=== PATIENT | female | born 1945 | race Caucasian/White ===

== ENCOUNTER 2023-04-06 12:28 | Observation (INO) | payer OTHER ==
--- OUTSIDE RECORDS SUMMARY | 2023-04-06 12:49 | XMS REPORT | Continuity of Care Document ---
:1945 Author Organization [facility] t Address [address] [facility] [facility]. [address] [place] [address] Care Team Providers Name Role Phone Latasha Calixto Primary Care Physician Juan M Clark Attending Clinician Unavailable LATASHA MCDERMOTT Attending Clinician Unavailable Latasha Calixto Attending Clinician Kyle Hughes Attending Clinician [phone] KYLE OLIVARES Attending Clinician Unavailable YOLI PELAYO Attending Clinician Unavailable Yoli Pelayo MD Attending Clinician King ALEX MD, James C Attending Clinician Unknown, Attending Attending Clinician Unavailable FARHDA CARTER III Attending Clinician Unavailable Kathya Shankar MD Attending Clinician KATHYA SHANKAR Attending Clinician Unavailable MARGARITA PRATT Attending Clinician Unavailable Margarita Harp Attending Clinician Doctor Unassigned, [place] Attending Clinician Unavailable YUAN BIRD Attending Clinician Unavailable YUAN BIRD Attending Clinician Unavailable Yuan Bird MD Attending Clinician Lab, Ang - Db Attending Clinician Unavailable Leatha Patton Attending Clinician Juan M Clark Admitting Clinician Unavailable MARGARITA PRATT Admitting Clinician Unavailable YUAN BIRD Admitting Clinician Unavailable Leatha Patton Admitting Clinician Payers Payer Name Policy Type Policy Number Effective Date Expiration Date Jamia gaviria [facility] [id number] 2021 [facility] 00:00:00 PPO Problems Condition Condition Condition Status Onset Resolution Last Treating Co mments Source Name Details Category Date Date Treatment Clinician Date Breast Breast Disease Active Univers mass, mass, 9-15 ity of right right 00:00: [place] [address] Medical Branch History of History of Disease Active U nivers right right 9-15 ity of breast breast 00:00: [place] cancer cancer Medical Branch Hyperchole Hyperchole Disease Active U stefano sterolemia sterolemia 8 it y of 00:00: [place] [facility] Memory Memory Disease Active Univers changes changes 7 ity of 00:00: [place] [address] Medical Branch Chronic Chronic Disease Active Univers fatigue fatigue 05-18 ity of 00:00: [place] [address] Medical Branch Essential Essential Disease Active Uni vers hypertensi hypertensi 05-16 it y of on on 00:00: [place] [address] Medical Branch UNRESTRAIN UNRESTRAI Diagnosis Active 2016-07-06 Memoria ED NURSE WOUND CARE JUANA NURSE WOUND CARE 07-06 17:11:00 l IN VAN IN VAN 00:00: Abdi [facility] 00 Active 07/06/2016 [facility] HYPOKALEMI HYPOKALEM Diagnosis Active 2016-07-17 Memoria A,HYPOMAGN IA,HYPOMAG 07-06 22:02:00 l ESIA NESIA 00:00: Abdi Active 00 07/06/2016 [facility] Hyperlipid Hyperlipi Problem Active 2016-07-15 Memoria emia demia 01:12:46 l (disorder) (disorder) He rmann Active Problem 07/15/2016 [facility] HYPOKALEMI HYPOKALEM Diagnosis Active 2016-07-17 Memoria A IA Active 22:02:00 l [facility] UTI Problem St. (urinary [facility] tract [facility] l [facility] COVID-[address] virus [facility] Weakness Problem Active [facility] Sepsis Problem [facility] Hypertensi Problem Active [facility] on [facility] Hypokalemi Problem Active [facility] a [facility] History of Past Illness Condition Condition Condition Status Onset Resolution Last Treating Co mments Source Name Details Category Date Date Treatment Clinician Date Discharge Problem 2016-07-15 2016-07-15 Memoria Diagnosis: Discharge 07-06 01:12:46 01:12:46 l Closed Diagnosis: 05:00: [place] n anterior Closed 00 displaced anterior type II displaced dens type II fracture dens of second fracture cervical of second vertebra cervical vertebra 07/06/2016 6 [facility] Allergies, Adverse Reactions, Alerts Allergy Allergy Status Severity Reaction(s) Onset Inactive Treating Comm ents Source Name Type Date Date Clinician Penicill Allergy Active [facility] ins to 6-15 [facility] Penicill [facility] Penicill Allergy Active [facility]. ins to 6-14 [facility] 21:20: [facility] Penicill DA [facility] naproxen naproxen Active John Patton NO KNOWN Drug Active Univers ALLERGIE Class ity of S [facility] Social History Social Habit Start Date Stop Date Quantity Comments Source Exposure to 2022 2022-12-06 Not sure [facility] SARS-CoV-2 00:00:00 10:34:00 [facility] (event) Branch Alcohol intake 2022-12-06 2022-12-06 Ex-drinker [facility] 00:00:00 00:00:00 (finding) [facility] Tobacco use and 2022-05-16 2022-05-16 Smokeless tobacco Un iversity of exposure 00:00:00 00:00:00 non-user [facility] Sex [birth year] Universit y of 00:00:00 00:00:00 [place] [facility] Smoking Status Start Date Stop Date Source Unknown if ever smoked [facility] Social [facility] Medications Ordered Filled Start Stop Current Ordering Indication Dosage Frequency Signature Comments Components Source Medication Medication Date Date Medication? Clinician (SIG) Name Name famotidine Yes 20mg Take 20 mg U nivers 20 mg 1-27 by mouth ity of tablet 15:19: in the [place] [address] morning Medical and 20 mg Branch in the evening. omeprazole 0 Yes 20mg Take 20 mg U nivers 20 mg 1-27 by mouth ity of capsule 15:19: in the [place] [address] morning. Medical Branch Melatonin 5 Yes Take by Uni vers mg tablet 1-27 mouth ity of 15:19: every [place] [address] evening. Medical Branch famotidine Yes 20mg Take 20 mg U nivers 20 mg 1-27 by mouth ity of tablet 15:19: in the [place] [address] morning Medical and 20 mg Branch in the evening. omeprazole Yes 20mg Take 20 mg U nivers 20 mg 1-27 by mouth ity of capsule 15:19: in the [place] [address] morning. Medical Branch Melatonin 5 0 Yes Take by Uni vers mg tablet 1-27 mouth ity of 15:19: every [place] [address] evening. Medical Branch atorvastati Yes [id number] 10mg Take 1 Univers n 10 mg 1-27 tablet by ity of tablet 00:00: mouth at [place] [address] bedtime. Medical Branch lisinopriL 2022-0 Yes [id number] 10mg Take 1 U nivers 10 mg 1-27 tablet by ity of tablet 00:00: mouth in [place] 00 the Medical morning. Branch atorvastati 2022-0 Yes [id number] 10mg Take 1 Univers n 10 mg 1-27 tablet by ity of tablet 00:00: mouth at [place] [address] bedtime. Medical Branch lisinopriL 2022-0 Yes [id number] 10mg Take 1 U nivers 10 mg 1-27 tablet by ity of tablet 00:00: mouth in [place] 00 the Medical morning. Branch ATORVASTATI 2022-0 Yes [id number] 10mg TAKE 1 Univers N 10 mg 1-19 TABLET BY ity of tablet 00:00: MOUTH AT [place] 00 BEDTIME Medical Branch LISINOPRIL 2022-0 Yes [id number] Take 1 U nivers 10 mg 1-19 tablet by ity of tablet 00:00: mouth once [place] 00 daily Medical Branch atorvastati 2022-0 Yes [id number] 10mg Take 1 Univers n 10 mg 1-19 tablet by ity of tablet 00:00: mouth at [place] 00 bedtime. Medical Branch lisinopriL 2022-0 Yes [id number] 10mg Take 1 U nivers 10 mg 1-19 tablet by ity of tablet 00:00: mouth in [place] 00 the Medical morning. Branch atorvastati 2022- Yes [id number] 10mg Take 1 Univers n 10 mg 1-19 tablet by ity of tablet 00:00: mouth at [place] 00 bedtime. Medical Branch lisinopriL 2022- Yes [id number] 10mg Take 1 U nivers 10 mg 1-19 tablet by ity of tablet 00:00: mouth in [place] 00 the Medical morning. Branch atorvastati 2022-2022- No [id number] 10mg Take 1 Univers n 10 mg -12-06 tablet by ity of tablet 00:00: 00:00 mouth at [place] 00 :00 bedtime. Medical Branch lisinopriL 2022-2022- No [id number] 10mg Take 1 Univers 10 mg -12-06 tablet by ity of tablet 00:00: 00:00 mouth in [place] 00 :00 the Medical morning. Branch atorvastati 2022-2022- No [id number] 10mg Take 1 Univers n 10 mg -12-06 tablet by ity of tablet 00:00: 00:00 mouth at [place] 00 :00 bedtime. Medical Branch lisinopriL 2022-0 2022- No [id number] 10mg Take 1 Univers 10 mg -12-06 tablet by ity of tablet 00:00: 00:00 mouth in [place] 00 :00 the Medical morning. Branch ATORVASTATI 2022-0 2022- No [id number] 10mg TAKE 1 Univers N 10 mg -11-28 TABLET BY ity of tablet 00:00: 00:00 MOUTH AT [place] 00 :00 BEDTIME Medical Branch LISINOPRIL 2022-0 2022- No [id number] Take 1 Univers 10 mg 1-19 - tablet by ity of tablet 00:00: 00:[place] :[place] daily [place] NaCl 0.9% 2021-11- No 1000mL at 999 Uni vers (NS) IV 12-31 mL/hr, ity of infusion 17:45: 19:26 [place]ven[place] 1,000 mL 00 :00 s, ONCE, 1 Medic al dose, On Branch 11/09/22 at 1145, REBEKA famotidine 2021-11 Yes 20mg Take 20 mg U nivers 20 mg 1-04 by mouth ity of tablet 09:52: in the [place] [address] morning Medical and 20 mg Branch in the evening. famotidine 2021-11 Yes 20mg Take 20 mg U nivers 20 mg 1-04 by mouth ity of tablet 09:52: in the [place] [address] morning Medical and 20 mg Branch in the evening. famotidine 2021-11 Yes 20mg Take 20 mg U nivers 20 mg 1-04 by mouth ity of tablet 09:52: in the [place] [address] morning Medical and 20 mg Branch in the evening. famotidine 2021-11 Yes 20mg Take 20 mg U nivers 20 mg 1-04 by mouth ity of tablet 09:52: in the [place] [address] morning Medical and 20 mg Branch in the evening. famotidine 2021-11 Yes 20mg Take 20 mg U nivers 20 mg 1-04 by mouth ity of tablet 09:52: in the [place] [address] morning Medical and 20 mg Branch in the evening. famotidine 2021-11 Yes 20mg Take 20 mg U nivers 20 mg 1-04 by mouth ity of tablet 09:52: in the [place] [address] morning Medical and 20 mg Branch in the evening. famotidine 2021-11 Yes 20mg Take 20 mg U nivers 20 mg 1-04 by mouth ity of tablet 09:52: in the [place] [address] morning Medical and 20 mg Branch in the evening. famotidine 2021-11 Yes 20mg Take 20 mg U nivers 20 mg 1-04 by mouth ity of tablet 09:52: in the [place] [address] morning Medical and 20 mg Branch in the evening. maalox:diph 2021-11- No 15mL 15 mL, Uni vers enhydrAMINE 11-11 Oral, ity of :lidocaine 06:00: 05:53 ONCE, 1 [place] as 2 % viscous 00 :00 dose, On Medi tasha 1:1:1 Wed Branch ([facility] 09/11/22 at [facility]) 0100, oral Routine suspension 15 mL iopamidol 2021-11- No [id number] 65mL 65 mL, U nivers (ISOVUE 11-11 Intravenou ity o f 370-500 mL) 04:45: 04:45 s, ONCE, 1 [place] injection 00 :00 dose, On Medica l 65 mL Tue Branch 09/10/22 at 2345, Routine ondansetron 2021-11- No 4mg 4 mg, Slow Univers (ZOFRAN 11-11 IV Push, ity of (PF)) 03:30: 03:25 ONCE, 1 [place] injection 4 00 :00 dose, On Medi tasha mg Tue Branch 09/10/22 at 2230, REBEKA morpHINE (4 2021-11 No 4mg 4 mg, Slow Univers mg/mL) 11-11 IV Push, ity of injection 4 03:30: 03:25 ONCE, 1 [place] mg 00 :00 dose, On Medical Tue Branch 09/10/22 at 2230, STAT ondansetron 2021-11 Yes [id number] 4mg Take 1 Univers 4 mg 1-02 tablet by ity of disintegrat 00:00: mouth [place] ing tablet 00 every 8 Medica l (eight) Branch hours as needed for Nausea and Vomiting (N/V). cephALEXin 2021-11 Yes [id number] 500mg Take 1 Univers 500 mg 1-02 tablet by ity of tablet 00:00: mouth in [place] [address] the Medical morning Branch and 1 tablet in the evening. ondansetron 2021-11 Yes [id number] 4mg Take 1 Univers 4 mg 1-02 tablet by ity of disintegrat 00:00: mouth [place] ing tablet 00 every 8 Medica l (eight) Branch hours as needed for Nausea and Vomiting (N/V). cephALEXin 2021-11 Yes [id number] 500mg Take 1 Univers 500 mg 1-02 tablet by ity of tablet 00:00: mouth in [place] [address] the Medical morning Branch and 1 tablet in the evening. ondansetron 2021-11 Yes [id number] 4mg Take 1 Univers 4 mg 1-02 tablet by ity of disintegrat 00:00: mouth [place] ing tablet 00 every 8 Medica l (eight) Branch hours as needed for Nausea and Vomiting (N/V). cephALEXin 2021-11 Yes [id number] 500mg Take 1 Univers 500 mg 1-02 tablet by ity of tablet 00:00: mouth in [place] 00 the Medical morning Branch and 1 tablet in the evening. ondansetron 2021-11 Yes [id number] 4mg Take 1 Univers 4 mg 1-02 tablet by ity of disintegrat 00:00: mouth [place] ing tablet 00 every 8 Medica l (eight) Branch hours as needed for Nausea and Vomiting (N/V). cephALEXin 2021-11 Yes [id number] 500mg Take 1 Univers 500 mg 1-02 tablet by ity of tablet 00:00: mouth in [place] 00 the Medical morning Branch and 1 tablet in the evening. ondansetron 2021-11 Yes [id number] 4mg Take 1 Univers 4 mg 1-02 tablet by ity of disintegrat 00:00: mouth [place] ing tablet 00 every 8 Medica l (eight) Branch hours as needed for Nausea and Vomiting (N/V). cephALEXin 2021-11 Yes [id number] 500mg Take 1 Univers 500 mg 1-02 tablet by ity of tablet 00:00: mouth in [place] 00 the Medical morning Branch and 1 tablet in the evening. ondansetron 2021-11 Yes [id number] 4mg Take 1 Univers 4 mg 1-02 tablet by ity of disintegrat 00:00: mouth [place] ing tablet 00 every 8 Medica l (eight) Branch hours as needed for Nausea and Vomiting (N/V). cephALEXin 2021-11 Yes [id number] 500mg Take 1 Univers 500 mg 1-02 tablet by ity of tablet 00:00: mouth in [place] 00 the Medical morning Branch and 1 tablet in the evening. ondansetron 2021-11 Yes [id number] 4mg Take 1 Univers 4 mg 1-02 tablet by ity of disintegrat 00:00: mouth [place] ing tablet 00 every 8 Medica l (eight) Branch hours as needed for Nausea and Vomiting (N/V). cephALEXin 2021- Yes [id number] 500mg Take 1 Univers 500 mg 1-02 tablet by ity of tablet 00:00: mouth in [place] 00 the Medical morning Branch and 1 tablet in the evening. ondansetron 2021-11 Yes [id number] 4mg Take 1 Univers 4 mg 1-02 tablet by ity of disintegrat 00:00: mouth [place] ing tablet 00 every 8 Medica l (eight) Branch hours as needed for Nausea and Vomiting (N/V). cephALEXin 2021-11 Yes [id number] 500mg Take 1 Univers 500 mg 1-02 tablet by ity of tablet 00:00: mouth in [place] 00 the Medical morning Branch and 1 tablet in the evening. ondansetron 2021-11 Yes [id number] 4mg Take 1 Univers 4 mg 1-02 tablet by ity of disintegrat 00:00: mouth [place] ing tablet 00 every 8 Medica l (eight) Branch hours as needed for Nausea and Vomiting (N/V). cephALEXin 2021-11 Yes [id number] 500mg Take 1 Univers 500 mg 1-02 tablet by ity of tablet 00:00: mouth in [place] 00 the Medical morning Branch and 1 tablet in the evening. ondansetron 2021-11 Yes [id number] 4mg Take 1 Univers 4 mg 1-02 tablet by ity of disintegrat 00:00: mouth [place] ing tablet 00 every 8 Medica l (eight) Branch hours as needed for Nausea and Vomiting (N/V). ondansetron 2021-11 Yes [id number] 4mg Take 1 Univers 4 mg 1-02 tablet by ity of disintegrat 00:00: mouth [place] ing tablet 00 every 8 Medica l (eight) Branch hours as needed for Nausea and Vomiting (N/V). cephALEXin 2021-11- No [id number] 500mg Take 1 Univers 500 mg 1-02 -27 tablet by ity of tablet 00:00: 00:00 mouth in [place] 00 :00 the Medical morning Branch and 1 tablet in the evening. cephALEXin 2021-11- No [id number] 500mg Take 1 Univers 500 mg 1-02 -27 tablet by ity of tablet 00:00: 00:00 mouth in [place] 00 :00 the Medical morning Branch and 1 tablet in the evening. atorvastati 0 Yes [id number] 10mg Take 1 Univers n 10 mg 8-05 tablet by ity of tablet 00:00: mouth at [place] bedtime. Medical Branch atorvastati Yes [id number] 10mg Take 1 Univers n 10 mg 8-05 tablet by ity of tablet 00:00: mouth at [place] bedtime. Medical Branch atorvastati Yes [id number] 10mg Take 1 Univers n 10 mg 8-05 tablet by ity of tablet 00:00: mouth at [place] bedtime. Medical Branch atorvastati Yes [id number] 10mg Take 1 Univers n 10 mg 8-05 tablet by ity of tablet 00:00: mouth at [place] bedtime. Medical Branch atorvasta Yes [id number] 10mg Take 1 Univers n 10 mg 8-05 tablet by ity of tablet 00:00: mouth at [place] bedtime. Medical Branch atorvasta Yes [id number] 10mg Take 1 Univers n 10 mg 8-05 tablet by ity of tablet 00:00: mouth at [place] bedtime. Medical Branch atorvasta Yes [id number] 10mg Take 1 Univers n 10 mg 8-05 tablet by ity of tablet 00:00: mouth at [place] bedtime. Medical Branch atorvasta Yes [id number] 10mg Take 1 Univers n 10 mg 8-05 tablet by ity of tablet 00:00: mouth at [place] bedtime. Medical Branch atorvasta Yes [id number] 10mg Take 1 Univers n 10 mg 8-05 tablet by ity of tablet 00:00: mouth at [place] [address] bedtime. Medical Branch atorvastati Yes [id number] 10mg Take 1 Univers n 10 mg 8-05 tablet by ity of tablet 00:00: mouth at [place] [address] bedtime. Medical Branch atorvastati Yes [id number] 10mg Take 1 Univers n 10 mg 8-05 tablet by ity of tablet 00:00: mouth at [place] [address] bedtime. Medical Branch atorvastati Yes [id number] 10mg Take 1 Univers n 10 mg 8-05 tablet by ity of tablet 00:00: mouth at [place] [address] bedtime. Medical Branch atorvastati Yes [id number] 10mg Take 1 Univers n 10 mg 8-05 tablet by ity of tablet 00:00: mouth at [place] 00 bedtime. Medical Branch atorvastati 2022-0 Yes [id number] 10mg Take 1 Univers n 10 mg 8-05 tablet by ity of tablet 00:00: mouth at [place] 00 bedtime. Medical Branch atorvastati 2022-0 Yes [id number] 10mg Take 1 Univers n 10 mg 8-05 tablet by ity of tablet 00:00: mouth at [place] 00 bedtime. Medical Branch atorvastati 2022-0 2023- No [id number] 10mg Take 1 Univers n 10 mg 8-05 -19 tablet by ity of tablet 00:00: 00:00 mouth at [place] 00 :00 bedtime. Medical Branch HYDROcodone 2021-0 Yes TAKE 1 Univ ers -acetaminop 7-28 TABLET BY ity of hen 5-325 00:00: MOUTH [place] mg tablet 00 EVERY 4 TO Medi tasha 6 HOURS Branch NEEDED FOR PAIN HYDROcodone 2021-0 Yes TAKE 1 Univ ers -acetaminop 7-28 TABLET BY ity of hen 5-325 00:00: MOUTH [place] mg tablet 00 EVERY 4 TO Medi tasha 6 HOURS Branch NEEDED FOR PAIN HYDROcodone 2-0 Yes TAKE 1 Univ ers -acetaminop 7-28 TABLET BY ity of hen 5-325 00:00: MOUTH [place] mg tablet 00 EVERY 4 TO Medi tasha 6 HOURS Branch NEEDED FOR PAIN HYDROcodone 2-0 Yes TAKE 1 Univ ers -acetaminop 7-28 TABLET BY ity of hen 5-325 00:00: MOUTH [place] mg tablet 00 EVERY 4 TO Medi tasha 6 HOURS Branch NEEDED FOR PAIN HYDROcodone 2-0 Yes TAKE 1 Univ ers -acetaminop 7-28 TABLET BY ity of hen 5-325 00:00: MOUTH [place] mg tablet 00 EVERY 4 TO Medi tasha 6 HOURS Branch NEEDED FOR PAIN HYDROcodone 2-0 Yes TAKE 1 Univ ers -acetaminop 7-28 TABLET BY ity of hen 5-325 00:00: MOUTH [place] mg tablet 00 EVERY 4 TO Medi tasha 6 HOURS Branch NEEDED FOR PAIN HYDROcodone 2-0 Yes TAKE 1 Univ ers -acetaminop 7-28 TABLET BY ity of hen 5-325 00:00: MOUTH [place] mg tablet 00 EVERY 4 TO Medi tasha 6 HOURS Branch NEEDED FOR PAIN HYDROcodone 2022-0 Yes TAKE 1 Univ ers -acetaminop 7-28 TABLET BY ity of hen 5-325 00:00: MOUTH [place] mg tablet 00 EVERY 4 TO Medi tasha 6 HOURS Branch NEEDED FOR PAIN HYDROcodone Yes TAKE 1 Univ ers -acetaminop 7-28 TABLET BY ity of hen 5-325 00:00: MOUTH [place] mg tablet 00 EVERY 4 TO Medi tasha 6 HOURS Branch NEEDED FOR PAIN HYDROcodone Yes TAKE 1 Univ ers -acetaminop 7-28 TABLET BY ity of hen 5-325 00:00: MOUTH [place] mg tablet 00 EVERY 4 TO Medi tasha 6 HOURS Branch NEEDED FOR PAIN HYDROcodone 2021- No TAKE 1 Uni vers -acetaminop 7-28 11-04 TABLET BY it y of hen 5-325 00:00: 00:00 MOUTH [place] mg tablet 00 :00 EVERY 4 TO Medi tasha 6 HOURS Branch NEEDED FOR PAIN HYDROcodone 2021- No TAKE 1 Uni vers -acetaminop 7-28 11-04 TABLET BY it y of hen 5-325 00:00: 00:00 MOUTH [place] mg tablet 00 :00 EVERY 4 TO Medi tasha 6 HOURS Branch NEEDED FOR PAIN cetirizine Yes 10mg Take 10 mg U nivers 10 mg 7-07 by mouth ity of chewable 10:22: daily. [place] tablet 35 Medical Branch albuterol Yes 2{puff} Inhale 2 U nivers (VENTOLIN 7-07 Puffs ity of HFA) 90 10:22: every 6 [place] mcg/actuati 35 (six) Medical on inhaler hours as Branc h needed for Wheezing or Shortness of Breath. cetirizine Yes 10mg Take 10 mg U nivers 10 mg 7-07 by mouth ity of chewable 10:22: daily. [place] tablet 35 Medical Branch albuterol Yes 2{puff} Inhale 2 U nivers (VENTOLIN 7-07 Puffs ity of HFA) 90 10:22: every 6 [place] mcg/actuati 35 (six) Medical on inhaler hours as Branc h needed for Wheezing or Shortness of Breath. cetirizine Yes 10mg Take 10 mg U nivers 10 mg 7-07 by mouth ity of chewable 10:22: daily. [place] tablet 35 Medical Branch albuterol 2021-0 Yes 2{puff} Inhale 2 U nivers (VENTOLIN 7-07 Puffs ity of HFA) 90 10:22: every 6 [place] mcg/actuati 35 (six) Medical on inhaler hours as Branc h needed for Wheezing or Shortness of Breath. cetirizine 2021-0 Yes 10mg Take 10 mg U nivers 10 mg 7-07 by mouth ity of chewable 10:22: daily. [place] tablet 35 Medical Branch albuterol 2021-0 Yes 2{puff} Inhale 2 U nivers (VENTOLIN 7-07 Puffs ity of HFA) 90 10:22: every 6 [place] mcg/actuati 35 (six) Medical on inhaler hours as Branc h needed for Wheezing or Shortness of Breath. cetirizine 2021-0 Yes 10mg Take 10 mg U nivers 10 mg 7-07 by mouth ity of chewable 10:22: daily. [place] tablet 35 Medical [place] albuterol 2021-0 Yes 2{puff} Inhale 2 U nivers (VENTOLIN 7-07 Puffs ity of HFA) 90 10:22: every 6 [place] mcg/actuati 35 (six) Medical on inhaler hours as Branc h needed for Wheezing or Shortness of Breath. cetirizine 2021-0 Yes 10mg Take 10 mg U nivers 10 mg 7-07 by mouth ity of chewable 10:22: daily. [place] tablet 35 Medical [place] albuterol 2021-0 Yes 2{puff} Inhale 2 U nivers (VENTOLIN 7-07 Puffs ity of HFA) 90 10:22: every 6 [place] mcg/actuati 35 (six) Medical on inhaler hours as Branc h needed for Wheezing or Shortness of Breath. cetirizine 2021-0 Yes 10mg Take 10 mg U nivers 10 mg 7-07 by mouth ity of chewable 10:22: daily. [place] tablet 35 Medical Branch albuterol 2021-0 Yes 2{puff} Inhale 2 U nivers (VENTOLIN 7-07 Puffs ity of HFA) 90 10:22: every 6 [place] mcg/actuati 35 (six) Medical on inhaler hours as Branc h needed for Wheezing or Shortness of Breath. cetirizine 2021-0 Yes 10mg Take 10 mg U nivers 10 mg 7-07 by mouth ity of chewable 10:22: daily. [place] tablet 35 Medical Branch albuterol 2021-0 Yes 2{puff} Inhale 2 U nivers (VENTOLIN 7-07 Puffs ity of HFA) 90 10:22: every 6 [place] mcg/actuati 35 (six) Medical on inhaler hours as Branc h needed for Wheezing or Shortness of Breath. cetirizine 2021-0 Yes 10mg Take 10 mg U nivers 10 mg 7-07 by mouth ity of chewable 10:22: daily. [place] tablet 35 Medical Branch albuterol 2021-0 Yes 2{puff} Inhale 2 U nivers (VENTOLIN 7-07 Puffs ity of HFA) 90 10:22: every 6 [place] mcg/actuati 35 (six) Medical on inhaler hours as Branc h needed for Wheezing or Shortness of Breath. cetirizine 2021-0 Yes 10mg Take 10 mg U nivers 10 mg 7-07 by mouth ity of chewable 10:22: daily. [place] tablet 35 Medical [place] albuterol 2021-0 Yes 2{puff} Inhale 2 U nivers (VENTOLIN 7-07 Puffs ity of HFA) 90 10:22: every 6 [place] mcg/actuati 35 (six) Medical on inhaler hours as Branc h needed for Wheezing or Shortness of Breath. cetirizine 2021-0 Yes 10mg Take 10 mg U nivers 10 mg 7-07 by mouth ity of chewable 10:22: daily. [place] tablet 35 Medical Branch albuterol 2021-0 Yes 2{puff} Inhale 2 U nivers (VENTOLIN 7-07 Puffs ity of HFA) 90 10:22: every 6 [place] mcg/actuati 35 (six) Medical on inhaler hours as Branc h needed for Wheezing or Shortness of Breath. cetirizine 2021-0 Yes 10mg Take 10 mg U nivers 10 mg 7-07 by mouth ity of chewable 10:22: daily. [place] tablet 35 Medical Branch albuterol 2021-0 Yes 2{puff} Inhale 2 U nivers (VENTOLIN 7-07 Puffs ity of HFA) 90 10:22: every 6 [place] mcg/actuati 35 (six) Medical on inhaler hours as Branc h needed for Wheezing or Shortness of Breath. cetirizine 2021-0 Yes 10mg Take 10 mg U nivers 10 mg 7-07 by mouth ity of chewable 10:22: daily. [place] tablet 35 Medical Branch albuterol 2021-0 Yes 2{puff} Inhale 2 U nivers (VENTOLIN 7-07 Puffs ity of HFA) 90 10:22: every 6 [place] mcg/actuati 35 (six) Medical on inhaler hours as Branc h needed for Wheezing or Shortness of Breath. cetirizine 2021-0 Yes 10mg Take 10 mg U nivers 10 mg 7-07 by mouth ity of chewable 10:22: daily. [place] tablet 35 [facility] albuterol 2021-0 Yes 2{puff} Inhale 2 U nivers (VENTOLIN 7-07 Puffs ity of HFA) 90 10:22: every 6 [place] mcg/actuati 35 (six) Medical on inhaler hours as Branc h needed for Wheezing or Shortness of Breath. cetirizine 2021-0 Yes 10mg Take 10 mg U nivers 10 mg 7-07 by mouth ity of chewable 10:22: daily. [place] tablet 35 Medical Branch albuterol 2021-0 Yes 2{puff} Inhale 2 U nivers (VENTOLIN 7-07 Puffs ity of HFA) 90 10:22: every 6 [place] mcg/actuati 35 (six) Medical on inhaler hours as Branc h needed for Wheezing or Shortness of Breath. cetirizine 2021-0 Yes 10mg Take 10 mg U nivers 10 mg 7-07 by mouth ity of chewable 10:22: daily. [place] tablet 35 [facility] albuterol 2021-0 Yes 2{puff} Inhale 2 U nivers (VENTOLIN 7-07 Puffs ity of HFA) 90 10:22: every 6 [place] mcg/actuati 35 (six) Medical on inhaler hours as Branc h needed for Wheezing or Shortness of Breath. cetirizine 2021-0 Yes 10mg Take 10 mg U nivers 10 mg 7-07 by mouth ity of chewable 10:22: daily. [place] tablet 35 [facility] albuterol 2021-0 Yes 2{puff} Inhale 2 U nivers (VENTOLIN 7-07 Puffs ity of HFA) 90 10:22: every 6 [place] mcg/actuati 35 (six) Medical on inhaler hours as Branc h needed for Wheezing or Shortness of Breath. cetirizine 2021-0 Yes 10mg Take 10 mg U nivers 10 mg 7-07 by mouth ity of chewable 10:22: daily. [place] tablet 35 [facility] albuterol 2021-0 Yes 2{puff} Inhale 2 U nivers (VENTOLIN 7-07 Puffs ity of HFA) 90 10:22: every 6 [place] mcg/actuati 35 (six) Medical on inhaler hours as Branc h needed for Wheezing or Shortness of Breath. cetirizine 2021-0 Yes 10mg Take 10 mg U nivers 10 mg 7-07 by mouth ity of chewable 10:22: daily. [place] tablet 35 [facility] albuterol 2021-0 Yes 2{puff} Inhale 2 U nivers (VENTOLIN 7-07 Puffs ity of HFA) 90 10:22: every 6 [place] mcg/actuati 35 (six) Medical on inhaler hours as Branc h needed for Wheezing or Shortness of Breath. cetirizine 2021-0 Yes 10mg Take 10 mg U nivers 10 mg 7-07 by mouth ity of chewable 10:22: daily. [place] tablet 35 [facility] albuterol 2021-0 Yes 2{puff} Inhale 2 U nivers (VENTOLIN 7-07 Puffs ity of HFA) 90 10:22: every 6 [place] mcg/actuati 35 (six) Medical on inhaler hours as Branc h needed for Wheezing or Shortness of Breath. benzonatate 2021-0 Yes [id number] 100mg Take 1 [facility] (TESSALON 7-07 [id number] capsule by i ty of SHARLA) 100 00:00: mouth [place] mg capsule 00 every 8 Medica l (eight) Branch hours as needed for Cough. lisinopriL 2021-0 Yes [id number] 10mg Take 1 U nivers 10 mg 7-07 tablet by ity of tablet 00:00: mouth [place] 00 daily. Medical Branch benzonatate 2-0 Yes [id number] 100mg Take 1 [facility] (TESSALON 7-07 [id number] capsule by i ty of PERLES) 100 00:00: mouth [place] mg capsule 00 every 8 Medica l (eight) Branch hours as needed for Cough. lisinopriL 2021-0 Yes [id number] 10mg Take 1 U nivers 10 mg 7-07 tablet by ity of tablet 00:00: mouth [place] 00 daily. Medical Branch benzonatate 2021-0 Yes [id number] 100mg Take 1 [facility] (TESSALON 7-07 [id number] capsule by i ty of PERLES) 100 00:00: mouth [place] mg capsule 00 every 8 Medica l (eight) Branch hours as needed for Cough. lisinopriL 2021-0 Yes [id number] 10mg Take 1 U nivers 10 mg 7-07 tablet by ity of tablet 00:00: mouth [place] 00 daily. Medical Branch benzonatate 2021-0 Yes [id number] 100mg Take 1 [facility] (TESSALON 7-07 [id number] capsule by i ty of PERLES) 100 00:00: mouth [place] mg capsule 00 every 8 Medica l (eight) Branch hours as needed for Cough. lisinopriL 2021-0 Yes [id number] 10mg Take 1 U nivers 10 mg 7-07 tablet by ity of tablet 00:00: mouth [place] 00 daily. Medical Branch benzonatate 2021-0 Yes [id number] 100mg Take 1 [facility] (TESSALON 7-07 [id number] capsule by i ty of PERLES) 100 00:00: mouth [place] mg capsule 00 every 8 Medica l (eight) Branch hours as needed for Cough. lisinopriL 2021-0 Yes [id number] 10mg Take 1 U nivers 10 mg 7-07 tablet by ity of tablet 00:00: mouth [place] 00 daily. Medical Branch benzonatate 2021-0 Yes [id number] 100mg Take 1 [facility] (TESSALON 7-07 [id number] capsule by i ty of PERLES) 100 00:00: mouth [place] mg capsule 00 every 8 Medica l (eight) Branch hours as needed for Cough. lisinopriL 2-0 Yes [id number] 10mg Take 1 U nivers 10 mg 7-07 tablet by ity of tablet 00:00: mouth [place] 00 daily. Medical Branch benzonatate 2-0 Yes [id number] 100mg Take 1 [facility] (TESSALON 7-07 [id number] capsule by i ty of PERLES) 100 00:00: mouth [place] mg capsule 00 every 8 Medica l (eight) Branch hours as needed for Cough. lisinopriL 2-0 Yes [id number] 10mg Take 1 U nivers 10 mg 7-07 tablet by ity of tablet 00:00: mouth [place] 00 daily. Medical Branch benzonatate 2021-0 Yes [id number] 100mg Take 1 [facility] (TESSALON 7-07 [id number] capsule by i ty of PERLES) 100 00:00: mouth [place] mg capsule 00 every 8 Medica l (eight) Branch hours as needed for Cough. lisinopriL 2021-0 Yes [id number] 10mg Take 1 U nivers 10 mg 7-07 tablet by ity of tablet 00:00: mouth [place] 00 daily. Medical Branch benzonatate 2021-0 Yes [id number] 100mg Take 1 [facility] (TESSALON 7-07 [id number] capsule by i ty of PERLES) 100 00:00: mouth [place] mg capsule 00 every 8 Medica l (eight) Branch hours as needed for Cough. lisinopriL 2021-0 Yes [id number] 10mg Take 1 U nivers 10 mg 7-07 tablet by ity of tablet 00:00: mouth [place] 00 daily. Medical Branch benzonatate 2021-0 Yes [id number] 100mg Take 1 [facility] (TESSALON 7-07 [id number] capsule by i ty of PERLES) 100 00:00: mouth [place] mg capsule 00 every 8 Medica l (eight) Branch hours as needed for Cough. lisinopriL 2-0 Yes [id number] 10mg Take 1 U nivers 10 mg 7-07 tablet by ity of tablet 00:00: mouth [place] 00 daily. Medical Branch benzonatate 2-0 Yes [id number] 100mg Take 1 [facility] (TESSALON 7-07 [id number] capsule by i ty of PERLES) 100 00:00: mouth [place] mg capsule 00 every 8 Medica l (eight) Branch hours as needed for Cough. lisinopriL 2022-0 Yes [id number] 10mg Take 1 U nivers 10 mg 7-07 tablet by ity of tablet 00:00: mouth [place] 00 daily. Medical Branch benzonatate 2022-0 Yes [id number] 100mg Take 1 [facility] (TESSALON 7-07 [id number] capsule by i ty of PERLES) 100 00:00: mouth [place] mg capsule 00 every 8 Medica l (eight) Branch hours as needed for Cough. lisinopriL 2022-0 Yes [id number] 10mg Take 1 U nivers 10 mg 7-07 tablet by ity of tablet 00:00: mouth [place] 00 daily. Medical Branch benzonatate 2021-0 Yes [id number] 100mg Take 1 [facility] (TESS[place] 7-07 [id number] capsule by i ty of PERLES) 100 00:00: mouth [place] mg capsule 00 every 8 Medica l (eight) Branch hours as needed for Cough. lisinopriL 2021-0 Yes [id number] 10mg Take 1 U nivers 10 mg 7-07 tablet by ity of tablet 00:00: mouth [place] 00 daily. Medical Branch benzonatate 2021-0 Yes [id number] 100mg Take 1 [facility] (TESS[place]ON 7-07 [id number] capsule by i ty of PERLES) 100 00:00: mouth [place] mg capsule 00 every 8 Medica l (eight) Branch hours as needed for Cough. lisinopriL 2-0 Yes [id number] 10mg Take 1 U nivers 10 mg 7-07 tablet by ity of tablet 00:00: mouth [place] 00 daily. Medical Branch benzonatate 2-0 Yes [id number] 100mg Take 1 [facility] (TESSALON 7-07 [id number] capsule by i ty of PERLES) 100 00:00: mouth [place] mg capsule 00 every 8 Medica l (eight) Branch hours as needed for Cough. lisinopriL 2022-0 Yes [id number] 10mg Take 1 U nivers 10 mg 7-07 tablet by ity of tablet 00:00: mouth [place] 00 daily. Medical Branch benzonatate 2022-0 Yes [id number] 100mg Take 1 [facility] (TESS[place]ON 7-07 [id number] capsule by i ty of PERLES) 100 00:00: mouth [place] mg capsule 00 every 8 Medica l (eight) Branch hours as needed for Cough. benzonatate 2022-0 Yes [id number] 100mg Take 1 [facility] (TESSALON 7-07 [id number] capsule by i ty of JEANIE) 100 00:00: mouth [place] mg capsule 00 every 8 Medica l (eight) Branch hours as needed for Cough. benzonatate Yes [id number] 100mg Take 1 [facility] (TESS[place] 05-16 [id number] capsule by i ty of JEANIE) 100 00:00: mouth [place] mg capsule 00 every 8 Medica l (eight) Branch hours as needed for Cough. benzonatate 2022- No [id number] 100mg Take 1 [facility] (TESS[place] 05-16 [id number] capsule by ity of JEANIE) 100 00:00: 00:00 mouth [place] mg capsule 00 :00 every 8 Medica l (eight) Branch hours as needed for Cough. benzonatate 2022- No [id number] 100mg Take 1 [facility] (TESSALON 05-16 [id number] capsule by ity of JEANIE) 100 00:00: 00:00 mouth [place] mg capsule 00 :00 every 8 Medica l (eight) Branch hours as needed for Cough. lisinopriL 2022- No [id number] 10mg Take 1 [facility] 10 mg 05-16 tablet by ity of tablet 00:00: 00:00 mouth [place] 00 :00 daily. Medical Branch Acetaminoph No 2TAB Q6H [facility]/Diphenhy 14 [place] dramine 22:39: [facility] (Tylenol Pm 31 l [facility] 500-25mg Cplt) 1 EACH Tablet magnesium Yes 168 mg = 2 Me moria lactate 84 9-02 tab, PO, l mg oral 16:40: TID, # 180 [facility] cindy tablet, 00 tab, 0 extended Refill(s) release Potassium Yes 40 mEq = 2 Me moria Chloride 20 9-02 tab, PO, l MEQ 16:40: BID, # 240 [place] Extended 00 tab, 0 Release Refill(s) Tablet spironolact Yes 25 mg = 1 M emoria one 25 mg -02 tab, PO, l oral tablet 16:40: BID, # 60 H ermann 00 tab, 0 Refill(s) levothyroxi 2016-0 Yes 50 Memori a ne 50 mcg 9-02 microgram l (0.05 mg) 16:40: = 1 tab, [facility] cindy oral tablet 00 PO, Q630AM, 0 Refill(s) magnesium 2016-0 Yes 168 mg = 2 Me moria lactate 84 9-02 tab, PO, l mg oral 16:40: TID, # 180 [facility] c[facility] tablet, 00 tab, 0 extended Refill(s) release Potassium 2016-0 Yes 40 mEq = 2 Me moria Chloride 20 9-02 tab, PO, l MEQ 16:40: BID, # 240 [place] Extended 00 tab, 0 Release Refill(s) Tablet spironolact 2016-0 Yes 25 mg = 1 M emoria one 25 mg 9-02 tab, PO, l oral tablet 16:40: BID, # 60 H ermann 00 tab, 0 Refill(s) levothyroxi 2015-0 Yes 50 Memori a ne 50 mcg 9-02 microgram l (0.05 mg) 16:40: = 1 tab, [facility] c[facility] oral tablet 00 PO, Q630AM, 0 Refill(s) magnesium 2016-0 Yes 168 mg = 2 Me moria lactate 84 9-02 tab, PO, l mg oral 16:40: TID, # 180 [facility] cindy tablet, 00 tab, 0 extended Refill(s) release Potassium 2016-0 Yes 40 mEq = 2 Me moria Chloride 20 9-02 tab, PO, l MEQ 16:40: BID, # 240 [place] Extended 00 tab, 0 Release Refill(s) Tablet spironolact 2016-0 Yes 25 mg = 1 M emoria one 25 mg 9-02 tab, PO, l oral tablet 16:40: BID, # 60 H [place] 00 tab, 0 Refill(s) levothyroxi 2016-0 Yes 50 Memori a ne 50 mcg 9-02 microgram l (0.05 mg) 16:40: = 1 tab, [facility] c[facility] oral tablet 00 PO, Q630AM, 0 Refill(s) magnesium 2016-0 Yes 168 mg = 2 Me moria lactate 84 9-02 tab, PO, l mg oral 16:40: TID, # 180 [facility] c[facility] tablet, 00 tab, 0 extended Refill(s) release Potassium 2016-0 Yes 40 mEq = 2 Me moria Chloride 20 9-02 tab, PO, l MEQ 16:40: BID, # 240 [place] Extended 00 tab, 0 Release Refill(s) Tablet spironolact 2016-0 Yes 25 mg = 1 M emoria one 25 mg 9-02 tab, PO, l oral tablet 16:40: BID, # 60 H [place] 00 tab, 0 Refill(s) levothyroxi 2015-0 Yes 50 Memori a ne 50 mcg 9-02 microgram l (0.05 mg) 16:40: = 1 tab, [facility] oral tablet 00 PO, Q630AM, 0 Refill(s) magnesium 2016-0 Yes 168 mg = 2 Me moria lactate 84 9-02 tab, PO, l mg oral 16:40: TID, # 180 [facility] c[facility] tablet, 00 tab, 0 extended Refill(s) release Potassium 2016-0 Yes 40 mEq = 2 Me moria Chloride 20 9-02 tab, PO, l MEQ 16:40: BID, # 240 [place] Extended 00 tab, 0 Release Refill(s) Tablet spironolact 2015-0 Yes 25 mg = 1 M emoria one 25 mg 9-02 tab, PO, l oral tablet 16:40: BID, # 60 H [place] 00 tab, 0 Refill(s) levothyroxi 2015-0 Yes 50 Memori a ne 50 mcg 9-02 microgram l (0.05 mg) 16:40: = 1 tab, [facility] oral tablet 00 PO, Q630AM, 0 Refill(s) magnesium 2016-0 Yes 168 mg = 2 Me moria lactate 84 9-02 tab, PO, l mg oral 16:40: TID, # 180 [facility] c[facility] tablet, 00 tab, 0 extended Refill(s) release Potassium 2016-0 Yes 40 mEq = 2 Me moria Chloride 20 9-02 tab, PO, l MEQ 16:40: BID, # 240 [place] Extended 00 tab, 0 Release Refill(s) Tablet spironolact 2016-0 Yes 25 mg = 1 M emoria one 25 mg 9-02 tab, PO, l oral tablet 16:40: BID, # 60 H [place] 00 tab, 0 Refill(s) levothyroxi 2015-0 Yes 50 Memori a ne 50 mcg 9-02 microgram l (0.05 mg) 16:40: = 1 tab, [facility] c[facility] oral tablet 00 PO, Q630AM, 0 Refill(s) magnesium 2016-0 Yes 168 mg = 2 Me moria lactate 84 9-02 tab, PO, l mg oral 16:40: TID, # 180 [facility] c[facility] tablet, 00 tab, 0 extended Refill(s) release Potassium 2016-0 Yes 40 mEq = 2 Me moria Chloride 20 9-02 tab, PO, l MEQ 16:40: BID, # 240 [place] Extended 00 tab, 0 Release Refill(s) Tablet spironolact 2016-0 Yes 25 mg = 1 M emoria one 25 mg 9-02 tab, PO, l oral tablet 16:40: BID, # 60 H [place] 00 tab, 0 Refill(s) levothyroxi 2015- Yes 50 Memori a ne 50 mcg 9-02 microgram l (0.05 mg) 16:40: = 1 tab, [facility] c[facility] oral tablet 00 PO, Q630AM, 0 Refill(s) magnesium 2015-0 Yes 168 mg = 2 Me moria lactate 84 9-02 tab, PO, l mg oral 16:40: TID, # 180 [facility] tablet, 00 tab, 0 extended Refill(s) release Potassium 0 Yes 40 mEq = 2 Me moria Chloride 20 9-02 tab, PO, l MEQ 16:40: BID, # 240 [place] Extended 00 tab, 0 Release Refill(s) Tablet spironolact 0 Yes 25 mg = 1 M emoria one 25 mg 9-02 tab, PO, l oral tablet 16:40: BID, # 60 H [place] 00 tab, 0 Refill(s) levothyroxi 0 Yes 50 Memori a ne 50 mcg 9-02 microgram l (0.05 mg) 16:40: = 1 tab, [facility] c[facility] oral tablet 00 PO, Q630AM, 0 Refill(s) magnesium 2016-0 Yes 168 mg = 2 Me moria lactate 84 9-02 tab, PO, l mg oral 16:40: TID, # 180 [facility] tablet, 00 tab, 0 extended Refill(s) release Potassium 2016-0 Yes 40 mEq = 2 Me moria Chloride 20 9-02 tab, PO, l MEQ 16:40: BID, # 240 [place] Extended 00 tab, 0 Release Refill(s) Tablet spironolact 2016-0 Yes 25 mg = 1 M emoria one 25 mg 9-02 tab, PO, l oral tablet 16:40: BID, # 60 [facility] [place] 00 tab, 0 Refill(s) levothyroxi Yes 50 Memori a ne 50 mcg 9-02 microgram l (0.05 mg) 16:40: = 1 tab, [facility] oral tablet 00 PO, Q630AM, 0 Refill(s) magnesium Yes 168 mg = 2 Me moria lactate 84 9-02 tab, PO, l mg oral 16:40: TID, # 180 [facility] tablet, 00 tab, 0 extended Refill(s) release Potassium Yes 40 mEq = 2 Me moria Chloride 20 9-02 tab, PO, l MEQ 16:40: BID, # 240 [place] Extended 00 tab, 0 Release Refill(s) Tablet spironolact Yes 25 mg = 1 M emoria one 25 mg 9-02 tab, PO, l oral tablet 16:40: BID, # 60 [facility] 00 tab, 0 Refill(s) levothyroxi Yes 50 Memori a ne 50 mcg 9-02 microgram l (0.05 mg) 16:40: = 1 tab, [facility] c[facility] oral tablet 00 PO, Q630AM, 0 Refill(s) Neutra-Phos No Notes: Arthur gabriela 07-11 (Same as: l 14:00: Neutra-Tashia [place] 00 s) Each 1.25 gm pkt has 250mg phosphorou s. Mix w/2.5oz water and stir. Aldactone No Notes: Memori a 07-11 (Same As: l 14:00: Aldactone) [place] 00 potassium No Notes: Memori a chloride 07-11 (Same as: l 14:00: K-Dur 20) [place] 00 "Do Not Crush" With food and full glass of water Neutra-Phos No Notes: Arthur gabriela 07-11 (Same as: l 14:00: Neutra-Tashia [place] 00 s) Each 1.25 gm pkt has 250mg phosphorou s. Mix w/2.5oz water and stir. Aldactone No Notes: Memori a 07-11 (Same As: l 14:00: Aldactone) [place] 00 potassium No Notes: Memori a chloride 9- (Same as: l 14:00: K-Dur 20) Abdi 00 "Do Not Crush" With food and full glass of water Neutra-Phos No Notes: Arthur gabriela 9- (Same as: l 14:00: Neutra-Tashia Abdi 00 s) Each 1.25 gm pkt has 250mg phosphorou s. Mix w/2.5oz water and stir. Aldactone No Notes: Memori a 9-01 (Same As: l 14:00: Aldactone) Abdi potassium No Notes: Memori a chloride 9- (Same as: l 14:00: K-Dur 20) Abdi "Do Not Crush" With food and full glass of water Neutra-Phos No Notes: Arthur garbiela 9- (Same as: l 14:00: Neutra-Tashia [place]di 00 s) Each 1.25 gm pkt has 250mg phosphorou s. Mix w/2.5oz water and stir. Aldactone No Notes: Memori a 9-01 (Same As: l 14:00: Aldactone) [place] 00 potassium No Notes: Memori a chloride 9- (Same as: l 14:00: K-Dur 20) [place] "Do Not Crush" With food and full glass of water Neutra-Phos No Notes: Arthur gabriela 9- (Same as: l 14:00: Neutra-Tashia Abdi 00 s) Each 1.25 gm pkt has 250mg phosphorou s. Mix w/2.5oz water and stir. Aldactone No Notes: Memori a 9-01 (Same As: l 14:00: Aldactone) [place] 00 potassium No Notes: Memori a chloride 9-01 (Same as: l 14:00: K-Dur 20) [place] 00 "Do Not Crush" With food and full glass of water Neutra-Phos No Notes: Arthur gabriela 9-01 (Same as: l 14:00: Neutra-Tashia [place] 00 s) Each 1.25 gm pkt has 250mg phosphorou s. Mix w/2.5oz water and stir. Aldactone No Notes: Memori a 9- (Same As: l 14:00: Aldactone) [place] potassium No Notes: Memori a chloride 9- (Same as: l 14:00: K-Dur 20) Abdi 00 "Do Not Crush" With food and full glass of water Neutra-Phos No Notes: Arthur gabriela 9- (Same as: l 14:00: Neutra-Tashia [place] 00 s) Each 1.25 gm pkt has 250mg phosphorou s. Mix w/2.5oz water and stir. Aldactone No Notes: Memori a 9- (Same As: l 14:00: Aldactone) Abdi potassium No Notes: Memori a chloride - (Same as: l 14:00: K-Dur 20) Abdi "Do Not Crush" With food and full glass of water Neutra-Phos No Notes: Arthur gabriela 9- (Same as: l 14:00: Neutra-Tashia Abdi 00 s) Each 1.25 gm pkt has 250mg phosphorou s. Mix w/2.5oz water and stir. Aldactone No Notes: Memori a 9- (Same As: l 14:00: Aldactone) Abdi potassium No Notes: Memori a chloride 9- (Same as: l 14:00: K-Dur 20) [place] "Do Not Crush" With food and full glass of water Neutra-Phos No Notes: Arthur gabriela 9- (Same as: l 14:00: Neutra-Tashia Abdi 00 s) Each 1.25 gm pkt has 250mg phosphorou s. Mix w/2.5oz water and stir. Aldactone No Notes: Memori a 9- (Same As: l 14:00: Aldactone) [place] potassium No Notes: Memori a chloride 9- (Same as: l 14:00: K-Dur 20) [place] "Do Not Crush" With food and full glass of water Neutra-Phos No Notes: Arthur gabriela 9- (Same as: l 14:00: Neutra-Tashia Abdi 00 s) Each 1.25 gm pkt has 250mg phosphorou s. Mix w/2.5oz water and stir. Aldactone No Notes: Memori a 07-11 (Same As: l 14:00: Aldactone) potassium No Notes: Memori a chloride 07-11 (Same as: l 14:00: K-Dur 20) "Do Not Crush" With food and full glass of water Magnesium 2015-0 No 84 mg, Memori a lactate 07-10 Route: PO, l 22:00: Drug form: ERTAB, TID, Dosing Weight 53.636, kg, Start date: 07/10/16 17:00:00 CDT, Duration: 30 day, Stop date: 08/09/16 13:00:00 CDT Magnesium 2015-0 No 84 mg, Memori a lactate 8 Route: PO, l 22:00: Drug form: ERTAB, TID, Dosing Weight 53.636, kg, Start date: 07/10/16 17:00:00 CDT, Duration: 30 day, Stop date: 08/09/16 13:00:00 CDT Magnesium 2015-0 No 84 mg, Memori a lactate 8 Route: PO, l 22:00: Drug form: ERTAB, TID, Dosing Weight 53.636, kg, Start date: 07/10/16 17:00:00 CDT, Duration: 30 day, Stop date: 08/09/16 13:00:00 CDT Magnesium 2015-0 No 84 mg, Memori a lactate 8-31 Route: PO, l 22:00: Drug form: [place] 00 ERTAB, TID, Dosing Weight 53.636, kg, Start date: 07/10/16 17:00:00 CDT, Duration: 30 day, Stop date: 08/09/16 13:00:00 CDT Magnesium 2016-0 No 84 mg, Memori a lactate 8-31 Route: PO, l 22:00: Drug form: Abdi 00 ERTAB, TID, Dosing Weight 53.636, kg, Start date: 07/10/16 17:00:00 CDT, Duration: 30 day, Stop date: 08/09/16 13:00:00 CDT Magnesium 2016-0 No 84 mg, Memori a lactate 8-31 Route: PO, l 22:00: Drug form: [place] 00 ERTAB, TID, Dosing Weight 53.636, kg, Start date: 07/10/16 17:00:00 CDT, Duration: 30 day, Stop date: 08/09/16 13:00:00 CDT Magnesium 2016-0 No 84 mg, Memori a lactate 8-31 Route: PO, l 22:00: Drug form: [place] 00 ERTAB, TID, Dosing Weight 53.636, kg, Start date: 07/10/16 17:00:00 CDT, Duration: 30 day, Stop date: 08/09/16 13:00:00 CDT Magnesium 2016-0 No 84 mg, Memori a lactate 8-31 Route: PO, l 22:00: Drug form: [place] 00 ERTAB, TID, Dosing Weight 53.636, kg, Start date: 07/10/16 17:00:00 CDT, Duration: 30 day, Stop date: 08/09/16 13:00:00 CDT Magnesium 2016-0 No 84 mg, Memori a lactate 8-31 Route: PO, l 22:00: Drug form: Abdi 00 ERTAB, TID, Dosing Weight 53.636, kg, Start date: 07/10/16 17:00:00 CDT, Duration: 30 day, Stop date: 08/09/16 13:00:00 CDT Magnesium 2016-0 No 84 mg, Memori a lactate 8-31 Route: PO, l 22:00: Drug form: [place] 00 ERTAB, TID, Dosing Weight 53.636, kg, Start date: 07/10/16 17:00:00 CDT, Duration: 30 day, Stop date: 08/09/16 13:00:00 CDT Magnesium 2016-0 No 168 mg, Memor ia lactate 8-31 Route: PO, l 21:00: Drug form: Abdi 00 ERTAB, Q8H, Dosing Weight 53.636, kg, Start date: 07/10/16 16:00:00 CDT, Duration: 30 day, Stop date: 08/09/16 8:00:00 CDT Magnesium 2016-0 No 168 mg, Memor ia lactate 8-31 Route: PO, l 21:00: Drug form: Abdi 00 ERTAB, Q8H, Dosing Weight 53.636, kg, Start date: 07/10/16 16:00:00 CDT, Duration: 30 day, Stop date: 08/09/16 8:00:00 CDT Magnesium 2016-0 No 168 mg, Memor ia lactate 8-31 Route: PO, l 21:00: Drug form: [place] 00 ERTAB, Q8H, Dosing Weight 53.636, kg, Start date: 07/10/16 16:00:00 CDT, Duration: 30 day, Stop date: 08/09/16 8:00:00 CDT Magnesium 2016-0 No 168 mg, Memor ia lactate 8-31 Route: PO, l 21:00: Drug form: [place] 00 ERTAB, Q8H, Dosing Weight 53.636, kg, Start date: 07/10/16 16:00:00 CDT, Duration: 30 day, Stop date: 08/09/16 8:00:00 CDT Magnesium 2016-0 No 168 mg, Memor ia lactate 8-31 Route: PO, l 21:00: Drug form: [place] 00 ERTAB, Q8H, Dosing Weight 53.636, kg, Start date: 07/10/16 16:00:00 CDT, Duration: 30 day, Stop date: 08/09/16 8:00:00 CDT Magnesium 2016-0 No 168 mg, Memor ia lactate 8-31 Route: PO, l 21:00: Drug form: [place] 00 ERTAB, Q8H, Dosing Weight 53.636, kg, Start date: 07/10/16 16:00:00 CDT, Duration: 30 day, Stop date: 08/09/16 8:00:00 CDT Magnesium 2016-0 No 168 mg, Memor ia lactate 8-31 Route: PO, l 21:00: Drug form: [place] 00 ERTAB, Q8H, Dosing Weight 53.636, kg, Start date: 07/10/16 16:00:00 CDT, Duration: 30 day, Stop date: 08/09/16 8:00:00 CDT Magnesium 2016-0 No 168 mg, Memor ia lactate 8-31 Route: PO, l 21:00: Drug form: [place] 00 ERTAB, Q8H, Dosing Weight 53.636, kg, Start date: 07/10/16 16:00:00 CDT, Duration: 30 day, Stop date: 08/09/16 8:00:00 CDT Magnesium 2016-0 No 168 mg, Memor ia lactate 8-31 Route: PO, l 21:00: Drug form: [place] 00 ERTAB, Q8H, Dosing Weight 53.636, kg, Start date: 07/10/16 16:00:00 CDT, Duration: 30 day, Stop date: 08/09/16 8:00:00 CDT Magnesium 2016-0 No 168 mg, Memor ia lactate 8-31 Route: PO, l 21:00: Drug form: Abdi 00 ERTAB, Q8H, Dosing Weight 53.636, kg, Start date: 07/10/16 16:00:00 CDT, Duration: 30 day, Stop date: 08/09/16 8:00:00 CDT magnesium 2016-0 No Notes: Memori a sulfate 8-31 WASTE: F/P l 13:00: - Sink; E - [facility] magnesium 0 No Notes: Memori a sulfate 8-31 WASTE: F/P l 13:00: - Sink; E - [facility] magnesium No Notes: Memori a sulfate 8-31 WASTE: F/P l 13:00: - Sink; E - [facility] magnesium 0 No Notes: Memori a sulfate 8-31 WASTE: F/P l 13:00: - Sink; E - [facility] magnesium 0 No Notes: Memori a sulfate 8-31 WASTE: F/P l 13:00: - Sink; E Abdi 00 - [facility] Tr[facility] magnesium 0 No Notes: Memori a sulfate 8-31 WASTE: F/P l 13:00: - Sink; E - [facility] magnesium No Notes: Memori a sulfate 8-31 WASTE: F/P l 13:00: - Sink; E [place] 00 - [facility] Tr[facility] magnesium No Notes: Memori a sulfate 07-10 WASTE: F/P l 13:00: - Sink; E Abdi - [facility] magnesium No Notes: Memori a sulfate 8 WASTE: F/P l 13:00: - Sink; E [place] - [facility] magnesium No Notes: Memori a sulfate 8 WASTE: F/P l 13:00: - Sink; E [place] - [facility] Magnesium 2015-0 No 4 gm, Memoria Sulfate 8 Route: l 12:35: IVPB, Drug [place] 00 form: INJ, ONCE, Dosing Weight 53.636, kg, Start date: 07/10/16 7:35:00 CDT, Stop date: 07/10/16 7:35:00 CDT Magnesium 2015-0 No 4 gm, Memoria Sulfate 8 Route: l 12:35: IVPB, Drug Abdi 00 form: INJ, ONCE, Dosing Weight 53.636, kg, Start date: 07/10/16 7:35:00 CDT, Stop date: 07/10/16 7:35:00 CDT Magnesium 2015-0 No 4 gm, Memoria Sulfate 8 Route: l 12:35: IVPB, Drug [place] 00 form: INJ, ONCE, Dosing Weight 53.636, kg, Start date: 07/10/16 7:35:00 CDT, Stop date: 07/10/16 7:35:00 CDT Magnesium 2015-0 No 4 gm, Memoria Sulfate 8 Route: l 12:35: IVPB, Drug [place] 00 form: INJ, ONCE, Dosing Weight 53.636, kg, Start date: 07/10/16 7:35:00 CDT, Stop date: 07/10/16 7:35:00 CDT Magnesium 2015-0 No 4 gm, Memoria Sulfate 8 Route: l 12:35: IVPB, Drug [place] 00 form: INJ, ONCE, Dosing Weight 53.636, kg, Start date: 07/10/16 7:35:00 CDT, Stop date: 07/10/16 7:35:00 CDT Magnesium 2015-0 No 4 gm, Memoria Sulfate 8 Route: l 12:35: IVPB, Drug Abdi 00 form: INJ, ONCE, Dosing Weight 53.636, kg, Start date: 07/10/16 7:35:00 CDT, Stop date: 07/10/16 7:35:00 CDT Magnesium 2016-0 No 4 gm, Memoria Sulfate 8 Route: l 12:35: IVPB, Drug Abdi 00 form: INJ, ONCE, Dosing Weight 53.636, kg, Start date: 07/10/16 7:35:00 CDT, Stop date: 07/10/16 7:35:00 CDT Magnesium 2016-0 No 4 gm, Memoria Sulfate 8- Route: l 12:35: IVPB, Drug [place] 00 form: INJ, ONCE, Dosing Weight 53.636, kg, Start date: 07/10/16 7:35:00 CDT, Stop date: 07/10/16 7:35:00 CDT Magnesium 2016-0 No 4 gm, Memoria Sulfate 8- Route: l 12:35: IVPB, Drug [place] 00 form: INJ, ONCE, Dosing Weight 53.636, kg, Start date: 07/10/16 7:35:00 CDT, Stop date: 07/10/16 7:35:00 CDT Magnesium 2016-0 No 4 gm, Memoria Sulfate 8- Route: l 12:35: IVPB, Drug [place] 00 form: INJ, ONCE, Dosing Weight 53.636, kg, Start date: 07/10/16 7:35:00 CDT, Stop date: 07/10/16 7:35:00 CDT Synthroid 2016-0 No Notes: Memori a 8-31 Take 1 l 12:34: hour [place] 00 before or 2 hours after meal; Enteral feeds may interefere with the absorption of this medication .(Same as:Levothr oid, Synthroid) Synthroid 2016-0 No Notes: Memori a 8-31 Take 1 l 12:34: hour [place] 00 before or 2 hours after meal; Enteral feeds may interefere with the absorption of this medication .(Same as:Levothr oid, Synthroid) Synthroid 2016-0 No Notes: Memori a 8-31 Take 1 l 12:34: hour [place]di 00 before or 2 hours after meal; Enteral feeds may interefere with the absorption of this medication .(Same as:Levothr oid, Synthroid) Synthroid No Notes: Memori a 8-31 Take 1 l 12:34: hour [place] 00 before or 2 hours after meal; Enteral feeds may interefere with the absorption of this medication .(Same as:Levothr oid, Synthroid) Synthroid No Notes: Memori a 8-31 Take 1 l 12:34: hour Abdi 00 before or 2 hours after meal; Enteral feeds may interefere with the absorption of this medication .(Same as:Levothr oid, Synthroid) Synthroid No Notes: Memori a 8-31 Take 1 l 12:34: hour Abdi 00 before or 2 hours after meal; Enteral feeds may interefere with the absorption of this medication .(Same as:Levothr oid, Synthroid) Synthroid No Notes: Memori a 8-31 Take 1 l 12:34: hour [place]di 00 before or 2 hours after meal; Enteral feeds may interefere with the absorption of this medication .(Same as:Levothr oid, Synthroid) Synthroid No Notes: Memori a 8-31 Take 1 l 12:34: hour [place] 00 before or 2 hours after meal; Enteral feeds may interefere with the absorption of this medication .(Same as:Levothr oid, Synthroid) Synthroid No Notes: Memori a 8-31 Take 1 l 12:34: hour [place] 00 before or 2 hours after meal; Enteral feeds may interefere with the absorption of this medication .(Same as:Levothr oid, Synthroid) Synthroid No Notes: Memori a 8-31 Take 1 l 12:34: hour Abdi 00 before or 2 hours after meal; Enteral feeds may interefere with the absorption of this medication .(Same as:Levothr oid, Synthroid) Beneprotein 0 No Notes: Arthur gabriela 7 gm pkt 8-31 (Same as: l 12:30: Beneprotei Abdi 00 n) Beneprotein 2015-0 No Notes: Arthur gabriela 7 gm pkt 8-31 (Same as: l 12:30: Beneprotei [place] 00 n) Beneprotein 0 No Notes: Arthur gabriela 7 gm pkt 8-31 (Same as: l 12:30: Beneprotei [place] 00 n) Beneprotein No Notes: Arthur gabriela 7 gm pkt 8-31 (Same as: l 12:30: Beneprotei Abdi 00 n) Beneprotein No Notes: Arthur gabriela 7 gm pkt 8-31 (Same as: l 12:30: Beneprotei [place] 00 n) Beneprotein No Notes: Arthur gabriela 7 gm pkt 8-31 (Same as: l 12:30: Beneprotei Abdi 00 n) Beneprotein No Notes: Arthur gabriela 7 gm pkt 8-31 (Same as: l 12:30: Beneprotei Abdi 00 n) Beneprotein No Notes: Arthur gabriela 7 gm pkt 8-31 (Same as: l 12:30: Beneprotei Abdi 00 n) Beneprotein No Notes: Arthur gabriela 7 gm pkt 8-31 (Same as: l 12:30: Beneprotei Abdi 00 n) Beneprotein No Notes: Arthur gabriela 7 gm pkt 8-31 (Same as: l 12:30: Beneprotei [place] 00 n) Magnesium No Notes: Memori a Sulfate 8-31 WASTE: F/P l 11:53: - Sink; E [place] - [facility] Magnesium No Notes: Memori a Sulfate 8-31 WASTE: F/P l 11:53: - Sink; E [place] - [facility] Magnesium No Notes: Memori a Sulfate 8-31 WASTE: F/P l 11:53: - Sink; E [place] - [facility] Magnesium No Notes: Memori a Sulfate 8-31 WASTE: F/P l 11:53: - Sink; E [place] - [facility] Magnesium No Notes: Memori a Sulfate 8-31 WASTE: F/P l 11:53: - Sink; E [place] - [facility] Magnesium No Notes: Memori a Sulfate 8-31 WASTE: F/P l 11:53: - Sink; E [place] - [facility] Magnesium No Notes: Memori a Sulfate 8-31 WASTE: F/P l 11:53: - Sink; E [place] 00 - [facility] Magnesium No Notes: Memori a Sulfate 8-31 WASTE: F/P l 11:53: - Sink; E [place] 00 - [facility] Magnesium No Notes: Memori a Sulfate 8-31 WASTE: F/P l 11:53: - Sink; E [place] - [facility] Magnesium No Notes: Memori a Sulfate 8-31 WASTE: F/P l 11:53: - Sink; E [place] 00 - [facility] Tr[facility] calcium No Notes: Memoria gluconate + 8-30 WASTE: F/P l sodium 16:00: - Sink; E [place] chloride 00 - 0.9% INJ 80 [facility] Trash Bin calcium No Notes: [facility]oria gluconate + 8-30 WASTE: F/P l sodium 16:00: - Sink; E [place] chloride 00 - 0.9% INJ 80 [facility] Trash [facility] calcium No Notes: [facility]oria gluconate + 8-30 WASTE: F/P l sodium 16:00: - Sink; E [place] chloride 00 - 0.9% INJ 80 [facility] Trash [facility] calcium No Notes: [facility]oria gluconate + 8-30 WASTE: F/P l sodium 16:00: - Sink; E [place] chloride 00 - 0.9% INJ 80 [facility] Trash [facility] calcium No Notes: [facility]oria gluconate + 8-30 WASTE: F/P l sodium 16:00: - Sink; E [place] chloride 00 - 0.9% INJ 80 [facility] Trash Bin calcium No Notes: [facility]oria gluconate + 8-30 WASTE: F/P l sodium 16:00: - Sink; E [place] chloride 00 - 0.9% INJ 80 [facility] Trash [facility] calcium No Notes: [facility]oria gluconate + 8-30 WASTE: F/P l sodium 16:00: - Sink; E [place] chloride 00 - 0.9% INJ 80 [facility] Trash [facility] calcium No Notes: [facility]oria gluconate + 8-30 WASTE: F/P l sodium 16:00: - Sink; E [place] chloride 00 - 0.9% INJ 80 [facility] Trash Bin calcium No Notes: [facility]oria gluconate + 8-30 WASTE: F/P l sodium 16:00: - Sink; E [place] chloride 00 - 0.9% INJ 80 [facility] Trash Bin calcium No Notes: Memoria gluconate + 8-30 WASTE: F/P l sodium 16:00: - Sink; E [place] chloride 00 - 0.9% INJ 80 [facility] mL Trash Bin Acetazolami No Notes: Arthur gabriela de 8-30 (Same as: l 15:07: Diamox) [place] Acetazolami No Notes: Arthur gabriela de 8-30 (Same as: l 15:07: Diamox) [place] 00 Acetazolami No Notes: Arthur gabriela de 8-30 (Same as: l 15:07: Diamox) Acetazolami No Notes: Arthur gabriela de 8-30 (Same as: l 15:07: Diamox) Acetazolami No Notes: Arthur gabriela de 8-30 (Same as: l 15:07: Diamox) Abdi Acetazolami No Notes: Arthur gabriela de 8-30 (Same as: l 15:07: Diamox) Abdi Acetazolami No Notes: Arthur gabriela de 8-30 (Same as: l 15:07: Diamox) Abdi Acetazolami No Notes: Arthur gabriela de 8-30 (Same as: l 15:07: Diamox) [place] Acetazolami No Notes: Arthur gabriela de 8-30 (Same as: l 15:07: Diamox) Abdi Acetazolami No Notes: Arthur gabriela de 8-30 (Same as: l 15:07: Diamox) Abdi potassium No Notes: Memori a chloride 8-30 (Same as: l 14:00: K-Dur 20) "Do Not Crush" With food and full glass of water potassium No Notes: Memori a chloride 8-30 (Same as: l 14:00: K-Dur 20) "Do Not Crush" With food and full glass of water potassium 2016-0 No Notes: Memori a chloride 8-30 (Same as: l 14:00: K-Dur 20) [place] "Do Not Crush" With food and full glass of water potassium 2016-0 No Notes: Memori a chloride 8-30 (Same as: l 14:00: K-Dur 20) Abid "Do Not Crush" With food and full glass of water potassium 2016-0 No Notes: Memori a chloride 8-30 (Same as: l 14:00: K-Dur 20) [place] "Do Not Crush" With food and full glass of water potassium 2016-0 No Notes: Memori a chloride 8-30 (Same as: l 14:00: K-Dur 20) [place] "Do Not Crush" With food and full glass of water potassium 2016-0 No Notes: Memori a chloride 8-30 (Same as: l 14:00: K-Dur 20) [place] "Do Not Crush" With food and full glass of water potassium 2016-0 No Notes: Memori a chloride 8-30 (Same as: l 14:00: K-Dur 20) Abdi "Do Not Crush" With food and full glass of water potassium 2016-0 No Notes: Memori a chloride 8-30 (Same as: l 14:00: K-Dur 20) [place] "Do Not Crush" With food and full glass of water potassium 2016-0 No Notes: Memori a chloride 8-30 (Same as: l 14:00: K-Dur 20) [place] "Do Not Crush" With food and full glass of water potassium 2016-0 No 10 mEq, Memor ia chloride 8-30 Route: l 13:00: IVPB, Q1H, Dosing Weight 53.636, kg, Total Dose = 40 meq, Start date: 07/09/16 8:00:00 CDT, Duration: 4 doses or times, Stop date: 07/09/16 11:00:00 CDT, [place] potassium 2016-0 No 10 mEq, Memor ia chloride 8-30 Route: l 13:00: IVPB, Q1H, Abdi 00 Dosing Weight 53.636, kg, Total Dose = 40 meq, Start date: 07/09/16 8:00:00 CDT, Duration: 4 doses or times, Stop date: 07/09/16 11:00:00 CDT, [place] potassium 2016-0 No 10 mEq, Memor ia chloride 8-30 Route: l 13:00: IVPB, Q1H, Abdi Dosing Weight 53.636, kg, Total Dose = 40 meq, Start date: 07/09/16 8:00:00 CDT, Duration: 4 doses or times, Stop date: 07/09/16 11:00:00 CDT, [place]ip[place] potassium 2016-0 No 10 mEq, Memor ia chloride 8-30 Route: l 13:00: IVPB, Q1H, Abdi Dosing Weight 53.636, kg, Total Dose = 40 meq, Start date: 07/09/16 8:00:00 CDT, Duration: 4 doses or times, Stop date: 07/09/16 11:00:00 CDT, [place] potassium 2016-0 No 10 mEq, Memor ia chloride 8-30 Route: l 13:00: IVPB, Q1H, Abdi Dosing Weight 53.636, kg, Total Dose = 40 meq, Start date: 07/09/16 8:00:00 CDT, Duration: 4 doses or times, Stop date: 07/09/16 11:00:00 CDT, [place] potassium 2016-0 No 10 mEq, Memor ia chloride 8-30 Route: l 13:00: IVPB, Q1H, Abdi Dosing Weight 53.636, kg, Total Dose = 40 meq, Start date: 07/09/16 8:00:00 CDT, Duration: 4 doses or times, Stop date: 07/09/16 11:00:00 CDT, [place] potassium 2016-0 No 10 mEq, Memor ia chloride 8-30 Route: l 13:00: IVPB, Q1H, [place] Dosing Weight 53.636, kg, Total Dose = 40 meq, Start date: 07/09/16 8:00:00 CDT, Duration: 4 doses or times, Stop date: 07/09/16 11:00:00 CDT, [place] potassium No 10 mEq, Memor ia chloride 8-30 Route: l 13:00: IVPB, Q1H, Abdi 00 Dosing Weight 53.636, kg, Total Dose = 40 meq, Start date: 07/09/16 8:00:00 CDT, Duration: 4 doses or times, Stop date: 07/09/16 11:00:00 CDT, [place] potassium No 10 mEq, Memor ia chloride 8-30 Route: l 13:00: IVPB, Q1H, [place] 00 Dosing Weight 53.636, kg, Total Dose = 40 meq, Start date: 07/09/16 8:00:00 CDT, Duration: 4 doses or times, Stop date: 07/09/16 11:00:00 CDT, [place] potassium No 10 mEq, Memor ia chloride 8-30 Route: l 13:00: IVPB, Q1H, Abdi Dosing Weight 53.636, kg, Total Dose = 40 meq, Start date: 07/09/16 8:00:00 CDT, Duration: 4 doses or times, Stop date: 07/09/16 11:00:00 CDT, [place]ip[place] potassium No Notes: Memori a phosphate + 8-30 (Same as: l sodium 12:45: K [place] chloride 00 Phosphate. 0.9% INJ ) 1 mMol 250 mL phoshate has 1.47 mEq potassium Infuse over 4 hours potassium No Notes: Memori a phosphate + 8-30 (Same as: l sodium 12:45: K Abdi chloride 00 Phosphate. 0.9% INJ ) 1 mMol 250 mL phoshate has 1.47 mEq potassium Infuse over 4 hours potassium No Notes: Memori a phosphate + 8-30 (Same as: l sodium 12:45: K [place]di chloride 00 Phosphate. 0.9% INJ ) 1 mMol 250 mL phoshate has 1.47 mEq potassium Infuse over 4 hours potassium No Notes: Memori a phosphate + 8-30 (Same as: l sodium 12:45: K [place] chloride 00 Phosphate. 0.9% INJ ) 1 mMol 250 mL phoshate has 1.47 mEq potassium Infuse over 4 hours potassium No Notes: Memori a phosphate + 8-30 (Same as: l sodium 12:45: K [place] chloride 00 Phosphate. 0.9% INJ ) 1 mMol 250 mL phoshate has 1.47 mEq potassium Infuse over 4 hours potassium No Notes: Memori a phosphate + 8-30 (Same as: l sodium 12:45: K [place] chloride 00 Phosphate. 0.9% INJ ) 1 mMol 250 mL phoshate has 1.47 mEq potassium Infuse over 4 hours potassium No Notes: Memori a phosphate + 8-30 (Same as: l sodium 12:45: K [place] chloride 00 Phosphate. 0.9% INJ ) 1 mMol 250 mL phoshate has 1.47 mEq potassium Infuse over 4 hours potassium No Notes: Memori a phosphate + 8-30 (Same as: l sodium 12:45: K [place] chloride 00 Phosphate. 0.9% INJ ) 1 mMol 250 mL phoshate has 1.47 mEq potassium Infuse over 4 hours potassium No Notes: Memori a phosphate + 8-30 (Same as: l sodium 12:45: K [place] chloride 00 Phosphate. 0.9% INJ ) 1 mMol 250 mL phoshate has 1.47 mEq potassium Infuse over 4 hours potassium No Notes: Memori a phosphate + 8-30 (Same as: l sodium 12:45: K [place] chloride 00 Phosphate. 0.9% INJ ) 1 mMol 250 mL phoshate has 1.47 mEq potassium Infuse over 4 hours Calcium No Notes: [facility] Gluconate 8-30 WASTE: F/P l 12:22: - Sink; E [place] 00 - [facility] Calcium No Notes: [facility] Gluconate 8-30 WASTE: F/P l 12:22: - Sink; E [place] 00 - [facility] Tr[facility] Calcium No Notes: [facility] Gluconate 8-30 WASTE: F/P l 12:22: - Sink; E [place] 00 - [facility] Tr[facility] Calcium No Notes: [facility] Gluconate 8-30 WASTE: F/P l 12:22: - Sink; E [place] 00 - [facility] Tr[facility] Calcium No Notes: [facility] Gluconate 8-30 WASTE: F/P l 12:22: - Sink; E [place] - [facility] Calcium No Notes: [facility] Gluconate 8-30 WASTE: F/P l 12:22: - Sink; E [place] 00 - [facility] Tr[facility] Calcium No Notes: [facility] Gluconate 8-30 WASTE: F/P l 12:22: - Sink; E [place] 00 - [facility] Tr[facility] Calcium No Notes: [facility] Gluconate 8-30 WASTE: F/P l 12:22: - Sink; E [place] 00 - [facility] Calcium No Notes: [facility] Gluconate 8-30 WASTE: F/P l 12:22: - Sink; E [place] - [facility] Calcium No Notes: [facility] Gluconate 8-30 WASTE: F/P l 12:22: - Sink; E [place] 00 - [facility] Trash [facility] magnesium No 4 gm, Memoria sulfate 4 8-30 Route: l gm / 100 mL 12:19: IVPB, Seda nn solution 00 ONCE, Dosing Weight 53.636, kg, Start date: 07/09/16 7:19:00 CDT, Stop date: 07/09/16 7:19:00 CDT magnesium 2016-0 No 4 gm, Memoria sulfate 4 8-30 Route: l gm / 100 mL 12:19: IVPB, Seda nn solution 00 ONCE, Dosing Weight 53.636, kg, Start date: 07/09/16 7:19:00 CDT, Stop date: 07/09/16 7:19:00 CDT magnesium 2016-0 No 4 gm, Memoria sulfate 4 8-30 Route: l gm / 100 mL 12:19: IVPB, Seda nn solution 00 ONCE, Dosing Weight 53.636, kg, Start date: 07/09/16 7:19:00 CDT, Stop date: 07/09/16 7:19:00 CDT magnesium 2016-0 No 4 gm, Memoria sulfate 4 8-30 Route: l gm / 100 mL 12:19: IVPB, Seda nn solution 00 ONCE, Dosing Weight 53.636, kg, Start date: 07/09/16 7:19:00 CDT, Stop date: 07/09/16 7:19:00 CDT magnesium 2016-0 No 4 gm, Memoria sulfate 4 8-30 Route: l gm / 100 mL 12:19: IVPB, Seda nn solution 00 ONCE, Dosing Weight 53.636, kg, Start date: 07/09/16 7:19:00 CDT, Stop date: 07/09/16 7:19:00 CDT magnesium 2016-0 No 4 gm, Memoria sulfate 4 8-30 Route: l gm / 100 mL 12:19: IVPB, Seda nn solution 00 ONCE, Dosing Weight 53.636, kg, Start date: 07/09/16 7:19:00 CDT, Stop date: 07/09/16 7:19:00 CDT magnesium 2016-0 No 4 gm, Memoria sulfate 4 8-30 Route: l gm / 100 mL 12:19: IVPB, Seda nn solution 00 ONCE, Dosing Weight 53.636, kg, Start date: 07/09/16 7:19:00 CDT, Stop date: 07/09/16 7:19:00 CDT magnesium 2016-0 No 4 gm, Memoria sulfate 4 8-30 Route: l gm / 100 mL 12:19: IVPB, Seda nn solution 00 ONCE, Dosing Weight 53.636, kg, Start date: 07/09/16 7:19:00 CDT, Stop date: 07/09/16 7:19:00 CDT magnesium 2016-0 No 4 gm, Memoria sulfate 4 8-30 Route: l gm / 100 mL 12:19: IVPB, Seda nn solution 00 ONCE, Dosing Weight 53.636, kg, Start date: 07/09/16 7:19:00 CDT, Stop date: 07/09/16 7:19:00 CDT magnesium 2016-0 No 4 gm, Memoria sulfate 4 8-30 Route: l gm / 100 mL 12:19: IVPB, Seda nn solution 00 ONCE, Dosing Weight 53.636, kg, Start date: 07/09/16 7:19:00 CDT, Stop date: 07/09/16 7:19:00 CDT potassium 2016-0 No Notes: Memori a phosphate + 8-29 (Same as: l sodium 20:00: K [place] chloride 00 Phosphate. 0.9% INJ ) 1 mMol 250 mL phoshate has 1.47 mEq potassium Infuse over 4 hours potassium No Notes: Memori a phosphate + 8-29 (Same as: l sodium 20:00: K [place] chloride 00 Phosphate. 0.9% INJ ) 1 mMol 250 mL phoshate has 1.47 mEq potassium Infuse over 4 hours potassium No Notes: Memori a phosphate + 8-29 (Same as: l sodium 20:00: K [place] chloride 00 Phosphate. 0.9% INJ ) 1 mMol 250 mL phoshate has 1.47 mEq potassium Infuse over 4 hours potassium No Notes: Memori a phosphate + 8-29 (Same as: l sodium 20:00: K [place] chloride 00 Phosphate. 0.9% INJ ) 1 mMol 250 mL phoshate has 1.47 mEq potassium Infuse over 4 hours potassium No Notes: Memori a phosphate + 8-29 (Same as: l sodium 20:00: K [place] chloride 00 Phosphate. 0.9% INJ ) 1 mMol 250 mL phoshate has 1.47 mEq potassium Infuse over 4 hours potassium No Notes: Memori a phosphate + 8-29 (Same as: l sodium 20:00: K [place] chloride 00 Phosphate. 0.9% INJ ) 1 mMol 250 mL phoshate has 1.47 mEq potassium Infuse over 4 hours potassium No Notes: Memori a phosphate + 8-29 (Same as: l sodium 20:00: K [place] chloride 00 Phosphate. 0.9% INJ ) 1 mMol 250 mL phoshate has 1.47 mEq potassium Infuse over 4 hours potassium No Notes: Memori a phosphate + 8-29 (Same as: l sodium 20:00: K [place] chloride 00 Phosphate. 0.9% INJ ) 1 mMol 250 mL phoshate has 1.47 mEq potassium Infuse over 4 hours potassium No Notes: Memori a phosphate + 8-29 (Same as: l sodium 20:00: K [place] chloride 00 Phosphate. 0.9% INJ ) 1 mMol 250 mL phoshate has 1.47 mEq potassium Infuse over 4 hours potassium No Notes: Memori a phosphate + 8-29 (Same as: l sodium 20:00: K [place] chloride 00 Phosphate. 0.9% INJ ) 1 mMol 250 mL phoshate has 1.47 mEq potassium Infuse over 4 hours Magnesium No Notes: Memori a Sulfate 8-29 WASTE: F/P l 19:00: - Sink; E [place] - [facility] Tr[facility] Magnesium No Notes: Memori a Sulfate 8-29 WASTE: F/P l 19:00: - Sink; E [place] - [facility] Trash [facility] Magnesium No Notes: Memori a Sulfate 8-29 WASTE: F/P l 19:00: - Sink; E [place] - [facility] Magnesium No Notes: Memori a Sulfate 8-29 WASTE: F/P l 19:00: - Sink; E [place] - [facility] Magnesium No Notes: Memori a Sulfate 8-29 WASTE: F/P l 19:00: - Sink; E [place] - [facility] Magnesium No Notes: Memori a Sulfate 8-29 WASTE: F/P l 19:00: - Sink; E [place] - [facility] Magnesium No Notes: Memori a Sulfate 8-29 WASTE: F/P l 19:00: - Sink; E [place] - [facility] Magnesium No Notes: Memori a Sulfate 8-29 WASTE: F/P l 19:00: - Sink; E [place] - [facility] Magnesium No Notes: Memori a Sulfate 8-29 WASTE: F/P l 19:00: - Sink; E [place] - [facility] Magnesium No Notes: Memori a Sulfate 8-29 WASTE: F/P l 19:00: - Sink; E [place] - [facility] Tr[facility] sodium No 30 mmol, Memoria phosphate 8-29 Route: l 18:54: IVPB, [place] 00 ONCE, Dosing Weight 53.636, kg, Start date: 07/08/16 13:54:00 CDT, Stop date: 07/08/16 13:54:00 CDT sodium No 30 mmol, Memoria phosphate 8-29 Route: l 18:54: IVPB, Abdi 00 ONCE, Dosing Weight 53.636, kg, Start date: 07/08/16 13:54:00 CDT, Stop date: 07/08/16 13:54:00 CDT sodium 2016-0 No 30 mmol, Memoria phosphate 8-29 Route: l 18:54: IVPB, Abdi 00 ONCE, Dosing Weight 53.636, kg, Start date: 07/08/16 13:54:00 CDT, Stop date: 07/08/16 13:54:00 CDT sodium 2016-0 No 30 mmol, Memoria phosphate 8-29 Route: l 18:54: IVPB, Abdi 00 ONCE, Dosing Weight 53.636, kg, Start date: 07/08/16 13:54:00 CDT, Stop date: 07/08/16 13:54:00 CDT sodium 2016-0 No 30 mmol, Memoria phosphate 8-29 Route: l 18:54: IVPB, Abdi 00 ONCE, Dosing Weight 53.636, kg, Start date: 07/08/16 13:54:00 CDT, Stop date: 07/08/16 13:54:00 CDT sodium 2016-0 No 30 mmol, Memoria phosphate 8-29 Route: l 18:54: IVPB, Abdi 00 ONCE, Dosing Weight 53.636, kg, Start date: 07/08/16 13:54:00 CDT, Stop date: 07/08/16 13:54:00 CDT sodium 2016-0 No 30 mmol, Memoria phosphate 8-29 Route: l 18:54: IVPB, [place] 00 ONCE, Dosing Weight 53.636, kg, Start date: 07/08/16 13:54:00 CDT, Stop date: 07/08/16 13:54:00 CDT sodium 2016-0 No 30 mmol, Memoria phosphate 8-29 Route: l 18:54: IVPB, [place] 00 ONCE, Dosing Weight 53.636, kg, Start date: 07/08/16 13:54:00 CDT, Stop date: 07/08/16 13:54:00 CDT sodium 2016-0 No 30 mmol, Memoria phosphate 8-29 Route: l 18:54: IVPB, [place] 00 ONCE, Dosing Weight 53.636, kg, Start date: 08/29/16 13:54:00 CDT, Stop date: 07/08/16 13:54:00 CDT sodium 2016-0 No 30 mmol, Memoria phosphate 8-29 Route: l 18:54: IVPB, Abdi 00 ONCE, Dosing Weight 53.636, kg, Start date: 07/08/16 13:54:00 CDT, Stop date: 07/08/16 13:54:00 CDT potassium 2016-0 No Notes: Memori a chloride 8-29 (Same as: l 14:00: K-Dur 20) Abdi "Do Not Crush" With food and full glass of water potassium 2016-0 No Notes: Memori a chloride 8-29 (Same as: l 14:00: K-Dur 20) [place] "Do Not Crush" With food and full glass of water potassium 2016-0 No Notes: Memori a chloride 8-29 (Same as: l 14:00: K-Dur 20) [place] "Do Not Crush" With food and full glass of water potassium 2016-0 No Notes: Memori a chloride 8-29 (Same as: l 14:00: K-Dur 20) Abdi "Do Not Crush" With food and full glass of water potassium 2016-0 No Notes: Memori a chloride 8-29 (Same as: l 14:00: K-Dur 20) [place] "Do Not Crush" With food and full glass of water potassium 2016-0 No Notes: Memori a chloride 8-29 (Same as: l 14:00: K-Dur 20) [place] "Do Not Crush" With food and full glass of water potassium 2016-0 No Notes: Memori a chloride 8-29 (Same as: l 14:00: K-Dur 20) Abdi "Do Not Crush" With food and full glass of water potassium 2016-0 No Notes: Memori a chloride 8-29 (Same as: l 14:00: K-Dur 20) Abdi 00 "Do Not Crush" With food and full glass of water potassium 2016-0 No Notes: Memori a chloride 8-29 (Same as: l 14:00: K-Dur 20) [place] "Do Not Crush" With food and full glass of water potassium 2016-0 No Notes: Memori a chloride 8-29 (Same as: l 14:00: K-Dur 20) [place] 00 "Do Not Crush" With food and full glass of water sodium 2016-0 No 1,000 mL, Memori a chloride 8-29 Rate: 100 l 0.9% 1000 02:26: ml/hr, Tevin n ml INJ 00 Infuse 1,000 mL + over: 10.2 potassium hr, Route: chloride 40 IV, Dosing mEq Weight 53.636 kg, Total Volume: 1,020, Start date: 07/07/16 21:26:00 CDT, Duration: 30 day, Stop date: 08/06/16 21:25:00 CDT sodium 2016-0 No 1,000 mL, Memori a chloride 8-29 Rate: 100 l 0.9% 1000 02:26: ml/hr, Tevin n ml INJ 00 Infuse 1,000 mL + over: 10.2 potassium hr, Route: chloride 40 IV, Dosing mEq Weight 53.636 kg, Total Volume: 1,020, Start date: 07/07/16 21:26:00 CDT, Duration: 30 day, Stop date: 08/06/16 21:25:00 CDT sodium 2016-0 No 1,000 mL, Memori a chloride 8-29 Rate: 100 l 0.9% 1000 02:26: ml/hr, Tevin n ml INJ 00 Infuse 1,000 mL + over: 10.2 potassium hr, Route: chloride 40 IV, Dosing mEq Weight 53.636 kg, Total Volume: 1,020, Start date: 07/07/16 21:26:00 CDT, Duration: 30 day, Stop date: 08/06/16 21:25:00 CDT sodium 2016-0 No 1,000 mL, Memori a chloride 8-29 Rate: 100 l 0.9% 1000 02:26: ml/hr, Tevin n ml INJ 00 Infuse 1,000 mL + over: 10.2 potassium hr, Route: chloride 40 IV, Dosing mEq Weight 53.636 kg, Total Volume: 1,020, Start date: 07/07/16 21:26:00 CDT, Duration: 30 day, Stop date: 08/06/16 21:25:00 CDT sodium 2016-0 No 1,000 mL, Memori a chloride 8-29 Rate: 100 l 0.9% 1000 02:26: ml/hr, Tevin n ml INJ 00 Infuse 1,000 mL + over: 10.2 potassium hr, Route: chloride 40 IV, Dosing mEq Weight 53.636 kg, Total Volume: 1,020, Start date: 07/07/16 21:26:00 CDT, Duration: 30 day, Stop date: 08/06/16 21:25:00 CDT sodium 2016-0 No 1,000 mL, Memori a chloride 8-29 Rate: 100 l 0.9% 1000 02:26: ml/hr, Tevin n ml INJ 00 Infuse 1,000 mL + over: 10.2 potassium hr, Route: chloride 40 IV, Dosing mEq Weight 53.636 kg, Total Volume: 1,020, Start date: 07/07/16 21:26:00 CDT, Duration: 30 day, Stop date: 08/06/16 21:25:00 CDT sodium 2016-0 No 1,000 mL, Memori a chloride 8-29 Rate: 100 l 0.9% 1000 02:26: ml/hr, Tevin n ml INJ 00 Infuse 1,000 mL + over: 10.2 potassium hr, Route: chloride 40 IV, Dosing mEq Weight 53.636 kg, Total Volume: 1,020, Start date: 07/07/16 21:26:00 CDT, Duration: 30 day, Stop date: 08/06/16 21:25:00 CDT sodium 2016-0 No 1,000 mL, Memori a chloride 8-29 Rate: 100 l 0.9% 1000 02:26: ml/hr, Tevin n ml INJ 00 Infuse 1,000 mL + over: 10.2 potassium hr, Route: chloride 40 IV, Dosing mEq Weight 53.636 kg, Total Volume: 1,020, Start date: 07/07/16 21:26:00 CDT, Duration: 30 day, Stop date: 08/06/16 21:25:00 CDT sodium 2016-0 No 1,000 mL, Memori a chloride 8-29 Rate: 100 l 0.9% 1000 02:26: ml/hr, Tevin n ml INJ 00 Infuse 1,000 mL + over: 10.2 potassium hr, Route: chloride 40 IV, Dosing mEq Weight 53.636 kg, Total Volume: 1,020, Start date: 07/07/16 21:26:00 CDT, Duration: 30 day, Stop date: 08/06/16 21:25:00 CDT sodium 2016-0 No 1,000 mL, Memori a chloride 8-29 Rate: 100 l 0.9% 1000 02:26: ml/hr, Tevin n ml INJ 00 Infuse 1,000 mL + over: 10.2 potassium hr, Route: chloride 40 IV, Dosing mEq Weight 53.636 kg, Total Volume: 1,020, Start date: 07/07/16 21:26:00 CDT, Duration: 30 day, Stop date: 08/06/16 21:25:00 CDT potassium 2015- No Notes: Memori a chloride 8-28 (Same as: l 21:57: KCL) Abdi Infuse no faster than 10 mEq/hr if given peripheral ly. potassium No Notes: Memori a chloride 8-28 (Same as: l 21:57: KCL) Abdi Infuse no faster than 10 mEq/hr if given peripheral ly. potassium No Notes: Mem[facility] a chloride 8-28 (Same as: l 21:57: KCL) Abdi Infuse no faster than 10 mEq/hr if given peripheral ly. potassium No Notes: Mem[facility] a chloride 8-28 (Same as: l 21:57: KCL) Abdi Infuse no faster than 10 mEq/hr if given peripheral ly. potassium No Notes: Memori a chloride 8-28 (Same as: l 21:57: KCL) [place] 00 Infuse no faster than 10 mEq/hr if given peripheral ly. potassium No Notes: Memori a chloride 8-28 (Same as: l 21:57: KCL) Abdi 00 Infuse no faster than 10 mEq/hr if given peripheral ly. potassium No Notes: Memori a chloride 8-28 (Same as: l 21:57: KCL) [place] 00 Infuse no faster than 10 mEq/hr if given peripheral ly. potassium No Notes: Memori a chloride 8-28 (Same as: l 21:57: KCL) Abdi 00 Infuse no faster than 10 mEq/hr if given peripheral ly. potassium No Notes: Memori a chloride 8-28 (Same as: l 21:57: KCL) [place] 00 Infuse no faster than 10 mEq/hr if given peripheral ly. potassium No Notes: Mem[facility] a chloride 8-28 (Same as: l 21:57: KCL) Abdi 00 Infuse no faster than 10 mEq/hr if given peripheral ly. NS + KCL No Notes: [facility] 40mEq/L 8-28 PREMIX IV l 1000ml 21:53: - Do Not Abdi (Premix) 00 Alter 1,000 mL WASTE: F/P - Sink; E - [facility] NS + KCL No Notes: [facility] 40mEq/L 8-28 PREMIX IV l 1000ml 21:53: - Do Not Abdi (Premix) 00 Alter 1,000 mL WASTE: F/P - Sink; E - [facility] NS + KCL No Notes: [facility] 40mEq/L 8-28 PREMIX IV l 1000ml 21:53: - Do Not Abdi (Premix) 00 Alter 1,000 mL WASTE: F/P - Sink; E - [facility] NS + KCL No Notes: [facility] 40mEq/L 8-28 PREMIX IV l 1000ml 21:53: - Do Not Abdi (Premix) 00 Alter 1,000 mL WASTE: F/P - Sink; E - [facility] NS + KCL No Notes: [facility] 40mEq/L 8-28 PREMIX IV l 1000ml 21:53: - Do Not Abdi (Premix) 00 Alter 1,000 mL WASTE: F/P - Sink; E - [facility] NS + KCL No Notes: [facility] 40mEq/L 8-28 PREMIX IV l 1000ml 21:53: - Do Not [place] (Premix) 00 Alter 1,000 mL WASTE: F/P - Sink; E - [facility] NS + KCL No Notes: [facility] 40mEq/L 8-28 PREMIX IV l 1000ml 21:53: - Do Not Abdi (Premix) 00 Alter 1,000 mL WASTE: F/P - Sink; E - [facility] NS + KCL No Notes: [facility] 40mEq/L 8-28 PREMIX IV l 1000ml 21:53: - Do Not Abdi (Premix) 00 Alter 1,000 mL WASTE: F/P - Sink; E - [facility] NS + KCL No Notes: [facility] 40mEq/L 8-28 PREMIX IV l 1000ml 21:53: - Do Not [place] (Premix) 00 Alter 1,000 mL WASTE: F/P - Sink; E - [facility] NS + KCL No Notes: [facility] 40mEq/L 8-28 PREMIX IV l 1000ml 21:53: - Do Not Abdi (Premix) 00 Alter 1,000 mL WASTE: F/P - Sink; E - [facility] heparin No Notes: [facility] 8-28 porcine l 21:00: heparin [place]di 00 heparin No Notes: [facility] 8-28 porcine l 21:00: heparin [place] 00 heparin No Notes: [facility] 8-28 porcine l 21:00: heparin [place] 00 heparin No Notes: [facility] 8-28 porcine l 21:00: heparin [place] 00 heparin No Notes: [facility] 8-28 porcine l 21:00: heparin [place] 00 heparin No Notes: [facility] 8-28 porcine l 21:00: heparin [place] 00 heparin No Notes: [facility] 8-28 porcine l 21:00: heparin [place] 00 heparin No Notes: [facility] 8-28 porcine l 21:00: heparin [place] 00 heparin No Notes: [facility] 8-28 porcine l 21:00: heparin [place] 00 heparin No Notes: [facility] 8-28 porcine l 21:00: heparin [place] 00 Tylenol No Notes: Do [facility] 07-07 not exceed l 20:45: 4 gm/day. [place] 00 (Same as: Tylenol) Tylenol No Notes: Do [facility] 828 not exceed l 20:45: 4 gm/day. Abdi 00 (Same as: Tylenol) Tylenol No Notes: Do [facility] 828 not exceed l 20:45: 4 gm/day. [place] 00 (Same as: Tylenol) Tylenol No Notes: Do [facility] 8-28 not exceed l 20:45: 4 gm/day. (Same as: Tylenol) Tylenol No Notes: Do [facility] 8- not exceed l 20:45: 4 gm/day. (Same as: Tylenol) Tylenol No Notes: Do [facility] 8- not exceed l 20:45: 4 gm/day. (Same as: Tylenol) Tylenol No Notes: Do [facility] 8- not exceed l 20:45: 4 gm/day. (Same as: Tylenol) Tylenol No Notes: Do [facility] 8- not exceed l 20:45: 4 gm/day. (Same as: Tylenol) Tylenol No Notes: Do [facility] 8- not exceed l 20:45: 4 gm/day. (Same as: Tylenol) Tylenol No Notes: Do [facility] 8- not exceed l 20:45: 4 gm/day. (Same as: Tylenol) Ceftazidime 0 No Notes: Arthur gabriela 8 (Same as: l 16:00: Fortaz) Abdi 00 MEDICATION WASTE Product Size: 1000 mg Product Wasted: ___ mg Ceftazidime 2015-0 No Notes: Arthur gabriela 8 (Same as: l 16:00: Fortaz) [place] 00 MEDICATION WASTE Product Size: 1000 mg Product Wasted: ___ mg Ceftazidime 2015-0 No Notes: Arthur gabriela 8 (Same as: l 16:00: Fortaz) [place] 00 MEDICATION WASTE Product Size: 1000 mg Product Wasted: ___ mg Ceftazidime 2015-0 No Notes: Arthur gabriela 8- (Same as: l 16:00: Fortaz) [place]di 00 MEDICATION WASTE Product Size: 1000 mg Product Wasted: ___ mg Ceftazidime 2015-0 No Notes: Arthur gabriela 828 (Same as: l 16:00: Fortaz) [place]di 00 MEDICATION WASTE Product Size: 1000 mg Product Wasted: ___ mg Ceftazidime 2016-0 No Notes: Arthur gabriela 828 (Same as: l 16:00: Fortaz) [place] 00 MEDICATION WASTE Product Size: 1000 mg Product Wasted: ___ mg Ceftazidime 2016-0 No Notes: Arthur gabriela 8 (Same as: l 16:00: Fortaz) [place] 00 MEDICATION WASTE Product Size: 1000 mg Product Wasted: ___ mg Ceftazidime 2016-0 No Notes: Arthur gabriela 8 (Same as: l 16:00: Fortaz) [place] 00 MEDICATION WASTE Product Size: 1000 mg Product Wasted: ___ mg Ceftazidime 2016-0 No Notes: Arthur gabriela 8 (Same as: l 16:00: Fortaz) [place] 00 MEDICATION WASTE Product Size: 1000 mg Product Wasted: ___ mg Ceftazidime 2016-0 No Notes: Arthur gabriela 8 (Same as: l 16:00: Fortaz) [place] 00 MEDICATION WASTE Product Size: 1000 mg Product Wasted: ___ mg Streptococc No 0.5 mL, Mem [facility] us 07-07 Route: IM, l pneumoniae 14:00: Drug Form: H ermann serotype 1 00 INJ, capsular Daily, antigen Start diphtheria date: [id number] 07/07/16 protein 9:00:00 conjugate CDT, vaccine / Duration: Streptococc 1 doses or us times, pneumoniae Stop date: serotype 14 07/07/16 capsular 9:00:00 antigen CDT diphtheria [id number] protein conjugate vaccine / Streptococc us pneumoniae serotype 18C capsular antigen d Streptococc No 0.5 mL, Mem oria us 07-07 Route: IM, l pneumoniae 14:00: Drug Form: H ermann serotype 1 00 INJ, capsular Daily, antigen Start diphtheria date: [id number] 07/07/16 protein 9:00:00 conjugate CDT, vaccine / Duration: Streptococc 1 doses or us times, pneumoniae Stop date: serotype 14 07/07/16 capsular 9:00:00 antigen CDT diphtheria [id number] protein conjugate vaccine / Streptococc us pneumoniae serotype 18C capsular antigen d Streptococc 2016-0 No 0.5 mL, Mem oria 07-07 Route: IM, l pneumoniae 14:00: Drug Form: H ermann serotype 1 00 INJ, capsular Daily, antigen Start diphtheria date: [id number] 07/07/16 protein 9:00:00 conjugate CDT, vaccine / Duration: Streptococc 1 doses or us times, pneumoniae Stop date: serotype 14 07/07/16 capsular 9:00:00 antigen CDT diphtheria [id number] protein conjugate vaccine / Streptococc us pneumoniae serotype 18C capsular antigen d Streptococc 2015-0 No 0.5 mL, Mem oria 07-07 Route: IM, l pneumoniae 14:00: Drug Form: H ermann serotype 1 00 INJ, capsular Daily, antigen Start diphtheria date: [id number] 07/07/16 protein 9:00:00 conjugate CDT, vaccine / Duration: Streptococc 1 doses or us times, pneumoniae Stop date: serotype 14 07/07/16 capsular 9:00:00 antigen CDT diphtheria [id number] protein conjugate vaccine / Streptococc us pneumoniae serotype 18C capsular antigen d Streptococc 2015-0 No 0.5 mL, Mem oria 07-07 Route: IM, l pneumoniae 14:00: Drug Form: H ermann serotype 1 00 INJ, capsular Daily, antigen Start diphtheria date: [id number] 07/07/16 protein 9:00:00 conjugate CDT, vaccine / Duration: Streptococc 1 doses or us times, pneumoniae Stop date: serotype 14 07/07/16 capsular 9:00:00 antigen CDT diphtheria [id number] protein conjugate vaccine / Streptococc us pneumoniae serotype 18C capsular antigen d Streptococc 2015-0 No 0.5 mL, Mem oria 07-07 Route: IM, l pneumoniae 14:00: Drug Form: H ermann serotype 1 00 INJ, capsular Daily, antigen Start diphtheria date: [id number] 07/07/16 protein 9:00:00 conjugate CDT, vaccine / Duration: Streptococc 1 doses or us times, pneumoniae Stop date: serotype 14 07/07/16 capsular 9:00:00 antigen CDT diphtheria [id number] protein conjugate vaccine / Streptococc us pneumoniae serotype 18C capsular antigen d Streptococc 2015-0 No 0.5 mL, Mem oria 07-07 Route: IM, l pneumoniae 14:00: Drug Form: H ermann serotype 1 00 INJ, capsular Daily, antigen Start diphtheria date: [id number] 07/07/16 protein 9:00:00 conjugate CDT, vaccine / Duration: Streptococc 1 doses or us times, pneumoniae Stop date: serotype 14 07/07/16 capsular 9:00:00 antigen CDT diphtheria [id number] protein conjugate vaccine / Streptococc us pneumoniae serotype 18C capsular antigen d Streptococc No 0.5 mL, Mem oria us 07-07 Route: IM, l pneumoniae 14:00: Drug Form: H ermann serotype 1 00 INJ, capsular Daily, antigen Start diphtheria date: [id number] 07/07/16 protein 9:00:00 conjugate CDT, vaccine / Duration: Streptococc 1 doses or us times, pneumoniae Stop date: serotype 14 07/07/16 capsular 9:00:00 antigen CDT diphtheria [id number] protein conjugate vaccine / Streptococc us pneumoniae serotype 18C capsular antigen d Streptococc No 0.5 mL, Mem oria us 07-07 Route: IM, l pneumoniae 14:00: Drug Form: H ermann serotype 1 00 INJ, capsular Daily, antigen Start diphtheria date: [id number] 07/07/16 protein 9:00:00 conjugate CDT, vaccine / Duration: Streptococc 1 doses or us times, pneumoniae Stop date: serotype 14 07/07/16 capsular 9:00:00 antigen CDT diphtheria [id number] protein conjugate vaccine / Streptococc us pneumoniae serotype 18C capsular antigen d Streptococc No 0.5 mL, Mem oria us 07-07 Route: IM, l pneumoniae 14:00: Drug Form: H ermann serotype 1 00 INJ, capsular Daily, antigen Start diphtheria date: [id number] 07/07/16 protein 9:00:00 conjugate CDT, vaccine / Duration: Streptococc 1 doses or us times, pneumoniae Stop date: serotype 14 07/07/16 capsular 9:00:00 antigen CDT diphtheria [id number] protein conjugate vaccine / Streptococc us pneumoniae serotype 18C capsular antigen d potassium No Notes: Mem[facility] a chloride 07-07 (Same as: l 13:00: KCL) Abdi Infuse no faster than 10 mEq/hr if given peripheral ly. potassium No Notes: Mem[facility] a chloride 8 (Same as: l 13:00: KCL) Abdi Infuse no faster than 10 mEq/hr if given peripheral ly. potassium 2016-0 No Notes: Mem[facility] a chloride 8-28 (Same as: l 13:00: KCL) [place] 00 Infuse no faster than 10 mEq/hr if given peripheral ly. potassium 2016-0 No Notes: Memori a chloride 8-28 (Same as: l 13:00: KCL) [place] 00 Infuse no faster than 10 mEq/hr if given peripheral ly. potassium 2016-0 No Notes: Memori a chloride 8-28 (Same as: l 13:00: KCL) [place]di 00 Infuse no faster than 10 mEq/hr if given peripheral ly. potassium 2016-0 No Notes: Mem[facility] a chloride 8-28 (Same as: l 13:00: KCL) [place] 00 Infuse no faster than 10 mEq/hr if given peripheral ly. potassium 2015-0 No Notes: Mem[facility] a chloride 8-28 (Same as: l 13:00: KCL) Infuse no faster than 10 mEq/hr if given peripheral ly. potassium 2015-0 No Notes: Mem[facility] a chloride 8-28 (Same as: l 13:00: KCL) [place] 00 Infuse no faster than 10 mEq/hr if given peripheral ly. potassium 2015-0 No Notes: [facility] a chloride 8-28 (Same as: l 13:00: KCL) [place] 00 Infuse no faster than 10 mEq/hr if given peripheral ly. potassium 2015-0 No Notes: [facility] a chloride 8-28 (Same as: l 13:00: KCL) Infuse no faster than 10 mEq/hr if given peripheral ly. potassium 2015-0 No 40 mEq, [facility] chloride 8-28 Route: IV, l 11:25: ONCE, Dosing Weight 53.636, kg, Start date: 07/07/16 6:25:00 CDT, Stop date: 07/07/16 6:25:00 CDT potassium 2015-0 No 40 mEq, [facility] chloride 8-28 Route: IV, l 11:25: ONCE, Dosing Weight 53.636, kg, Start date: 07/07/16 6:25:00 CDT, Stop date: 07/07/16 6:25:00 CDT potassium 2015-0 No 40 mEq, [facility] chloride 8-28 Route: IV, l 11:25: ONCE, Dosing Weight 53.636, kg, Start date: 07/07/16 6:25:00 CDT, Stop date: 07/07/16 6:25:00 CDT potassium 2016-0 No 40 mEq, [facility] chloride 8 Route: IV, l 11:25: ONCE, Dosing Weight 53.636, kg, Start date: 07/07/16 6:25:00 CDT, Stop date: 07/07/16 6:25:00 CDT potassium 2016-0 No 40 mEq, [facility] chloride 8 Route: IV, l 11:25: ONCE, Dosing Weight 53.636, kg, Start date: 07/07/16 6:25:00 CDT, Stop date: 07/07/16 6:25:00 CDT potassium 2016-0 No 40 mEq, [facility] chloride 8 Route: IV, l 11:25: ONCE, Dosing Weight 53.636, kg, Start date: 07/07/16 6:25:00 CDT, Stop date: 07/07/16 6:25:00 CDT potassium 2016-0 No 40 mEq, [facility] chloride 8 Route: IV, l 11:25: ONCE, Dosing Weight 53.636, kg, Start date: 07/07/16 6:25:00 CDT, Stop date: 07/07/16 6:25:00 CDT potassium 2016-0 No 40 mEq, [facility] chloride 8 Route: IV, l 11:25: ONCE, Dosing Weight 53.636, kg, Start date: 07/07/16 6:25:00 CDT, Stop date: 07/07/16 6:25:00 CDT potassium 2016-0 No 40 mEq, [facility] chloride 8 Route: IV, l 11:25: ONCE, Dosing Weight 53.636, kg, Start date: 07/07/16 6:25:00 CDT, Stop date: 07/07/16 6:25:00 CDT potassium 2016-0 No 40 mEq, [facility] chloride 8- Route: IV, l 11:25: ONCE, Dosing Weight 53.636, kg, Start date: 07/07/16 6:25:00 CDT, Stop date: 07/07/16 6:25:00 CDT Ceftazidime 2016-0 No Notes: Arthur gabriela 07-07 (Same as: l 11:00: Fortaz) Abdi 00 MEDICATION WASTE Product Size: 1000 mg Product Wasted: ___ mg Ceftazidime 2016-0 No Notes: Arthur gabriela 07-07 (Same as: l 11:00: az) Abdi 00 MEDICATION WASTE Product Size: 1000 mg Product Wasted: ___ mg Ceftazidime 2016-0 No Notes: Arthur gabriela 07-07 (Same as: l 11:00: az) Abdi 00 MEDICATION WASTE Product Size: 1000 mg Product Wasted: ___ mg Ceftazidime 2016-0 No Notes: Arthur gabriela 07-07 (Same as: l 11:00: ) Abdi 00 MEDICATION WASTE Product Size: 1000 mg Product Wasted: ___ mg Ceftazidime 2016-0 No Notes: Arthur gabriela 07-07 (Same as: l 11:00: az) Abdi 00 MEDICATION WASTE Product Size: 1000 mg Product Wasted: ___ mg Ceftazidime 2016-0 No Notes: Arthur gabriela 07-07 (Same as: l 11:00: ) Abdi 00 MEDICATION WASTE Product Size: 1000 mg Product Wasted: ___ mg Ceftazidime 2016-0 No Notes: Arthur gabriela 07-07 (Same as: l 11:00: Fortaz) Abdi 00 MEDICATION WASTE Product Size: 1000 mg Product Wasted: ___ mg Ceftazidime 2016-0 No Notes: Arthur gabriela 8 (Same as: l 11:00: Fortaz) [facility]di 00 MEDICATION WASTE Product Size: 1000 mg Product Wasted: ___ mg Ceftazidime 2016-0 No Notes: Arthur gabriela 8 (Same as: l 11:00: Fortaz) Abdi 00 MEDICATION WASTE Product Size: 1000 mg Product Wasted: ___ mg Ceftazidime 2016-0 No Notes: Arthur gabriela 8-28 (Same as: l 11:00: Fortaz) Abdi 00 MEDICATION WASTE Product Size: 1000 mg Product Wasted: ___ mg calamine No 1 appl, Memori a topical 8-28 Route: l lotion 08:51: TOP, QID, Tevin n 00 Drug form: LOT, PRN Itching, Start date: 07/07/16 3:51:00 CDT, Duration: 30 day, Stop date: 08/06/16 3:50:00 CDT calamine No 1 appl, Mem[facility] a topical 8-28 Route: l lotion 08:51: TOP, QID, Tevin n 00 Drug form: LOT, PRN Itching, Start date: 07/07/16 3:51:00 CDT, Duration: 30 day, Stop date: 08/06/16 3:50:00 CDT calamine No 1 appl, Mem[facility] a topical 8-28 Route: l lotion 08:51: TOP, QID, Tevin n 00 Drug form: LOT, PRN Itching, Start date: 07/07/16 3:51:00 CDT, Duration: 30 day, Stop date: 08/06/16 3:50:00 CDT calamine No 1 appl, Mem[facility] a topical 8-28 Route: l lotion 08:51: TOP, QID, Tevin n 00 Drug form: LOT, PRN Itching, Start date: 07/07/16 3:51:00 CDT, Duration: 30 day, Stop date: 08/06/16 3:50:00 CDT calamine 0 No 1 appl, Mem[facility] a topical 8-28 Route: l lotion 08:51: TOP, QID, Tevin n 00 Drug form: LOT, PRN Itching, Start date: 07/07/16 3:51:00 CDT, Duration: 30 day, Stop date: 08/06/16 3:50:00 CDT calamine 0 No 1 appl, Mem[facility] a topical 8-28 Route: l lotion 08:51: TOP, QID, Tevin n 00 Drug form: LOT, PRN Itching, Start date: 07/07/16 3:51:00 CDT, Duration: 30 day, Stop date: 08/06/16 3:50:00 CDT calamine 2016-0 No 1 appl, Mem[facility] a topical 8-28 Route: l lotion 08:51: TOP, QID, Tevin n 00 Drug form: LOT, PRN Itching, Start date: 07/07/16 3:51:00 CDT, Duration: 30 day, Stop date: 08/06/16 3:50:00 CDT calamine 2016-0 No 1 appl, Mem[facility] a topical 8-28 Route: l lotion 08:51: TOP, QID, Tevin n 00 Drug form: LOT, PRN Itching, Start date: 07/07/16 3:51:00 CDT, Duration: 30 day, Stop date: 08/06/16 3:50:00 CDT calamine 2016-0 No 1 appl, Mem[facility] a topical 8-28 Route: l lotion 08:51: TOP, QID, Tevin n 00 Drug form: LOT, PRN Itching, Start date: 07/07/16 3:51:00 CDT, Duration: 30 day, Stop date: 08/06/16 3:50:00 CDT calamine 2015-0 No 1 appl, Mem[facility] a topical 8-28 Route: l lotion 08:51: TOP, QID, Tevni n 00 Drug form: LOT, PRN Itching, Start date: 07/07/16 3:51:00 CDT, Duration: 30 day, Stop date: 08/06/16 3:50:00 CDT Magnesium 2016-0 No 2 gm, [facility] Sulfate 07-07 Route: l 01:00: IVPB, Drug [place] 00 form: INJ, Q2H, Dosing Weight 53.636, kg, Total dose = 4 gm, Start date: 07/06/16 20:00:00 CDT, Duration: 2 doses or times, Stop date: 07/06/16 22:00:00 CDT Magnesium 2016-0 No 2 gm, [facility] Sulfate 07-07 Route: l 01:00: IVPB, Drug [place] 00 form: INJ, Q2H, Dosing Weight 53.636, kg, Total dose = 4 gm, Start date: 07/06/16 20:00:00 CDT, Duration: 2 doses or times, Stop date: 07/06/16 22:00:00 CDT Magnesium 2016-0 No 2 gm, [facility] Sulfate 8- Route: l 01:00: IVPB, Drug [place] 00 form: INJ, Q2H, Dosing Weight 53.636, kg, Total dose = 4 gm, Start date: 07/06/16 20:00:00 CDT, Duration: 2 doses or times, Stop date: 07/06/16 22:00:00 CDT Magnesium 2016-0 No 2 gm, [facility] Sulfate 8 Route: l 01:00: IVPB, Drug Abdi 00 form: INJ, Q2H, Dosing Weight 53.636, kg, Total dose = 4 gm, Start date: 07/06/16 20:00:00 CDT, Duration: 2 doses or times, Stop date: 07/06/16 22:00:00 CDT Magnesium 2016-0 No 2 gm, [facility] Sulfate 8 Route: l 01:00: IVPB, Drug [place] 00 form: INJ, Q2H, Dosing Weight 53.636, kg, Total dose = 4 gm, Start date: 07/06/16 20:00:00 CDT, Duration: 2 doses or times, Stop date: 07/06/16 22:00:00 CDT Magnesium 2016-0 No 2 gm, [facility] Sulfate 07-07 Route: l 01:00: IVPB, Drug [place] 00 form: INJ, Q2H, Dosing Weight 53.636, kg, Total dose = 4 gm, Start date: 07/06/16 20:00:00 CDT, Duration: 2 doses or times, Stop date: 07/06/16 22:00:00 CDT Magnesium 2016-0 No 2 gm, [facility] Sulfate 8 Route: l 01:00: IVPB, Drug [place] 00 form: INJ, Q2H, Dosing Weight 53.636, kg, Total dose = 4 gm, Start date: 07/06/16 20:00:00 CDT, Duration: 2 doses or times, Stop date: 07/06/16 22:00:00 CDT Magnesium 2016-0 No 2 gm, [facility] Sulfate 8 Route: l 01:00: IVPB, Drug [place] 00 form: INJ, Q2H, Dosing Weight 53.636, kg, Total dose = 4 gm, Start date: 07/06/16 20:00:00 CDT, Duration: 2 doses or times, Stop date: 07/06/16 22:00:00 CDT Magnesium 2016-0 No 2 gm, [facility] Sulfate 07-07 Route: l 01:00: IVPB, Drug [place] 00 form: INJ, Q2H, Dosing Weight 53.636, kg, Total dose = 4 gm, Start date: 07/06/16 20:00:00 CDT, Duration: 2 doses or times, Stop date: 07/06/16 22:00:00 CDT Magnesium 2016-0 No 2 gm, [facility] Sulfate 07-07 Route: l 01:00: IVPB, Drug [place] 00 form: INJ, Q2H, Dosing Weight 53.636, kg, Total dose = 4 gm, Start date: 07/06/16 20:00:00 CDT, Duration: 2 doses or times, Stop date: 07/06/16 22:00:00 CDT potassium No Notes: Memori a phosphate + 8-28 (Same as: l sodium 00:23: K [place] chloride 00 Phosphate. 0.9% INJ ) 1 mMol 250 mL phoshate has 1.47 mEq potassium Infuse over 4 hours potassium No Notes: Mem[facility] a phosphate + 8-28 (Same as: l sodium 00:23: K [place] chloride 00 Phosphate. 0.9% INJ ) 1 mMol 250 mL phoshate has 1.47 mEq potassium Infuse over 4 hours potassium No Notes: Mem[facility] a phosphate + 8-28 (Same as: l sodium 00:23: K [place] chloride 00 Phosphate. 0.9% INJ ) 1 mMol 250 mL phoshate has 1.47 mEq potassium Infuse over 4 hours potassium No Notes: Memori a phosphate + 8-28 (Same as: l sodium 00:23: K [place] chloride 00 Phosphate. 0.9% INJ ) 1 mMol 250 mL phoshate has 1.47 mEq potassium Infuse over 4 hours potassium No Notes: [facility] a phosphate + 8-28 (Same as: l sodium 00:23: K [place] chloride 00 Phosphate. 0.9% INJ ) 1 mMol 250 mL phoshate has 1.47 mEq potassium Infuse over 4 hours potassium No Notes: Mem[facility] a phosphate + 8-28 (Same as: l sodium 00:23: K [place] chloride 00 Phosphate. 0.9% INJ ) 1 mMol 250 mL phoshate has 1.47 mEq potassium Infuse over 4 hours potassium No Notes: Memori a phosphate + 8-28 (Same as: l sodium 00:23: K [place] chloride 00 Phosphate. 0.9% INJ ) 1 mMol 250 mL phoshate has 1.47 mEq potassium Infuse over 4 hours potassium No Notes: Mem[facility] a phosphate + 8-28 (Same as: l sodium 00:23: K [place] chloride 00 Phosphate. 0.9% INJ ) 1 mMol 250 mL phoshate has 1.47 mEq potassium Infuse over 4 hours potassium No Notes: Memori a phosphate + 8-28 (Same as: l sodium 00:23: K [place] chloride 00 Phosphate. 0.9% INJ ) 1 mMol 250 mL phoshate has 1.47 mEq potassium Infuse over 4 hours potassium No Notes: Memori a phosphate + 8-28 (Same as: l sodium 00:23: K [place] chloride 00 Phosphate. 0.9% INJ ) 1 mMol 250 mL phoshate has 1.47 mEq potassium Infuse over 4 hours potassium No Notes: Memori a chloride 8-27 (Same as: l 23:00: KCL) Abdi 00 Infuse no faster than 10 mEq/hr if given peripheral ly. potassium No Notes: [facility] a chloride 8-27 (Same as: l 23:00: KCL) [place] 00 Infuse no faster than 10 mEq/hr if given peripheral ly. potassium No Notes: Memori a chloride 8-27 (Same as: l 23:00: KCL) [place] 00 Infuse no faster than 10 mEq/hr if given peripheral ly. potassium No Notes: Memori a chloride 8-27 (Same as: l 23:00: KCL) [place] 00 Infuse no faster than 10 mEq/hr if given peripheral ly. potassium No Notes: Memori a chloride 8-27 (Same as: l 23:00: KCL) [place] 00 Infuse no faster than 10 mEq/hr if given peripheral ly. potassium No Notes: Memori a chloride 8-27 (Same as: l 23:00: KCL) [place] 00 Infuse no faster than 10 mEq/hr if given peripheral ly. potassium No Notes: Memori a chloride 8-27 (Same as: l 23:00: KCL) [place] Infuse no faster than 10 mEq/hr if given peripheral ly. potassium No Notes: Memori a chloride 8-27 (Same as: l 23:00: KCL) [place] Infuse no faster than 10 mEq/hr if given peripheral ly. potassium No Notes: Memori a chloride 8-27 (Same as: l 23:00: KCL) Abdi Infuse no faster than 10 mEq/hr if given peripheral ly. potassium No Notes: [facility] a chloride 8-27 (Same as: l 23:00: KCL) Abdi Infuse no faster than 10 mEq/hr if given peripheral ly. Calcium No Notes: [facility] Gluconate 8-27 WASTE: F/P l 22:38: - Sink; E [place] - [facility] Calcium No Notes: [facility] Gluconate 8-27 WASTE: F/P l 22:38: - Sink; E [place] - [facility] Calcium No Notes: [facility] Gluconate 8-27 WASTE: F/P l 22:38: - Sink; E [place] - [facility] Calcium No Notes: [facility] Gluconate 8-27 WASTE: F/P l 22:38: - Sink; E [facility] - [facility] Calcium No Notes: [facility] Gluconate 8-27 WASTE: F/P l 22:38: - Sink; E [place] - [facility] Calcium No Notes: [facility] Gluconate 8-27 WASTE: F/P l 22:38: - Sink; E [place] - [facility] Calcium No Notes: [facility] Gluconate 8-27 WASTE: F/P l 22:38: - Sink; E [place] - [facility] Calcium No Notes: [facility] Gluconate 8-27 WASTE: F/P l 22:38: - Sink; E [place] - [facility] Calcium 2016-0 No Notes: [facility] Gluconate 8-27 WASTE: F/P l 22:38: - Sink; E [place] 00 - [facility] Calcium 2016-0 No Notes: [facility] Gluconate 8-27 WASTE: F/P l 22:38: - Sink; E [place] 00 - [facility] sodium 2016-0 No 1,000 mL, [facility] a chloride 8-27 Rate: 100 l 0.9% 1000 22:29: ml/hr, Tevin n ml INJ 00 Infuse 1,000 mL over: 10 hr, Route: IV, Dosing Weight 53.636 kg, Total Volume: 1,000, Start date: 07/06/16 17:29:00 CDT, Duration: 30 day, Stop date: 08/05/16 17:28:00 CDT sodium 2016-0 No 1,000 mL, Memori a chloride 8-27 Rate: 100 l 0.9% 1000 22:29: ml/hr, Tevin n ml INJ 00 Infuse 1,000 mL over: 10 hr, Route: IV, Dosing Weight 53.636 kg, Total Volume: 1,000, Start date: 07/06/16 17:29:00 CDT, Duration: 30 day, Stop date: 08/05/16 17:28:00 CDT sodium 2016-0 No 1,000 mL, Memori a chloride 8-27 Rate: 100 l 0.9% 1000 22:29: ml/hr, Tevin n ml INJ 00 Infuse 1,000 mL over: 10 hr, Route: IV, Dosing Weight 53.636 kg, Total Volume: 1,000, Start date: 07/06/16 17:29:00 CDT, Duration: 30 day, Stop date: 08/05/16 17:28:00 CDT sodium 2016-0 No 1,000 mL, Memori a chloride 8-27 Rate: 100 l 0.9% 1000 22:29: ml/hr, Tevin n ml INJ 00 Infuse 1,000 mL over: 10 hr, Route: IV, Dosing Weight 53.636 kg, Total Volume: 1,000, Start date: 07/06/16 17:29:00 CDT, Duration: 30 day, Stop date: 08/05/16 17:28:00 CDT sodium 2016-0 No 1,000 mL, Memori a chloride 8-27 Rate: 100 l 0.9% 1000 22:29: ml/hr, Tevin n ml INJ 00 Infuse 1,000 mL over: 10 hr, Route: IV, Dosing Weight 53.636 kg, Total Volume: 1,000, Start date: 07/06/16 17:29:00 CDT, Duration: 30 day, Stop date: 08/05/16 17:28:00 CDT sodium 2016-0 No 1,000 mL, Memori a chloride 8-27 Rate: 100 l 0.9% 1000 22:29: ml/hr, Tevin n ml INJ 00 Infuse 1,000 mL over: 10 hr, Route: IV, Dosing Weight 53.636 kg, Total Volume: 1,000, Start date: 07/06/16 17:29:00 CDT, Duration: 30 day, Stop date: 08/05/16 17:28:00 CDT sodium 2016-0 No 1,000 mL, Memori a chloride 8-27 Rate: 100 l 0.9% 1000 22:29: ml/hr, Tevin n ml INJ 00 Infuse 1,000 mL over: 10 hr, Route: IV, Dosing Weight 53.636 kg, Total Volume: 1,000, Start date: 07/06/16 17:29:00 CDT, Duration: 30 day, Stop date: 08/05/16 17:28:00 CDT sodium 2016-0 No 1,000 mL, Memori a chloride 8-27 Rate: 100 l 0.9% 1000 22:29: ml/hr, Tevin n ml INJ 00 Infuse 1,000 mL over: 10 hr, Route: IV, Dosing Weight 53.636 kg, Total Volume: 1,000, Start date: 07/06/16 17:29:00 CDT, Duration: 30 day, Stop date: 08/05/16 17:28:00 CDT sodium 2016-0 No 1,000 mL, Memori a chloride 8-27 Rate: 100 l 0.9% 1000 22:29: ml/hr, Tevin n ml INJ 00 Infuse 1,000 mL over: 10 hr, Route: IV, Dosing Weight 53.636 kg, Total Volume: 1,000, Start date: 07/06/16 17:29:00 CDT, Duration: 30 day, Stop date: 08/05/16 17:28:00 CDT sodium 2016-0 No 1,000 mL, Memori a chloride 07-06 Rate: 100 l 0.9% 1000 22:29: ml/hr, Tevin n ml INJ 00 Infuse 1,000 mL over: 10 hr, Route: IV, Dosing Weight 53.636 kg, Total Volume: 1,000, Start date: 07/06/16 17:29:00 CDT, Duration: 30 day, Stop date: 08/05/16 17:28:00 CDT Ondansetron 2016-0 No Notes: Arthur gabriela - (Same as: l 22:20: Zofran) Abdi 00 MEDICATION WASTE Product Size: 4 mg Product Wasted: ___ mg Ondansetron 2016-0 No Notes: Arthur gabriela - (Same as: l 22:20: Zofran) Abdi 00 MEDICATION WASTE Product Size: 4 mg Product Wasted: ___ mg Ondansetron 2016-0 No Notes: Arthur gabriela - (Same as: l 22:20: Zofran) Abdi 00 MEDICATION WASTE Product Size: 4 mg Product Wasted: ___ mg Ondansetron 2016-0 No Notes: Arthur gabriela 8-27 (Same as: l 22:20: Zofran) Abdi 00 MEDICATION WASTE Product Size: 4 mg Product Wasted: ___ mg Ondansetron 2016-0 No Notes: Arthur gabriela 8- (Same as: l 22:20: Zofran) Abdi 00 MEDICATION WASTE Product Size: 4 mg Product Wasted: ___ mg Ondansetron 2016-0 No Notes: Arthur gabriela 8-27 (Same as: l 22:20: Zofran) Abdi 00 MEDICATION WASTE Product Size: 4 mg Product Wasted: ___ mg Ondansetron 2016-0 No Notes: Arthur gabriela 8-27 (Same as: l 22:20: Zofran) Abdi 00 MEDICATION WASTE Product Size: 4 mg Product Wasted: ___ mg Ondansetron 2016-0 No Notes: Arthur gabriela 8-27 (Same as: l 22:20: Zofran) Abdi 00 MEDICATION WASTE Product Size: 4 mg Product Wasted: ___ mg Ondansetron 2016-0 No Notes: Arthur gabriela 8-27 (Same as: l 22:20: Zofran) Abdi 00 MEDICATION WASTE Product Size: 4 mg Product Wasted: ___ mg Ondansetron 2016-0 No Notes: Arthur gabriela 8-27 (Same as: l 22:20: Zofran) Abdi 00 MEDICATION WASTE Product Size: 4 mg Product Wasted: ___ mg potassium 2016-0 No 40 mEq, [facility] chloride 07-06 Route: l 21:18: IVPB, Abdi 00 ONCE, Dosing Weight 53.636, kg, Start date: 07/06/16 16:18:00 CDT, Stop date: 07/06/16 16:18:00 CDT potassium 2016-0 No 40 mEq, [facility] chloride 07-06 Route: l 21:18: IVPB, Abdi 00 ONCE, Dosing Weight 53.636, kg, Start date: 07/06/16 16:18:00 CDT, Stop date: 07/06/16 16:18:00 CDT potassium 2016-0 No 40 mEq, [facility] chloride 07-06 Route: l 21:18: IVPB, [place] 00 ONCE, Dosing Weight 53.636, kg, Start date: 07/06/16 16:18:00 CDT, Stop date: 07/06/16 16:18:00 CDT potassium 2016-0 No 40 mEq, [facility] chloride - Route: l 21:18: IVPB, [place] 00 ONCE, Dosing Weight 53.636, kg, Start date: 07/06/16 16:18:00 CDT, Stop date: 07/06/16 16:18:00 CDT potassium 2016-0 No 40 mEq, [facility] chloride 07-06 Route: l 21:18: IVPB, [place] 00 ONCE, Dosing Weight 53.636, kg, Start date: 07/06/16 16:18:00 CDT, Stop date: 07/06/16 16:18:00 CDT potassium 2016-0 No 40 mEq, [facility] chloride 8-27 Route: l 21:18: IVPB, Abdi 00 ONCE, Dosing Weight 53.636, kg, Start date: 07/06/16 16:18:00 CDT, Stop date: 07/06/16 16:18:00 CDT potassium 2016-0 No 40 mEq, [facility] chloride 8-27 Route: l 21:18: IVPB, Abdi 00 ONCE, Dosing Weight 53.636, kg, Start date: 07/06/16 16:18:00 CDT, Stop date: 07/06/16 16:18:00 CDT potassium 2016-0 No 40 mEq, [facility] chloride 8-27 Route: l 21:18: IVPB, Abdi 00 ONCE, Dosing Weight 53.636, kg, Start date: 07/06/16 16:18:00 CDT, Stop date: 07/06/16 16:18:00 CDT potassium 2016-0 No 40 mEq, [facility] chloride 8-27 Route: l 21:18: IVPB, [place] 00 ONCE, Dosing Weight 53.636, kg, Start date: 07/06/16 16:18:00 CDT, Stop date: 07/06/16 16:18:00 CDT potassium 2016-0 No 40 mEq, [facility] chloride 8-27 Route: l 21:18: IVPB, [place] 00 ONCE, Dosing Weight 53.636, kg, Start date: 07/06/16 16:18:00 CDT, Stop date: 07/06/16 16:18:00 CDT potassium 2016-0 No Notes: Memori a chloride 8-27 (Same as: l 21:17: K-Dur 20) [place] "Do Not Crush" With food and full glass of water potassium 2016-0 No Notes: [facility] a chloride 8-27 (Same as: l 21:17: K-Dur 20) [place] "Do Not Crush" With food and full glass of water potassium 2016-0 No Notes: [facility] a chloride 8-27 (Same as: l 21:17: K-Dur 20) Abdi 00 "Do Not Crush" With food and full glass of water potassium 2016-0 No Notes: [facility] chloride 8-27 (Same as: l 21:17: K-Dur 20) [place] 00 "Do Not Crush" With food and full glass of water potassium 0 No Notes: [facility] chloride 8-27 (Same as: l 21:17: K-Dur 20) Abdi 00 "Do Not Crush" With food and full glass of water potassium 0 No Notes: [facility] chloride 8-27 (Same as: l 21:17: K-Dur 20) [place] 00 "Do Not Crush" With food and full glass of water potassium 0 No Notes: [facility] chloride 8-27 (Same as: l 21:17: K-Dur 20) [place] 00 "Do Not Crush" With food and full glass of water potassium 0 No Notes: [facility] chloride 8-27 (Same as: l 21:17: K-Dur 20) Abdi 00 "Do Not Crush" With food and full glass of water potassium 0 No Notes: [facility] a chloride 8-27 (Same as: l 21:17: K-Dur 20) [place] 00 "Do Not Crush" With food and full glass of water potassium 0 No Notes: [facility] chloride 8-27 (Same as: l 21:17: K-Dur 20) [place] 00 "Do Not Crush" With food and full glass of water Magnesium No Notes: [facility] Sulfate 8-27 WASTE: F/P l 21:00: - Sink; E Ab[place] - [facility] Magnesium No Notes: [facility] Sulfate 8-27 WASTE: F/P l 21:00: - Sink; E [place] - [facility] Magnesium No Notes: [facility] Sulfate 8-27 WASTE: F/P l 21:00: - Sink; E [place] - [facility] Magnesium No Notes: [facility] Sulfate 8-27 WASTE: F/P l 21:00: - Sink; E [place] - [facility] Magnesium No Notes: [facility] Sulfate 8-27 WASTE: F/P l 21:00: - Sink; E [place] - [facility] Magnesium No Notes: [facility] Sulfate 8-27 WASTE: F/P l 21:00: - Sink; E Abdi 00 - [facility] Magnesium 2016-0 No Notes: [facility] Sulfate 8-27 WASTE: F/P l 21:00: - Sink; E [place] - [facility] Magnesium 2016-0 No Notes: [facility] Sulfate 8-27 WASTE: F/P l 21:00: - Sink; E [place] - [facility] Magnesium 2016-0 No Notes: [facility] Sulfate 8-27 WASTE: F/P l 21:00: - Sink; E [place] 00 - [facility] Magnesium 2016-0 No Notes: [facility] Sulfate 8-27 WASTE: F/P l 21:00: - Sink; E Abdi 00 - [facility] Magnesium 2016-0 No 800 mg, [facility] Oxide 8- Route: PO, l 16:05: ONCE, [place] Dosing Weight 53.636, kg, Start date: 07/06/16 11:05:00 CDT, Stop date: 07/06/16 11:05:00 CDT Magnesium 2016-0 No 800 mg, [facility] Oxide 8 Route: PO, l 16:05: ONCE, Abdi 00 Dosing Weight 53.636, kg, Start date: 07/06/16 11:05:00 CDT, Stop date: 07/06/16 11:05:00 CDT Magnesium 2016-0 No 800 mg, [facility] Oxide 8 Route: PO, l 16:05: ONCE, Abdi 00 Dosing Weight 53.636, kg, Start date: 07/06/16 11:05:00 CDT, Stop date: 07/06/16 11:05:00 CDT Magnesium 2016-0 No 800 mg, [facility] Oxide 8 Route: PO, l 16:05: ONCE, Dosing Weight 53.636, kg, Start date: 07/06/16 11:05:00 CDT, Stop date: 07/06/16 11:05:00 CDT Magnesium 2016-0 No 800 mg, [facility] Oxide 827 Route: PO, l 16:05: ONCE, [place] 00 Dosing Weight 53.636, kg, Start date: 07/06/16 11:05:00 CDT, Stop date: 07/06/16 11:05:00 CDT Magnesium 2016-0 No 800 mg, [facility] Oxide 8- Route: PO, l 16:05: ONCE, Abdi 00 Dosing Weight 53.636, kg, Start date: 07/06/16 11:05:00 CDT, Stop date: 07/06/16 11:05:00 CDT Magnesium 2016-0 No 800 mg, [facility] Oxide 8- Route: PO, l 16:05: ONCE, Dosing Weight 53.636, kg, Start date: 07/06/16 11:05:00 CDT, Stop date: 07/06/16 11:05:00 CDT Magnesium 2016-0 No 800 mg, [facility] Oxide 8- Route: PO, l 16:05: ONCE, Dosing Weight 53.636, kg, Start date: 07/06/16 11:05:00 CDT, Stop date: 07/06/16 11:05:00 CDT Magnesium 2016-0 No 800 mg, [facility] Oxide 8- Route: PO, l 16:05: ONCE, Dosing Weight 53.636, kg, Start date: 07/06/16 11:05:00 CDT, Stop date: 07/06/16 11:05:00 CDT Magnesium 2016-0 No 800 mg, [facility] Oxide 8- Route: PO, l 16:05: ONCE, Dosing Weight 53.636, kg, Start date: 07/06/16 11:05:00 CDT, Stop date: 07/06/16 11:05:00 CDT Potassium 2016-0 No 60 mEq, [facility] Chloride 07-06 Route: PO, l 1.33 MEQ/ML 14:28: Drug form: [place] Oral 00 LIQ, ONCE, Solution Dosing Weight 53.636, kg, Priority: STAT, Start date: 07/06/16 9:28:00 CDT, Stop date: 07/06/16 9:28:00 CDT Potassium 2016-0 No 60 mEq, [facility] Chloride 07-06 Route: PO, l 1.33 MEQ/ML 14:28: Drug form: [place] Oral 00 LIQ, ONCE, Solution Dosing Weight 53.636, kg, Priority: STAT, Start date: 07/06/16 9:28:00 CDT, Stop date: 07/06/16 9:28:00 CDT Potassium 2016-0 No 60 mEq, [facility] Chloride 07-06 Route: PO, l 1.33 MEQ/ML 14:28: Drug form: [place] Oral 00 LIQ, ONCE, Solution Dosing Weight 53.636, kg, Priority: STAT, Start date: 07/06/16 9:28:00 CDT, Stop date: 07/06/16 9:28:00 CDT Potassium 2016-0 No 60 mEq, [facility] Chloride 07-06 Route: PO, l 1.33 MEQ/ML 14:28: Drug form: Abdi Oral 00 LIQ, ONCE, Solution Dosing Weight 53.636, kg, Priority: STAT, Start date: 07/06/16 9:28:00 CDT, Stop date: 07/06/16 9:28:00 CDT Potassium 2016-0 No 60 mEq, [facility] Chloride 07-06 Route: PO, l 1.33 MEQ/ML 14:28: Drug form: [place] Oral 00 LIQ, ONCE, Solution Dosing Weight 53.636, kg, Priority: STAT, Start date: 07/06/16 9:28:00 CDT, Stop date: 07/06/16 9:28:00 CDT Potassium 2016-0 No 60 mEq, [facility] Chloride 07-06 Route: PO, l 1.33 MEQ/ML 14:28: Drug form: [place] Oral 00 LIQ, ONCE, Solution Dosing Weight 53.636, kg, Priority: STAT, Start date: 07/06/16 9:28:00 CDT, Stop date: 07/06/16 9:28:00 CDT Potassium 2016-0 No 60 mEq, [facility] Chloride 07-06 Route: PO, l 1.33 MEQ/ML 14:28: Drug form: Abdi Oral 00 LIQ, ONCE, Solution Dosing Weight 53.636, kg, Priority: STAT, Start date: 07/06/16 9:28:00 CDT, Stop date: 07/06/16 9:28:00 CDT Potassium 2016-0 No 60 mEq, [facility] Chloride 07-06 Route: PO, l 1.33 MEQ/ML 14:28: Drug form: Abdi Oral 00 LIQ, ONCE, Solution Dosing Weight 53.636, kg, Priority: STAT, Start date: 07/06/16 9:28:00 CDT, Stop date: 07/06/16 9:28:00 CDT Potassium 2016-0 No 60 mEq, [facility] Chloride 07-06 Route: PO, l 1.33 MEQ/ML 14:28: Drug form: [place] Oral 00 LIQ, ONCE, Solution Dosing Weight 53.636, kg, Priority: STAT, Start date: 07/06/16 9:28:00 CDT, Stop date: 07/06/16 9:28:00 CDT Potassium 2016-0 No 60 mEq, [facility] Chloride 07-06 Route: PO, l 1.33 MEQ/ML 14:28: Drug form: Abdi Oral 00 LIQ, ONCE, Solution Dosing Weight 53.636, kg, Priority: STAT, Start date: 07/06/16 9:28:00 CDT, Stop date: 07/06/16 9:28:00 CDT Magnesium 2016-0 No 2 gm, [facility] Sulfate 07-06 Route: IV, l 14:24: ONCE, Dosing Weight 53.636, kg, Priority: STAT, Start date: 07/06/16 9:24:00 CDT, Stop date: 07/06/16 9:24:00 CDT Magnesium 2016-0 No 2 gm, [facility] Sulfate 07-06 Route: IV, l 14:24: ONCE, Dosing Weight 53.636, kg, Priority: STAT, Start date: 07/06/16 9:24:00 CDT, Stop date: 07/06/16 9:24:00 CDT Magnesium 2016-0 No 2 gm, [facility] Sulfate 07-06 Route: IV, l 14:24: ONCE, Dosing Weight 53.636, kg, Priority: STAT, Start date: 07/06/16 9:24:00 CDT, Stop date: 07/06/16 9:24:00 CDT Magnesium 2016-0 No 2 gm, [facility] Sulfate 07-06 Route: IV, l 14:24: ONCE, Dosing Weight 53.636, kg, Priority: STAT, Start date: 07/06/16 9:24:00 CDT, Stop date: 07/06/16 9:24:00 CDT Magnesium 2016-0 No 2 gm, [facility] Sulfate 8-27 Route: IV, l 14:24: ONCE, [place] 00 Dosing Weight 53.636, kg, Priority: STAT, Start date: 07/06/16 9:24:00 CDT, Stop date: 07/06/16 9:24:00 CDT Magnesium 2016-0 No 2 gm, [facility] Sulfate 8-27 Route: IV, l 14:24: ONCE, Abdi 00 Dosing Weight 53.636, kg, Priority: STAT, Start date: 07/06/16 9:24:00 CDT, Stop date: 07/06/16 9:24:00 CDT Magnesium 2016-0 No 2 gm, [facility] Sulfate 8- Route: IV, l 14:24: ONCE, Dosing Weight 53.636, kg, Priority: STAT, Start date: 07/06/16 9:24:00 CDT, Stop date: 07/06/16 9:24:00 CDT Magnesium 2016-0 No 2 gm, [facility] Sulfate 8- Route: IV, l 14:24: ONCE, Abdi 00 Dosing Weight 53.636, kg, Priority: STAT, Start date: 07/06/16 9:24:00 CDT, Stop date: 07/06/16 9:24:00 CDT Magnesium 2016-0 No 2 gm, [facility] Sulfate 8-27 Route: IV, l 14:24: ONCE, Dosing Weight 53.636, kg, Priority: STAT, Start date: 07/06/16 9:24:00 CDT, Stop date: 07/06/16 9:24:00 CDT Magnesium 2016-0 No 2 gm, [facility] Sulfate 8-27 Route: IV, l 14:24: ONCE, Dosing Weight 53.636, kg, Priority: STAT, Start date: 07/06/16 9:24:00 CDT, Stop date: 07/06/16 9:24:00 CDT potassium 2016-0 No Notes: Mem[facility] a chloride 8-27 (Same as: l 12:00: KCL) [place] 00 Infuse over 2 hours. potassium 2016-0 No Notes: [facility] a chloride 8-27 (Same as: l 12:00: KCL) Abdi 00 Infuse over 2 hours. potassium 2016-0 No Notes: [facility] a chloride 8-27 (Same as: l 12:00: KCL) Abdi 00 Infuse over 2 hours. potassium 2016-0 No Notes: [facility] a chloride 8-27 (Same as: l 12:00: KCL) [place] 00 Infuse over 2 hours. potassium 2016-0 No Notes: [facility] a chloride 8-27 (Same as: l 12:00: KCL) Abdi 00 Infuse over 2 hours. potassium 2016-0 No Notes: [facility] a chloride 8-27 (Same as: l 12:00: KCL) [place] 00 Infuse over 2 hours. potassium 2016-0 No Notes: [facility] a chloride 8-27 (Same as: l 12:00: KCL) [place] 00 Infuse over 2 hours. potassium 2016-0 No Notes: [facility] a chloride 8-27 (Same as: l 12:00: KCL) Abdi 00 Infuse over 2 hours. potassium 2016-0 No Notes: [facility] a chloride 8-27 (Same as: l 12:00: KCL) Abdi 00 Infuse over 2 hours. potassium 2016-0 No Notes: [facility] a chloride 8-27 (Same as: l 12:00: KCL) [place] 00 Infuse over 2 hours. Calcium 2016-0 No 1,000 mL, [facility] Chloride 8-27 Rate: l 0.0014 11:06: 2,000 [place] MEQ/ML / 00 ml/hr, Potassium Infuse Chloride over: 30 0.004 minutes, MEQ/ML / Route: IV, Sodium Dosing Chloride Weight 0.103 53.636 kg, MEQ/ML / Total Sodium Volume: Lactate 1,000, 0.028 Bolus MEQ/ML infusion, Injectable Priority: Solution STAT, Start date: 07/06/16 6:06:00 CDT, Duration: 1 doses or times, Stop date: 07/06/16 6:35:00 CDT Calcium 2016-0 No 1,000 mL, [facility] Chloride 8-27 Rate: l 0.0014 11:06: 2,000 Abdi MEQ/ML / 00 ml/hr, Potassium Infuse Chloride over: 30 0.004 minutes, MEQ/ML / Route: IV, Sodium Dosing Chloride Weight 0.103 53.636 kg, MEQ/ML / Total Sodium Volume: Lactate 1,000, 0.028 Bolus MEQ/ML infusion, Injectable Priority: Solution STAT, Start date: 07/06/16 6:06:00 CDT, Duration: 1 doses or times, Stop date: 07/06/16 6:35:00 CDT Calcium 2016-0 No 1,000 mL, [facility] Chloride 8-27 Rate: l 0.0014 11:06: 2,000 Abdi MEQ/ML / 00 ml/hr, Potassium Infuse Chloride over: 30 0.004 minutes, MEQ/ML / Route: IV, Sodium Dosing Chloride Weight 0.103 53.636 kg, MEQ/ML / Total Sodium Volume: Lactate 1,000, 0.028 Bolus MEQ/ML infusion, Injectable Priority: Solution STAT, Start date: 07/06/16 6:06:00 CDT, Duration: 1 doses or times, Stop date: 07/06/16 6:35:00 CDT Calcium 2016-0 No 1,000 mL, Mem[facility] Chloride 8-27 Rate: l 0.0014 11:06: 2,000 Abdi MEQ/ML / 00 ml/hr, Potassium Infuse Chloride over: 30 0.004 minutes, MEQ/ML / Route: IV, Sodium Dosing Chloride Weight 0.103 53.636 kg, MEQ/ML / Total Sodium Volume: Lactate 1,000, 0.028 Bolus MEQ/ML infusion, Injectable Priority: Solution STAT, Start date: 07/06/16 6:06:00 CDT, Duration: 1 doses or times, Stop date: 07/06/16 6:35:00 CDT Calcium 2016-0 No 1,000 mL, Mem[facility] Chloride 8-27 Rate: l 0.0014 11:06: 2,000 Abdi MEQ/ML / 00 ml/hr, Potassium Infuse Chloride over: 30 0.004 minutes, MEQ/ML / Route: IV, Sodium Dosing Chloride Weight 0.103 53.636 kg, MEQ/ML / Total Sodium Volume: Lactate 1,000, 0.028 Bolus MEQ/ML infusion, Injectable Priority: Solution STAT, Start date: 07/06/16 6:06:00 CDT, Duration: 1 doses or times, Stop date: 07/06/16 6:35:00 CDT Calcium 2016-0 No 1,000 mL, Mem[facility] Chloride 8-27 Rate: l 0.0014 11:06: 2,000 Abdi MEQ/ML / 00 ml/hr, Potassium Infuse Chloride over: 30 0.004 minutes, MEQ/ML / Route: IV, Sodium Dosing Chloride Weight 0.103 53.636 kg, MEQ/ML / Total Sodium Volume: Lactate 1,000, 0.028 Bolus MEQ/ML infusion, Injectable Priority: Solution STAT, Start date: 07/06/16 6:06:00 CDT, Duration: 1 doses or times, Stop date: 07/06/16 6:35:00 CDT Calcium 2016-0 No 1,000 mL, Mem[facility] Chloride 8-27 Rate: l 0.0014 11:06: 2,000 [place] MEQ/ML / 00 ml/hr, Potassium Infuse Chloride over: 30 0.004 minutes, MEQ/ML / Route: IV, Sodium Dosing Chloride Weight 0.103 53.636 kg, MEQ/ML / Total Sodium Volume: Lactate 1,000, 0.028 Bolus MEQ/ML infusion, Injectable Priority: Solution STAT, Start date: 07/06/16 6:06:00 CDT, Duration: 1 doses or times, Stop date: 07/06/16 6:35:00 CDT Calcium 2016-0 No 1,000 mL, Mem[facility] ia Chloride 8-27 Rate: l 0.0014 11:06: 2,000 Abdi MEQ/ML / 00 ml/hr, Potassium Infuse Chloride over: 30 0.004 minutes, MEQ/ML / Route: IV, Sodium Dosing Chloride Weight 0.103 53.636 kg, MEQ/ML / Total Sodium Volume: Lactate 1,000, 0.028 Bolus MEQ/ML infusion, Injectable Priority: Solution STAT, Start date: 07/06/16 6:06:00 CDT, Duration: 1 doses or times, Stop date: 07/06/16 6:35:00 CDT Calcium 2016-0 No 1,000 mL, Mem[facility] ia Chloride 8-27 Rate: l 0.0014 11:06: 2,000 Abdi MEQ/ML / 00 ml/hr, Potassium Infuse Chloride over: 30 0.004 minutes, MEQ/ML / Route: IV, Sodium Dosing Chloride Weight 0.103 53.636 kg, MEQ/ML / Total Sodium Volume: Lactate 1,000, 0.028 Bolus MEQ/ML infusion, Injectable Priority: Solution STAT, Start date: 07/06/16 6:06:00 CDT, Duration: 1 doses or times, Stop date: 07/06/16 6:35:00 CDT Calcium 2016-0 No 1,000 mL, Mem[facility] ia Chloride 8-27 Rate: l 0.0014 11:06: 2,000 Abdi MEQ/ML / 00 ml/hr, Potassium Infuse Chloride over: 30 0.004 minutes, MEQ/ML / Route: IV, Sodium Dosing Chloride Weight 0.103 53.636 kg, MEQ/ML / Total Sodium Volume: Lactate 1,000, 0.028 Bolus MEQ/ML infusion, Injectable Priority: Solution STAT, Start date: 07/06/16 6:06:00 CDT, Duration: 1 doses or times, Stop date: 07/06/16 6:35:00 CDT Immunizations Ordered Filled Immunization Date Status Comments [facility] e Immunization Name Name Influenza High Dose 2022-08-07 Completed [facility] of 00:00:00 [facility] Pneumococcal 2022-08-07 Completed [facility] f Unspecified 00:00:00 [facility] Influenza High Dose 2022-08-07 Completed [facility]ive rsity of 00:00:00 [facility] Pneumococcal 2022-08-07 Completed [facility] o f Unspecified 00:00:00 [facility] Influenza High Dose 2022-08-07 Completed [facility]ive rsity of 00:00:00 [facility] Pneumococcal 2022-08-07 Completed [facility] o f Unspecified 00:00:00 [facility] Influenza High Dose 2022-08-07 Completed [facility]ive rsity of 00:00:00 [facility] Pneumococcal 2022-08-07 Completed [facility] o f Unspecified 00:00:00 [facility] Influenza High Dose 2022-08-07 Completed [facility]ive rsity of 00:00:00 [facility] Pneumococcal 2022-08-07 Completed [facility] o f Unspecified 00:00:00 [facility] Influenza High Dose 2022-08-07 Completed [facility]ive rsity of 00:00:00 [facility] Pneumococcal 2022-08-07 Completed [facility] o f Unspecified 00:00:00 [facility] Influenza High Dose 2022-08-07 Completed [facility]ive rsity of 00:00:00 [facility] Pneumococcal 2022-08-07 Completed [facility] o f Unspecified 00:00:00 [facility] Influenza High Dose 2022-08-07 Completed [facility]ive rsity of 00:00:00 [facility] Pneumococcal 2022-08-07 Completed University o f Unspecified 00:00:00 [facility] Influenza High Dose 2022-08-07 Completed [facility]ive rsity of 00:00:00 [facility] Pneumococcal 2022-08-07 Completed [facility] o f Unspecified 00:00:00 [facility] Influenza High Dose 2022-08-07 Completed [facility]ive rsity of 00:00:00 [facility] Pneumococcal 2022-08-07 Completed [facility] o f Unspecified 00:00:00 [facility] Pneumococcal 2022-04-26 Completed [place] [facility] Sign[facility] Vital Name Observation Time Observation Value Comments Source WEIGHT 2022-04-23 22:54:00 56.552858 kg HEIGHT 2022-04-23 22:54:00 157.48 cm Systolic blood 2022-12-06 21:20:00 137 mm[Hg] Univer sity of pressure [facility] Diastolic blood 2022-12-06 21:20:00 85 mm[Hg] Unive rsity of pressure [facility] Heart rate 2022-12-06 21:17:00 86 /min [facility] Body temperature 2022-12-06 21:17:00 37.06 [facility] Respiratory rate 2022-12-06 21:17:00 16 /min [facility] Body weight 2022-12-06 21:17:00 54.233 kg [facility]i ty [facility] BMI 2022-12-06 21:17:00 21.18 kg/m2 [facility] Oxygen saturation in 2022-12-06 21:17:00 97 /min University Arterial blood by [facility] Pulse oximetry Branch Systolic blood 2022-11-09 19:00:00 151 mm[Hg] Univer sity of pressure [facility] Diastolic blood 2022-11-09 19:00:00 85 mm[Hg] Unive rsity of pressure [facility] Heart rate 2022-11-09 19:00:00 87 /min [facility]i ty of [facility] Respiratory rate 2022-11-09 19:00:00 12 /min [facility] Oxygen saturation in 2022-11-09 19:00:00 99 /min [facility] of Arterial blood by [facility] tasha Pulse oximetry Branch Body temperature 2022-11-09 16:18:00 36.61 Tonya [facility] Body weight 2022-11-09 16:18:00 56.246 kg [facility] BMI 2022-11-09 16:18:00 21.97 kg/m2 [facility] Systolic blood 2022-10-16 17:58:00 144 mm[Hg] [facility] Diastolic blood 2022-10-16 17:58:00 92 mm[Hg] Unive [facility]ity of [facility] Heart rate 2022-10-16 17:50:00 105 /min [facility] Body temperature 2022-10-16 17:50:00 36.56 Tonya [facility] Respiratory rate 2022-10-16 17:50:00 16 /min [facility] Body height 2022-10-16 17:50:00 160 cm [facility] Body weight 2022-10-16 17:50:00 57.153 kg [facility] BMI 2022-10-16 17:50:00 22.32 kg/m2 [facility] Oxygen saturation in 2022-10-16 17:50:00 96 /min [facility] of Arterial blood by [facility] Pulse oximetry Branch Heart rate 2022-09-13 15:05:00 90 /min [facility] Systolic blood 2022-09-13 14:30:00 105 mm[Hg] [facility] Diastolic blood 2022-09-13 14:30:00 69 mm[Hg] [facility] Body temperature 2022-09-13 14:30:00 36.72 [facility]a [facility] Body height 2022-09-13 14:30:00 160 cm [facility] Body weight 2022-09-13 14:30:00 58.968 kg [facility] BMI 2022-09-13 14:30:00 23.03 kg/m2 [facility] Oxygen saturation in 2022-09-13 14:30:00 97 /min [facility] Arterial blood by [facility] Pulse oximetry Branch Systolic blood 2022-09-11 05:00:00 108 mm[Hg] Univer [facility] Diastolic blood 2022-09-11 05:00:00 58 mm[Hg] Unive rsity of pressure [facility] Heart rate 2022-09-11 05:00:00 86 /min [facility] Respiratory rate 2022-09-11 05:00:00 16 /min Univ ers[facility] Oxygen saturation in 2022-09-11 05:00:00 97 /min University of Arterial blood by [place] [facility] t[facility] Pulse oximetry Branch Body temperature 2022-09-11 03:16:00 37 Tonya [facility] Body height 2022-09-11 03:16:00 157.5 cm [facility] Body weight 2022-09-11 03:16:00 58.968 kg [facility] BMI 2022-09-11 03:16:00 23.78 kg/m2 [facility] Systolic blood 2022-09-03 18:08:00 104 mm[Hg] Univer [facility]ity of [facility] Diastolic blood 2022-09-03 18:08:00 73 mm[Hg] Unive rsity of pressure [facility] Heart rate 2022-09-03 18:08:00 70 /min [facility] Body temperature 2022-09-03 18:08:00 36.17 Tonya [facility] Respiratory rate 2022-09-03 18:08:00 18 /min [facility] Body height 2022-09-03 18:08:00 154.9 cm [facility] Body weight 2022-09-03 18:08:00 58.968 kg [facility] BMI 2022-09-03 18:08:00 24.56 kg/m2 [facility] Oxygen saturation in 2022-09-03 18:08:00 99 /min University of Arterial blood by [place] [facility] t[facility] Pulse oximetry Branch Systolic blood 2022-07-25 18:41:00 136 mm[Hg] Univer sity of pressure [facility] Diastolic blood 2022-07-25 18:41:00 83 mm[Hg] Unive rsity of pressure [facility] Heart rate 2022-07-25 18:41:00 87 /min Universi [facility] Body temperature 2022-07-25 18:41:00 36.89 Tonya Univ ersity [facility] Body height 2022-07-25 18:41:00 157.5 cm Universi [facility] Body weight 2022-07-25 18:41:00 59.875 kg Universi [facility] BMI 2022-07-25 18:41:00 24.14 kg/m2 [facility] Oxygen saturation in 2022-07-25 18:41:00 98 /min [facility] Arterial blood by [facility] Pulse oximetry Branch WEIGHT 2022-04-23 22:54:00 56.067916 kg HEIGHT 2022-04-23 22:54:00 157.48 cm Body Temperature 2022-04-27 12:00:00 98.0 [degF] [facility] Heart Rate 2022-04-27 12:00:00 67 /min [facility] Respiratory rate 2022-04-27 12:00:00 18 /min [facility] Oxygen saturation by 2022-04-27 12:00:00 95 /min [place] Pulse oximetry [facility] BP Systolic 2022-04-27 12:00:00 117 mm[Hg] [facility] BP Diastolic 2022-04-27 12:00:00 70 mm[Hg] [facility] Height 2022-04-25 13:22:00 157.48 cm [facility] Weight 2022-04-25 13:22:00 56.35 kg [facility] BMI (Body Mass 2022-04-25 13:22:00 22.7 kg/m2 [place] seph Index) [facility] Heart Rate 2016-07-12 16:29:00 [facility] Temperature Oral (F) 2016-07-12 16:29:00 98.3 F [facility] Resp[facility] Rate 2016-07-12 16:29:00 Memori al [facility]di Systolic (mm Hg) 2016-07-12 16:29:00 Arthur rial [place] Diastolic (mm Hg) 2016-07-12 16:29:00 Mem orial [place] Systolic (mm Hg) 2016-07-12 12:29:00 Arthur rial [place] Diastolic (mm Hg) 2016-07-12 12:29:00 Mem orial [facility]di Respitory Rate 2016-07-12 12:29:00 Memori al [facility]di Heart Rate 2016-07-12 12:29:00 [facility] [place] Temperature Oral (F) 2016-07-12 12:29:00 98.4 F [facility] [place] Heart Rate 2016-07-12 10:27:00 [facility] Respitory Rate 2016-07-12 10:27:00 Memori al [place] Systolic (mm Hg) 2016-07-12 10:27:00 Arthur rial [facility]di Diastolic (mm Hg) 2016-07-12 10:27:00 Mem orial [place] Temperature Oral (F) 2016-07-12 10:27:00 98.6 F [facility] BMI Calculated 2016-07-06 08:07[facility] Height 2016-07-06 08:07:00 157.48 cm [facility] Weight 2016-07-06 08:07:00 [facility] [place] Procedures Procedure Date / Time Performing Clinician Source Performed URINALYSIS 2022-11-09 17:43:00 oYli Pelayo [facility] LIPASE 2022-11-09 16:42:00 Yoli Pelayo [facility] COMP. METABOLIC PANEL 2022-11-09 16:42:00 Yoli Pelayo [facility] ([id number]) [facility] CBC WITH DIFF 2022-11-09 16:42:00 Yoli Pelayo [facility] LACTIC ACID WHOLE BLOOD 2022-11-09 16:40:00 Yoli Pelayo [facility] NOTICE OF PRIVACY 2022-11-09 16:15:14 Doctor Unassigned, No Univ [facility] PRACTICES Name [facility] CONSENT/REFUSAL FOR 2022-11-09 16:10:29 Doctor Unassigned, No [facility] Name [facility] CT ABDOMEN PELVIS W 2022-09-11 04:32:39 Margarita Pratt [facility] CONTRAST [facility] TROPONIN I 2022-09-11 03:23:00 Margarita Pratt [place] [facility] COMP. METABOLIC PANEL 2022-09-11 03:23:00 Margarita Pratt [facility] ([id number]) Medical Branch CBC WITH DIFF 2022-09-11 03:23:00 Margarita Pratt [facility] URINALYSIS 2022-09-11 03:23:00 Margarita Pratt [facility] CONSENT/REFUSAL FOR 2022-09-11 03:04:16 Doctor Unassigned, No Un [facility] DIAGNOSIS AND TREATMENT Name Medical Branch DISCLOSURE AND CONSENT, 2022-09-03 05:01:00 Doctor Unassigned, N o [facility] MEDICAL AND SURGICAL Name Medical Bra [facility] PROCEDURES PATIENT QUESTIONNAIRE 2022-08-19 05:01:00 Doctor Unassigned, No [facility] BI ULTRASOUND BREAST 2022-08-08 16:23:27 Kathya Shankar [facility] COMPLETE RIGHT [facility] BI DIAGNOSTIC 2022-08-08 15:48:00 Kathya Shankar [facility] TOMOSYNTHESIS BILATERAL [facility] Blood Culture 2022-04-24 00:00:00 [facility] EKG 12 Lead in Emergency 2022-04-23 17:34:00 [facility] Urine Culture 2022-04-23 00:00:00 [facility] Encounters Start End Encounter Admission Attending Care Care Encounter Source Date/Time Date/Time Type Type Clinicians Facility Department ID 2022-04-25 Inpatient U ARAVIND ClarkJG [facility] [id number] [facility] 17:29:00 Juan M -[id number] [facility] [place] 2022-12-06 2022-12-06 Outpatient R DOMINGA [facility] [id number] Univers 15:30:00 15:54:05 LATASHA najera [facility] 2022-12-06 2022-12-06 Office Dominga [facility] 1.2.840.114 [id number] Univers 15:30:00 15:54:05 Visit Latasha A [facility] 350.1.13.10 i ty of [place] 4.2.7.2.686 Lemuel as PATSY?BLEA [id number] Id harrison FALCON [address] [place] [address] OFFICE [facility] 2022-12-04 2022-12-04 Telephone [facility] 1.2.840.114 [id number] Univers 00:00:00 00:00:00 ise, SPECIALTY 350.1.13.10 ity of [facility] 4.2.7.2.686 [facility] AT [phone] Id harrison CALVILLO [address] [place] [address] 2022-12-03 2022-12-03 Outpatient R [facility] [id number] Univers 08:45:00 08:45:00 ISE, ity of [facility] 2022-11-28 2022-11-28 [facility] 1.2.840.114 [id number] Univers 00:00:00 00:00:00 Latasha A HEALTH 350.1.13.10 i ty of [place] 4.2.7.2.686 Lemuel as PATSY?BLEA [id number] Id elise[address] OFFICE [facility] 2022-11-18 2022-11-18 [facility] 1.2.840.114 [id number] Univers 00:00:00 00:00:00 Latasha A HEALTH 350.1.13.10 i ty of [place] 4.2.7.2.686 Lemuel as PATSY?BLEA [id number] Id harrison SAV [address] [place] [address] OFFICE [facility] 2022-11-09 2022-11-09 Emergency X PIERCE, [facility] ERT [id number] Univers 10:21:00 13:33:00 YOLI ity of [facility] 2022-11-09 2022-11-09 Emergency Pierce, [facility] 1.2.989.743 [id number] Univers 10:21:00 13:33:00 Yoli TAMEZTON 350.1.13.10 ity of [place] 4.2.7.2.686 [facility] [id number] [address] 2022-10-16 2022-10-16 Urgent Farhad Carter [facility] 1.2.840.114 [id number] Univers 11:20:00 11:40:00 Care Unknown, Attending HEALTH 350.1.13.10 ity of [facility] 4.2.7.2.686 Lemuel as PATSY?BLEA [id number] Id harrison FALCON [address] [facility] OFFICE [facility] 2022-10-16 2022-10-16 Outpatient R KING ALEX [facility] [id number] Univers 11:20:00 11:20:00 FARHAD [facility] 2022-09-17 2022-09-17 Telemedici [facility] 1.2.840.114 [id number] Univers 16:45:00 17:00:00 ne Visit Kathya Blandon [place] 350.1.13.10 ity [facility] 4.2.7.2.686 [place] [facility] [id number] Id [facility] [address] [facility] 2022-09-17 2022-09-17 [facility] [id number] Univers 16:45:00 16:45:00 KATHYA [facility] 2022-09-13 2022-09-13 [facility] [id number] Univers 09:30:00 10:11:52 LATASHA [facility] 2022-09-13 2022-09-13 Office [facility] 1.2.840.114 [id number] Univers 09:30:00 10:11:52 Visit Latasha Ruano [facility] 350.1.13.10 i ty of [place] 4.2.7.2.686 Lemuel as PATSY?BLEA [id number] Id harrison FALCON [address] [facility] OFFICE [facility] 2022-09-10 2022-09-11 Emergency X [facility] ERT [id number] Univers 22:06:00 01:37:00 MARGARITA [facility] 2022-09-10 2022-09-11 Emergency [facility] [id number] [id number] Univers 22:06:00 01:37:00 Margarita TAMEZREBECCA 350.1.13.10 i ty [facility] 4.2.7.2.686 [facility] [id number] [facility] [address] Branch 2022-09-03 2022-09-03 Outpatient R [facility] [id number] Univers 13:00:00 15:10:27 KATHYA ity of [facility] 2022-09-03 2022-09-03 Office [facility] 1.2.546.042 [id number] Univers 13:00:00 15:10:27 Visit Kathya ROSS 350.1.13.10 i ty of [place] 4.2.7.2.686 [place] [id number] Id dical NAL [address] [facility] 2022-09-03 2022-09-03 Orders Doctor DILIP 1.2.840.114 [id number] Univers 00:00:00 00:00:00 Only Unassigned, CONCHA 350.1.13.10 ity of [facility] 4.2.7.2.686 Lemuel as [id number] [facility] [address] [place] 2022-08-19 2022-08-19 Orders Doctor DILIP 1.2.840.114 [id number] Univers 00:00:00 00:00:00 Only Unassigned, CONCHA 350.1.13.10 ity of [facility] 4.2.7.2.686 Lemuel as [id number] [facility] [address] [place] 2022-08-08 2022-08-08 [facility] 1.2.840.114 [id number] Univers 09:57:32 23:59:00 Encounter Kathya Blandon SPECIALTY 350.1.13.10 ity of [place]2.7.2.686 [place] AT [id number] Id dical [place] 800 [facility] 2022-08-08 2022-08-08 Outpatient R [facility] [id number] Univers 09:55:13 09:56:00 KATHYA ity of [facility] 2022-08-08 2022-08-08 [facility] 1.2.840.114 [id number] Univers 09:55:13 09:56:00 Encounter Kathya Blandon SPECIALTY 350.1.13.10 ity of [place] 4[place]2.7.2.686 [place] AT [id number] Id harrison CALVILLO [address] [facility] 2022-07-30 2022-07-30 Telephone Vonnie [facility] 1.2.840.114 [id number] Univers 00:00:00 00:00:00 Kathya S HEALTH 350.1.13.10 it y of [place]2.7.2.686 [place] - [id number] Med ical MDA [address] 2022-07-25 2022-07-25 Office Dominga [facility] 1.2.840.114 [id number] Univers 13:00:00 14:28:58 Visit Latasha Ruano HEALTH 350.1.13.10 i ty of [place] 4.2.7.2.686 Lemuel as PATSY?BLEA [id number] Id harrison FALCON [address] MEDICAL OFFICE BUILDING 2022-07-25 2022-07-25 Outpatient R DOMINGA [facility] [id number] Univers 13:00:00 14:28:58 LATASHA najera [facility] 2022-07-25 2022-07-25 Outpatient R DOMINGA [facility] [id number] Univers 13:00:00 13:00:00 LATASHA najera [facility] 2022-07-22 2022-07-22 Outpatient YUAN SHARP [facility] [id number] Univers 09:29:02 23:59:00 YUAN BIRD [facility] 2022-07-22 2022-07-22 Hospital Pelon [facility] 1..[id number] [id number] Univers 09:29:02 23:59:00 Encounter Yuan [facility] 350.1.13.10 ity of [place]2.7.2.686 [place] [id number] [facility] [address] ([facility]) 2022-07-22 2022-07-22 Outpatient YUAN SHARP [facility] [id number] Univers 09:29:02 23:59:00 YUAN BIRD [facility] 2022-06-18 2022-06-18 Telephone Pelon [facility] 1..840.114 [id number] Univers 00:00:00 00:00:00 [facility] 350.1.13.10 ity of [place] 4.2.7.2.686 Lemuel as PATSY?BLEA [id number] Id harrison FALCON [address] [facility] OFFICE [facility] 2022-06-14 2022-06-14 [facility] [id number] [id number] Univers 00:00:00 00:00:00 [facility] 350.1.13.10 i ty of [place] 4.2.7.2.686 Lemuel as PATSY?BLEA [id number] Id harrison FALCON [address] [facility] OFFICE [facility] 2022-06-13 2022-06-13 [facility] 1.2.840.114 [id number] Univers 00:00:00 00:00:00 [facility] 350.1.13.10 ity of [place] 4.2.7.2.686 Lemuel as PATSY?BLEA [id number] Id harrison FALCON [address] [facility] OFFICE [facility] 2022-06-13 2022-06-13 Telephone Pelon, [facility] 1.2.840.114 [id number] [facility] 00:00:00 00:00:00 [facility] 350.1.13.10 ity of [place] 4.2.7.2.686 Lemuel as PATSY?BLEA [id number] Id harrison FALCON 092 [facility] 2022-06-10 2022-06-10 [facility] Assistant [facility], Ang - Db [facility] 1.2.840.1 14 [id number] Univers 10:45:00 11:00:00 Visit Pelon Yuan [facility] 350.1.13. 10 ity of [facility] 4.2.7.2.686 Lemuel as PATSY?BLEA [id number] Id harrison FALCON [address] [facility] OFFICE [facility] 2022-06-10 2022-06-10 Outpatient R YUAN BIRD [facility] [id number] Univers 10:00:00 10:47:00 YUAN BIRD ity of [facility] 2022-06-10 2022-06-10 [facility] 1.2.840.114 [id number] Univers 10:00:00 10:47:00 Visit Yuan FAN 350.1.13.10 ity of [place] 4.2.7.2.686 Lemuel as PATSY?BLEA [id number] Id eliseolamide FALCON [address] [facility] OFFICE [facility] 2022-06-10 2022-06-10 Outpatient YUAN SHARP [facility] [id number] Univers 10:00:00 10:47:00 YUAN BIRD [facility] 2022-06-10 2022-06-10 Outpatient YUAN SHARP [facility] [id number] Univers 10:00:00 10:47:00 YUAN BIRD [facility] 2022-06-10 2022-06-10 Outpatient YUAN SHARP [facility] [id number] Univers 10:00:00 10:00:00 YUAN BIRD [facility] 2022-05-16 2022-05-16 [facility] Assistant [facility], Ang - [facility] 1.2.840.1 14 [id number] Univers 11:00:00 11:15:00 Visit Latasha Mcdermott [employer] 350.1.13.10 ity [facility] 4.2.7.2.686 Lemuel as PATSY?BLEA [id number] Id eliseolamide FALCON [address] [facility] OFFICE [facility] 2022-05-16 2022-05-16 Outpatient [facility] [id number] Univers 10:00:00 11:01:34 LATASHA [facility] 2022-05-16 2022-05-16 [facility] 1.2.840.114 [id number] Univers 10:00:00 11:01:34 Visit Latasha FAN 350.1.13.10 i ty of [place] 4.2.7.2.686 Lemuel as PATSY?BLEA [id number] Id harrison [facility] 0[address] [facility] OFFICE [facility] 2022-04-23 2022-04-27 Inpatient U ARAVIND ClarkJEAN MARIE MED [id number] 17:17:00 13:50:00 Juan M -[id number] Lumagno s [facility] [place] 2022-04-23 2022-04-23 Admitted [id number] [facility] 1ab3 1c31-1 St. 19:55:00 19:55:00 Inpatient [id number] [facility] [id number] [facility]ion [id number] [place], [place] [id number] Reg ximena [id number] Ctr-INPT [id number] [facility] ([facility]) [facility] 2016-07-06 2016-07-12 Inpatient [facility] [id number] Memoria 08:06:00 19:30:00 r [place] 40 [facility] 2016-07-06 2016-07-12 Inpatient [facility] [id number] Memoria 08:06:00 19:30:[address] 2016-07-06 2016-07-12 Outpatient Abdi [facility] [id number] 03:06:00 14:30:00 Leatha R 40 Results Test Description Test Time Test Comments Results Result Comments Source COMP. METABOLIC PANEL (00380) 2022-11-09 17:13:06 Test Item Value Reference Range Interpretation Comme nts NA (test code = 9525188729) 132 mmol/L 135-145 L K (test code = 9097355347) 3.8 mmol/L 3.5-5.0 CL (test code = 2325643904) 98 mmol/L 98-108 CO2 TOTAL (test code = 8069600417) 26 mmol/L 23-31 AGAP (test code = 6401075066) 2-16 BUN (test code = 3342110900) 17 mg/dL 7-23 GLUCOSE (test code = 1890354997) 125 mg/dL 70-110 H CREATININE (test code = 0.81 mg/dL 0.50-1.04 1387975669) TOTAL BILI (test code = 0.8 mg/dL 0.1-1.6 7018596206) CALCIUM (test code = 6888002132) 9.4 mg/dL 8.6-10.6 T PROTEIN (test code = 2759453744) 7.0 g/dL 6.3-8.2 ALBUMIN (test code = 8667253052) 4.5 g/dL 3.5-5.0 ALK PHOS (test code = 9005916964) 113 U/L 34-122 ALTv (test code = 1742-6) 27 U/L 5-35 AST(SGOT) (test code = 6370304578) 33 U/L 13-40 eGFR (test code = 4671698496) mL/min/1.73m2 ESAU (test code = ESAU) Association of Glomerular Filtration Rate (GFR) and Staging of Kidney Disease* + +-------- + ------+| GFR (mL/min/1.73 m2) ?| With Kidney Damage ?| ?Without Kidney Damage+ +-- + +| ?>90 ?| ?Stage one ?| ? Normal ?+ +------- + -------+| ?60-89 ?| ?Stage two ?| ? Decreased GFR ? + +-------- + ------+| ?30-59 ?| ?Stage three ?| ? Stage three ? + +-------- + ------+| ?15-29 ?| ?Stage four ? | ? Stage four ?+ +------- + -------+| ?<15 (or dialysis) ? ?| ?Stage five ? | ? Stage five ?+ +------- + -------+ *Each stage assumes the associated GFR level has been in effect for at least three months. ?Stages 1 to 5, with or without kidney disease, indicate chronic kidney disease. Notes: Determination of stages one and two (with eGFR >59mL/min/1.73 m2) requires estimation of kidney damage for at least three months as defined by structural or functional abnormalities of the kidney, manifested by either:Pathological abnormalities or Markers of kidney damage (including abnormalities in the composition of the blood or urine or abnormalities in imaging tests). Lab Interpretation (test code = Abnormal 58851-4) [facility] 17:12:30 Test Item Value Reference Range Interpretation Comments LIPASE (test code = 8493446999) 160 U/L 0-220 Lab Interpretation (test code = Normal 32815-4) [facility] WITH [id number] 16:55:31 Test Item Value Reference Range Interpretation Comments WBC (test code = See_Comment [Automated 5790-2) message] The sy stem which generated this result transmitted reference range : 4.30 - 11.10 10*3/?L. The reference range was not used to interpret this result as normal/abnormal . RBC (test code = See_Comment [Automated 789-8) message] The sy stem which generated this result transmitted reference range : 3.93 - 5.25 10*6/?L. The reference range was not used to interpret this result as normal/abnormal . HGB (test code = 14.1 g/dL 11.6-15.0 718-7) HCT (test code = 40.6 % 35.7-45.2 4544-3) MCV (test code = 89.6 fL 80.6-95.5 787-2) MCH (test code = 31.1 pg 25.9-32.8 785-6) MCHC (test code = 34.7 g/dL 31.6-35.1 786-4) RDW-SD (test code = 42.1 fL 39.0-49.9 27882-3) RDW-CV (test code = 12.7 % 12.0-15.5 788-0) PLT (test code = See_Comment [Automated 777-3) message] The sy stem which generated this result transmitted reference range : 166 - 358 10*3/ ?L. The reference r lamar was not used to interpret this result as normal/abnormal . MPV (test code = 9.4 fL 9.5-12.9 L 99059-8) NRBC/100 WBC (test See_Comment [Automat ed code = 3912507812) message] The system which generated this result transmitted reference range : 0.0 - 10.0 /100 WBCs. The refer ence range was not u sed to interpret th is result as normal/abnormal . NRBC x10^3 (test code See_Comment [Auto mated = 0123635835) message] The s ystem which generated this result transmitted reference range : 10*3/?L. The reference range was not used to interpret this result as normal/abnormal . GRAN MAT (NEUT) % 71.3 % (test code = 770-8) IMM GRAN % (test code 0.20 % = 7768462728) LYMPH % (test code = 20.0 % 736-9) MONO % (test code = 6.9 % 5905-5) EOS % (test code = 0.8 % 713-8) BASO % (test code = 0.8 % 706-2) GRAN MAT x10^3(ANC) 3.71 10*3/uL 1.88-7.09 (test code = 7818690233) IMM GRAN x10^3 (test 0.00-0.06 code = 9856290895) LYMPH x10^3 (test code 1.04 10*3/uL 1.32-3.29 L = 731-0) MONO x10^3 (test code 0.36 10*3/uL 0.33-0.92 = 742-7) EOS x10^3 (test code = 0.04 10*3/uL 0.03-0.39 711-2) BASO x10^3 (test code 0.04 10*3/uL 0.01-0.07 = 704-7) Lab Interpretation Abnormal (test code = 98282-1) [facility], [id number] 21:57:00 Test Item Value Reference Range Interpretation Comments Culture, Blood (test code = BC) NG5 Bedside Glucose [id number] 08:13:00 Test Item Value Reference Range Interpretation Comments Bedside Glucose Testing (test code = 97 mg/dL 70-100 N ACU) Culture, [id number] 08:38:00 Test Item Value Reference Range Interpretation Comments Culture, Blood POSITIVE for (test code = BC) coagulase-negative staphylococci (CoNS), other Culture, Blood by: Catrina Ramsay on (test code = BC1) 04/25/22 at 1530. Culture, Blood GSBC (test code = BC1) Culture, Blood GPC IN CL (test code = BC1) O:SHOM/MELL (test Staph. hominus subsp. code = SHOM/MELL) hominus Culture, Blood How many BC are positive? (test code = BC1.1) Culture, Blood One of two culture sets (test code = BC1.1) drawn is positive. [id number] 06:31:00 Test Item Value Reference Range Interpretation Comments Chemistry (test code 138 mmol/L 136-145 N = NA-T) Chemistry (test code 3.7 mmol/L 3.5-5.1 N = K-T) Chemistry (test code 101 mmol/L 98-107 N = CL) Chemistry (test code 24 mmol/L 23-31 N = CO2) Chemistry (test code 17 mmol/L 10-20 N = ANGP) Chemistry (test code 25 mg/dL 9.8-20.1 H = BUN) Chemistry (test code 1.26 mg/dL 0.6-1.1 H = CREATT) Chemistry (test code 41 Referen ce Range for = EGFRMDRD) Estimated GFR: Greater than 90 mL/min/ 1.73 m2NOTE:The MDRD equation has no t been validated for u se with theelderly (ove r 70 years of age), women, patients with serious comorbi d condition or pe rsons with extremes o fbody size, muscle ma ss, or nutritional sta tus. Chemistry (test code 79 mg/dL 83-110 L = GLU-T) Chemistry (test code 8.4 mg/dL 7.8-10.44 N = CA) [id number] 06:22:00 Test Item Value Reference Range Interpretation Comments Hematology (test code = WBCT) 3.3 thou/uL 4.8-10.8 L Hematology (test code = RBCT) 4.47 mill/uL 4.20-5.40 N Hematology (test code = HGBT) 13.6 g/dL 12.0-16.0 N Hematology (test code = HCTT) 42.5 % 36.0-47.0 N Hematology (test code = MCV) 95.0 fL 78.0-98.0 N Hematology (test code = MCH) 30.5 pg 27.0-31.0 N Hematology (test code = MCHC) 32.1 g/dL 32.0-36.0 N Hematology (test code = RDW) 12.6 % 11.5-14.5 N Hematology (test code = PLTT) 194 thou/uL 130-400 N Hematology (test code = MPV) 8.9 fL 7.4-10.4 N Hematology (test code = %NEUT) 51.8 % 42.0-75.0 N Hematology (test code = %LYMPH) 36.1 % 21.0-51.0 N Hematology (test code = %MONO) 10.2 % 0.0-10.0 H Hematology (test code = %EOS) 0.9 % 0.0-10.0 N Hematology (test code = %BASO) 1.0 % 0.0-1.0 N Hematology (test code = NEUT#) 1.7 thou/uL 1.40-6.50 N Hematology (test code = LYMPH#) 1.2 thou/uL 1.20-3.40 N Hematology (test code = MONO#) 0.3 thou/uL 0.11-0.59 N Hematology (test code = EOS#) 0.0 thou/uL 0.0-0.7 N Hematology (test code = BASO#) 0.0 thou/uL 0.0-0.2 N Serum or plasma carbon dioxide, total measurement (moles/volume)2022-04-27 05:30:00 Test Item Value Reference Range Interpretation Comments Carbon Dioxide Level (test code = 24 mmol/L 23-31 2028-07) [facility] or plasma anion [id number] 05:30:00 Test Item Value Reference Range Interpretation Comments Anion Gap (test code = 49829-2) 17 mmol/L 10-20 [facility] or plasma urea nitrogen measurement (mass/volume)2022-04-27 05:30:00 Test Item Value Reference Range Interpretation Comments Blood Urea Nitrogen (test code = 25 mg/dL 9.8-20.1 3094-0) [facility] or plasma creatinine measurement (mass/volume) 2022-04-27 05:30:00 Test Item Value Reference Range Interpretation Comments Creatinine (test code = 2160-0) 1.26 mg/dL 0.6-1.1 [facility] [Mass/volume] in Serum or [id number] 05:30:00 Test Item Value Reference Range Interpretation Comments Glucose Level (test code = 2345-7) 79 mg/dL 83-110 [facility] or plasma calcium measurement (mass/volume) 2022-04-27 05:30:00 Test Item Value Reference Range Interpretation Comments Calcium Level (test code = 84459-0) 8.4 mg/dL 7.8-10.44 [facility]Leukocytes [#/volume] in Blood by Automated count 2022-04-27 05:30:00 Test Item Value Reference Range Interpretation Comments White Blood Count (test code = 3.3 thou/uL 4.8-10.8 6690-2) [facility] erythrocytes automated count (number/volume) 2022-04-27 05:30:00 Test Item Value Reference Range Interpretation Comments Red Blood Count (test code = 4.47 mill/uL 4.20-5.40 789-8) [facility] ([facility]/volume)2022-04-27 05:30:00 Test Item Value Reference Range Interpretation Comments Hemoglobin (test code = 718-7) 13.6 g/dL 12.0-16.0 [facility]Automated erythrocyte mean corpuscular volume 2022-04-27 05:30:00 Test Item Value Reference Range Interpretation Comments Mean Corpuscular Volume (test code = 95.0 fL 78.0-98.0 787-2) [facility] mean corpuscular hemoglobin (mass per erythrocyte)2022-04-27 05:30:00 Test Item Value Reference Range Interpretation Comments Mean Corpuscular Hemoglobin (test 30.5 pg 27.0-31.0 code = 785-6) [facility] mean corpuscular hemoglobin concentration measurement (mass/[id number] 05:30:00 Test Item Value Reference Range Interpretation Comments Mean Corpuscular Hemoglobin Concent 32.1 g/dL 32.0-36.0 (test code = 786-4) [facility] distribution width ratio 2022-04-27 05:30:00 Test Item Value Reference Range Interpretation Comments Red Cell Distribution Width (test code 12.6 % 11.5-14.5 = 788-0) [facility] count (count/volume) 2022-04-27 05:30:00 Test Item Value Reference Range Interpretation Comments Platelet Count (test code = 194 thou/uL 130-400 777-3) [facility] platelet mean [id number] 05:30:00 Test Item Value Reference Range Interpretation Comments Mean Platelet Volume (test code = 8.9 fL 7.4-10.4 16237-8) [facility]Autom[facility] blood neutrophils/100 dbybbonboi1963-77-16 05:30:00 Test Item Value Reference Range Interpretation Comments Neutrophils % (test code = 770-8) 51.8 % 42.0-75.0 [facility] HospitalLymphocytes/100 leukocytes in Blood by Automated count 2022-04-27 05:30:00 Test Item Value Reference Range Interpretation Comments Lymphocytes % (test code = 736-9) 36.1 % 21.0-51.0 [facility] HospitalAutomated blood monocytes/100 duagtlkozp7736-54-72 05:30:00 Test Item Value Reference Range Interpretation Comments Monocytes % (test code = 5905-5) 10.2 % 0.0-10.0 [facility] eosinophils/100 ejoeyweppw8704-83-71 05:30:00 Test Item Value Reference Range Interpretation Comments Eosinophils % (test code = 713-8) 0.9 % 0.0-10.0 [facility] blood basophils/100 wptimspinf3686-85-99 05:30:00 Test Item Value Reference Range Interpretation Comments Basophils % (test code = 706-2) 1.0 % 0.0-1.0 [facility] neutrophils automated count (number/volume) 2022-04-27 05:30:00 Test Item Value Reference Range Interpretation Comments Neutrophils # (test code = 751-8) 1.7 thou/uL 1.40-6.50 [facility] HospitalLymphocytes [#/volume] in Blood by Automated count 2022-04-27 05:30:00 Test Item Value Reference Range Interpretation Comments Lymphocytes # (test code = 731-0) 1.2 thou/uL 1.20-3.40 [facility]Blood monocytes automated count (number/volume) 2022-04-27 05:30:00 Test Item Value Reference Range Interpretation Comments Monocytes # (test code = 742-7) 0.3 thou/uL 0.11-0.59 [facility] eosinophils automated count (count/volume) 2022-04-27 05:30:00 Test Item Value Reference Range Interpretation Comments Eosinophils # (test code = 711-2) 0.0 thou/uL 0.0-0.7 [facility] blood basophil count (count/volume) 2022-04-27 05:30:00 Test Item Value Reference Range Interpretation Comments Basophils # (test code = 704-7) 0.0 thou/uL 0.0-0.2 [facility] or plasma sodium measurement (moles/volume) 2022-04-27 05:30:00 Test Item Value Reference Range Interpretation Comments Sodium Level (test code = 2951-2) 138 mmol/L 136-145 [facility] or plasma potassium measurement (moles/volume) 2022-04-27 05:30:00 Test Item Value Reference Range Interpretation Comments Potassium Level (test code = 3.7 mmol/L 3.5-5.1 2823-3) [facility] or plasma chloride measurement (moles/volume) 2022-04-27 05:30:00 Test Item Value Reference Range Interpretation Comments Chloride Level (test code = 101 mmol/L 98-107 2075-0) [facility] Rptfh2823-73-05 14:49:00 Test Item Value Reference Range Interpretation Comments O:ESCOL (test code = ESCOL) Escherichia coli Amikacin (test code = AN) <=2 S Ampicillin (test code = AMV) >=32 R Ampicillin/Sulbactam (test >=32 R code = RC) Cefepime (test code = FEP) <=1 S Ceftazidime (test code = <=1 S CAZV) Ceftriaxone (test code = <=1 S CREAM RIPENER) Cefoxitin (test code = CFX) <=4 S Ciprofloxacin (test code = <=0.25 S CIP) Gentamicin (test code = GMV) <=1 S Levofloxacin (test code = <=0.12 S LEV) Meropenem (test code = MEM) <=0.25 S Nitrofurantoin (test code = <=16 S FT) Piperacillin/Tazobactam <=4 S (test code = TZP) Tobramycin (test code = TM) <=1 S Trimethoprim/Sulfamethoxazol <=20 S e (test code = SXTV) Culture, Urine (test code = QUANTITATION: URC) Culture, Urine (test code = >100,000 cfu/mL URC1.1) Comment SPECIMEN IN LAB FROM ER [id number] 07:07:00 Test Item Value Reference Range Interpretation Comments Hematology (test code = WBCT) 3.1 thou/uL 4.8-10.8 L Hematology (test code = RBCT) 4.12 mill/uL 4.20-5.40 L Hematology (test code = HGBT) 12.4 g/dL 12.0-16.0 N Hematology (test code = HCTT) 39.5 % 36.0-47.0 N Hematology (test code = MCV) 95.9 fL 78.0-98.0 N Hematology (test code = MCH) 30.1 pg 27.0-31.0 N Hematology (test code = MCHC) 31.4 g/dL 32.0-36.0 L Hematology (test code = RDW) 12.3 % 11.5-14.5 N Hematology (test code = PLTT) 188 thou/uL 130-400 N Hematology (test code = MPV) 8.5 fL 7.4-10.4 N Hematology (test code = %NEUT) 66.3 % 42.0-75.0 N Hematology (test code = %LYMPH) 22.5 % 21.0-51.0 N Hematology (test code = %MONO) 9.8 % 0.0-10.0 N Hematology (test code = %EOS) 6.1 % 0.0-10.0 N Hematology (test code = %BASO) 1.3 % 0.0-1.0 H Hematology (test code = NEUT#) 2.0 thou/uL 1.40-6.50 N Hematology (test code = LYMPH#) 0.7 thou/uL 1.20-3.40 L Hematology (test code = MONO#) 0.3 thou/uL 0.11-0.59 N Hematology (test code = EOS#) 0.0 thou/uL 0.0-0.7 N Hematology (test code = BASO#) 0.0 thou/uL 0.0-0.2 N [id number] 06:26:00 Test Item Value Reference Range Interpretation Comments Chemistry (test code 136 mmol/L 136-145 N = NA-T) Chemistry (test code 3.6 mmol/L 3.5-5.1 N = K-T) Chemistry (test code 105 mmol/L 98-107 N = CL) Chemistry (test code 18 mmol/L 23-31 L = CO2) Chemistry (test code 17 mmol/L 10-20 N = ANGP) Chemistry (test code 17 mg/dL 9.8-20.1 N = BUN) Chemistry (test code 0.93 mg/dL 0.6-1.1 N = CREATT) Chemistry (test code 59 Referen ce Range for = EGFRMDRD) Estimated GFR: Greater than 90 mL/min/ 1.73 m2NOTE:The MDRD equation has no t been validated for u se with theelderly (ove r 70 years of age), women, patients with serious comorbi d condition or pe rsons with extremes o fbody size, muscle ma ss, or nutritional sta tus. Chemistry (test code 81 mg/dL 83-110 L = GLU-T) Chemistry (test code 8.4 mg/dL 7.8-10.44 N = CA) [id number] 18:45:00 Test Item Value Reference Range Interpretation Comments Chemistry (test code = LDH) 249 U/L 125-220 H [id number] 09:48:00 Test Item Value Reference Range Interpretation Comments Coagulation (test 13.5 sec 12.0-14.7 N code = PT-T) Coagulation (test 1.0 ATTE NTION: READ code = INR) CAREFULLY-- The recommended the rapeutic ranges for oral anticoagulanttr eatments are: ------ Low Inte nsity: 1.5 - 2.0 Moderate In tensity: 2.0 - 3.0 High Intens ity (1): 2.5 - 3.5 High Inte nsity (2): 3.0 - 4.0 CRITICAL: > 4.0 Coagulation (test 33.5 sec 22.9-36.1 N code = PTT) Anticoagulant? NONEOther Comments: COVID+Serum or plasma lactate dehydrogenase measurement (enzymatic activity/volume) by [id number] 09:30:00 Test Item Value Reference Range Interpretation Comments Lactate Dehydrogenase (test code = 249 U/L 125-220 74943-9) [facility] HospitalProthrombin time (PT) in platelet poor plasma by coagulation [id number] 09:30:00 Test Item Value Reference Range Interpretation Comments Prothrombin Time (test code = 13.5 sec 12.0-14.7 5902-2) [facility] HospitalINR in Platelet poor plasma by Coagulation assay 2022-04-24 09:30:00 Test Item Value Reference Range Interpretation Comments INR International Normalized Ratio 1.0 (test code = 6301-6) [facility] HospitalActivated partial thromboplastin time (aPTT) in platelet poor plasma by coagulation [id number] 09:30:00 Test Item Value Reference Range Interpretation Comments Activated Partial Thromboplast Time 33.5 sec 22.9-36.1 (test code = 36857-3) [facility] HospitalChemistry2022-06-15 08:51:00 Test Item Value Reference Range Interpretation Comments Chemistry (test code = CK) 571 U/L 29-168 H What test does the doctor want? C-REACTIVE PROTEIN (CRP)[id number] 08:51:00 Test Item Value Reference Range Interpretation Comments Chemistry (test code 0.77 mg/dL See_Comment H [Autom ated message] = CRP) The system [employer] generated this result transmitted ref erence range: = or < 0 .5. The reference range was not used to int erpret this result as normal/abnormal . What test does the doctor want? C-REACTIVE PROTEIN (CRP)[id number] 06:52:00 Test Item Value Reference Range Interpretation Comments Hematology (test code = WBCT) 2.8 thou/uL 4.8-10.8 L Hematology (test code = RBCT) 4.00 mill/uL 4.20-5.40 L Hematology (test code = HGBT) 12.2 g/dL 12.0-16.0 N Hematology (test code = HCTT) 38.6 % 36.0-47.0 N Hematology (test code = MCV) 96.5 fL 78.0-98.0 N Hematology (test code = MCH) 30.4 pg 27.0-31.0 N Hematology (test code = MCHC) 31.5 g/dL 32.0-36.0 L Hematology (test code = RDW) 12.5 % 11.5-14.5 N Hematology (test code = PLTT) 204 thou/uL 130-400 N Hematology (test code = MPV) 8.3 fL 7.4-10.4 N Fstqksmxb6025-43-82 06:23:00 Test Item Value Reference Range Interpretation Comments Chemistry (test code 138 mmol/L 136-145 N = NA-T) Chemistry (test code 3.3 mmol/L 3.5-5.1 L = K-T) Chemistry (test code 108 mmol/L 98-107 H = CL) Chemistry (test code 19 mmol/L 23-31 L = CO2) Chemistry (test code 14 mmol/L 10-20 N = ANGP) Chemistry (test code 22 mg/dL 9.8-20.1 H = BUN) Chemistry (test code 0.84 mg/dL 0.6-1.1 N = CREATT) Chemistry (test code 66 Referen ce Range for = EGFRMDRD) Estimated GFR: Greater than 90 mL/min/ 1.73 m2NOTE:The MDRD equation has no t been validated for u se with theelderly (ove r 70 years of age), women, patients with serious comorbi d condition or pe rsons with extremes o fbody size, muscle ma ss, or nutritional sta tus. Chemistry (test code 97 mg/dL 83-110 N = GLU-T) Chemistry (test code 7.8 mg/dL 7.8-10.44 N = CA) Creatine kinase [Enzymatic activity/volume] in Serum or [id number] 05:55:00 Test Item Value Reference Range Interpretation Comments Creatine Kinase (test code = 2157-6) 571 U/L 29-168 [facility] or plasma C reactive protein measurement (mass/volume)2022-04-24 05:55:00 Test Item Value Reference Range Interpretation Comments C-Reactive Protein (test code = 0.77 mg/dL <0.5 1987-) [facility]Molecular Testing [id number] 21:27:00 Test Item Value Reference Range Interpretation Comments Molecular Testing MM DETECTED NotDetected AA Results called to: (test code = SHIMA.KMSResults called and [id number]) verbally verif ied through "read-back".by Glenys Arriaga on 04/23/22 at 2125.Performanc e of the Cepheid SARS-Co V-2 has only beenestabl ished in nasopharyngeal swab specimens. This testcannot rule out diseases caused by other bacterial or viralpathogens. Cepheid has been provid ed an FDA EUA that will b e effectiveuntil the declaration karson t circumstances e xist justifyingthe authorization o f the emergency use o f in vitrodiagnostic tests for detection and/o r diagnosis ofCOV ID-19 is terminated unde r Section 564(b)(2) of th e Act orthe EUA is re voked under Section 5 64(g) of the Act. Resident in Congregate Care Setting: NoEmployed in Healthcare: NoFirst Test: NoHospitalized: YesICU:No: NoReason for Testing: Admission ScreeningSource: Nasopharyngeal SwabSymptomatic as defined by CDC: [id number] 2022-04-23 20:40:00 Test Item Value Reference Range Interpretation Comments SARS-CoV-2 Rapid RNA (RT-PCR)(LAB) DETECTED NotDetected (test code = 35437-4) [id number] 20:40:00 Test Item Value Reference Range Interpretation Comments SARS-CoV-2 Rapid RNA (RT-PCR)(LAB) DETECTED NotDetected (test code = 07351-1) [facility] HospitalUrinalysis2022-06-14 19:22:00 Test Item Value Reference Range Interpretation Comments Urinalysis (test code = UACLR) Yellow Yellow Urinalysis (test code = UACLY) Clear Clear Urinalysis (test code = SPGR) 1.025 1.005-1.030 N Urinalysis (test code = GREGG) 5.5 5.0-9.0 N Urinalysis (test code = UALEU) Small Negative A Urinalysis (test code = UANIT) Positive Negative A Urinalysis (test code = Negative mg/dL Neg-Trace PROUADIP) Urinalysis (test code = GLUCU) Negative mg/dL Negative Urinalysis (test code = KETU) Negative mg/dL Negative Urinalysis (test code = 0.2 mg/dL Less than 2 UAUROB) Urinalysis (test code = UABIL) Negative Negative Urinalysis (test code = UABLD) Trace Negative A Urine Source: Urine [id number] 19:22:00 Test Item Value Reference Range Interpretation Comments Urinalysis (test code = UARBC) 0-3 HPF 0-3 Urinalysis (test code = UAWBC) 11-20 HPF 0-3 A Urinalysis (test code = UASQUAM) 0-3 HPF 0-3 Urinalysis (test code = UABAC) 3+ HPF None Seen A Urine Source: Urine VoidedUrine [id number] 19:16:00 Test Item Value Reference Range Interpretation Comments Urine Color (test code = 5778-6) Yellow Yellow [facility] [id number] 19:16:00 Test Item Value Reference Range Interpretation Comments Urine Clarity (test code = 24361-7) Clear Clear [facility] gravity of Urine by Test [id number] 19:16:00 Test Item Value Reference Range Interpretation Comments Urine Specific Wickes (test code = 1.025 1.005-1.030 5811-5) [facility] pH measurement by automated test [id number] 19:16:00 Test Item Value Reference Range Interpretation Comments Urine pH (test code = 36356-5) 5.5 5.0-9.0 [facility] leukocyte esterase detection by automated test [id number] 19:16:00 Test Item Value Reference Range Interpretation Comments Urine Leukocyte Esterase (test code = Small Negative 47224-6) [facility] in Urine by Test [id number] 19:16:00 Test Item Value Reference Range Interpretation Comments Urine Nitrite (test code = 5802-4) Positive Negative [facility] protein measurement by automated test strip (mass/volume)2022-04-23 19:16:00 Test Item Value Reference Range Interpretation Comments Urine Protein (test code = Negative mg/dL Neg-Trace 29324-5) [facility] glucose measurement by test strip (mass/volume) 2022-04-23 19:16:00 Test Item Value Reference Range Interpretation Comments Urine Glucose (UA) (test code Negative mg/dL Negative = 5792-7) [facility] ketones measurement by automated test strip (mass/volume)2022-04-23 19:16:00 Test Item Value Reference Range Interpretation Comments Urine Ketones (test code = Negative mg/dL Negative 13065-2) [facility] urobilinogen measurement (units/volume) by test [id number] 19:16:00 Test Item Value Reference Range Interpretation Comments Urine Urobilinogen (test code = 0.2 mg/dL Less than 2 57930-8) [facility] total bilirubin detection by automated test [id number] 19:16:00 Test Item Value Reference Range Interpretation Comments Urine Bilirubin (test code = Negative Negative 34023-8) [facility] hemoglobin detection by automated test strip 2022-04-23 19:16:00 Test Item Value Reference Range Interpretation Comments Urine Blood (test code = 21201-3) Trace Negative [facility] sediment erythrocyte count by microscopy (number/high power field)2022-04-23 19:16:00 Test Item Value Reference Range Interpretation Comments Urine RBC (test code = 33134-3) 0-3 HPF [facility] HospitalLeukocytes detection in urine sediment by light [id number] 19:16:00 Test Item Value Reference Range Interpretation Comments Urine WBC (test code = 96700-9) 11-20 HPF [facility] HospitalSquamous epithelial cells detection in urine sediment by light [id number] 19:16:00 Test Item Value Reference Range Interpretation Comments Urine Squamous Epithelial Cells (test 0-3 HPF code = 02602-0) [facility] HospitalBacteria detection in urine sediment by light [id number] 19:16:00 Test Item Value Reference Range Interpretation Comments Urine Bacteria (test code = 14594-9) 3+ HPF None Seen [facility] [id number] 19:16:00 Test Item Value Reference Range Interpretation Comments Urine Color (test code = 5778-6) Yellow Yellow [facility] [id number] 19:16:00 Test Item Value Reference Range Interpretation Comments Urine Clarity (test code = 88147-8) Clear Clear [facility] gravity of Urine by Test [id number] 19:16:00 Test Item Value Reference Range Interpretation Comments Urine Specific Wickes (test code = 1.025 1.005-1.030 5811-5) [facility] pH measurement by automated test [id number] 19:16:00 Test Item Value Reference Range Interpretation Comments Urine pH (test code = 16692-0) 5.5 5.0-9.0 [facility] leukocyte esterase detection by automated test [id number] 19:16:00 Test Item Value Reference Range Interpretation Comments Urine Leukocyte Esterase (test code = Small Negative 84954-5) [facility]Presence] in Urine by Test [id number] 19:16:00 Test Item Value Reference Range Interpretation Comments Urine Nitrite (test code = 5802-4) Positive Negative [facility] protein measurement by automated test strip (mass/volume)2022-04-23 19:16:00 Test Item Value Reference Range Interpretation Comments Urine Protein (test code = Negative mg/dL Neg-Trace 86343-1) [facility] glucose measurement by test strip (mass/volume) 2022-04-23 19:16:00 Test Item Value Reference Range Interpretation Comments Urine Glucose (UA) (test code Negative mg/dL Negative = 5792-7) [facility] ketones measurement by automated test strip (mass/volume)2022-04-23 19:16:00 Test Item Value Reference Range Interpretation Comments Urine Ketones (test code = Negative mg/dL Negative 81303-3) [facility] urobilinogen measurement (units/volume) by test [id number] 19:16:00 Test Item Value Reference Range Interpretation Comments Urine Urobilinogen (test code = 0.2 mg/dL Less than 2 22893-8) [facility] total bilirubin detection by automated test [id number] 19:16:00 Test Item Value Reference Range Interpretation Comments Urine Bilirubin (test code = Negative Negative 44960-1) [facility] hemoglobin detection by automated test strip 2022-04-23 19:16:00 Test Item Value Reference Range Interpretation Comments Urine Blood (test code = 83880-7) Trace Negative [facility] sediment erythrocyte count by microscopy (number/high power field)2022-04-23 19:16:00 Test Item Value Reference Range Interpretation Comments Urine RBC (test code = 20966-4) 0-3 HPF [facility] HospitalLeukocytes detection in urine sediment by light [id number] 19:16:00 Test Item Value Reference Range Interpretation Comments Urine WBC (test code = 56667-5) 11-20 HPF [facility] HospitalSquamous epithelial cells detection in urine sediment by light [id number] 19:16:00 Test Item Value Reference Range Interpretation Comments Urine Squamous Epithelial Cells (test 0-3 HPF code = 12735-9) [facility] HospitalBacteria detection in urine sediment by light fnbfwrnzpa5832-27-80 19:16:00 Test Item Value Reference Range Interpretation Comments Urine Bacteria (test code = 11261-0) 3+ HPF None [facility]en [facility], [id number] 19:00:00 Test Item Value Reference Range Interpretation Comments Urine Culture (test code = Escherichia coli Urine Culture) [facility]Chemistry2022-[facility]-14 18:41:00 Test Item Value Reference Range Interpretation Comments Chemistry (test 0.020 ng/mL < 0.028 code = TROPI-R) Reference Ra nge 0.00 - 0.028 ng /mL Negative 0.029 - 0.29 ng/mL Indetermi norma Greater or Equa l to 0.3 ng/mL Strongly suggests PR [id number] 18:35:00 Test Item Value Reference Range Interpretation Comments Chemistry (test code 137 mmol/L 136-145 N = NA-T) Chemistry (test code 3.3 mmol/L 3.5-5.1 L = K-T) Chemistry (test code 102 mmol/L 98-107 N = CL) Chemistry (test code 20 mmol/L 23-31 L = CO2) Chemistry (test code 18 mmol/L 10-20 N = ANGP) Chemistry (test code 31 mg/dL 9.8-20.1 H = BUN) Chemistry (test code 1.01 mg/dL 0.6-1.1 N = CREATT) Chemistry (test code 53 Referen ce Range for = EGFRMDRD) Estimated GFR: Greater than 90 mL/min/ 1.73 m2NOTE:The MDRD equation has no t been validated for u se with theelderly (ove r 70 years of age), women, patients with serious comorbi d condition or pe rsons with extremes o fbody size, muscle ma ss, or nutritional sta tus. Chemistry (test code 106 mg/dL 83-110 N = GLU-T) Chemistry (test code 8.6 mg/dL 7.8-10.44 N = CA) Chemistry (test code 0.5 mg/dL 0.2-1.2 N = TBILI-T) Chemistry (test code 6.5 g/dL 5.8-8.1 N = TP) Chemistry (test code 4.1 g/dL 3.4-4.8 N = ALB) Chemistry (test code 2.4 g/dL 2.4-3.5 N = GLOB) Chemistry (test code 1.7 g/dL 1.2-2.2 N = AG) Chemistry (test code 84 U/L 40-110 N = ALP) Chemistry (test code 44 U/L 5-34 H = AST) Chemistry (test code 26 U/L 8-55 N = ALT) [id number] 18:35:00 Test Item Value Reference Range Interpretation Comments Chemistry (test code = LIP) 17 U/L 8-78 N [id number] 18:35:00 Test Item Value Reference Range Interpretation Comments Chemistry (test code = MG-T) 1.6 mg/dL 1.6-2.6 N [id number] 18:17:00 Test Item Value Reference Range Interpretation Comments Hematology (test code = WBCT) 4.3 thou/uL 4.8-10.8 L Hematology (test code = RBCT) 4.46 mill/uL 4.20-5.40 N Hematology (test code = HGBT) 13.6 g/dL 12.0-16.0 N Hematology (test code = HCTT) 43.2 % 36.0-47.0 N Hematology (test code = MCV) 96.9 fL 78.0-98.0 N Hematology (test code = MCH) 30.6 pg 27.0-31.0 N Hematology (test code = MCHC) 31.6 g/dL 32.0-36.0 L Hematology (test code = RDW) 12.4 % 11.5-14.5 N Hematology (test code = PLTT) 243 thou/uL 130-400 N Hematology (test code = MPV) 8.3 fL 7.4-10.4 N Hematology (test code = %NEUT) 82.1 % 42.0-75.0 H Hematology (test code = %LYMPH) 5.2 % 21.0-51.0 L Hematology (test code = %MONO) 9.9 % 0.0-10.0 N Hematology (test code = %EOS) 0.7 % 0.0-10.0 N Hematology (test code = %BASO) 2.0 % 0.0-1.0 H Hematology (test code = NEUT#) 3.5 thou/uL 1.40-6.50 N Hematology (test code = LYMPH#) 0.2 thou/uL 1.20-3.40 L Hematology (test code = MONO#) 0.4 thou/uL 0.11-0.59 N Hematology (test code = EOS#) 0.0 thou/uL 0.0-0.7 N Hematology (test code = BASO#) 0.1 thou/uL 0.0-0.2 N Serum or plasma total bilirubin measurement (mass/volume)2022-04-23 18:14:00 Test Item Value Reference Range Interpretation Comments Total Bilirubin (test code = 0.5 mg/dL 0.2-1.2 1975-2) [facility] or plasma protein measurement (mass/volume) 2022-04-23 18:14:00 Test Item Value Reference Range Interpretation Comments Serum Total Protein (test code = 6.5 g/dL 5.8-8.1 2885-2) [facility] or plasma albumin measurement by bromocresol green (BCG) dye binding method ([id number] 18:14:00 Test Item Value Reference Range Interpretation Comments Albumin (test code = 75465-8) 4.1 g/dL 3.4-4.8 [facility] Serum by calculation 2022-04-23 18:14:00 Test Item Value Reference Range Interpretation Comments Globulin (test code = 99434-3) 2.4 g/dL 2.4-3.5 [facility] [Mass Ratio] in Serum or Plasma 2022-04-23 18:14:00 Test Item Value Reference Range Interpretation Comments Albumin/Globulin Ratio (test code = 1.7 g/dL 1.2-2.2 1759-0) [facility] [Enzymatic activity/volume] in Serum or [id number] 18:14:00 Test Item Value Reference Range Interpretation Comments Alkaline Phosphatase (test code = 84 U/L 40-110 6768-6) [facility] or plasma aspartate aminotransferase measurement (enzymatic activity/volume)2022-04-23 18:14:00 Test Item Value Reference Range Interpretation Comments Aspartate Amino Transf (AST/SGOT) 44 U/L 5-34 (test code = 1920-8) [facility] or plasma alanine aminotransferase measurement without P-5'-P (enzymatic [id number] 18:14:00 Test Item Value Reference Range Interpretation Comments Alanine Aminotransferase (ALT/SGPT) 26 U/L 8-55 (test code = 1744-2) [facility] or plasma lipase measurement (enzymatic activity/volume)2022-04-23 18:14:00 Test Item Value Reference Range Interpretation Comments Lipase (test code = 3040-3) 17 U/L 8-78 [facility] or plasma magnesium measurement (mass/volume) 2022-04-23 18:14:00 Test Item Value Reference Range Interpretation Comments Magnesium Level (test code = 1.6 mg/dL 1.6-2.6 46285-2) [facility] or plasma sodium measurement (moles/volume) 2022-04-23 18:14:00 Test Item Value Reference Range Interpretation Comments Sodium Level (test code = 2951-2) 137 mmol/L 136-145 [facility] or plasma potassium measurement (moles/volume) 2022-04-23 18:14:00 Test Item Value Reference Range Interpretation Comments Potassium Level (test code = 3.3 mmol/L 3.5-5.1 2823-3) [facility] or plasma chloride measurement (moles/volume) 2022-04-23 18:14:00 Test Item Value Reference Range Interpretation Comments Chloride Level (test code = 102 mmol/L 98-107 2075-0) [facility] or plasma carbon dioxide, total measurement (moles/volume)2022-04-23 18:14:00 Test Item Value Reference Range Interpretation Comments Carbon Dioxide Level (test code = 20 mmol/L 23-31 8-9) [facility] or plasma anion [id number] 18:14:00 Test Item Value Reference Range Interpretation Comments Anion Gap (test code = 20720-3) 18 mmol/L 10-20 [facility] or plasma urea nitrogen measurement (mass/volume)2022-04-23 18:14:00 Test Item Value Reference Range Interpretation Comments Blood Urea Nitrogen (test code = 31 mg/dL 9.8-20.1 3094-0) [facility] or plasma creatinine measurement (mass/volume) 2022-04-23 18:14:00 Test Item Value Reference Range Interpretation Comments Creatinine (test code = 2160-0) 1.01 mg/dL 0.6-1.1 [facility] [[facility]/volume] in Serum or [id number] 18:14:00 Test Item Value Reference Range Interpretation Comments Glucose Level (test code = 2345-7) 106 mg/dL 83-110 [facility] or plasma calcium measurement (mass/volume) 2022-04-23 18:14:00 Test Item Value Reference Range Interpretation Comments Calcium Level (test code = 79297-9) 8.6 mg/dL 7.8-10.44 [facility] or plasma total bilirubin measurement (mass/volume)2022-04-23 18:14:00 Test Item Value Reference Range Interpretation Comments Total Bilirubin (test code = 0.5 mg/dL 0.2-1.2 1975-2) [facility] or plasma protein measurement (mass/volume) 2022-04-23 18:14:00 Test Item Value Reference Range Interpretation Comments Serum Total Protein (test code = 6.5 g/dL 5.8-8.1 2885-2) [facility] or plasma albumin measurement by bromocresol green (BCG) dye binding method ([id number] 18:14:00 Test Item Value Reference Range Interpretation Comments Albumin (test code = 18344-7) 4.1 g/dL 3.4-4.8 [facility] [Mass/volume] in Serum by calculation 2022-04-23 18:14:00 Test Item Value Reference Range Interpretation Comments Globulin (test code = 29857-7) 2.4 g/dL 2.4-3.5 [facility] [Mass Ratio] in Serum or Plasma 2022-04-23 18:14:00 Test Item Value Reference Range Interpretation Comments Albumin/Globulin Ratio (test code = 1.7 g/dL 1.2-2.2 1759-0) [facility] [Enzymatic activity/volume] in Serum or [id number] 18:14:00 Test Item Value Reference Range Interpretation Comments Alkaline Phosphatase (test code = 84 U/L 40-110 6768-6) [facility] or plasma aspartate aminotransferase measurement (enzymatic activity/volume)2022-04-23 18:14:00 Test Item Value Reference Range Interpretation Comments Aspartate Amino Transf (AST/SGOT) 44 U/L 5-34 (test code = 1920-8) [facility] or plasma alanine aminotransferase measurement without P-5'-P (enzymatic [id number] 18:14:00 Test Item Value Reference Range Interpretation Comments Alanine Aminotransferase (ALT/SGPT) 26 U/L 8-55 (test code = 1744-2) [facility] or plasma lipase measurement (enzymatic activity/volume)2022-04-23 18:14:00 Test Item Value Reference Range Interpretation Comments Lipase (test code = 3040-3) 17 U/L 8-78 [facility] plasma magnesium measurement (mass/volume) 2022-04-23 18:14:00 Test Item Value Reference Range Interpretation Comments Magnesium Level (test code = 1.6 mg/dL 1.6-2.6 42337-8) [facility] [#/volume] in Blood by Automated count 2022-04-23 18:14:00 Test Item Value Reference Range Interpretation Comments White Blood Count (test code = 4.3 thou/uL 4.8-10.8 6690-2) [facility] automated count (number/volume) 2022-04-23 18:14:00 Test Item Value Reference Range Interpretation Comments Red Blood Count (test code = 4.46 mill/uL 4.20-5.40 789-8) [facility] ([facility]/volume[facility]2022-04-23 18:14:00 Test Item Value Reference Range Interpretation Comments Hemoglobin (test code = 718-7) 13.6 g/dL 12.0-16.0 [facility] mean corpuscular volume 2022-04-23 18:14:00 Test Item Value Reference Range Interpretation Comments Mean Corpuscular Volume (test code = 96.9 fL 78.0-98.0 787-2) [facility] mean corpuscular hemoglobin (mass per erythrocyte)2022-04-23 18:14:00 Test Item Value Reference Range Interpretation Comments Mean Corpuscular Hemoglobin (test 30.6 pg 27.0-31.0 code = 785-6) [facility] mean corpuscular hemoglobin concentration measurement (mass/[id number] 18:14:00 Test Item Value Reference Range Interpretation Comments Mean Corpuscular Hemoglobin Concent 31.6 g/dL 32.0-36.0 (test code = 786-4) [facility] distribution width ratio 2022-04-23 18:14:00 Test Item Value Reference Range Interpretation Comments Red Cell Distribution Width (test code 12.4 % 11.5-14.5 = 788-0) [facility] count (count/volume) 2022-04-23 18:14:00 Test Item Value Reference Range Interpretation Comments Platelet Count (test code = 243 thou/uL 130-400 777-3) [facility] blood platelet mean [id number] 18:14:00 Test Item Value Reference Range Interpretation Comments Mean Platelet Volume (test code = 8.3 fL 7.4-10.4 57527-3) [facility] neutrophils/100 eepjogqcqi1448-37-10 18:14:00 Test Item Value Reference Range Interpretation Comments Neutrophils % (test code = 770-8) 82.1 % 42.0-75.0 [facility]100 leukocytes in Blood by Automated count 2022-04-23 18:14:00 Test Item Value Reference Range Interpretation Comments Lymphocytes % (test code = 736-9) 5.2 % 21.0-51.0 [facility] blood monocytes/100 [id number] 18:14:00 Test Item Value Reference Range Interpretation Comments Monocytes % (test code = 5905-5) 9.9 % 0.0-10.0 [facility] eosinophils/100 [id number] 18:14:00 Test Item Value Reference Range Interpretation Comments Eosinophils % (test code = 713-8) 0.7 % 0.0-10.0 [facility] blood basophils/100 [id number] 18:14:00 Test Item Value Reference Range Interpretation Comments Basophils % (test code = 706-2) 2.0 % 0.0-1.0 [facility] neutrophils automated count (number/volume) 2022-04-23 18:14:00 Test Item Value Reference Range Interpretation Comments Neutrophils # (test code = 751-8) 3.5 thou/uL 1.40-6.50 [facility] [#/volume] in Blood by Automated count 2022-04-23 18:14:00 Test Item Value Reference Range Interpretation Comments Lymphocytes # (test code = 731-0) 0.2 thou/uL 1.20-3.40 [facility] (number/volume) 2022-04-23 18:14:00 Test Item Value Reference Range Interpretation Comments Monocytes # (test code = 742-7) 0.4 thou/uL 0.11-0.59 [facility] eosin[facility] automated count (count/volume) 2022-04-23 18:14:00 Test Item Value Reference Range Interpretation Comments Eosinophils # (test code = 711-2) 0.0 thou/uL 0.0-0.7 [facility] basophil count (count/volume) 2022-04-23 18:14:00 Test Item Value Reference Range Interpretation Comments Basophils # (test code = 704-7) 0.1 thou/uL 0.0-0.2 [facility]2016-09-02 08:15:00 Test Item Value Reference Range Interpretation Comments Creatinine Lvl (test code = Creatinine 0.71 0.50-1.40 Lvl) [facility]2016-09-02 08:15:00 Test Item Value Reference Range Interpretation Comments Glucose Lvl (test code = Glucose Lvl) 87 70-99 [facility]2016-09-02 08:15:00 Test Item Value Reference Range Interpretation Comments BUN (test code = BUN) 13 7-22 [facility]2016-09-02 08:15:00 Test Item Value Reference Range Interpretation Comments Chloride Lvl (test code = Chloride Lvl) 103 95-109 [facility]2016-09-02 08:15:00 Test Item Value Reference Range Interpretation Comments Potassium Lvl (test code = Potassium 4.3 3.5-5.1 Lvl) [facility]ITALLMQJD7713-03-18 08:15:00 Test Item Value Reference Range Interpretation Comments CO2 (test code = CO2) 23 24-32 [facility]2016-09-02 08:15:00 Test Item Value Reference Range Interpretation Comments Calcium Lvl (test code = Calcium Lvl) 8.6 8.5-10.5 [facility]2016-09-02 08:15:00 Test Item Value Reference Range Interpretation Comments Sodium Lvl (test code = Sodium Lvl) 134 135-145 [facility]2016-09-02 08:15:00 Test Item Value Reference Range Interpretation Comments eGFR (test code = eGFR) 87 [facility]2016-09-02 08:15:00 Test Item Value Reference Range Interpretation Comments AGAP (test code = AGAP) 12.3 10.0-20.0 [facility]2016-09-02 08:15:00 Test Item Value Reference Range Interpretation Comments Magnesium Lvl (test code = Magnesium 1.6 1.8-2.4 Lvl) [facility]2016-09-02 08:15:00 Test Item Value Reference Range Interpretation Comments Phosphorus (test code = Phosphorus) 1.8 2.5-4.5 [facility]2016-09-02 08:15:00 Test Item Value Reference Range Interpretation Comments Creatinine Lvl (test code = Creatinine 0.71 0.50-1.40 Lvl) [facility]2016-09-02 08:15:00 Test Item Value Reference Range Interpretation Comments Glucose Lvl (test code = Glucose Lvl) 87 - [facility]2016-09-02 08:15:00 Test Item Value Reference Range Interpretation Comments BUN (test code = BUN) 05-31 [facility]2016-09-02 08:15:00 Test Item Value Reference Range Interpretation Comments Chloride Lvl (test code = Chloride Lvl) 103 95-109 [facility]2016-09-02 08:15:00 Test Item Value Reference Range Interpretation Comments Potassium Lvl (test code = Potassium 4.3 3.5-5.1 Lvl) [facility]2016-09-02 08:15:00 Test Item Value Reference Range Interpretation Comments Creatinine Lvl (test code = Creatinine 0.71 0.50-1.40 Lvl) [facility]2016-09-02 08:15:00 Test Item Value Reference Range Interpretation Comments Glucose Lvl (test code = Glucose Lvl) 87 70- [facility]2016-09-02 08:15:00 Test Item Value Reference Range Interpretation Comments BUN (test code = BUN) 05-31 [facility]2016-09-02 08:15:00 Test Item Value Reference Range Interpretation Comments Chloride Lvl (test code = Chloride Lvl) 103 95-109 [facility]2016-09-02 08:15:00 Test Item Value Reference Range Interpretation Comments Potassium Lvl (test code = Potassium 4.3 3.5-5.1 Lvl) [facility]2016-09-02 08:15:00 Test Item Value Reference Range Interpretation Comments CO2 (test code = CO2) [facility]2016-09-02 08:15:00 Test Item Value Reference Range Interpretation Comments Calcium Lvl (test code = Calcium Lvl) 8.6 8.5-10.5 [facility]2016-09-02 08:15:00 Test Item Value Reference Range Interpretation Comments Sodium Lvl (test code = Sodium Lvl) 134 135-145 [facility]2016-09-02 08:15:00 Test Item Value Reference Range Interpretation Comments eGFR (test code = eGFR) [facility]2016-09-02 08:15:00 Test Item Value Reference Range Interpretation Comments AGAP (test code = AGAP) 12.3 10.0-20.0 [facility]2016-09-02 08:15:00 Test Item Value Reference Range Interpretation Comments Magnesium Lvl (test code = Magnesium 1.6 1.8-2.4 Lvl) [facility]2016-09-02 08:15:00 Test Item Value Reference Range Interpretation Comments Phosphorus (test code = Phosphorus) 1.8 2.5-4.5 [facility]2016-09-02 08:15:00 Test Item Value Reference Range Interpretation Comments CO2 (test code = CO2) [facility]2016-09-02 08:15:00 Test Item Value Reference Range Interpretation Comments Calcium Lvl (test code = Calcium Lvl) 8.6 8.5-10.5 [facility]2016-09-02 08:15:00 Test Item Value Reference Range Interpretation Comments Sodium Lvl (test code = Sodium Lvl) 134 135-145 [facility]2016-09-02 08:15:00 Test Item Value Reference Range Interpretation Comments eGFR (test code = eGFR) 87 [facility]2016-09-02 08:15:00 Test Item Value Reference Range Interpretation Comments AGAP (test code = AGAP) 12.3 10.0-20.0 [facility]2016-09-02 08:15:00 Test Item Value Reference Range Interpretation Comments Magnesium Lvl (test code = Magnesium 1.6 1.8-2.4 Lvl) [facility]2016-09-02 08:15:00 Test Item Value Reference Range Interpretation Comments Phosphorus (test code = Phosphorus) 1.8 2.5-4.5 [facility]2016-09-02 08:15:00 Test Item Value Reference Range Interpretation Comments Creatinine Lvl (test code = Creatinine 0.71 0.50-1.40 Lvl) [facility]2016-09-02 08:15:00 Test Item Value Reference Range Interpretation Comments Glucose Lvl (test code = Glucose Lvl) 87 70-99 [facility]2016-09-02 08:15:00 Test Item Value Reference Range Interpretation Comments BUN (test code = BUN) 13 7-22 [facility]2016-09-02 08:15:00 Test Item Value Reference Range Interpretation Comments Chloride Lvl (test code = Chloride Lvl) 103 95-109 [facility]2016-09-02 08:15:00 Test Item Value Reference Range Interpretation Comments Potassium Lvl (test code = Potassium 4.3 3.5-5.1 Lvl) [facility]2016-09-02 08:15:00 Test Item Value Reference Range Interpretation Comments CO2 (test code = CO2) 23 24-32 [facility]2016-09-02 08:15:00 Test Item Value Reference Range Interpretation Comments Calcium Lvl (test code = Calcium Lvl) 8.6 8.5-10.5 [facility]2016-09-02 08:15:00 Test Item Value Reference Range Interpretation Comments Sodium Lvl (test code = Sodium Lvl) 134 135-145 [facility]2016-09-02 08:15:00 Test Item Value Reference Range Interpretation Comments eGFR (test code = eGFR) 87 [facility]2016-09-02 08:15:00 Test Item Value Reference Range Interpretation Comments AGAP (test code = AGAP) 12.3 10.0-20.0 [facility]2016-09-02 08:15:00 Test Item Value Reference Range Interpretation Comments Magnesium Lvl (test code = Magnesium 1.6 1.8-2.4 Lvl) [facility]2016-09-02 08:15:00 Test Item Value Reference Range Interpretation Comments Phosphorus (test code = Phosphorus) 1.8 2.5-4.5 [facility]2016-09-02 08:15:00 Test Item Value Reference Range Interpretation Comments Creatinine Lvl (test code = Creatinine 0.71 0.50-1.40 Lvl) [facility]2016-09-02 08:15:00 Test Item Value Reference Range Interpretation Comments Glucose Lvl (test code = Glucose Lvl) 87 70-99 [facility]2016-09-02 08:15:00 Test Item Value Reference Range Interpretation Comments BUN (test code = BUN) 13 7-22 [facility]2016-09-02 08:15:00 Test Item Value Reference Range Interpretation Comments Chloride Lvl (test code = Chloride Lvl) 103 95-109 [facility]2016-09-02 08:15:00 Test Item Value Reference Range Interpretation Comments Potassium Lvl (test code = Potassium 4.3 3.5-5.1 Lvl) [facility]2016-09-02 08:15:00 Test Item Value Reference Range Interpretation Comments CO2 (test code = CO2) 23 24-32 [facility]2016-09-02 08:15:00 Test Item Value Reference Range Interpretation Comments Calcium Lvl (test code = Calcium Lvl) 8.6 8.5-10.5 [facility]2016-09-02 08:15:00 Test Item Value Reference Range Interpretation Comments Sodium Lvl (test code = Sodium Lvl) 134 135-145 [facility]2016-09-02 08:15:00 Test Item Value Reference Range Interpretation Comments eGFR (test code = eGFR) 87 [facility]2016-09-02 08:15:00 Test Item Value Reference Range Interpretation Comments AGAP (test code = AGAP) 12.3 10.0-20.0 [facility]2016-09-02 08:15:00 Test Item Value Reference Range Interpretation Comments Magnesium Lvl (test code = Magnesium 1.6 1.8-2.4 Lvl) [facility]2016-09-02 08:15:00 Test Item Value Reference Range Interpretation Comments Phosphorus (test code = Phosphorus) 1.8 2.5-4.5 [facility]2016-09-02 08:15:00 Test Item Value Reference Range Interpretation Comments Creatinine Lvl (test code = Creatinine 0.71 0.50-1.40 Lvl) [facility]2016-09-02 08:15:00 Test Item Value Reference Range Interpretation Comments Glucose Lvl (test code = Glucose Lvl) 87 70-99 [facility]2016-09-02 08:15:00 Test Item Value Reference Range Interpretation Comments BUN (test code = BUN) 13 7-22 [facility]2016-09-02 08:15:00 Test Item Value Reference Range Interpretation Comments Chloride Lvl (test code = Chloride Lvl) 103 95-109 [facility]2016-09-02 08:15:00 Test Item Value Reference Range Interpretation Comments Potassium Lvl (test code = Potassium 4.3 3.5-5.1 Lvl) [facility]2016-09-02 08:15:00 Test Item Value Reference Range Interpretation Comments CO2 (test code = CO2) 23 24-32 [facility]2016-09-02 08:15:00 Test Item Value Reference Range Interpretation Comments Calcium Lvl (test code = Calcium Lvl) 8.6 8.5-10.5 [facility]2016-09-02 08:15:00 Test Item Value Reference Range Interpretation Comments Sodium Lvl (test code = Sodium Lvl) 134 135-145 [facility]2016-09-02 08:15:00 Test Item Value Reference Range Interpretation Comments eGFR (test code = eGFR) 87 [facility]2016-09-02 08:15:00 Test Item Value Reference Range Interpretation Comments AGAP (test code = AGAP) 12.3 10.0-20.0 [facility]2016-09-02 08:15:00 Test Item Value Reference Range Interpretation Comments Magnesium Lvl (test code = Magnesium 1.6 1.8-2.4 Lvl) [facility]2016-09-02 08:15:00 Test Item Value Reference Range Interpretation Comments Phosphorus (test code = Phosphorus) 1.8 2.5-4.5 [place]26-09-02 08:15:00 Test Item Value Reference Range Interpretation Comments Creatinine Lvl (test code = Creatinine 0.71 0.50-1.40 Lvl) [facility]2016-09-02 08:15:00 Test Item Value Reference Range Interpretation Comments Glucose Lvl (test code = Glucose Lvl) 87 70-99 [facility]2016-09-02 08:15:00 Test Item Value Reference Range Interpretation Comments BUN (test code = BUN) 13 7-22 [facility]2016-09-02 08:15:00 Test Item Value Reference Range Interpretation Comments Chloride Lvl (test code = Chloride Lvl) 103 95-109 [facility]2016-09-02 08:15:00 Test Item Value Reference Range Interpretation Comments Potassium Lvl (test code = Potassium 4.3 3.5-5.1 Lvl) [facility]2016-09-02 08:15:00 Test Item Value Reference Range Interpretation Comments CO2 (test code = CO2) 23 24-32 [facility]2016-09-02 08:15:00 Test Item Value Reference Range Interpretation Comments Calcium Lvl (test code = Calcium Lvl) 8.6 8.5-10.5 [facility]2016-09-02 08:15:00 Test Item Value Reference Range Interpretation Comments Sodium Lvl (test code = Sodium Lvl) 134 135-145 [facility]2016-09-02 08:15:00 Test Item Value Reference Range Interpretation Comments eGFR (test code = eGFR) 87 [facility]2016-09-02 08:15:00 Test Item Value Reference Range Interpretation Comments AGAP (test code = AGAP) 12.3 10.0-20.0 [facility]2016-09-02 08:15:00 Test Item Value Reference Range Interpretation Comments Magnesium Lvl (test code = Magnesium 1.6 1.8-2.4 Lvl) [facility]2016-09-02 08:15:00 Test Item Value Reference Range Interpretation Comments Phosphorus (test code = Phosphorus) 1.8 2.5-4.5 [facility]2016-09-02 08:15:00 Test Item Value Reference Range Interpretation Comments Creatinine Lvl (test code = Creatinine 0.71 0.50-1.40 Lvl) [facility]2016-09-02 08:15:00 Test Item Value Reference Range Interpretation Comments Glucose Lvl (test code = Glucose Lvl) 87 70-99 [facility]2016-09-02 08:15:00 Test Item Value Reference Range Interpretation Comments BUN (test code = BUN) 13 7-22 [facility]2016-09-02 08:15:00 Test Item Value Reference Range Interpretation Comments Chloride Lvl (test code = Chloride Lvl) 103 95-109 [facility]2016-09-02 08:15:00 Test Item Value Reference Range Interpretation Comments Potassium Lvl (test code = Potassium 4.3 3.5-5.1 Lvl) [facility]2016-09-02 08:15:00 Test Item Value Reference Range Interpretation Comments CO2 (test code = CO2) 23 24-32 [facility]2016-09-02 08:15:00 Test Item Value Reference Range Interpretation Comments Calcium Lvl (test code = Calcium Lvl) 8.6 8.5-10.5 [facility]2016-09-02 08:15:00 Test Item Value Reference Range Interpretation Comments Sodium Lvl (test code = Sodium Lvl) 134 135-145 [facility]2016-09-02 08:15:00 Test Item Value Reference Range Interpretation Comments eGFR (test code = eGFR) 87 [facility]2016-09-02 08:15:00 Test Item Value Reference Range Interpretation Comments AGAP (test code = AGAP) 12.3 10.0-20.0 [facility]2016-09-02 08:15:00 Test Item Value Reference Range Interpretation Comments Magnesium Lvl (test code = Magnesium 1.6 1.8-2.4 Lvl) [facility]2016-09-02 08:15:00 Test Item Value Reference Range Interpretation Comments Phosphorus (test code = Phosphorus) 1.8 2.5-4.5 [facility]2016-09-02 08:15:00 Test Item Value Reference Range Interpretation Comments Creatinine Lvl (test code = Creatinine 0.71 0.50-1.40 Lvl) [facility]2016-09-02 08:15:00 Test Item Value Reference Range Interpretation Comments Glucose Lvl (test code = Glucose Lvl) 87 70-99 [facility]2016-09-02 08:15:00 Test Item Value Reference Range Interpretation Comments BUN (test code = BUN) 13 7-22 [facility]2016-09-02 08:15:00 Test Item Value Reference Range Interpretation Comments Chloride Lvl (test code = Chloride Lvl) 103 95-109 [facility]2016-09-02 08:15:00 Test Item Value Reference Range Interpretation Comments Potassium Lvl (test code = Potassium 4.3 3.5-5.1 Lvl) [facility]2016-09-02 08:15:00 Test Item Value Reference Range Interpretation Comments CO2 (test code = CO2) 23 24-32 [facility]2016-09-02 08:15:00 Test Item Value Reference Range Interpretation Comments Calcium Lvl (test code = Calcium Lvl) 8.6 8.5-10.5 [facility]2016-09-02 08:15:00 Test Item Value Reference Range Interpretation Comments Sodium Lvl (test code = Sodium Lvl) 134 135-145 [facility]2016-09-02 08:15:00 Test Item Value Reference Range Interpretation Comments eGFR (test code = eGFR) 87 [facility]2016-09-02 08:15:00 Test Item Value Reference Range Interpretation Comments AGAP (test code = AGAP) 12.3 10.0-20.0 [facility]2016-09-02 08:15:00 Test Item Value Reference Range Interpretation Comments Magnesium Lvl (test code = Magnesium 1.6 1.8-2.4 Lvl) [facility]2016-09-02 08:15:00 Test Item Value Reference Range Interpretation Comments Phosphorus (test code = Phosphorus) 1.8 2.5-4.5 [facility]2016-09-02 08:15:00 Test Item Value Reference Range Interpretation Comments Creatinine Lvl (test code = Creatinine 0.71 0.50-1.40 Lvl) [facility]2016-09-02 08:15:00 Test Item Value Reference Range Interpretation Comments Glucose Lvl (test code = Glucose Lvl) 87 70-99 [facility]2016-09-02 08:15:00 Test Item Value Reference Range Interpretation Comments BUN (test code = BUN) 13 7-22 [facility]2016-09-02 08:15:00 Test Item Value Reference Range Interpretation Comments Chloride Lvl (test code = Chloride Lvl) 103 95-109 [facility]2016-09-02 08:15:00 Test Item Value Reference Range Interpretation Comments Potassium Lvl (test code = Potassium 4.3 3.5-5.1 Lvl) [facility]2016-09-02 08:15:00 Test Item Value Reference Range Interpretation Comments CO2 (test code = CO2) 23 24-32 [facility]2016-09-02 08:15:00 Test Item Value Reference Range Interpretation Comments Calcium Lvl (test code = Calcium Lvl) 8.6 8.5-10.5 [facility]2016-09-02 08:15:00 Test Item Value Reference Range Interpretation Comments Sodium Lvl (test code = Sodium Lvl) 134 135-145 [facility]2016-09-02 08:15:00 Test Item Value Reference Range Interpretation Comments eGFR (test code = eGFR) 87 [facility]2016-09-02 08:15:00 Test Item Value Reference Range Interpretation Comments AGAP (test code = AGAP) 12.3 10.0-20.0 [facility]2016-09-02 08:15:00 Test Item Value Reference Range Interpretation Comments Magnesium Lvl (test code = Magnesium 1.6 1.8-2.4 Lvl) [facility]2016-09-02 08:15:00 Test Item Value Reference Range Interpretation Comments Phosphorus (test code = Phosphorus) 1.8 2.5-4.5 [place] 186626-09-01 08:21:00 Test Item Value Reference Range Interpretation Comments Phosphorus (test code = Phosphorus) 2.0 2.5-4.5 [facility]2016-09-01 08:21:00 Test Item Value Reference Range Interpretation Comments Magnesium Lvl (test code = Magnesium 1.9 1.8-2.4 Lvl) [facility]2016-09-01 08:21:00 Test Item Value Reference Range Interpretation Comments eGFR (test code = eGFR) 92 [facility]2016-09-01 08:21:00 Test Item Value Reference Range Interpretation Comments Potassium Lvl (test code = Potassium 3.4 3.5-5.1 Lvl) [facility]2016-09-01 08:21:00 Test Item Value Reference Range Interpretation Comments CO2 (test code = CO2) 22 24-32 [place] 186626-09-01 08:21:00 Test Item Value Reference Range Interpretation Comments Chloride Lvl (test code = Chloride Lvl) 101 95-109 [facility]2016-09-01 08:21:00 Test Item Value Reference Range Interpretation Comments Calcium Lvl (test code = Calcium Lvl) 7.8 8.5-10.5 [facility]2016-09-01 08:21:00 Test Item Value Reference Range Interpretation Comments AGAP (test code = AGAP) 14.4 10.0-20.0 [facility]2016-09-01 08:21:00 Test Item Value Reference Range Interpretation Comments Sodium Lvl (test code = Sodium Lvl) 134 135-145 [facility]2016-09-01 08:21:00 Test Item Value Reference Range Interpretation Comments Glucose Lvl (test code = Glucose Lvl) 100 70-99 [facility]2016-09-01 08:21:00 Test Item Value Reference Range Interpretation Comments Creatinine Lvl (test code = Creatinine 0.62 0.50-1.40 Lvl) [facility]2016-09-01 08:21:00 Test Item Value Reference Range Interpretation Comments BUN (test code = BUN) 12 7-22 [facility]2016-09-01 08:21:00 Test Item Value Reference Range Interpretation Comments Phosphorus (test code = Phosphorus) 2.0 2.5-4.5 [facility]2016-09-01 08:21:00 Test Item Value Reference Range Interpretation Comments Magnesium Lvl (test code = Magnesium 1.9 1.8-2.4 Lvl) [facility]2016-09-01 08:21:00 Test Item Value Reference Range Interpretation Comments eGFR (test code = eGFR) 92 [facility]2016-09-01 08:21:00 Test Item Value Reference Range Interpretation Comments Potassium Lvl (test code = Potassium 3.4 3.5-5.1 Lvl) [facility]2016-09-01 08:21:00 Test Item Value Reference Range Interpretation Comments CO2 (test code = CO2) 22 24-32 [facility]2016-09-01 08:21:00 Test Item Value Reference Range Interpretation Comments Chloride Lvl (test code = Chloride Lvl) 101 95-109 [facility]2016-09-01 08:21:00 Test Item Value Reference Range Interpretation Comments Calcium Lvl (test code = Calcium Lvl) 7.8 8.5-10.5 [facility]2016-09-01 08:21:00 Test Item Value Reference Range Interpretation Comments AGAP (test code = AGAP) 14.4 10.0-20.0 [facility]2016-09-01 08:21:00 Test Item Value Reference Range Interpretation Comments Sodium Lvl (test code = Sodium Lvl) 134 135-145 [facility]2016-09-01 08:21:00 Test Item Value Reference Range Interpretation Comments Glucose Lvl (test code = Glucose Lvl) 100 70-99 [facility]2016-09-01 08:21:00 Test Item Value Reference Range Interpretation Comments Creatinine Lvl (test code = Creatinine 0.62 0.50-1.40 Lvl) [facility]2016-09-01 08:21:00 Test Item Value Reference Range Interpretation Comments BUN (test code = BUN) 12 7-22 [facility]2016-09-01 08:21:00 Test Item Value Reference Range Interpretation Comments Phosphorus (test code = Phosphorus) 2.0 2.5-4.5 [facility]2016-09-01 08:21:00 Test Item Value Reference Range Interpretation Comments Magnesium Lvl (test code = Magnesium 1.9 1.8-2.4 Lvl) [facility]2016-09-01 08:21:00 Test Item Value Reference Range Interpretation Comments eGFR (test code = eGFR) 92 [facility]2016-09-01 08:21:00 Test Item Value Reference Range Interpretation Comments Potassium Lvl (test code = Potassium 3.4 3.5-5.1 Lvl) [facility]2016-09-01 08:21:00 Test Item Value Reference Range Interpretation Comments CO2 (test code = CO2) - [facility]2016-09-01 08:21:00 Test Item Value Reference Range Interpretation Comments Chloride Lvl (test code = Chloride Lvl) 101 95-109 [facility]2016-09-01 08:21:00 Test Item Value Reference Range Interpretation Comments Calcium Lvl (test code = Calcium Lvl) 7.8 8.5-10.5 [facility]2016-09-01 08:21:00 Test Item Value Reference Range Interpretation Comments AGAP (test code = AGAP) 14.4 10.0-20.0 [facility]2016-09-01 08:21:00 Test Item Value Reference Range Interpretation Comments Sodium Lvl (test code = Sodium Lvl) 134 135-145 [facility]2016-09-01 08:21:00 Test Item Value Reference Range Interpretation Comments Glucose Lvl (test code = Glucose Lvl) 100 70-99 [facility]2016-09-01 08:21:00 Test Item Value Reference Range Interpretation Comments Creatinine Lvl (test code = Creatinine 0.62 0.50-1.40 Lvl) [facility]2016-09-01 08:21:00 Test Item Value Reference Range Interpretation Comments BUN (test code = BUN) 12 05-31 [facility]2016-09-01 08:21:00 Test Item Value Reference Range Interpretation Comments Phosphorus (test code = Phosphorus) 2.0 2.5-4.5 [facility]2016-09-01 08:21:00 Test Item Value Reference Range Interpretation Comments Magnesium Lvl (test code = Magnesium 1.9 1.8-2.4 Lvl) [facility]2016-09-01 08:21:00 Test Item Value Reference Range Interpretation Comments eGFR (test code = eGFR) 92 [facility]2016-09-01 08:21:00 Test Item Value Reference Range Interpretation Comments Potassium Lvl (test code = Potassium 3.4 3.5-5.1 Lvl) [facility]2016-09-01 08:21:00 Test Item Value Reference Range Interpretation Comments CO2 (test code = CO2) - [facility]2016-09-01 08:21:00 Test Item Value Reference Range Interpretation Comments Chloride Lvl (test code = Chloride Lvl) 101 95-109 [facility]2016-09-01 08:21:00 Test Item Value Reference Range Interpretation Comments Calcium Lvl (test code = Calcium Lvl) 7.8 8.5-10.5 [facility]2016-09-01 08:21:00 Test Item Value Reference Range Interpretation Comments AGAP (test code = AGAP) 14.4 10.0-20.0 [facility]2016-09-01 08:21:00 Test Item Value Reference Range Interpretation Comments Sodium Lvl (test code = Sodium Lvl) 134 135-145 [facility]2016-09-01 08:21:00 Test Item Value Reference Range Interpretation Comments Glucose Lvl (test code = Glucose Lvl) 100 70-99 [facility]2016-09-01 08:21:00 Test Item Value Reference Range Interpretation Comments Creatinine Lvl (test code = Creatinine 0.62 0.50-1.40 Lvl) [facility]2016-09-01 08:21:00 Test Item Value Reference Range Interpretation Comments BUN (test code = BUN) 12 7-22 [facility]2016-09-01 08:21:00 Test Item Value Reference Range Interpretation Comments Phosphorus (test code = Phosphorus) 2.0 2.5-4.5 [facility]2016-09-01 08:21:00 Test Item Value Reference Range Interpretation Comments Magnesium Lvl (test code = Magnesium 1.9 1.8-2.4 Lvl) [facility]2016-09-01 08:21:00 Test Item Value Reference Range Interpretation Comments eGFR (test code = eGFR) 92 [facility]2016-09-01 08:21:00 Test Item Value Reference Range Interpretation Comments Potassium Lvl (test code = Potassium 3.4 3.5-5.1 Lvl) [facility]2016-09-01 08:21:00 Test Item Value Reference Range Interpretation Comments CO2 (test code = CO2) 22 24-32 [facility]2016-09-01 08:21:00 Test Item Value Reference Range Interpretation Comments Chloride Lvl (test code = Chloride Lvl) 101 95-109 [facility]2016-09-01 08:21:00 Test Item Value Reference Range Interpretation Comments Calcium Lvl (test code = Calcium Lvl) 7.8 8.5-10.5 [facility]2016-09-01 08:21:00 Test Item Value Reference Range Interpretation Comments AGAP (test code = AGAP) 14.4 10.0-20.0 [facility]2016-09-01 08:21:00 Test Item Value Reference Range Interpretation Comments Sodium Lvl (test code = Sodium Lvl) 134 135-145 [facility]2016-09-01 08:21:00 Test Item Value Reference Range Interpretation Comments Glucose Lvl (test code = Glucose Lvl) 100 70-99 [facility]2016-09-01 08:21:00 Test Item Value Reference Range Interpretation Comments Creatinine Lvl (test code = Creatinine 0.62 0.50-1.40 Lvl) [facility]2016-09-01 08:21:00 Test Item Value Reference Range Interpretation Comments BUN (test code = BUN) 12 7-22 [facility]2016-09-01 08:21:00 Test Item Value Reference Range Interpretation Comments Phosphorus (test code = Phosphorus) 2.0 2.5-4.5 [facility]2016-09-01 08:21:00 Test Item Value Reference Range Interpretation Comments Magnesium Lvl (test code = Magnesium 1.9 1.8-2.4 Lvl) [facility]2016-09-01 08:21:00 Test Item Value Reference Range Interpretation Comments eGFR (test code = eGFR) 92 [facility]2016-09-01 08:21:00 Test Item Value Reference Range Interpretation Comments Potassium Lvl (test code = Potassium 3.4 3.5-5.1 Lvl) [facility]2016-09-01 08:21:00 Test Item Value Reference Range Interpretation Comments CO2 (test code = CO2) 22 24-32 [facility]2016-09-01 08:21:00 Test Item Value Reference Range Interpretation Comments Chloride Lvl (test code = Chloride Lvl) 101 95-109 [facility]2016-09-01 08:21:00 Test Item Value Reference Range Interpretation Comments Calcium Lvl (test code = Calcium Lvl) 7.8 8.5-10.5 [facility]2016-09-01 08:21:00 Test Item Value Reference Range Interpretation Comments AGAP (test code = AGAP) 14.4 10.0-20.0 [facility]2016-09-01 08:21:00 Test Item Value Reference Range Interpretation Comments Sodium Lvl (test code = Sodium Lvl) 134 135-145 [facility]2016-09-01 08:21:00 Test Item Value Reference Range Interpretation Comments Glucose Lvl (test code = Glucose Lvl) 100 70-99 [facility]2016-09-01 08:21:00 Test Item Value Reference Range Interpretation Comments Creatinine Lvl (test code = Creatinine 0.62 0.50-1.40 Lvl) [facility]2016-09-01 08:21:00 Test Item Value Reference Range Interpretation Comments BUN (test code = BUN) 12 7-22 [facility]2016-09-01 08:21:00 Test Item Value Reference Range Interpretation Comments Phosphorus (test code = Phosphorus) 2.0 2.5-4.5 [facility]2016-09-01 08:21:00 Test Item Value Reference Range Interpretation Comments Magnesium Lvl (test code = Magnesium 1.9 1.8-2.4 Lvl) [facility]2016-09-01 08:21:00 Test Item Value Reference Range Interpretation Comments eGFR (test code = eGFR) 92 [facility]2016-09-01 08:21:00 Test Item Value Reference Range Interpretation Comments Potassium Lvl (test code = Potassium 3.4 3.5-5.1 Lvl) [facility]2016-09-01 08:21:00 Test Item Value Reference Range Interpretation Comments CO2 (test code = CO2) 22 24-32 [facility]2016-09-01 08:21:00 Test Item Value Reference Range Interpretation Comments Chloride Lvl (test code = Chloride Lvl) 101 95-109 [facility]2016-09-01 08:21:00 Test Item Value Reference Range Interpretation Comments Calcium Lvl (test code = Calcium Lvl) 7.8 8.5-10.5 [facility]2016-09-01 08:21:00 Test Item Value Reference Range Interpretation Comments AGAP (test code = AGAP) 14.4 10.0-20.0 [facility]2016-09-01 08:21:00 Test Item Value Reference Range Interpretation Comments Sodium Lvl (test code = Sodium Lvl) 134 135-145 [facility]2016-09-01 08:21:00 Test Item Value Reference Range Interpretation Comments Glucose Lvl (test code = Glucose Lvl) 100 70-99 [facility]2016-09-01 08:21:00 Test Item Value Reference Range Interpretation Comments Creatinine Lvl (test code = Creatinine 0.62 0.50-1.40 Lvl) [facility]2016-09-01 08:21:00 Test Item Value Reference Range Interpretation Comments BUN (test code = BUN) 12 7-22 [facility]2016-09-01 08:21:00 Test Item Value Reference Range Interpretation Comments Phosphorus (test code = Phosphorus) 2.0 2.5-4.5 [facility]2016-09-01 08:21:00 Test Item Value Reference Range Interpretation Comments Magnesium Lvl (test code = Magnesium 1.9 1.8-2.4 Lvl) [facility]2016-09-01 08:21:00 Test Item Value Reference Range Interpretation Comments eGFR (test code = eGFR) 92 [facility]2016-09-01 08:21:00 Test Item Value Reference Range Interpretation Comments Potassium Lvl (test code = Potassium 3.4 3.5-5.1 Lvl) [facility]2016-09-01 08:21:00 Test Item Value Reference Range Interpretation Comments CO2 (test code = CO2) 22 24-32 [facility]2016-09-01 08:21:00 Test Item Value Reference Range Interpretation Comments Chloride Lvl (test code = Chloride Lvl) 101 95-109 [facility]2016-09-01 08:21:00 Test Item Value Reference Range Interpretation Comments Calcium Lvl (test code = Calcium Lvl) 7.8 8.5-10.5 [facility]2016-09-01 08:21:00 Test Item Value Reference Range Interpretation Comments AGAP (test code = AGAP) 14.4 10.0-20.0 [facility]2016-09-01 08:21:00 Test Item Value Reference Range Interpretation Comments Sodium Lvl (test code = Sodium Lvl) 134 135-145 [facility]2016-09-01 08:21:00 Test Item Value Reference Range Interpretation Comments Glucose Lvl (test code = Glucose Lvl) 100 70-99 [facility]2016-09-01 08:21:00 Test Item Value Reference Range Interpretation Comments Creatinine Lvl (test code = Creatinine 0.62 0.50-1.40 Lvl) [facility]2016-09-01 08:21:00 Test Item Value Reference Range Interpretation Comments BUN (test code = BUN) 12 7-22 [facility]2016-09-01 08:21:00 Test Item Value Reference Range Interpretation Comments Phosphorus (test code = Phosphorus) 2.0 2.5-4.5 [facility]2016-09-01 08:21:00 Test Item Value Reference Range Interpretation Comments Magnesium Lvl (test code = Magnesium 1.9 1.8-2.4 Lvl) [facility]2016-09-01 08:21:00 Test Item Value Reference Range Interpretation Comments eGFR (test code = eGFR) 92 [facility]2016-09-01 08:21:00 Test Item Value Reference Range Interpretation Comments Potassium Lvl (test code = Potassium 3.4 3.5-5.1 Lvl) [facility]2016-09-01 08:21:00 Test Item Value Reference Range Interpretation Comments CO2 (test code = CO2) 22 24-32 [facility]2016-09-01 08:21:00 Test Item Value Reference Range Interpretation Comments Chloride Lvl (test code = Chloride Lvl) 101 95-109 [facility]2016-09-01 08:21:00 Test Item Value Reference Range Interpretation Comments Calcium Lvl (test code = Calcium Lvl) 7.8 8.5-10.5 [facility]2016-09-01 08:21:00 Test Item Value Reference Range Interpretation Comments AGAP (test code = AGAP) 14.4 10.0-20.0 [facility]2016-09-01 08:21:00 Test Item Value Reference Range Interpretation Comments Sodium Lvl (test code = Sodium Lvl) 134 135-145 [facility]2016-09-01 08:21:00 Test Item Value Reference Range Interpretation Comments Glucose Lvl (test code = Glucose Lvl) 100 70-99 [facility]2016-09-01 08:21:00 Test Item Value Reference Range Interpretation Comments Creatinine Lvl (test code = Creatinine 0.62 0.50-1.40 Lvl) [facility]2016-09-01 08:21:00 Test Item Value Reference Range Interpretation Comments BUN (test code = BUN) 12 7-22 [facility]2016-09-01 08:21:00 Test Item Value Reference Range Interpretation Comments Phosphorus (test code = Phosphorus) 2.0 2.5-4.5 [facility]2016-09-01 08:21:00 Test Item Value Reference Range Interpretation Comments Magnesium Lvl (test code = Magnesium 1.9 1.8-2.4 Lvl) [facility]2016-09-01 08:21:00 Test Item Value Reference Range Interpretation Comments eGFR (test code = eGFR) 92 [facility]2016-09-01 08:21:00 Test Item Value Reference Range Interpretation Comments Potassium Lvl (test code = Potassium 3.4 3.5-5.1 Lvl) [facility]2016-09-01 08:21:00 Test Item Value Reference Range Interpretation Comments CO2 (test code = CO2) 22 24-32 [facility]2016-09-01 08:21:00 Test Item Value Reference Range Interpretation Comments Chloride Lvl (test code = Chloride Lvl) 101 95-109 [facility]2016-09-01 08:21:00 Test Item Value Reference Range Interpretation Comments Calcium Lvl (test code = Calcium Lvl) 7.8 8.5-10.5 [facility]2016-09-01 08:21:00 Test Item Value Reference Range Interpretation Comments AGAP (test code = AGAP) 14.4 10.0-20.0 [facility]2016-09-01 08:21:00 Test Item Value Reference Range Interpretation Comments Sodium Lvl (test code = Sodium Lvl) 134 135-145 [facility]2016-09-01 08:21:00 Test Item Value Reference Range Interpretation Comments Glucose Lvl (test code = Glucose Lvl) 100 70-99 [facility]2016-09-01 08:21:00 Test Item Value Reference Range Interpretation Comments Creatinine Lvl (test code = Creatinine 0.62 0.50-1.40 Lvl) [facility]2016-09-01 08:21:00 Test Item Value Reference Range Interpretation Comments BUN (test code = BUN) 12 7-22 [id number] 10:31:00 Test Item Value Reference Range Interpretation Comments Platelet (test code = Platelet) 324 133-450 [facility]EzziiouDFTBKHHPVX1468-68-88 10:31:00 Test Item Value Reference Range Interpretation Comments MCHC (test code = MCHC) 35.7 32.0-36.0 [facility] CenterGoiddztMDTPDOAPBO4597-62-61 10:31:00 Test Item Value Reference Range Interpretation Comments MCH (test code = MCH) 31.6 pg 27.0-31.0 [facility] [id number] 10:31:00 Test Item Value Reference Range Interpretation Comments RBC (test code = RBC) 2.67 4.20-5.40 [facility] CenterQkusqngKGHQJBPVIR8770-59-26 10:31:00 Test Item Value Reference Range Interpretation Comments WBC (test code = WBC) 5.1 3.7-10.4 [facility] [id number] 10:31:00 Test Item Value Reference Range Interpretation Comments Hgb (test code = Hgb) 8.5 12.0-16.0 [facility] [id number] 10:31:00 Test Item Value Reference Range Interpretation Comments MCV (test code = MCV) 88.6 80.0-98.0 [facility] [id number] 10:31:00 Test Item Value Reference Range Interpretation Comments Hct (test code = Hct) 23.7 36.0-48.0 [facility] [id number] 10:31:00 Test Item Value Reference Range Interpretation Comments Segs (test code = Segs) 55.7 45.0-75.0 [facility] CenterDfktdodJZMZGMXFVY8305-10-97 10:31:00 Test Item Value Reference Range Interpretation Comments Lymphocytes (test code = Lymphocytes) 27.8 20.0-40.0 [facility] CenterLfiffdnZVQTDEEXJX8614-29-02 10:31:00 Test Item Value Reference Range Interpretation Comments Lymphocytes # (test code = Lymphocytes 1.4 1.0-5.5 #) [facility] CenterNyvzwraJMYBTXGWLP0361-15-22 10:31:00 Test Item Value Reference Range Interpretation Comments Monocytes (test code = Monocytes) 7.9 2.0-12.0 [facility] [id number] 10:31:00 Test Item Value Reference Range Interpretation Comments Eosinophils (test code = 7.4 See_Comment [A utomated message] The Eosinophils) system which ge nerated this result tra nsmitted reference range : <=4.0. The reference r lamar was not used to int erpret this result as normal/abnormal . [facility] CenterYkmwxpdPEYOIRLVNA7107-54-46 10:31:00 Test Item Value Reference Range Interpretation Comments Basophils (test code = 1.2 See_Comment [Aut omated message] The Basophils) system which ge nerated this result tra nsmitted reference range : <=1.0. The reference r lamar was not used to int erpret this result as normal/abnormal . [facility] CenterRnmjfygGVAPKQYYFY1542-21-00 10:31:00 Test Item Value Reference Range Interpretation Comments Segs-Bands # (test code = Segs-Bands #) 2.9 1.5-8.1 [facility] CenterCmaupavDUULXHFPKX5298-45-26 10:31:00 Test Item Value Reference Range Interpretation Comments Monocytes # (test code 0.4 See_Comment [Aut omated message] The = Monocytes #) system which generated this result tra nsmitted reference range : <=0.8. The reference r lamar was not used to int erpret this result as normal/abnormal . [facility] CenterHaoyepaOXHTAYKCVP8782-35-06 10:31:00 Test Item Value Reference Range Interpretation Comments Eosinophils # (test code 0.4 See_Comment [A utomated message] The = Eosinophils #) system whic h generated this result tra nsmitted reference range : <=0.5. The reference r lamar was not used to int erpret this result as normal/abnormal . [facility] CenterRjfdjdaAEJMVYWCRA1332-79-19 10:31:00 Test Item Value Reference Range Interpretation Comments Basophils # (test code 0.1 See_Comment [Aut omated message] The = Basophils #) system which generated this result tra nsmitted reference range : <=0.2. The reference r lamar was not used to int erpret this result as normal/abnormal . [facility]:31:00 Test Item Value Reference Range Interpretation Comments Ca Ion WB (test code = Ca Ion WB) 0.91 1.05-1.25 [facility] JZOJDFK3647-25-28 10:31:00 Test Item Value Reference Range Interpretation Comments Ca Norm WB (test code = Ca Norm WB) 0.92 1.05-1.25 [facility]2016-08-31 10:31:00 Test Item Value Reference Range Interpretation Comments Phosphorus (test code = Phosphorus) 2.5 2.5-4.5 [facility]2016-08-31 10:31:00 Test Item Value Reference Range Interpretation Comments eGFR (test code = eGFR) 93 [facility]2016-08-31 10:31:00 Test Item Value Reference Range Interpretation Comments Calcium Lvl (test code = Calcium Lvl) 7.3 8.5-10.5 [facility]2016-08-31 10:31:00 Test Item Value Reference Range Interpretation Comments Chloride Lvl (test code = Chloride Lvl) 100 95-109 [facility]2016-08-31 10:31:00 Test Item Value Reference Range Interpretation Comments Potassium Lvl (test code = Potassium 3.4 3.5-5.1 Lvl) [facility]2016-08-31 10:31:00 Test Item Value Reference Range Interpretation Comments CO2 (test code = CO2) 28 24-32 [facility]2016-08-31 10:31:00 Test Item Value Reference Range Interpretation Comments Sodium Lvl (test code = Sodium Lvl) 137 135-145 [facility]2016-08-31 10:31:00 Test Item Value Reference Range Interpretation Comments Creatinine Lvl (test code = Creatinine 0.62 0.50-1.40 Lvl) [facility]2016-08-31 10:31:00 Test Item Value Reference Range Interpretation Comments Glucose Lvl (test code = Glucose Lvl) 85 70-99 [facility]2016-08-31 10:31:00 Test Item Value Reference Range Interpretation Comments BUN (test code = BUN) 5 7-22 [facility]2016-08-31 10:31:00 Test Item Value Reference Range Interpretation Comments AGAP (test code = AGAP) 12.4 10.0-20.0 [facility]2016-08-31 10:31:00 Test Item Value Reference Range Interpretation Comments Magnesium Lvl (test code = Magnesium 1.3 1.8-2.4 Lvl) [facility] CenterGleaezgFEQLFGXCBL5589-14-46 10:31:00 Test Item Value Reference Range Interpretation Comments MPV (test code = MPV) 8.4 7.4-10.4 [facility] CenterQkclneaAYVTTKVQFG8354-22-18 10:31:00 Test Item Value Reference Range Interpretation Comments RDW (test code = RDW) 14.1 11.5-14.5 [facility] CenterRqrfuleTPPRAAWJSQ5920-22-71 10:31:00 Test Item Value Reference Range Interpretation Comments Platelet (test code = Platelet) 324 835-450 [facility] CenterIzgqmzwQZDUZNRFRG8146-80-24 10:31:00 Test Item Value Reference Range Interpretation Comments MCHC (test code = MCHC) 35.7 32.0-36.0 [facility] CenterCfrefysDPXPEAVEWJ7592-96-42 10:31:00 Test Item Value Reference Range Interpretation Comments MCH (test code = MCH) 31.6 pg 27.0-31.0 [facility] CenterQuswxhpZMACNHWCVO1110-20-20 10:31:00 Test Item Value Reference Range Interpretation Comments RBC (test code = RBC) 2.67 4.20-5.40 [facility] CenterFszmwciWTQWRFDNXJ7478-96-56 10:31:00 Test Item Value Reference Range Interpretation Comments WBC (test code = WBC) 5.1 3.7-10.4 [facility] CenterEgnlkmkCVZKKUQSXZ6679-19-23 10:31:00 Test Item Value Reference Range Interpretation Comments Hgb (test code = Hgb) 8.5 12.0-16.0 [facility] CenterNmbchonWCGBLDRXJN0344-69-21 10:31:00 Test Item Value Reference Range Interpretation Comments MCV (test code = MCV) 88.6 80.0-98.0 [facility] CenterOgsyeimNNAUIFCLLR3248-49-98 10:31:00 Test Item Value Reference Range Interpretation Comments Hct (test code = Hct) 23.7 36.0-48.0 [facility] CenterJfejryhQEOFBABXMZ3704-77-85 10:31:00 Test Item Value Reference Range Interpretation Comments Segs (test code = Segs) 55.7 45.0-75.0 [facility] CenterQvbwctrQQUAECMEUT0251-71-56 10:31:00 Test Item Value Reference Range Interpretation Comments Lymphocytes (test code = Lymphocytes) 27.8 20.0-40.0 [facility] CenterHnkqdqpAXYVMPQUGQ0856-85-44 10:31:00 Test Item Value Reference Range Interpretation Comments Lymphocytes # (test code = Lymphocytes 1.4 1.0-5.5 #) [facility] CenterHqgaakmGVJADHXXUG4774-61-47 10:31:00 Test Item Value Reference Range Interpretation Comments Monocytes (test code = Monocytes) 7.9 2.0-12.0 [facility] CenterCncdsghNLISNTTSWS9047-47-58 10:31:00 Test Item Value Reference Range Interpretation Comments Eosinophils (test code = 7.4 See_Comment [A utomated message] The Eosinophils) system which ge nerated this result tra nsmitted reference range : <=4.0. The reference r lamar was not used to int erpret this result as normal/abnormal . [facility] CenterDogpbtwOTCBOLKHTB6133-30-40 10:31:00 Test Item Value Reference Range Interpretation Comments Basophils (test code = 1.2 See_Comment [Aut omated message] The Basophils) system which ge nerated this result tra nsmitted reference range : <=1.0. The reference r lamar was not used to int erpret this result as normal/abnormal . [facility] CenterAvighraWNFGEMSFDX3503-93-07 10:31:00 Test Item Value Reference Range Interpretation Comments Segs-Bands # (test code = Segs-Bands #) 2.9 1.5-8.1 [facility] CenterSmwxynrYTHYPBVPGZ9893-42-17 10:31:00 Test Item Value Reference Range Interpretation Comments Monocytes # (test code 0.4 See_Comment [Aut omated message] The = Monocytes #) system which generated this result tra nsmitted reference range : <=0.8. The reference r lamar was not used to int erpret this result as normal/abnormal . [facility] CenterKksijasVNLHRETLUP5438-22-17 10:31:00 Test Item Value Reference Range Interpretation Comments Eosinophils # (test code 0.4 See_Comment [A utomated message] The = Eosinophils #) system whic h generated this result tra nsmitted reference range : <=0.5. The reference r lamar was not used to int erpret this result as normal/abnormal . [facility] CenterAffhiabHZNFFRUXTK2398-98-50 10:31:00 Test Item Value Reference Range Interpretation Comments Basophils # (test code 0.1 See_Comment [Aut omated message] The = Basophils #) system which generated this result tra nsmitted reference range : <=0.2. The reference r lamar was not used to int erpret this result as normal/abnormal . [facility]2016-08-31 10:31:00 Test Item Value Reference Range Interpretation Comments Ca Ion WB (test code = Ca Ion WB) 0.91 1.05-1.25 [facility]2016-08-31 10:31:00 Test Item Value Reference Range Interpretation Comments Ca Norm WB (test code = Ca Norm WB) 0.92 1.05-1.25 [facility]2016-08-31 10:31:00 Test Item Value Reference Range Interpretation Comments Phosphorus (test code = Phosphorus) 2.5 2.5-4.5 [facility]2016-08-31 10:31:00 Test Item Value Reference Range Interpretation Comments eGFR (test code = eGFR) 93 [facility]2016-08-31 10:31:00 Test Item Value Reference Range Interpretation Comments Calcium Lvl (test code = Calcium Lvl) 7.3 8.5-10.5 [facility]2016-08-31 10:31:00 Test Item Value Reference Range Interpretation Comments Chloride Lvl (test code = Chloride Lvl) 100 95-109 [facility]2016-08-31 10:31:00 Test Item Value Reference Range Interpretation Comments Potassium Lvl (test code = Potassium 3.4 3.5-5.1 Lvl) [facility]2016-08-31 10:31:00 Test Item Value Reference Range Interpretation Comments CO2 (test code = CO2) 28 -32 [facility]2016-08-31 10:31:00 Test Item Value Reference Range Interpretation Comments Sodium Lvl (test code = Sodium Lvl) 137 135-145 [facility]2016-08-31 10:31:00 Test Item Value Reference Range Interpretation Comments Creatinine Lvl (test code = Creatinine 0.62 0.50-1.40 Lvl) [facility]2016-08-31 10:31:00 Test Item Value Reference Range Interpretation Comments Glucose Lvl (test code = Glucose Lvl) 85 70-99 [facility]2016-08-31 10:31:00 Test Item Value Reference Range Interpretation Comments BUN (test code = BUN) 5 7-22 [facility]2016-08-31 10:31:00 Test Item Value Reference Range Interpretation Comments AGAP (test code = AGAP) 12.4 10.0-20.0 [facility]2016-08-31 10:31:00 Test Item Value Reference Range Interpretation Comments Magnesium Lvl (test code = Magnesium 1.3 1.8-2.4 Lvl) [facility] CenterRuskkdtWZFBFGCCCX5010-89-13 10:31:00 Test Item Value Reference Range Interpretation Comments MPV (test code = MPV) 8.4 7.4-10.4 [facility] CenterFmrspmxJNCLKTIGMA6794-09-13 10:31:00 Test Item Value Reference Range Interpretation Comments RDW (test code = RDW) 14.1 11.5-14.5 [facility] CenterWfwwugiRZTGRWQUFC5495-05-75 10:31:00 Test Item Value Reference Range Interpretation Comments Platelet (test code = Platelet) 324 133-450 [facility] CenterUohdzljWHSWQXXFGG6833-64-97 10:31:00 Test Item Value Reference Range Interpretation Comments MCHC (test code = MCHC) 35.7 32.0-36.0 [facility] CenterZuxmtcbVMLRZCYDAW1737-78-18 10:31:00 Test Item Value Reference Range Interpretation Comments MCH (test code = MCH) 31.6 pg 27.0-31.0 [facility] CenterHfrmxqjROYZHQUQNA4731-91-31 10:31:00 Test Item Value Reference Range Interpretation Comments RBC (test code = RBC) 2.67 4.20-5.40 [facility] CenterNwvhyoaBSTLZLUDVO7555-45-13 10:31:00 Test Item Value Reference Range Interpretation Comments WBC (test code = WBC) 5.1 3.7-10.4 [facility] CenterMlbtswfSJLZTBOSFV6512-12-80 10:31:00 Test Item Value Reference Range Interpretation Comments Hgb (test code = Hgb) 8.5 12.0-16.0 [facility] CenterGbpzsarWOZSYJNJCF9338-07-46 10:31:00 Test Item Value Reference Range Interpretation Comments MCV (test code = MCV) 88.6 80.0-98.0 [facility] CenterEiwttufPEQUKBEDHX2626-10-72 10:31:00 Test Item Value Reference Range Interpretation Comments Hct (test code = Hct) 23.7 36.0-48.0 [facility] CenterBmvbkgzKPTLYKHGKW8778-78-93 10:31:00 Test Item Value Reference Range Interpretation Comments Segs (test code = Segs) 55.7 45.0-75.0 [facility] CenterHgnigodOKXJJEJZDY4929-97-10 10:31:00 Test Item Value Reference Range Interpretation Comments Lymphocytes (test code = Lymphocytes) 27.8 20.0-40.0 [facility] CenterVfdgtsnYEJUTSFMYS8848-26-78 10:31:00 Test Item Value Reference Range Interpretation Comments Lymphocytes # (test code = Lymphocytes 1.4 1.0-5.5 #) [facility] CenterCmqalryKZSFTJMGDB5727-01-51 10:31:00 Test Item Value Reference Range Interpretation Comments Monocytes (test code = Monocytes) 7.9 2.0-12.0 [facility] CenterBlmfuzdVVDXMUNJCV9796-19-29 10:31:00 Test Item Value Reference Range Interpretation Comments Eosinophils (test code = 7.4 See_Comment [A utomated message] The Eosinophils) system which ge nerated this result tra nsmitted reference range : <=4.0. The reference r lamar was not used to int erpret this result as normal/abnormal . [facility] CenterBrkztuwURXFWYIWXH1289-40-21 10:31:00 Test Item Value Reference Range Interpretation Comments Basophils (test code = 1.2 See_Comment [Aut omated message] The Basophils) system which ge nerated this result tra nsmitted reference range : <=1.0. The reference r lamar was not used to int erpret this result as normal/abnormal . [facility] CenterAhkbzyxMMUDUBLWRF1635-40-51 10:31:00 Test Item Value Reference Range Interpretation Comments Segs-Bands # (test code = Segs-Bands #) 2.9 1.5-8.1 [facility] CenterWmcgjpbZMFIMWZQFU4981-13-72 10:31:00 Test Item Value Reference Range Interpretation Comments Monocytes # (test code 0.4 See_Comment [Aut omated message] The = Monocytes #) system which generated this result tra nsmitted reference range : <=0.8. The reference r lamar was not used to int erpret this result as normal/abnormal . [facility] CenterGqdbrplIJCHPUMVAQ0152-01-94 10:31:00 Test Item Value Reference Range Interpretation Comments Eosinophils # (test code 0.4 See_Comment [A utomated message] The = Eosinophils #) system whic h generated this result tra nsmitted reference range : <=0.5. The reference r lamar was not used to int erpret this result as normal/abnormal . [facility] CenterUdgofguOGGAXUNJMM4064-58-45 10:31:00 Test Item Value Reference Range Interpretation Comments Basophils # (test code 0.1 See_Comment [Aut omated message] The = Basophils #) system which generated this result tra nsmitted reference range : <=0.2. The reference r lamar was not used to int erpret this result as normal/abnormal . [facility]2016-08-31 10:31:00 Test Item Value Reference Range Interpretation Comments Ca Ion WB (test code = Ca Ion WB) 0.91 1.05-1.25 [facility]2016-08-31 10:31:00 Test Item Value Reference Range Interpretation Comments Ca Norm WB (test code = Ca Norm WB) 0.92 1.05-1.25 [facility]2016-08-31 10:31:00 Test Item Value Reference Range Interpretation Comments Phosphorus (test code = Phosphorus) 2.5 2.5-4.5 [facility]2016-08-31 10:31:00 Test Item Value Reference Range Interpretation Comments eGFR (test code = eGFR) 93 [facility]2016-08-31 10:31:00 Test Item Value Reference Range Interpretation Comments Calcium Lvl (test code = Calcium Lvl) 7.3 8.5-10.5 [facility]2016-08-31 10:31:00 Test Item Value Reference Range Interpretation Comments Chloride Lvl (test code = Chloride Lvl) 100 95-109 [facility]2016-08-31 10:31:00 Test Item Value Reference Range Interpretation Comments Potassium Lvl (test code = Potassium 3.4 3.5-5.1 Lvl) [facility]2016-08-31 10:31:00 Test Item Value Reference Range Interpretation Comments CO2 (test code = CO2) 28 24-32 [facility]2016-08-31 10:31:00 Test Item Value Reference Range Interpretation Comments Sodium Lvl (test code = Sodium Lvl) 137 135-145 [facility]2016-08-31 10:31:00 Test Item Value Reference Range Interpretation Comments Creatinine Lvl (test code = Creatinine 0.62 0.50-1.40 Lvl) [facility]2016-08-31 10:31:00 Test Item Value Reference Range Interpretation Comments Glucose Lvl (test code = Glucose Lvl) 85 70-99 [facility]2016-08-31 10:31:00 Test Item Value Reference Range Interpretation Comments BUN (test code = BUN) 5 7-22 [facility]2016-08-31 10:31:00 Test Item Value Reference Range Interpretation Comments AGAP (test code = AGAP) 12.4 10.0-20.0 [facility]2016-08-31 10:31:00 Test Item Value Reference Range Interpretation Comments Magnesium Lvl (test code = Magnesium 1.3 1.8-2.4 Lvl) [facility] CenterXiyzntuRZLJLYOWDQ4069-28-21 10:31:00 Test Item Value Reference Range Interpretation Comments MPV (test code = MPV) 8.4 7.4-10.4 [facility] CenterGcaxbcsSPQIKUDTSW6118-20-30 10:31:00 Test Item Value Reference Range Interpretation Comments RDW (test code = RDW) 14.1 11.5-14.5 [facility] CenterIvcdqcnPDIYZAMGXT0625-51-20 10:31:00 Test Item Value Reference Range Interpretation Comments Platelet (test code = Platelet) 324 133-450 [facility] CenterDzunnaxMXGKMRSHFW8992-30-27 10:31:00 Test Item Value Reference Range Interpretation Comments MCHC (test code = MCHC) 35.7 32.0-36.0 [facility] CenterWpdwaqhMPNXPAKFRB0943-41-07 10:31:00 Test Item Value Reference Range Interpretation Comments MCH (test code = MCH) 31.6 pg 27.0-31.0 [facility] CenterWeckfnvEYEMXGWOGL8252-35-31 10:31:00 Test Item Value Reference Range Interpretation Comments RBC (test code = RBC) 2.67 4.20-5.40 [facility] CenterPmmbpinNCLMGTMQKO0568-99-46 10:31:00 Test Item Value Reference Range Interpretation Comments WBC (test code = WBC) 5.1 3.7-10.4 [facility] CenterEozaxmdEXPJNZCNNH0370-24-86 10:31:00 Test Item Value Reference Range Interpretation Comments Hgb (test code = Hgb) 8.5 12.0-16.0 [facility] CenterWtmptusXHUXBXXJJD9637-85-27 10:31:00 Test Item Value Reference Range Interpretation Comments MCV (test code = MCV) 88.6 80.0-98.0 [facility] CenterThgppnoNIBVDBGWHM4647-77-12 10:31:00 Test Item Value Reference Range Interpretation Comments Hct (test code = Hct) 23.7 36.0-48.0 [facility] CenterIslhbahVNQGRXRSXW4743-85-87 10:31:00 Test Item Value Reference Range Interpretation Comments Segs (test code = Segs) 55.7 45.0-75.0 [facility] CenterWrdabjhKNHCFQFJJT8628-29-66 10:31:00 Test Item Value Reference Range Interpretation Comments Lymphocytes (test code = Lymphocytes) 27.8 20.0-40.0 [facility] CenterUjppuwgIRRDDSGNKY2930-27-74 10:31:00 Test Item Value Reference Range Interpretation Comments Lymphocytes # (test code = Lymphocytes 1.4 1.0-5.5 #) [facility] CenterSghtvjzDXKXFHHUFX4287-38-33 10:31:00 Test Item Value Reference Range Interpretation Comments Monocytes (test code = Monocytes) 7.9 2.0-12.0 [facility] CenterYmjrdkvNPNUIWAJRK2066-95-57 10:31:00 Test Item Value Reference Range Interpretation Comments Eosinophils (test code = 7.4 See_Comment [A utomated message] The Eosinophils) system which ge nerated this result tra nsmitted reference range : <=4.0. The reference r lamar was not used to int erpret this result as normal/abnormal . [facility] CenterFrsobzdTYXKNFYIGL7920-71-28 10:31:00 Test Item Value Reference Range Interpretation Comments Basophils (test code = 1.2 See_Comment [Aut omated message] The Basophils) system which ge nerated this result tra nsmitted reference range : <=1.0. The reference r lamar was not used to int erpret this result as normal/abnormal . [facility] CenterUofqhfbSKXSLNBGIL4378-10-87 10:31:00 Test Item Value Reference Range Interpretation Comments Segs-Bands # (test code = Segs-Bands #) 2.9 1.5-8.1 [facility] CenterWsqlxvxXKWJQPRMAG2023-14-37 10:31:00 Test Item Value Reference Range Interpretation Comments Monocytes # (test code 0.4 See_Comment [Aut omated message] The = Monocytes #) system which generated this result tra nsmitted reference range : <=0.8. The reference r lamar was not used to int erpret this result as normal/abnormal . [facility] CenterUdlbspqRJYVNXJHEL0928-63-28 10:31:00 Test Item Value Reference Range Interpretation Comments Eosinophils # (test code 0.4 See_Comment [A utomated message] The = Eosinophils #) system whic h generated this result tra nsmitted reference range : <=0.5. The reference r lamar was not used to int erpret this result as normal/abnormal . [facility] CenterKjnbywsMJVYJXNVVZ5890-30-52 10:31:00 Test Item Value Reference Range Interpretation Comments Basophils # (test code 0.1 See_Comment [Aut omated message] The = Basophils #) system which generated this result tra nsmitted reference range : <=0.2. The reference r lamar was not used to int erpret this result as normal/abnormal . [facility] GCNLQOG2844[facility]39[facility]12 10:31:00 Test Item Value Reference Range Interpretation Comments Ca Ion WB (test code = Ca Ion WB) 0.91 1.05-1.25 [facility]ATHY[facility] TFCWZJV6162-32-05 10:31:00 Test Item Value Reference Range Interpretation Comments Ca Norm WB (test code = Ca Norm WB) 0.92 1.05-1.25 [facility]2016-08-31 10:31:00 Test Item Value Reference Range Interpretation Comments Phosphorus (test code = Phosphorus) 2.5 2.5-4.5 [facility]2016-08-31 10:31:00 Test Item Value Reference Range Interpretation Comments eGFR (test code = eGFR) 93 [facility]2016-08-31 10:31:00 Test Item Value Reference Range Interpretation Comments Calcium Lvl (test code = Calcium Lvl) 7.3 8.5-10.5 [facility]2016-08-31 10:31:00 Test Item Value Reference Range Interpretation Comments Chloride Lvl (test code = Chloride Lvl) 100 95-109 [facility]2016-08-31 10:31:00 Test Item Value Reference Range Interpretation Comments Potassium Lvl (test code = Potassium 3.4 3.5-5.1 Lvl) [facility]2016-08-31 10:31:00 Test Item Value Reference Range Interpretation Comments CO2 (test code = CO2) 28 24-32 [facility]2016-08-31 10:31:00 Test Item Value Reference Range Interpretation Comments Sodium Lvl (test code = Sodium Lvl) 137 135-145 [facility]2016-08-31 10:31:00 Test Item Value Reference Range Interpretation Comments Creatinine Lvl (test code = Creatinine 0.62 0.50-1.40 Lvl) [facility]2016-08-31 10:31:00 Test Item Value Reference Range Interpretation Comments Glucose Lvl (test code = Glucose Lvl) 85 70-99 [facility]2016-08-31 10:31:00 Test Item Value Reference Range Interpretation Comments BUN (test code = BUN) 5 7-22 [facility]2016-08-31 10:31:00 Test Item Value Reference Range Interpretation Comments AGAP (test code = AGAP) 12.4 10.0-20.0 [facility]2016-08-31 10:31:00 Test Item Value Reference Range Interpretation Comments Magnesium Lvl (test code = Magnesium 1.3 1.8-2.4 Lvl) [facility] CenterGsswzomTIJQNCEDDG4008-15-09 10:31:00 Test Item Value Reference Range Interpretation Comments MPV (test code = MPV) 8.4 7.4-10.4 [facility] CenterMopyzaxIFUTAKOSGV9266-73-24 10:31:00 Test Item Value Reference Range Interpretation Comments RDW (test code = RDW) 14.1 11.5-14.5 [facility] CenterAsfhrtkCKRTSTUYAB6958-28-58 10:31:00 Test Item Value Reference Range Interpretation Comments Platelet (test code = Platelet) 324 133-450 [facility] CenterGmjtumcLZKBMXSYPJ8301-59-33 10:31:00 Test Item Value Reference Range Interpretation Comments MCHC (test code = MCHC) 35.7 32.0-36.0 [facility] CenterAkpqsnsJEIFEQIRWZ4163-18-07 10:31:00 Test Item Value Reference Range Interpretation Comments MCH (test code = MCH) 31.6 pg 27.0-31.0 [facility] CenterWfysiaxZNNPRXQPQP1923-42-64 10:31:00 Test Item Value Reference Range Interpretation Comments RBC (test code = RBC) 2.67 4.20-5.40 [facility] CenterKykkeebBOJGRXXOOR2161-83-47 10:31:00 Test Item Value Reference Range Interpretation Comments WBC (test code = WBC) 5.1 3.7-10.4 [facility] CenterBfkyqgdVSIJPWSGKW3161-43-19 10:31:00 Test Item Value Reference Range Interpretation Comments Hgb (test code = Hgb) 8.5 12.0-16.0 [facility] CenterDbsfpdtTSHDTQETNH6179-74-02 10:31:00 Test Item Value Reference Range Interpretation Comments MCV (test code = MCV) 88.6 80.0-98.0 [facility] CenterTrbopklWWRKCVZLUQ6396-00-87 10:31:00 Test Item Value Reference Range Interpretation Comments Hct (test code = Hct) 23.7 36.0-48.0 [facility] CenterNgsjnweKYDHQJQCWE1243-85-06 10:31:00 Test Item Value Reference Range Interpretation Comments Segs (test code = Segs) 55.7 45.0-75.0 [facility] CenterNgsjeajECBGSJESVB3920-08-88 10:31:00 Test Item Value Reference Range Interpretation Comments Lymphocytes (test code = Lymphocytes) 27.8 20.0-40.0 [facility] CenterVhzqanvMRTXXYEAWS7343-25-49 10:31:00 Test Item Value Reference Range Interpretation Comments Lymphocytes # (test code = Lymphocytes 1.4 1.0-5.5 #) [facility]TdaqmqyTSOYATYKDB0219-08-31 10:31:00 Test Item Value Reference Range Interpretation Comments Monocytes (test code = Monocytes) 7.9 2.0-12.0 [facility] CenterRuqgoesCWQEFNNPBO0150-75-76 10:31:00 Test Item Value Reference Range Interpretation Comments Eosinophils (test code = 7.4 See_Comment [A utomated message] The Eosinophils) system which ge nerated this result tra nsmitted reference range : <=4.0. The reference r lamar was not used to int erpret this result as normal/abnormal . [facility] CenterTywewsxFIFTHZTDTB0556-42-13 10:31:00 Test Item Value Reference Range Interpretation Comments Basophils (test code = 1.2 See_Comment [Aut omated message] The Basophils) system which ge nerated this result tra nsmitted reference range : <=1.0. The reference r lamar was not used to int erpret this result as normal/abnormal . [facility] CenterOodbdyuAVNFVYOKKA3753-70-64 10:31:00 Test Item Value Reference Range Interpretation Comments Segs-Bands # (test code = Segs-Bands #) 2.9 1.5-8.1 [facility] CenterSxnvmkmMKMLGYOIYY1994-43-33 10:31:00 Test Item Value Reference Range Interpretation Comments Monocytes # (test code 0.4 See_Comment [Aut omated message] The = Monocytes #) system which generated this result tra nsmitted reference range : <=0.8. The reference r lamar was not used to int erpret this result as normal/abnormal . [facility] CenterCjadsqvBXGXKRUNPM3330-08-43 10:31:00 Test Item Value Reference Range Interpretation Comments Eosinophils # (test code 0.4 See_Comment [A utomated message] The = Eosinophils #) system whic h generated this result tra nsmitted reference range : <=0.5. The reference r lamar was not used to int erpret this result as normal/abnormal . [facility] CenterKpywpwjOZCFNBZCLS8228-76-03 10:31:00 Test Item Value Reference Range Interpretation Comments Basophils # (test code 0.1 See_Comment [Aut omated message] The = Basophils #) system which generated this result tra nsmitted reference range : <=0.2. The reference r lamar was not used to int erpret this result as normal/abnormal . [facility] RIRYWCA3038-94-88 10:31:00 Test Item Value Reference Range Interpretation Comments Ca Ion WB (test code = Ca Ion WB) 0.91 1.05-1.25 [facility] HospitalATHY[facility]ID [id number] 10:31:00 Test Item Value Reference Range Interpretation Comments Ca Norm WB (test code = Ca Norm WB) 0.92 1.05-1.25 [facility] [id number] 10:31:00 Test Item Value Reference Range Interpretation Comments Phosphorus (test code = Phosphorus) 2.5 2.5-4.5 [facility]2016-08-31 10:31:00 Test Item Value Reference Range Interpretation Comments eGFR (test code = eGFR) 93 [facility]2016-08-31 10:31:00 Test Item Value Reference Range Interpretation Comments Calcium Lvl (test code = Calcium Lvl) 7.3 8.5-10.5 [facility]2016-08-31 10:31:00 Test Item Value Reference Range Interpretation Comments Chloride Lvl (test code = Chloride Lvl) 100 95-109 [facility]2016-08-31 10:31:00 Test Item Value Reference Range Interpretation Comments Potassium Lvl (test code = Potassium 3.4 3.5-5.1 Lvl) [facility]2016-08-31 10:31:00 Test Item Value Reference Range Interpretation Comments CO2 (test code = CO2) 28 24-32 [facility]2016-08-31 10:31:00 Test Item Value Reference Range Interpretation Comments Sodium Lvl (test code = Sodium Lvl) 137 135-145 [facility]2016-08-31 10:31:00 Test Item Value Reference Range Interpretation Comments Creatinine Lvl (test code = Creatinine 0.62 0.50-1.40 Lvl) [facility]2016-08-31 10:31:00 Test Item Value Reference Range Interpretation Comments Glucose Lvl (test code = Glucose Lvl) 85 70-99 [facility]2016-08-31 10:31:00 Test Item Value Reference Range Interpretation Comments BUN (test code = BUN) 5 7-22 [facility]2016-08-31 10:31:00 Test Item Value Reference Range Interpretation Comments AGAP (test code = AGAP) 12.4 10.0-20.0 [facility]2016-08-31 10:31:00 Test Item Value Reference Range Interpretation Comments Magnesium Lvl (test code = Magnesium 1.3 1.8-2.4 Lvl) [facility] CenterAjddqvbOKFICYKETG0363-45-12 10:31:00 Test Item Value Reference Range Interpretation Comments MPV (test code = MPV) 8.4 7.4-10.4 [facility] CenterWpaeffeQRWVYWSGPR2955-23-21 10:31:00 Test Item Value Reference Range Interpretation Comments RDW (test code = RDW) 14.1 11.5-14.5 [facility] CenterWjnhspdLOWHNJGFMF0457-17-78 10:31:00 Test Item Value Reference Range Interpretation Comments Platelet (test code = Platelet) 324 133-450 [facility] CenterOrgjxxoHYYKTRFELZ9452-89-88 10:31:00 Test Item Value Reference Range Interpretation Comments MCHC (test code = MCHC) 35.7 32.0-36.0 [facility] CenterLpvmtqrXDZJAKYSEC6185-89-42 10:31:00 Test Item Value Reference Range Interpretation Comments MCH (test code = MCH) 31.6 pg 27.0-31.0 [facility] CenterSzyjkzxWCNHZPTZDZ5317-47-19 10:31:00 Test Item Value Reference Range Interpretation Comments RBC (test code = RBC) 2.67 4.20-5.40 [facility] CenterBeohqoaGBKIIRTMRM4426-56-78 10:31:00 Test Item Value Reference Range Interpretation Comments WBC (test code = WBC) 5.1 3.7-10.4 [facility] CenterSxxwhulPZNPFUZNBU8629-00-31 10:31:00 Test Item Value Reference Range Interpretation Comments Hgb (test code = Hgb) 8.5 12.0-16.0 [facility] CenterUzptmkhXXWPRHDSNQ7653-44-03 10:31:00 Test Item Value Reference Range Interpretation Comments MCV (test code = MCV) 88.6 80.0-98.0 [facility] CenterOwzbdncAXZVAFBNEL3026-12-71 10:31:00 Test Item Value Reference Range Interpretation Comments Hct (test code = Hct) 23.7 36.0-48.0 [facility] CenterGswgqdsNRFGJURDHV3375-58-91 10:31:00 Test Item Value Reference Range Interpretation Comments Segs (test code = Segs) 55.7 45.0-75.0 [facility] CenterUzjvedeNXKZXBPTUX3990-21-80 10:31:00 Test Item Value Reference Range Interpretation Comments Lymphocytes (test code = Lymphocytes) 27.8 20.0-40.0 [facility] CenterAadiixfXDOADKQRBX8510-23-93 10:31:00 Test Item Value Reference Range Interpretation Comments Lymphocytes # (test code = Lymphocytes 1.4 1.0-5.5 #) [facility] CenterUgqpvodVIFKYRYXOZ8070-01-58 10:31:00 Test Item Value Reference Range Interpretation Comments Monocytes (test code = Monocytes) 7.9 2.0-12.0 [facility] CenterPlfdkuyGMNWBHPHCF7269-10-72 10:31:00 Test Item Value Reference Range Interpretation Comments Eosinophils (test code = 7.4 See_Comment [A utomated message] The Eosinophils) system which ge nerated this result tra nsmitted reference range : <=4.0. The reference r lamar was not used to int erpret this result as normal/abnormal . [facility] CenterOxtptgtGHJIZQQAMV2579-18-08 10:31:00 Test Item Value Reference Range Interpretation Comments Basophils (test code = 1.2 See_Comment [Aut omated message] The Basophils) system which ge nerated this result tra nsmitted reference range : <=1.0. The reference r lamar was not used to int erpret this result as normal/abnormal . [facility] CenterVmarpvwRNLUESQLIM4183-91-70 10:31:00 Test Item Value Reference Range Interpretation Comments Segs-Bands # (test code = Segs-Bands #) 2.9 1.5-8.1 [facility] CenterDykzbgdNIZCJIWGDO1922-63-58 10:31:00 Test Item Value Reference Range Interpretation Comments Monocytes # (test code 0.4 See_Comment [Aut omated message] The = Monocytes #) system which generated this result tra nsmitted reference range : <=0.8. The reference r lamar was not used to int erpret this result as normal/abnormal . [facility] CenterKgeddwbJUQWTQRFOT4363-14-00 10:31:00 Test Item Value Reference Range Interpretation Comments Eosinophils # (test code 0.4 See_Comment [A utomated message] The = Eosinophils #) system [facility] h generated this result tra nsmitted reference range : <=0.5. The reference r lamar was not used to int erpret this result as normal/abnormal . [facility] CenterUpgntuxQLAFJPUHMY8807-05-42 10:31:00 Test Item Value Reference Range Interpretation Comments Basophils # (test code 0.1 See_Comment [Aut omated message] The = Basophils #) system which generated this result tra nsmitted reference range : <=0.2. The reference r lamar was not used to int erpret this result as normal/abnormal . [facility]2016-08-31 10:31:00 Test Item Value Reference Range Interpretation Comments Ca Ion WB (test code = Ca Ion WB) 0.91 1.05-1.25 [facility] HospitalPARATHYROID [id number] 10:31:00 Test Item Value Reference Range Interpretation Comments Ca Norm WB (test code = Ca Norm WB) 0.92 1.05-1.25 [facility]2016-08-31 10:31:00 Test Item Value Reference Range Interpretation Comments Phosphorus (test code = Phosphorus) 2.5 2.5-4.5 [facility]2016-08-31 10:31:00 Test Item Value Reference Range Interpretation Comments eGFR (test code = eGFR) 93 [facility]2016-08-31 10:31:00 Test Item Value Reference Range Interpretation Comments Calcium Lvl (test code = Calcium Lvl) 7.3 8.5-10.5 [facility]2016-08-31 10:31:00 Test Item Value Reference Range Interpretation Comments Chloride Lvl (test code = Chloride Lvl) 100 95-109 [facility]2016-08-31 10:31:00 Test Item Value Reference Range Interpretation Comments Potassium Lvl (test code = Potassium 3.4 3.5-5.1 Lvl) [facility]2016-08-31 10:31:00 Test Item Value Reference Range Interpretation Comments CO2 (test code = CO2) 28 24-32 [facility]2016-08-31 10:31:00 Test Item Value Reference Range Interpretation Comments Sodium Lvl (test code = Sodium Lvl) 137 135-145 [facility]2016-08-31 10:31:00 Test Item Value Reference Range Interpretation Comments Creatinine Lvl (test code = Creatinine 0.62 0.50-1.40 Lvl) [facility]2016-08-31 10:31:00 Test Item Value Reference Range Interpretation Comments Glucose Lvl (test code = Glucose Lvl) 85 70-99 [facility]2016-08-31 10:31:00 Test Item Value Reference Range Interpretation Comments BUN (test code = BUN) 5 7-22 [facility]2016-08-31 10:31:00 Test Item Value Reference Range Interpretation Comments AGAP (test code = AGAP) 12.4 10.0-20.0 [facility]2016-08-31 10:31:00 Test Item Value Reference Range Interpretation Comments Magnesium Lvl (test code = Magnesium 1.3 1.8-2.4 Lvl) [facility] CenterIceiicjUWFFGAPCIS5782-74-34 10:31:00 Test Item Value Reference Range Interpretation Comments MPV (test code = MPV) 8.4 7.4-10.4 [facility] CenterLrmmwteAFIUQGHFYI7301-35-28 10:31:00 Test Item Value Reference Range Interpretation Comments RDW (test code = RDW) 14.1 11.5-14.5 [facility] CenterNinphzxXHFEKXDZNN7677-01-60 10:31:00 Test Item Value Reference Range Interpretation Comments Platelet (test code = Platelet) 324 133-450 [facility] CenterJpmcbecICSUWWSLHV5930-36-78 10:31:00 Test Item Value Reference Range Interpretation Comments MCHC (test code = MCHC) 35.7 32.0-36.0 [facility] CenterGulpcbuZTZYSGQRJA0349-30-16 10:31:00 Test Item Value Reference Range Interpretation Comments MCH (test code = MCH) 31.6 pg 27.0-31.0 [facility] CenterLymkewuMUIIQCCHCC0920-26-01 10:31:00 Test Item Value Reference Range Interpretation Comments RBC (test code = RBC) 2.67 4.20-5.40 [facility] CenterKnpohxhVEESOHYLDV4244-98-73 10:31:00 Test Item Value Reference Range Interpretation Comments WBC (test code = WBC) 5.1 3.7-10.4 [facility] CenterYjcmhftTPXRYQJDSP6127-81-90 10:31:00 Test Item Value Reference Range Interpretation Comments Hgb (test code = Hgb) 8.5 12.0-16.0 [facility] CenterNccwmaqCQIHAYDCVG9984-48-39 10:31:00 Test Item Value Reference Range Interpretation Comments MCV (test code = MCV) 88.6 80.0-98.0 [facility] CenterUnktthvPRLRLAXTRB5292-63-02 10:31:00 Test Item Value Reference Range Interpretation Comments Hct (test code = Hct) 23.7 36.0-48.0 [facility] CenterPlswfvhCACLIUGGQN9946-42-50 10:31:00 Test Item Value Reference Range Interpretation Comments Segs (test code = Segs) 55.7 45.0-75.0 [facility] CenterIgtxukfUEHYTUNPJD5266-35-43 10:31:00 Test Item Value Reference Range Interpretation Comments Lymphocytes (test code = Lymphocytes) 27.8 20.0-40.0 [facility] CenterGqbxmewCXJTVEUSMY7668-55-70 10:31:00 Test Item Value Reference Range Interpretation Comments Lymphocytes # (test code = Lymphocytes 1.4 1.0-5.5 #) [facility] CenterAqpstdnIPEOKGEFTN9041-61-91 10:31:00 Test Item Value Reference Range Interpretation Comments Monocytes (test code = Monocytes) 7.9 2.0-12.0 [facility] CenterAkyrzzgOJVJTFWVFH5779-07-93 10:31:00 Test Item Value Reference Range Interpretation Comments Eosinophils (test code = 7.4 See_Comment [A utomated message] The Eosinophils) system which ge nerated this result tra nsmitted reference range : <=4.0. The reference r lamar was not used to int erpret this result as normal/abnormal . [facility] CenterDdrigaaDSWTDEQPKN2634-19-55 10:31:00 Test Item Value Reference Range Interpretation Comments Basophils (test code = 1.2 See_Comment [Aut omated message] The Basophils) system which ge nerated this result tra nsmitted reference range : <=1.0. The reference r lamar was not used to int erpret this result as normal/abnormal . [facility] CenterCrdxlnwOZSZFFPXGR6703-83-92 10:31:00 Test Item Value Reference Range Interpretation Comments Segs-Bands # (test code = Segs-Bands #) 2.9 1.5-8.1 [facility] CenterCmhgstlWWGBVKLZLZ9364-18-14 10:31:00 Test Item Value Reference Range Interpretation Comments Monocytes # (test code 0.4 See_Comment [Aut omated message] The = Monocytes #) system which generated this result tra nsmitted reference range : <=0.8. The reference r lamar was not used to int erpret this result as normal/abnormal . [facility] CenterEsrcrxoQRGBFHFOLC5715-53-14 10:31:00 Test Item Value Reference Range Interpretation Comments Eosinophils # (test code 0.4 See_Comment [A utomated message] The = Eosinophils #) system whic h generated this result tra nsmitted reference range : <=0.5. The reference r lamar was not used to int erpret this result as normal/abnormal . [facility] CenterHkmulvrCQGTBJQNYI1868-23-59 10:31:00 Test Item Value Reference Range Interpretation Comments Basophils # (test code 0.1 See_Comment [Aut omated message] The = Basophils #) system which generated this result tra nsmitted reference range : <=0.2. The reference r lamar was not used to int erpret this result as normal/abnormal . [facility]2016-08-31 10:31:00 Test Item Value Reference Range Interpretation Comments Ca Ion WB (test code = Ca Ion WB) 0.91 1.05-1.25 [facility] RLJUAHF3079-83-45 10:31:00 Test Item Value Reference Range Interpretation Comments Ca Norm WB (test code = Ca Norm WB) 0.92 1.05-1.25 [facility] CenterWnttnwxLQVLLELEWW3860-63-56 10:31:00 Test Item Value Reference Range Interpretation Comments MCHC (test code = MCHC) 35.7 32.0-36.0 [facility] CenterPouuqxwLOHXBDBHMJ0038-08-48 10:31:00 Test Item Value Reference Range Interpretation Comments MCH (test code = MCH) 31.6 pg 27.0-31.0 [facility] CenterFbrlkziUWIETEDKGY7472-88-75 10:31:00 Test Item Value Reference Range Interpretation Comments RBC (test code = RBC) 2.67 4.20-5.40 [facility] CenterSfwelcfHVGWMZOHXJ1987-61-77 10:31:00 Test Item Value Reference Range Interpretation Comments WBC (test code = WBC) 5.1 3.7-10.4 [facility] CenterKpyglbgJIURRPVCUR1184-13-53 10:31:00 Test Item Value Reference Range Interpretation Comments Hgb (test code = Hgb) 8.5 12.0-16.0 [facility] CenterDkaikhbNASAONHUWU0079-53-60 10:31:00 Test Item Value Reference Range Interpretation Comments MCV (test code = MCV) 88.6 80.0-98.0 [facility] CenterUlzzvswEHAZYDQHYM5888-10-61 10:31:00 Test Item Value Reference Range Interpretation Comments Hct (test code = Hct) 23.7 36.0-48.0 [facility] CenterJpvikfvKHTTNSUJOT7341-37-22 10:31:00 Test Item Value Reference Range Interpretation Comments Segs (test code = Segs) 55.7 45.0-75.0 [facility] CenterZwrgmjaVPKLEWHPRJ0562-00-93 10:31:00 Test Item Value Reference Range Interpretation Comments Lymphocytes (test code = Lymphocytes) 27.8 20.0-40.0 [facility] CenterQovcjzcQDUNSQXUMA4973-52-77 10:31:00 Test Item Value Reference Range Interpretation Comments Lymphocytes # (test code = Lymphocytes 1.4 1.0-5.5 #) [facility] CenterBpaedpcUMWZZAJOHZ7243-19-79 10:31:00 Test Item Value Reference Range Interpretation Comments Monocytes (test code = Monocytes) 7.9 2.0-12.0 [facility] CenterBlhbwgkLKWBXZVUCP9977-16-46 10:31:00 Test Item Value Reference Range Interpretation Comments Eosinophils (test code = 7.4 See_Comment [A utomated message] The Eosinophils) system which ge nerated this result tra nsmitted reference range : <=4.0. The reference r lamar was not used to int erpret this result as normal/abnormal . [facility] CenterGsdwbpjXIKVDNXJUY0065-56-48 10:31:00 Test Item Value Reference Range Interpretation Comments Basophils (test code = 1.2 See_Comment [Aut omated message] The Basophils) system which ge nerated this result tra nsmitted reference range : <=1.0. The reference r lamar was not used to int erpret this result as normal/abnormal . [facility] CenterXorvbjfEBPQCHKIVQ4986-58-42 10:31:00 Test Item Value Reference Range Interpretation Comments Segs-Bands # (test code = Segs-Bands #) 2.9 1.5-8.1 [facility] CenterRhiujdvQTQVJVJFWR6818-80-29 10:31:00 Test Item Value Reference Range Interpretation Comments Monocytes # (test code 0.4 See_Comment [Aut omated message] The = Monocytes #) system which generated this result tra nsmitted reference range : <=0.8. The reference r lamar was not used to int erpret this result as normal/abnormal . [facility] CenterGnpurlqVYSXZLQFSS4746-70-48 10:31:00 Test Item Value Reference Range Interpretation Comments Eosinophils # (test code 0.4 See_Comment [A utomated message] The = Eosinophils #) system whic h generated this result tra nsmitted reference range : <=0.5. The reference r lamar was not used to int erpret this result as normal/abnormal . [facility] CenterCvpyggyTAUYDRHUBL4027-16-89 10:31:00 Test Item Value Reference Range Interpretation Comments Basophils # (test code 0.1 See_Comment [Aut omated message] The = Basophils #) system which generated this result tra nsmitted reference range : <=0.2. The reference r lamar was not used to int erpret this result as normal/abnormal . [facility]ATHY[facility]ID FSIXZFF4691-18-29 10:31:00 Test Item Value Reference Range Interpretation Comments Ca Ion WB (test code = Ca Ion WB) 0.91 1.05-1.25 [facility]RO[facility] GBOTRMR9877-02-61 10:31:00 Test Item Value Reference Range Interpretation Comments Ca Norm WB (test code = Ca Norm WB) 0.92 1.05-1.25 [facility]2016-08-31 10:31:00 Test Item Value Reference Range Interpretation Comments Phosphorus (test code = Phosphorus) 2.5 2.5-4.5 [facility]2016-08-31 10:31:00 Test Item Value Reference Range Interpretation Comments eGFR (test code = eGFR) 93 [facility]2016-08-31 10:31:00 Test Item Value Reference Range Interpretation Comments Calcium Lvl (test code = Calcium Lvl) 7.3 8.5-10.5 [facility]2016-08-31 10:31:00 Test Item Value Reference Range Interpretation Comments Chloride Lvl (test code = Chloride Lvl) 100 95-109 [facility]2016-08-31 10:31:00 Test Item Value Reference Range Interpretation Comments Potassium Lvl (test code = Potassium 3.4 3.5-5.1 Lvl) [facility]2016-08-31 10:31:00 Test Item Value Reference Range Interpretation Comments CO2 (test code = CO2) 28 24-32 [facility]2016-08-31 10:31:00 Test Item Value Reference Range Interpretation Comments Sodium Lvl (test code = Sodium Lvl) 137 135-145 [facility]2016-08-31 10:31:00 Test Item Value Reference Range Interpretation Comments Creatinine Lvl (test code = Creatinine 0.62 0.50-1.40 Lvl) [facility]2016-08-31 10:31:00 Test Item Value Reference Range Interpretation Comments Glucose Lvl (test code = Glucose Lvl) 85 70-99 [facility]2016-08-31 10:31:00 Test Item Value Reference Range Interpretation Comments BUN (test code = BUN) 5 7-22 [facility]2016-08-31 10:31:00 Test Item Value Reference Range Interpretation Comments AGAP (test code = AGAP) 12.4 10.0-20.0 [facility]2016-08-31 10:31:00 Test Item Value Reference Range Interpretation Comments Magnesium Lvl (test code = Magnesium 1.3 1.8-2.4 Lvl) [facility] CenterYxjswysRLXOQDLETZ7584-04-51 10:31:00 Test Item Value Reference Range Interpretation Comments MPV (test code = MPV) 8.4 7.4-10.4 [facility] CenterWigcaikYQVKCIMJFS2797-90-98 10:31:00 Test Item Value Reference Range Interpretation Comments RDW (test code = RDW) 14.1 11.5-14.5 [facility] CenterDnhumqsVIPQUTFBXK5776-70-09 10:31:00 Test Item Value Reference Range Interpretation Comments Platelet (test code = Platelet) 324 133-450 [facility]2016-08-31 10:31:00 Test Item Value Reference Range Interpretation Comments Phosphorus (test code = Phosphorus) 2.5 2.5-4.5 [facility]2016-08-31 10:31:00 Test Item Value Reference Range Interpretation Comments eGFR (test code = eGFR) 93 [facility]2016-08-31 10:31:00 Test Item Value Reference Range Interpretation Comments Calcium Lvl (test code = Calcium Lvl) 7.3 8.5-10.5 [facility]2016-08-31 10:31:00 Test Item Value Reference Range Interpretation Comments Chloride Lvl (test code = Chloride Lvl) 100 95-109 [facility]2016-08-31 10:31:00 Test Item Value Reference Range Interpretation Comments Potassium Lvl (test code = Potassium 3.4 3.5-5.1 Lvl) [facility]2016-08-31 10:31:00 Test Item Value Reference Range Interpretation Comments CO2 (test code = CO2) 28 24-32 [facility]2016-08-31 10:31:00 Test Item Value Reference Range Interpretation Comments Sodium Lvl (test code = Sodium Lvl) 137 135-145 [facility]2016-08-31 10:31:00 Test Item Value Reference Range Interpretation Comments Creatinine Lvl (test code = Creatinine 0.62 0.50-1.40 Lvl) [facility]2016-08-31 10:31:00 Test Item Value Reference Range Interpretation Comments Glucose Lvl (test code = Glucose Lvl) 85 70-99 [facility]2016-08-31 10:31:00 Test Item Value Reference Range Interpretation Comments BUN (test code = BUN) 5 7-22 [facility]2016-08-31 10:31:00 Test Item Value Reference Range Interpretation Comments AGAP (test code = AGAP) 12.4 10.0-20.0 [facility]2016-08-31 10:31:00 Test Item Value Reference Range Interpretation Comments Magnesium Lvl (test code = Magnesium 1.3 1.8-2.4 Lvl) [facility] CenterNkuftnfWFQAQEPKHT4655-69-24 10:31:00 Test Item Value Reference Range Interpretation Comments MPV (test code = MPV) 8.4 7.4-10.4 [facility] CenterTvqpqhaPEICMAKQKI6547-78-90 10:31:00 Test Item Value Reference Range Interpretation Comments RDW (test code = RDW) 14.1 11.5-14.5 [facility] CenterLivwzqkBBOSGMNCSK2356-10-83 10:31:00 Test Item Value Reference Range Interpretation Comments Platelet (test code = Platelet) 324 133-450 [facility] CenterTcyucqsGZWGKZGQJE7060-62-25 10:31:00 Test Item Value Reference Range Interpretation Comments MCHC (test code = MCHC) 35.7 32.0-36.0 [facility] CenterRumhtqkIUAUWYFAHC6873-13-34 10:31:00 Test Item Value Reference Range Interpretation Comments MCH (test code = MCH) 31.6 pg 27.0-31.0 [facility] CenterNfffribLKSXXSWGMZ0629-88-93 10:31:00 Test Item Value Reference Range Interpretation Comments RBC (test code = RBC) 2.67 4.20-5.40 [facility] CenterTpxqmegAKRUUUNINC8553-50-94 10:31:00 Test Item Value Reference Range Interpretation Comments WBC (test code = WBC) 5.1 3.7-10.4 [facility] CenterVnjazfmONKJWDZMOC4481-97-83 10:31:00 Test Item Value Reference Range Interpretation Comments Hgb (test code = Hgb) 8.5 12.0-16.0 [facility] CenterImywgwgULEUCBSNDU5023-69-17 10:31:00 Test Item Value Reference Range Interpretation Comments MCV (test code = MCV) 88.6 80.0-98.0 [facility] CenterQruvvedPHFTMZUGCK7181-47-47 10:31:00 Test Item Value Reference Range Interpretation Comments Hct (test code = Hct) 23.7 36.0-48.0 [facility] Cent[id number] 10:31:00 Test Item Value Reference Range Interpretation Comments Segs (test code = Segs) 55.7 45.0-75.0 [facility] CenterFrvucslWJFAEFQSXF9687-65-37 10:31:00 Test Item Value Reference Range Interpretation Comments Lymphocytes (test code = Lymphocytes) 27.8 20.0-40.0 [facility] CenterSdztxvzBPGPLEIGQA7874-12-03 10:31:00 Test Item Value Reference Range Interpretation Comments Lymphocytes # (test code = Lymphocytes 1.4 1.0-5.5 #) [facility] CenterDxpoczoKCVSMEOOQH7059-25-12 10:31:00 Test Item Value Reference Range Interpretation Comments Monocytes (test code = Monocytes) 7.9 2.0-12.0 [facility] CenterZjkeyecUZKAUTOHJV2057-37-62 10:31:00 Test Item Value Reference Range Interpretation Comments Eosinophils (test code = 7.4 See_Comment [A utomated message] The Eosinophils) system which ge nerated this result tra nsmitted reference range : <=4.0. The reference r lamar was not used to int erpret this result as normal/abnormal . [facility] CenterToemwhuOALJZITWHH2546-41-78 10:31:00 Test Item Value Reference Range Interpretation Comments Basophils (test code = 1.2 See_Comment [Aut omated message] The Basophils) system which ge nerated this result tra nsmitted reference range : <=1.0. The reference r lamar was not used to int erpret this result as normal/abnormal . [facility] CenterGajcdebTGLHBOVGQQ3531-08-98 10:31:00 Test Item Value Reference Range Interpretation Comments Segs-Bands # (test code = Segs-Bands #) 2.9 1.5-8.1 [facility] Cent[id number] 10:31:00 Test Item Value Reference Range Interpretation Comments Monocytes # (test code 0.4 See_Comment [Aut omated message] The = Monocytes #) system which generated this result tra nsmitted reference range : <=0.8. The reference r lamar was not used to int erpret this result as normal/abnormal . [facility] CenterFebdehpYGQUQILASJ5529-29-26 10:31:00 Test Item Value Reference Range Interpretation Comments Eosinophils # (test code 0.4 See_Comment [A utomated message] The = Eosinophils #) system whic h generated this result tra nsmitted reference range : <=0.5. The reference r lamar was not used to int erpret this result as normal/abnormal . [facility] CenterLmnlapaDMIGDIMHGU3655-05-94 10:31:00 Test Item Value Reference Range Interpretation Comments Basophils # (test code 0.1 See_Comment [Aut omated message] The = Basophils #) system which generated this result tra nsmitted reference range : <=0.2. The reference r lamar was not used to int erpret this result as normal/abnormal . [facility] [id number] 10:31:00 Test Item Value Reference Range Interpretation Comments Ca Ion WB (test code = Ca Ion WB) 0.91 1.05-1.25 [facility] [id number] 10:31:00 Test Item Value Reference Range Interpretation Comments Ca Norm WB (test code = Ca Norm WB) 0.92 1.05-1.25 [facility]2016-08-31 10:31:00 Test Item Value Reference Range Interpretation Comments Phosphorus (test code = Phosphorus) 2.5 2.5-4.5 [facility]2016-08-31 10:31:00 Test Item Value Reference Range Interpretation Comments eGFR (test code = eGFR) 93 [facility]2016-08-31 10:31:00 Test Item Value Reference Range Interpretation Comments Calcium Lvl (test code = Calcium Lvl) 7.3 8.5-10.5 [facility]2016-08-31 10:31:00 Test Item Value Reference Range Interpretation Comments Chloride Lvl (test code = Chloride Lvl) 100 95-109 [facility]2016-08-31 10:31:00 Test Item Value Reference Range Interpretation Comments Potassium Lvl (test code = Potassium 3.4 3.5-5.1 Lvl) [facility]2016-08-31 10:31:00 Test Item Value Reference Range Interpretation Comments CO2 (test code = CO2) 28 24-32 [facility]2016-08-31 10:31:00 Test Item Value Reference Range Interpretation Comments Sodium Lvl (test code = Sodium Lvl) 137 135-145 [facility]2016-08-31 10:31:00 Test Item Value Reference Range Interpretation Comments Creatinine Lvl (test code = Creatinine 0.62 0.50-1.40 Lvl) [facility]2016-08-31 10:31:00 Test Item Value Reference Range Interpretation Comments Glucose Lvl (test code = Glucose Lvl) 85 70-99 [facility]2016-08-31 10:31:00 Test Item Value Reference Range Interpretation Comments BUN (test code = BUN) 5 7-22 [facility]2016-08-31 10:31:00 Test Item Value Reference Range Interpretation Comments AGAP (test code = AGAP) 12.4 10.0-20.0 [facility]2016-08-31 10:31:00 Test Item Value Reference Range Interpretation Comments Magnesium Lvl (test code = Magnesium 1.3 1.8-2.4 Lvl) [facility] CenterQhdjhuzWHBIVWNPMP0859-81-95 10:31:00 Test Item Value Reference Range Interpretation Comments MPV (test code = MPV) 8.4 7.4-10.4 [facility] CenterQsdiitaEUQKLACBEB9443-25-29 10:31:00 Test Item Value Reference Range Interpretation Comments RDW (test code = RDW) 14.1 11.5-14.5 [facility] CenterRxripqyOFYPNYSIKI1367-76-00 10:31:00 Test Item Value Reference Range Interpretation Comments Platelet (test code = Platelet) 324 133-450 [facility] CenterYvdlgbkMZDRLFUXRL9089-18-59 10:31:00 Test Item Value Reference Range Interpretation Comments MCHC (test code = MCHC) 35.7 32.0-36.0 [facility] CenterSllglwaJXOCLNXACM8544-98-48 10:31:00 Test Item Value Reference Range Interpretation Comments MCH (test code = MCH) 31.6 pg 27.0-31.0 [facility] CenterLawfdauIXTTZYKQZJ4505-01-88 10:31:00 Test Item Value Reference Range Interpretation Comments RBC (test code = RBC) 2.67 4.20-5.40 [facility] CenterCmixginFDRAMMBSOX8024-37-06 10:31:00 Test Item Value Reference Range Interpretation Comments WBC (test code = WBC) 5.1 3.7-10.4 [facility] CenterSklbjvcXFKYHPCMMJ3960-40-75 10:31:00 Test Item Value Reference Range Interpretation Comments Hgb (test code = Hgb) 8.5 12.0-16.0 [facility] CenterZaodcjnPQPYUYIDGS6285-04-67 10:31:00 Test Item Value Reference Range Interpretation Comments MCV (test code = MCV) 88.6 80.0-98.0 [facility] CenterJqtalqdFMHEQKCJNJ3599-16-29 10:31:00 Test Item Value Reference Range Interpretation Comments Hct (test code = Hct) 23.7 36.0-48.0 [facility] CenterOizmyooHXCTWEJWLQ9683-79-91 10:31:00 Test Item Value Reference Range Interpretation Comments Segs (test code = Segs) 55.7 45.0-75.0 [facility] CenterRpdqywrFHHFYWKKLO0016-06-98 10:31:00 Test Item Value Reference Range Interpretation Comments Lymphocytes (test code = Lymphocytes) 27.8 20.0-40.0 [facility] CenterSswgatpRODNYVBSYE6402-95-54 10:31:00 Test Item Value Reference Range Interpretation Comments Lymphocytes # (test code = Lymphocytes 1.4 1.0-5.5 #) [facility] CenterEgfowmiLBBAQIJWXV3593-77-83 10:31:00 Test Item Value Reference Range Interpretation Comments Monocytes (test code = Monocytes) 7.9 2.0-12.0 [facility] CenterBcqvzmrUAGKKJGVDT5088-43-98 10:31:00 Test Item Value Reference Range Interpretation Comments Eosinophils (test code = 7.4 See_Comment [A utomated message] The Eosinophils) system which ge nerated this result tra nsmitted reference range : <=4.0. The reference r lamar was not used to int erpret this result as normal/abnormal . [facility] CenterQylzhprJGWQHSBGCR2124-90-97 10:31:00 Test Item Value Reference Range Interpretation Comments Basophils (test code = 1.2 See_Comment [Aut omated message] The Basophils) system which ge nerated this result tra nsmitted reference range : <=1.0. The reference r lamar was not used to int erpret this result as normal/abnormal . [facility] CenterTpxzqhsLQIOCYMMBX7356-54-47 10:31:00 Test Item Value Reference Range Interpretation Comments Segs-Bands # (test code = Segs-Bands #) 2.9 1.5-8.1 [facility] CenterZbpuurvYTFEEEVGWA0120-53-34 10:31:00 Test Item Value Reference Range Interpretation Comments Monocytes # (test code 0.4 See_Comment [Aut omated message] The = Monocytes #) system which generated this result tra nsmitted reference range : <=0.8. The reference r lamar was not used to int erpret this result as normal/abnormal . [facility] CenterCwkghqkSLKOZVRNHA1731-50-76 10:31:00 Test Item Value Reference Range Interpretation Comments Eosinophils # (test code 0.4 See_Comment [A utomated message] The = Eosinophils #) system whic h generated this result tra nsmitted reference range : <=0.5. The reference r lamar was not used to int erpret this result as normal/abnormal . [facility] CenterUkrcyliLFHGOGJURI5682-14-19 10:31:00 Test Item Value Reference Range Interpretation Comments Basophils # (test code 0.1 See_Comment [Aut omated message] The = Basophils #) system which generated this result tra nsmitted reference range : <=0.2. The reference r lamar was not used to int erpret this result as normal/abnormal . [facility]2016-08-31 10:31:00 Test Item Value Reference Range Interpretation Comments Ca Ion WB (test code = Ca Ion WB) 0.91 1.05-1.25 [facility] [id number] 10:31:00 Test Item Value Reference Range Interpretation Comments Ca Norm WB (test code = Ca Norm WB) 0.92 1.05-1.25 [facility]2016-08-31 10:31:00 Test Item Value Reference Range Interpretation Comments Phosphorus (test code = Phosphorus) 2.5 2.5-4.5 [facility]2016-08-31 10:31:00 Test Item Value Reference Range Interpretation Comments eGFR (test code = eGFR) 93 [facility]2016-08-31 10:31:00 Test Item Value Reference Range Interpretation Comments Calcium Lvl (test code = Calcium Lvl) 7.3 8.5-10.5 [facility]2016-08-31 10:31:00 Test Item Value Reference Range Interpretation Comments Chloride Lvl (test code = Chloride Lvl) 100 95-109 [facility]2016-08-31 10:31:00 Test Item Value Reference Range Interpretation Comments Potassium Lvl (test code = Potassium 3.4 3.5-5.1 Lvl) [facility]2016-08-31 10:31:00 Test Item Value Reference Range Interpretation Comments CO2 (test code = CO2) 28 24-32 [facility]2016-08-31 10:31:00 Test Item Value Reference Range Interpretation Comments Sodium Lvl (test code = Sodium Lvl) 137 135-145 [facility]2016-08-31 10:31:00 Test Item Value Reference Range Interpretation Comments Creatinine Lvl (test code = Creatinine 0.62 0.50-1.40 Lvl) [facility]2016-08-31 10:31:00 Test Item Value Reference Range Interpretation Comments Glucose Lvl (test code = Glucose Lvl) 85 70-99 [facility]2016-08-31 10:31:00 Test Item Value Reference Range Interpretation Comments BUN (test code = BUN) 5 7-22 [facility]2016-08-31 10:31:00 Test Item Value Reference Range Interpretation Comments AGAP (test code = AGAP) 12.4 10.0-20.0 [facility]2016-08-31 10:31:00 Test Item Value Reference Range Interpretation Comments Magnesium Lvl (test code = Magnesium 1.3 1.8-2.4 Lvl) [facility] C[id number] 10:31:00 Test Item Value Reference Range Interpretation Comments MPV (test code = MPV) 8.4 7.4-10.4 [facility] CenterHpqowhfFGWZLWXTIV6962-97-39 10:31:00 Test Item Value Reference Range Interpretation Comments RDW (test code = RDW) 14.1 11.5-14.5 [facility]PARATHYROID [id number] 10:43:00 Test Item Value Reference Range Interpretation Comments Ca Norm WB (test code = Ca Norm WB) 0.76 1.05-1.25 [facility]annPARATHYROID [id number] 10:43:00 Test Item Value Reference Range Interpretation Comments Ca Ion WB (test code = Ca Ion WB) 0.72 1.05-1.25 [facility] CenterannPARATHYROID [id number] 10:43:00 Test Item Value Reference Range Interpretation Comments Ca Norm WB (test code = Ca Norm WB) 0.76 1.05-1.25 [facility]ann[facility] PHOENIXATHYROID [id number] 10:43:00 Test Item Value Reference Range Interpretation Comments Ca Ion WB (test code = Ca Ion WB) 0.72 1.05-1.25 [facility] CenterannPARATHYROID [id number] 10:43:00 Test Item Value Reference Range Interpretation Comments Ca Norm WB (test code = Ca Norm WB) 0.76 1.05-1.25 [facility]annPARATHYROID [id number] 10:43:00 Test Item Value Reference Range Interpretation Comments Ca Ion WB (test code = Ca Ion WB) 0.72 1.05-1.25 [facility]annV[facility]IXATHYB[facility]ANC[facility] HOSPITALFWAJWXG1702-18-16 10:43:00 Test Item Value Reference Range Interpretation Comments Ca Norm WB (test code = Ca Norm WB) 0.76 1.05-1.25 [facility]annV[facility] PH[facility]IXATHYB[facility] FRANCIS HOSPITALHJFCIKT1602-53-53 10:43:00 Test Item Value Reference Range Interpretation Comments Ca Ion WB (test code = Ca Ion WB) 0.72 1.05-1.25 [facility] HospitalATHYB[facility] HOSPITALLXDEGPP4072-82-13 10:43:00 Test Item Value Reference Range Interpretation Comments Ca Norm WB (test code = Ca Norm WB) 0.76 1.05-1.25 [facility] CenterannPARATHYROID [id number] 10:43:00 Test Item Value Reference Range Interpretation Comments Ca Ion WB (test code = Ca Ion WB) 0.72 1.05-1.25 [facility]annV[facility]IXATHYB[address] [facility] [id number] 10:43:00 Test Item Value Reference Range Interpretation Comments Ca Norm WB (test code = Ca Norm WB) 0.76 1.05-1.25 [facility]annV[facility] PH[facility]IXATHYB[address] [facility] [address] FRANCIS [id number] 10:43:00 Test Item Value Reference Range Interpretation Comments Ca Ion WB (test code = Ca Ion WB) 0.72 1.05-1.25 [facility] CenterannPARATHYROID [id number] 10:43:00 Test Item Value Reference Range Interpretation Comments Ca Norm WB (test code = Ca Norm WB) 0.76 1.05-1.25 [facility] CenterannPARATHYROID [id number] 10:43:00 Test Item Value Reference Range Interpretation Comments Ca Ion WB (test code = Ca Ion WB) 0.72 1.05-1.25 [facility] CenterannPARATHYROID [id number] 10:43:00 Test Item Value Reference Range Interpretation Comments Ca Norm WB (test code = Ca Norm WB) 0.76 1.05-1.25 [facility]annPARATHYROID [id number] 10:43:00 Test Item Value Reference Range Interpretation Comments Ca Ion WB (test code = Ca Ion WB) 0.72 1.05-1.25 [facility] CenterannPARATHYROID [id number] 10:43:00 Test Item Value Reference Range Interpretation Comments Ca Norm WB (test code = Ca Norm WB) 0.76 1.05-1.25 [facility]annPARATHYROID [id number] 10:43:00 Test Item Value Reference Range Interpretation Comments Ca Ion WB (test code = Ca Ion WB) 0.72 1.05-1.25 [facility]annPARATHYROID [id number] 10:43:00 Test Item Value Reference Range Interpretation Comments Ca Norm WB (test code = Ca Norm WB) 0.76 1.05-1.25 [facility]annPARATHYROID [id number] 10:43:00 Test Item Value Reference Range Interpretation Comments Ca Ion WB (test code = Ca Ion WB) 0.72 1.05-1.25 [facility]annURINE [id number] 22:17:00 Test Item Value Reference Range Interpretation Comments U Potassium (test code = U Potassium) 8.5 [facility]annURINE [id number] 22:17:00 Test Item Value Reference Range Interpretation Comments U Chloride (test code = U Chloride) 51 [facility]annURINE [id number] 22:17:00 Test Item Value Reference Range Interpretation Comments U Osmolality (test code = U Osmolality) 138 300-800 [facility] CenterannCHEM [id number] 22:17:00 Test Item Value Reference Range Interpretation Comments Osmolality (test code = Osmolality) 275 280-300 [facility]2016-08-29 22:17:00 Test Item Value Reference Range Interpretation Comments U Sodium (test code = U Sodium) 52 [facility]2016-08-29 22:17:00 Test Item Value Reference Range Interpretation Comments U Potassium (test code = U Potassium) 8.5 [facility]2016-08-29 22:17:00 Test Item Value Reference Range Interpretation Comments U Chloride (test code = U Chloride) 51 [facility]2016-08-29 22:17:00 Test Item Value Reference Range Interpretation Comments U Osmolality (test code = U Osmolality) 138 300-800 [facility]2016-08-29 22:17:00 Test Item Value Reference Range Interpretation Comments Osmolality (test code = Osmolality) 275 280-300 [facility]2016-08-29 22:17:00 Test Item Value Reference Range Interpretation Comments U Sodium (test code = U Sodium) 52 [facility]2016-08-29 22:17:00 Test Item Value Reference Range Interpretation Comments U Potassium (test code = U Potassium) 8.5 [facility]2016-08-29 22:17:00 Test Item Value Reference Range Interpretation Comments U Chloride (test code = U Chloride) 51 [facility]2016-08-29 22:17:00 Test Item Value Reference Range Interpretation Comments U Osmolality (test code = U Osmolality) 138 300-800 [facility]2016-08-29 22:17:00 Test Item Value Reference Range Interpretation Comments Osmolality (test code = Osmolality) 275 280-300 [facility]2016-08-29 22:17:00 Test Item Value Reference Range Interpretation Comments U Sodium (test code = U Sodium) 52 [facility]2016-08-29 22:17:00 Test Item Value Reference Range Interpretation Comments U Potassium (test code = U Potassium) 8.5 [facility]2016-08-29 22:17:00 Test Item Value Reference Range Interpretation Comments U Chloride (test code = U Chloride) 51 [facility]2016-08-29 22:17:00 Test Item Value Reference Range Interpretation Comments U Osmolality (test code = U Osmolality) 138 300-800 [facility]2016-08-29 22:17:00 Test Item Value Reference Range Interpretation Comments Osmolality (test code = Osmolality) 275 280-300 [facility]2016-08-29 22:17:00 Test Item Value Reference Range Interpretation Comments U Sodium (test code = U Sodium) 52 [facility]2016-08-29 22:17:00 Test Item Value Reference Range Interpretation Comments U Potassium (test code = U Potassium) 8.5 [facility]2016-08-29 22:17:00 Test Item Value Reference Range Interpretation Comments U Chloride (test code = U Chloride) 51 [facility]2016-08-29 22:17:00 Test Item Value Reference Range Interpretation Comments U Osmolality (test code = U Osmolality) 138 300-800 [facility]2016-08-29 22:17:00 Test Item Value Reference Range Interpretation Comments Osmolality (test code = Osmolality) 275 280-300 [facility]2016-08-29 22:17:00 Test Item Value Reference Range Interpretation Comments U Sodium (test code = U Sodium) 52 [facility]2016-08-29 22:17:00 Test Item Value Reference Range Interpretation Comments U Potassium (test code = U Potassium) 8.5 [facility]2016-08-29 22:17:00 Test Item Value Reference Range Interpretation Comments U Chloride (test code = U Chloride) 51 [facility]2016-08-29 22:17:00 Test Item Value Reference Range Interpretation Comments U Osmolality (test code = U Osmolality) 138 300-800 [facility]2016-08-29 22:17:00 Test Item Value Reference Range Interpretation Comments Osmolality (test code = Osmolality) 275 280-300 [facility]2016-08-29 22:17:00 Test Item Value Reference Range Interpretation Comments U Sodium (test code = U Sodium) 52 [facility]2016-08-29 22:17:00 Test Item Value Reference Range Interpretation Comments U Potassium (test code = U Potassium) 8.5 [facility]2016-08-29 22:17:00 Test Item Value Reference Range Interpretation Comments U Chloride (test code = U Chloride) 51 [facility]2016-08-29 22:17:00 Test Item Value Reference Range Interpretation Comments U Osmolality (test code = U Osmolality) 138 300-800 [facility]2016-08-29 22:17:00 Test Item Value Reference Range Interpretation Comments Osmolality (test code = Osmolality) 275 280-300 [facility]2016-08-29 22:17:00 Test Item Value Reference Range Interpretation Comments U Sodium (test code = U Sodium) 52 [facility]2016-08-29 22:17:00 Test Item Value Reference Range Interpretation Comments U Potassium (test code = U Potassium) 8.5 [facility]2016-08-29 22:17:00 Test Item Value Reference Range Interpretation Comments U Chloride (test code = U Chloride) 51 [facility]2016-08-29 22:17:00 Test Item Value Reference Range Interpretation Comments U Osmolality (test code = U Osmolality) 138 300-800 [facility]2016-08-29 22:17:00 Test Item Value Reference Range Interpretation Comments Osmolality (test code = Osmolality) 275 280-300 [facility]2016-08-29 22:17:00 Test Item Value Reference Range Interpretation Comments U Sodium (test code = U Sodium) 52 [facility]2016-08-29 22:17:00 Test Item Value Reference Range Interpretation Comments U Potassium (test code = U Potassium) 8.5 [facility]2016-08-29 22:17:00 Test Item Value Reference Range Interpretation Comments U Chloride (test code = U Chloride) 51 [facility]2016-08-29 22:17:00 Test Item Value Reference Range Interpretation Comments U Osmolality (test code = U Osmolality) 138 300-800 [facility]2016-08-29 22:17:00 Test Item Value Reference Range Interpretation Comments Osmolality (test code = Osmolality) 275 280-300 [facility]2016-08-29 22:17:00 Test Item Value Reference Range Interpretation Comments U Sodium (test code = U Sodium) 52 [facility]2016-08-29 22:17:00 Test Item Value Reference Range Interpretation Comments Osmolality (test code = Osmolality) 275 280-300 [facility]2016-08-29 22:17:00 Test Item Value Reference Range Interpretation Comments U Sodium (test code = U Sodium) 52 [facility]2016-08-29 22:17:00 Test Item Value Reference Range Interpretation Comments U Potassium (test code = U Potassium) 8.5 [facility] [id number] 22:17:00 Test Item Value Reference Range Interpretation Comments U Chloride (test code = U Chloride) 51 [facility] [id number] 22:17:00 Test Item Value Reference Range Interpretation Comments U Osmolality (test code = U Osmolality) 138 300-800 [facility] [id number] 18:36:00 Test Item Value Reference Range Interpretation Comments U Opiate Scr (test Negative *NA*(07/07/16 code = U Opiate Scr) 1:36 PM) [facility] [id number] 18:36:00 Test Item Value Reference Range Interpretation Comments U Cannab Scr (test Negative *NA*(07/07/16 code = U Cannab Scr) 1:36 PM) [facility] [id number] 18:36:00 Test Item Value Reference Range Interpretation Comments U Cocaine Scr (test Negative *NA*(07/07/16 code = U Cocaine Scr) 1:36 PM) [facility] [id number] 18:36:00 Test Item Value Reference Range Interpretation Comments U Phencyc Scr (test Negative *NA*(07/07/16 code = U Phencyc Scr) 1:36 PM) [facility] [id number] 18:36:00 Test Item Value Reference Range Interpretation Comments UDS Note (test code = See Note *NA*(07/07/16 UDS Note) 1:36 PM) [facility] [id number] 18:36:00 Test Item Value Reference Range Interpretation Comments U Benzodia Scr (test Negative *NA*(07/07/16 code = U Benzodia Scr) 1:36 PM) [facility] [id number] 18:36:00 Test Item Value Reference Range Interpretation Comments U Renetta Scr (test code Negative *NA*(07/07/16 = U Renetta Scr) 1:36 PM) [facility] [id number] 18:36:00 Test Item Value Reference Range Interpretation Comments U Amph Scr (test code Negative *NA*(07/07/16 = U Amph Scr) 1:36 PM) [facility] [id number] 18:36:00 Test Item Value Reference Range Interpretation Comments U Opiate Scr (test Negative *NA*(07/07/16 code = U Opiate Scr) 1:36 PM) [facility] [id number] 18:36:00 Test Item Value Reference Range Interpretation Comments U Cannab Scr (test Negative *NA*(07/07/16 code = U Cannab Scr) 1:36 PM) [facility] [id number] 18:36:00 Test Item Value Reference Range Interpretation Comments U Cocaine Scr (test Negative *NA*(07/07/16 code = U Cocaine Scr) 1:36 PM) [facility] [id number] 18:36:00 Test Item Value Reference Range Interpretation Comments U Phencyc Scr (test Negative *NA*(07/07/16 code = U Phencyc Scr) 1:36 PM) [facility] [id number] 18:36:00 Test Item Value Reference Range Interpretation Comments UDS Note (test code = See Note *NA*(07/07/16 UDS Note) 1:36 PM) [facility] [id number] 18:36:00 Test Item Value Reference Range Interpretation Comments U Benzodia Scr (test Negative *NA*(07/07/16 code = U Benzodia Scr) 1:36 PM) [facility] [id number] 18:36:00 Test Item Value Reference Range Interpretation Comments U Renetta Scr (test code Negative *NA*(07/07/16 = U Renetta Scr) 1:36 PM) [facility] [id number] 18:36:00 Test Item Value Reference Range Interpretation Comments U Amph Scr (test code Negative *NA*(07/07/16 = U Amph Scr) 1:36 PM) [facility] [id number] 18:36:00 Test Item Value Reference Range Interpretation Comments U Opiate Scr (test Negative *NA*(07/07/16 code = U Opiate Scr) 1:36 PM) [facility] [id number] 18:36:00 Test Item Value Reference Range Interpretation Comments U Cannab Scr (test Negative *NA*(07/07/16 code = U Cannab Scr) 1:36 PM) [facility] [id number] 18:36:00 Test Item Value Reference Range Interpretation Comments U Cocaine Scr (test Negative *NA*(07/07/16 code = U Cocaine Scr) 1:36 PM) [facility] [id number] 18:36:00 Test Item Value Reference Range Interpretation Comments U Phencyc Scr (test Negative *NA*(07/07/16 code = U Phencyc Scr) 1:36 PM) [facility] [id number] 18:36:00 Test Item Value Reference Range Interpretation Comments UDS Note (test code = See Note *NA*(07/07/16 UDS Note) 1:36 PM) [facility] [id number] 18:36:00 Test Item Value Reference Range Interpretation Comments U Benzodia Scr (test Negative *NA*(07/07/16 code = U Benzodia Scr) 1:36 PM) [facility] [id number] 18:36:00 Test Item Value Reference Range Interpretation Comments U Renetta Scr (test code Negative *NA*(07/07/16 = U Renetta Scr) 1:36 PM) [facility] [id number] 18:36:00 Test Item Value Reference Range Interpretation Comments U Amph Scr (test code Negative *NA*(07/07/16 = U Amph Scr) 1:36 PM) [facility] [id number] 18:36:00 Test Item Value Reference Range Interpretation Comments U Opiate Scr (test Negative *NA*(07/07/16 code = U Opiate Scr) 1:36 PM) [facility] [id number] 18:36:00 Test Item Value Reference Range Interpretation Comments U Cannab Scr (test Negative *NA*(07/07/16 code = U Cannab Scr) 1:36 PM) [facility] [id number] 18:36:00 Test Item Value Reference Range Interpretation Comments U Cocaine Scr (test Negative *NA*(07/07/16 code = U Cocaine Scr) 1:36 PM) [facility] [id number] 18:36:00 Test Item Value Reference Range Interpretation Comments U Phencyc Scr (test Negative *NA*(07/07/16 code = U Phencyc Scr) 1:36 PM) [facility] [id number] 18:36:00 Test Item Value Reference Range Interpretation Comments UDS Note (test code = See Note *NA*(07/07/16 UDS Note) 1:36 PM) [facility] [id number] 18:36:00 Test Item Value Reference Range Interpretation Comments U Benzodia Scr (test Negative *NA*(07/07/16 code = U Benzodia Scr) 1:36 PM) [facility] [id number] 18:36:00 Test Item Value Reference Range Interpretation Comments U Renetta Scr (test code Negative *NA*(07/07/16 = U Renetta Scr) 1:36 PM) [facility] [id number] 18:36:00 Test Item Value Reference Range Interpretation Comments U Amph Scr (test code Negative *NA*(07/07/16 = U Amph Scr) 1:36 PM) [facility] [id number] 18:36:00 Test Item Value Reference Range Interpretation Comments U Opiate Scr (test Negative *NA*(07/07/16 code = U Opiate Scr) 1:36 PM) [facility] [id number] 18:36:00 Test Item Value Reference Range Interpretation Comments U Cannab Scr (test Negative *NA*(07/07/16 code = U Cannab Scr) 1:36 PM) [facility] [id number] 18:36:00 Test Item Value Reference Range Interpretation Comments U Cocaine Scr (test Negative *NA*(07/07/16 code = U Cocaine Scr) 1:36 PM) [facility] [id number] 18:36:00 Test Item Value Reference Range Interpretation Comments U Phencyc Scr (test Negative *NA*(07/07/16 code = U Phencyc Scr) 1:36 PM) [facility] [id number] 18:36:00 Test Item Value Reference Range Interpretation Comments UDS Note (test code = See Note *NA*(07/07/16 UDS Note) 1:36 PM) [facility] [id number] 18:36:00 Test Item Value Reference Range Interpretation Comments U Benzodia Scr (test Negative *NA*(07/07/16 code = U Benzodia Scr) 1:36 PM) [facility] [id number] 18:36:00 Test Item Value Reference Range Interpretation Comments U Renetta Scr (test code Negative *NA*(07/07/16 = U Renetta Scr) 1:36 PM) [facility] [id number] 18:36:00 Test Item Value Reference Range Interpretation Comments U Amph Scr (test code Negative *NA*(07/07/16 = U Amph Scr) 1:36 PM) [facility] [id number] 18:36:00 Test Item Value Reference Range Interpretation Comments U Opiate Scr (test Negative *NA*(07/07/16 code = U Opiate Scr) 1:36 PM) [facility] [id number] 18:36:00 Test Item Value Reference Range Interpretation Comments U Cannab Scr (test Negative *NA*(07/07/16 code = U Cannab Scr) 1:36 PM) [facility] [id number] 18:36:00 Test Item Value Reference Range Interpretation Comments U Cocaine Scr (test Negative *NA*(07/07/16 code = U Cocaine Scr) 1:36 PM) [facility] [id number] 18:36:00 Test Item Value Reference Range Interpretation Comments U Phencyc Scr (test Negative *NA*(07/07/16 code = U Phencyc Scr) 1:36 PM) [facility] [id number] 18:36:00 Test Item Value Reference Range Interpretation Comments UDS Note (test code = See Note *NA*(07/07/16 UDS Note) 1:36 PM) [facility] [id number] 18:36:00 Test Item Value Reference Range Interpretation Comments U Benzodia Scr (test Negative *NA*(07/07/16 code = U Benzodia Scr) 1:36 PM) [facility] [id number] 18:36:00 Test Item Value Reference Range Interpretation Comments U Renetta Scr (test code Negative *NA*(07/07/16 = U Renetta Scr) 1:36 PM) [facility] [id number] 18:36:00 Test Item Value Reference Range Interpretation Comments U Amph Scr (test code Negative *NA*(07/07/16 = U Amph Scr) 1:36 PM) [facility] [id number] 18:36:00 Test Item Value Reference Range Interpretation Comments U Opiate Scr (test Negative *NA*(07/07/16 code = U Opiate Scr) 1:36 PM) [facility] [id number] 18:36:00 Test Item Value Reference Range Interpretation Comments U Cannab Scr (test Negative *NA*(07/07/16 code = U Cannab Scr) 1:36 PM) [facility] [id number] 18:36:00 Test Item Value Reference Range Interpretation Comments U Cocaine Scr (test Negative *NA*(07/07/16 code = U Cocaine Scr) 1:36 PM) [facility] [id number] 18:36:00 Test Item Value Reference Range Interpretation Comments U Phencyc Scr (test Negative *NA*(07/07/16 code = U Phencyc Scr) 1:36 PM) [facility] [id number] 18:36:00 Test Item Value Reference Range Interpretation Comments UDS Note (test code = See Note *NA*(07/07/16 UDS Note) 1:36 PM) [facility] [id number] 18:36:00 Test Item Value Reference Range Interpretation Comments U Benzodia Scr (test Negative *NA*(07/07/16 code = U Benzodia Scr) 1:36 PM) [facility] [id number] 18:36:00 Test Item Value Reference Range Interpretation Comments U Renetta Scr (test code Negative *NA*(07/07/16 = U Renetta Scr) 1:36 PM) [facility] [id number] 18:36:00 Test Item Value Reference Range Interpretation Comments U Amph Scr (test code Negative *NA*(07/07/16 = U Amph Scr) 1:36 PM) [facility] [id number] 18:36:00 Test Item Value Reference Range Interpretation Comments U Opiate Scr (test Negative *NA*(07/07/16 code = U Opiate Scr) 1:36 PM) [facility] [id number] 18:36:00 Test Item Value Reference Range Interpretation Comments U Cannab Scr (test Negative *NA*(07/07/16 code = U Cannab Scr) 1:36 PM) [facility] [id number] 18:36:00 Test Item Value Reference Range Interpretation Comments U Cocaine Scr (test Negative *NA*(07/07/16 code = U Cocaine Scr) 1:36 PM) [facility] [id number] 18:36:00 Test Item Value Reference Range Interpretation Comments U Phencyc Scr (test Negative *NA*(07/07/16 code = U Phencyc Scr) 1:36 PM) [facility] [id number] 18:36:00 Test Item Value Reference Range Interpretation Comments UDS Note (test code = See Note *NA*(07/07/16 UDS Note) 1:36 PM) [facility] [id number] 18:36:00 Test Item Value Reference Range Interpretation Comments U Benzodia Scr (test Negative *NA*(07/07/16 code = U Benzodia Scr) 1:36 PM) [facility] [id number] 18:36:00 Test Item Value Reference Range Interpretation Comments U Renetta Scr (test code Negative *NA*(07/07/16 = U Renetta Scr) 1:36 PM) [facility] [id number] 18:36:00 Test Item Value Reference Range Interpretation Comments U Amph Scr (test code Negative *NA*(07/07/16 = U Amph Scr) 1:36 PM) [facility] [id number] 18:36:00 Test Item Value Reference Range Interpretation Comments U Opiate Scr (test Negative *NA*(07/07/16 code = U Opiate Scr) 1:36 PM) [facility] [id number] 18:36:00 Test Item Value Reference Range Interpretation Comments U Cannab Scr (test Negative *NA*(07/07/16 code = U Cannab Scr) 1:36 PM) [facility] [id number] 18:36:00 Test Item Value Reference Range Interpretation Comments U Cocaine Scr (test Negative *NA*(07/07/16 code = U Cocaine Scr) 1:36 PM) [facility] [id number] 18:36:00 Test Item Value Reference Range Interpretation Comments U Phencyc Scr (test Negative *NA*(07/07/16 code = U Phencyc Scr) 1:36 PM) [facility] [id number] 18:36:00 Test Item Value Reference Range Interpretation Comments UDS Note (test code = See Note *NA*(07/07/16 UDS Note) 1:36 PM) [facility] [id number] 18:36:00 Test Item Value Reference Range Interpretation Comments U Benzodia Scr (test Negative *NA*(07/07/16 code = U Benzodia Scr) 1:36 PM) [facility] [id number] 18:36:00 Test Item Value Reference Range Interpretation Comments U Renetta Scr (test code Negative *NA*(07/07/16 = U Renetta Scr) 1:36 PM) [facility] [id number] 18:36:00 Test Item Value Reference Range Interpretation Comments U Amph Scr (test code Negative *NA*(07/07/16 = U Amph Scr) 1:36 PM) [facility] [id number] 18:36:00 Test Item Value Reference Range Interpretation Comments U Opiate Scr (test Negative *NA*(07/07/16 code = U Opiate Scr) 1:36 PM) [facility] [id number] 18:36:00 Test Item Value Reference Range Interpretation Comments U Cannab Scr (test Negative *NA*(07/07/16 code = U Cannab Scr) 1:36 PM) [facility] [id number] 18:36:00 Test Item Value Reference Range Interpretation Comments U Cocaine Scr (test Negative *NA*(07/07/16 code = U Cocaine Scr) 1:36 PM) [facility] [id number] 18:36:00 Test Item Value Reference Range Interpretation Comments U Phencyc Scr (test Negative *NA*(07/07/16 code = U Phencyc Scr) 1:36 PM) [facility] [id number] 18:36:00 Test Item Value Reference Range Interpretation Comments UDS Note (test code = See Note *NA*(07/07/16 UDS Note) 1:36 PM) [facility] [id number] 18:36:00 Test Item Value Reference Range Interpretation Comments U Benzodia Scr (test Negative *NA*(07/07/16 code = U Benzodia Scr) 1:36 PM) [facility] [id number] 18:36:00 Test Item Value Reference Range Interpretation Comments U Renetta Scr (test code Negative *NA*(07/07/16 = U Renetta Scr) 1:36 PM) [facility] [id number] 18:36:00 Test Item Value Reference Range Interpretation Comments U Amph Scr (test code Negative *NA*(07/07/16 = U Amph Scr) 1:36 PM) [facility]2016-08-28 17:22:00 Test Item Value Reference Range Interpretation Comments Globulin (test code = Globulin) 2.6 2.7-4.2 [facility]2016-08-28 17:22:00 Test Item Value Reference Range Interpretation Comments A/G Ratio (test code = A/G Ratio) 1.1 0.7-1.6 [facility]2016-08-28 17:22:00 Test Item Value Reference Range Interpretation Comments Bili Indirect (test 0.4 See_Comment [Automa amor message] The code = Bili Indirect) system which generated this result tra nsmitted reference range : <=1.0. The reference r lamar was not used to int erpret this result as normal/abnormal . [facility]2016-08-28 17:22:00 Test Item Value Reference Range Interpretation Comments Bili Total (test code = Bili Total) 0.6 0.2-1.3 [facility]2016-08-28 17:22:00 Test Item Value Reference Range Interpretation Comments Alk Phos (test code = Alk Phos) 103 39-136 [facility]2016-08-28 17:22:00 Test Item Value Reference Range Interpretation Comments Bili Direct (test code 0.2 See_Comment [Aut omated message] The = Bili Direct) system which generated this result tra nsmitted reference range : <=0.3. The reference r lamar was not used to int erpret this result as hiren l/abnormal. [facility] [id number] 17:22:00 Test Item Value Reference Range Interpretation Comments ALT (test code = ALT) 59 See_Comment [Auto mated message] The system which ge nerated this result transmit amor reference range : <=65. The reference range was not used to interpr et this result as hiren l/abnormal. [facility]2016-08-28 17:22:00 Test Item Value Reference Range Interpretation Comments Albumin Lvl (test code = Albumin Lvl) 2.8 3.5-5.0 [facility]2016-08-28 17:22:00 Test Item Value Reference Range Interpretation Comments AST (test code = AST) 64 See_Comment [Auto mated message] The system which ge nerated this result transmit amor reference range : <=37. The reference range was not used to interpr et this result as hiren l/abnormal. [facility]2016-08-28 17:22:00 Test Item Value Reference Range Interpretation Comments Total Protein (test code = Total 5.4 6.4-8.4 Protein) [id number] 17:22:00 Test Item Value Reference Range Interpretation Comments Renin Activity (test code = Renin 0.38 0.25-5.82 Activity) [facility]2016-08-28 17:22:00 Test Item Value Reference Range Interpretation Comments Globulin (test code = Globulin) 2.6 2.7-4.2 [facility]2016-08-28 17:22:00 Test Item Value Reference Range Interpretation Comments A/G Ratio (test code = A/G Ratio) 1.1 0.7-1.6 [facility]2016-08-28 17:22:00 Test Item Value Reference Range Interpretation Comments Bili Indirect (test 0.4 See_Comment [Automa amor message] The code = Bili Indirect) system which generated this result tra nsmitted reference range : <=1.0. The reference r lamar was not used to int erpret this result as normal/abnormal . [facility] [id number] 17:22:00 Test Item Value Reference Range Interpretation Comments Bili Total (test code = Bili Total) 0.6 0.2-1.3 [facility]2016-08-28 17:22:00 Test Item Value Reference Range Interpretation Comments Alk Phos (test code = Alk Phos) 103 39-136 [facility]2016-08-28 17:22:00 Test Item Value Reference Range Interpretation Comments Bili Direct (test code 0.2 See_Comment [Aut omated message] The = Bili Direct) system which generated this result tra nsmitted reference range : <=0.3. The reference r lamar was not used to int erpret this result as hiren l/abnormal. [facility]2016-08-28 17:22:00 Test Item Value Reference Range Interpretation Comments ALT (test code = ALT) 59 See_Comment [Auto mated message] The system which ge nerated this result transmit amor reference range : <=65. The reference range was not used to interpr et this result as hiren l/abnormal. [facility]2016-08-28 17:22:00 Test Item Value Reference Range Interpretation Comments Albumin Lvl (test code = Albumin Lvl) 2.8 3.5-5.0 [facility]2016-08-28 17:22:00 Test Item Value Reference Range Interpretation Comments AST (test code = AST) 64 See_Comment [Auto mated message] The system which ge nerated this result transmit amor reference range : <=37. The reference range was not used to interpr et this result as hiren l/abnormal. [facility]2016-08-28 17:22:00 Test Item Value Reference Range Interpretation Comments Total Protein (test code = Total 5.4 6.4-8.4 Protein) [id number] 17:22:00 Test Item Value Reference Range Interpretation Comments Renin Activity (test code = Renin 0.38 0.25-5.82 Activity) [facility]2016-08-28 17:22:00 Test Item Value Reference Range Interpretation Comments Globulin (test code = Globulin) 2.6 2.7-4.2 [facility]2016-08-28 17:22:00 Test Item Value Reference Range Interpretation Comments A/G Ratio (test code = A/G Ratio) 1.1 0.7-1.6 [facility]2016-08-28 17:22:00 Test Item Value Reference Range Interpretation Comments Bili Indirect (test 0.4 See_Comment [Automa amor message] The code = Bili Indirect) system which generated this result tra nsmitted reference range : <=1.0. The reference r lamar was not used to int erpret this result as normal/abnormal . [facility] [id number] 17:22:00 Test Item Value Reference Range Interpretation Comments Bili Total (test code = Bili Total) 0.6 0.2-1.3 [facility]2016-08-28 17:22:00 Test Item Value Reference Range Interpretation Comments Alk Phos (test code = Alk Phos) 103 39-136 [facility]2016-08-28 17:22:00 Test Item Value Reference Range Interpretation Comments Bili Direct (test code 0.2 See_Comment [Aut omated message] The = Bili Direct) system which generated this result tra nsmitted reference range : <=0.3. The reference r lamar was not used to int erpret this result as hiren l/abnormal. [facility]2016-08-28 17:22:00 Test Item Value Reference Range Interpretation Comments ALT (test code = ALT) 59 See_Comment [Auto mated message] The system which ge nerated this result transmit amor reference range : <=65. The reference range was not used to interpr et this result as hiren l/abnormal. [facility] [id number] 17:22:00 Test Item Value Reference Range Interpretation Comments Albumin Lvl (test code = Albumin Lvl) 2.8 3.5-5.0 [facility]2016-08-28 17:22:00 Test Item Value Reference Range Interpretation Comments AST (test code = AST) 64 See_Comment [Auto mated message] The system which ge nerated this result transmit amor reference range : <=37. The reference range was not used to interpr et this result as hiren l/abnormal. [facility] [id number] 17:22:00 Test Item Value Reference Range Interpretation Comments Total Protein (test code = Total 5.4 6.4-8.4 Protein) [facility] [id number] 17:22:00 Test Item Value Reference Range Interpretation Comments Renin Activity (test code = Renin 0.38 0.25-5.82 Activity) [facility]2016-08-28 17:22:00 Test Item Value Reference Range Interpretation Comments Globulin (test code = Globulin) 2.6 2.7-4.2 [facility] [id number] 17:22:00 Test Item Value Reference Range Interpretation Comments A/G Ratio (test code = A/G Ratio) 1.1 0.7-1.6 [facility]2016-08-28 17:22:00 Test Item Value Reference Range Interpretation Comments Bili Indirect (test 0.4 See_Comment [Automa amor message] The code = Bili Indirect) system which generated this result tra nsmitted reference range : <=1.0. The reference r lamar was not used to int erpret this result as normal/abnormal . [facility]2016-08-28 17:22:00 Test Item Value Reference Range Interpretation Comments Bili Total (test code = Bili Total) 0.6 0.2-1.3 [place] [id number] 17:22:00 Test Item Value Reference Range Interpretation Comments Alk Phos (test code = Alk Phos) 103 39-136 [facility]2016-08-28 17:22:00 Test Item Value Reference Range Interpretation Comments Bili Direct (test code 0.2 See_Comment [Aut omated message] The = Bili Direct) system which generated this result tra nsmitted reference range : <=0.3. The reference r lamar was not used to int erpret this result as hiren l/abnormal. [facility]2016-08-28 17:22:00 Test Item Value Reference Range Interpretation Comments ALT (test code = ALT) 59 See_Comment [Auto mated message] The system which ge nerated this result transmit amor reference range : <=65. The reference range was not used to interpr et this result as hiren l/abnormal. [facility]2016-08-28 17:22:00 Test Item Value Reference Range Interpretation Comments Albumin Lvl (test code = Albumin Lvl) 2.8 3.5-5.0 [place] 186626-08-28 17:22:00 Test Item Value Reference Range Interpretation Comments AST (test code = AST) 64 See_Comment [Auto mated message] The system which ge nerated this result transmit amor reference range : <=37. The reference range was not used to interpr et this result as hiren l/abnormal. [facility]2016-08-28 17:22:00 Test Item Value Reference Range Interpretation Comments Total Protein (test code = Total 5.4 6.4-8.4 Protein) [id number] 17:22:00 Test Item Value Reference Range Interpretation Comments Renin Activity (test code = Renin 0.38 0.25-5.82 Activity) [facility]2016-08-28 17:22:00 Test Item Value Reference Range Interpretation Comments Globulin (test code = Globulin) 2.6 2.7-4.2 [facility]2016-08-28 17:22:00 Test Item Value Reference Range Interpretation Comments A/G Ratio (test code = A/G Ratio) 1.1 0.7-1.6 [place] 186626-08-28 17:22:00 Test Item Value Reference Range Interpretation Comments Bili Indirect (test 0.4 See_Comment [Automa amor message] The code = Bili Indirect) system which generated this result tra nsmitted reference range : <=1.0. The reference r lamar was not used to int erpret this result as normal/abnormal . [facility]2016-08-28 17:22:00 Test Item Value Reference Range Interpretation Comments Bili Total (test code = Bili Total) 0.6 0.2-1.3 [facility]2016-08-28 17:22:00 Test Item Value Reference Range Interpretation Comments Alk Phos (test code = Alk Phos) 103 39-136 [facility]2016-08-28 17:22:00 Test Item Value Reference Range Interpretation Comments Bili Direct (test code 0.2 See_Comment [Aut omated message] The = Bili Direct) system which generated this result tra nsmitted reference range : <=0.3. The reference r lamar was not used to int erpret this result as hiren l/abnormal. [place] 186626-08-28 17:22:00 Test Item Value Reference Range Interpretation Comments ALT (test code = ALT) 59 See_Comment [Auto mated message] The system which ge nerated this result transmit amor reference range : <=65. The reference range was not used to interpr et this result as hiren l/abnormal. [place] 186626-08-28 17:22:00 Test Item Value Reference Range Interpretation Comments Albumin Lvl (test code = Albumin Lvl) 2.8 3.5-5.0 [facility]2016-08-28 17:22:00 Test Item Value Reference Range Interpretation Comments AST (test code = AST) 64 See_Comment [Auto mated message] The system which ge nerated this result transmit amor reference range : <=37. The reference range was not used to interpr et this result as hiren l/abnormal. [facility]2016-08-28 17:22:00 Test Item Value Reference Range Interpretation Comments Total Protein (test code = Total 5.4 6.4-8.4 Protein) [id number] 17:22:00 Test Item Value Reference Range Interpretation Comments Renin Activity (test code = Renin 0.38 0.25-5.82 Activity) [facility]2016-08-28 17:22:00 Test Item Value Reference Range Interpretation Comments Globulin (test code = Globulin) 2.6 2.7-4.2 [facility]2016-08-28 17:22:00 Test Item Value Reference Range Interpretation Comments A/G Ratio (test code = A/G Ratio) 1.1 0.7-1.6 [place] 186626-08-28 17:22:00 Test Item Value Reference Range Interpretation Comments Bili Indirect (test 0.4 See_Comment [Automa amor message] The code = Bili Indirect) system which generated this result tra nsmitted reference range : <=1.0. The reference r lamar was not used to int erpret this result as normal/abnormal . [facility]2016-08-28 17:22:00 Test Item Value Reference Range Interpretation Comments Bili Total (test code = Bili Total) 0.6 0.2-1.3 [place] 186626-08-28 17:22:00 Test Item Value Reference Range Interpretation Comments Alk Phos (test code = Alk Phos) 103 39-136 [facility]2016-08-28 17:22:00 Test Item Value Reference Range Interpretation Comments Bili Direct (test code 0.2 See_Comment [Aut omated message] The = Bili Direct) system which generated this result tra nsmitted reference range : <=0.3. The reference r lamar was not used to int erpret this result as hiren l/abnormal. [facility]2016-08-28 17:22:00 Test Item Value Reference Range Interpretation Comments ALT (test code = ALT) 59 See_Comment [Auto mated message] The system which ge nerated this result transmit amor reference range : <=65. The reference range was not used to interpr et this result as hiren l/abnormal. [facility]2016-08-28 17:22:00 Test Item Value Reference Range Interpretation Comments Albumin Lvl (test code = Albumin Lvl) 2.8 3.5-5.0 [facility]2016-08-28 17:22:00 Test Item Value Reference Range Interpretation Comments AST (test code = AST) 64 See_Comment [Auto mated message] The system which ge nerated this result transmit amor reference range : <=37. The reference range was not used to interpr et this result as hiren l/abnormal. [facility]2016-08-28 17:22:00 Test Item Value Reference Range Interpretation Comments Total Protein (test code = Total 5.4 6.4-8.4 Protein) [id number] 17:22:00 Test Item Value Reference Range Interpretation Comments Renin Activity (test code = Renin 0.38 0.25-5.82 Activity) [facility]2016-08-28 17:22:00 Test Item Value Reference Range Interpretation Comments Globulin (test code = Globulin) 2.6 2.7-4.2 [facility]2016-08-28 17:22:00 Test Item Value Reference Range Interpretation Comments A/G Ratio (test code = A/G Ratio) 1.1 0.7-1.6 [facility]2016-08-28 17:22:00 Test Item Value Reference Range Interpretation Comments Bili Indirect (test 0.4 See_Comment [Automa amor message] The code = Bili Indirect) system which generated this result tra nsmitted reference range : <=1.0. The reference r lamar was not used to int erpret this result as normal/abnormal . [facility] [id number] 17:22:00 Test Item Value Reference Range Interpretation Comments Bili Total (test code = Bili Total) 0.6 0.2-1.3 [facility] [id number] 17:22:00 Test Item Value Reference Range Interpretation Comments Alk Phos (test code = Alk Phos) 103 39-136 [facility]2016-08-28 17:22:00 Test Item Value Reference Range Interpretation Comments Bili Direct (test code 0.2 See_Comment [Aut omated message] The = Bili Direct) system which generated this result tra nsmitted reference range : <=0.3. The reference r lamar was not used to int erpret this result as hiren l/abnormal. [facility] [id number] 17:22:00 Test Item Value Reference Range Interpretation Comments ALT (test code = ALT) 59 See_Comment [Auto mated message] The system which ge nerated this result transmit amor reference range : <=65. The reference range was not used to interpr et this result as ihren l/abnormal. [facility] [id number] 17:22:00 Test Item Value Reference Range Interpretation Comments Albumin Lvl (test code = Albumin Lvl) 2.8 3.5-5.0 [facility] [id number] 17:22:00 Test Item Value Reference Range Interpretation Comments AST (test code = AST) 64 See_Comment [Auto mated message] The system which ge nerated this result transmit amor reference range : <=37. The reference range was not used to interpr et this result as hiren l/abnormal. [facility] [id number] 17:22:00 Test Item Value Reference Range Interpretation Comments Total Protein (test code = Total 5.4 6.4-8.4 Protein) [id number] 17:22:00 Test Item Value Reference Range Interpretation Comments Renin Activity (test code = Renin 0.38 0.25-5.82 Activity) [facility]2016-08-28 17:22:00 Test Item Value Reference Range Interpretation Comments Globulin (test code = Globulin) 2.6 2.7-4.2 [facility] [id number] 17:22:00 Test Item Value Reference Range Interpretation Comments A/G Ratio (test code = A/G Ratio) 1.1 0.7-1.6 [facility]2016-08-28 17:22:00 Test Item Value Reference Range Interpretation Comments Bili Indirect (test 0.4 See_Comment [Automa amor message] The code = Bili Indirect) system which generated this result tra nsmitted reference range : <=1.0. The reference r lamar was not used to int erpret this result as normal/abnormal . [facility]2016-08-28 17:22:00 Test Item Value Reference Range Interpretation Comments Bili Total (test code = Bili Total) 0.6 0.2-1.3 [facility]2016-08-28 17:22:00 Test Item Value Reference Range Interpretation Comments Alk Phos (test code = Alk Phos) 103 39-136 [facility]2016-08-28 17:22:00 Test Item Value Reference Range Interpretation Comments Bili Direct (test code 0.2 See_Comment [Aut omated message] The = Bili Direct) system which generated this result tra nsmitted reference range : <=0.3. The reference r lamar was not used to int erpret this result as hiren l/abnormal. [facility]2016-08-28 17:22:00 Test Item Value Reference Range Interpretation Comments ALT (test code = ALT) 59 See_Comment [Auto mated message] The system which ge nerated this result transmit amor reference range : <=65. The reference range was not used to interpr et this result as hiren l/abnormal. [facility]2016-08-28 17:22:00 Test Item Value Reference Range Interpretation Comments Albumin Lvl (test code = Albumin Lvl) 2.8 3.5-5.0 [facility]2016-08-28 17:22:00 Test Item Value Reference Range Interpretation Comments AST (test code = AST) 64 See_Comment [Auto mated message] The system which ge nerated this result transmit amor reference range : <=37. The reference range was not used to interpr et this result as hiren l/abnormal. [facility]2016-08-28 17:22:00 Test Item Value Reference Range Interpretation Comments Total Protein (test code = Total 5.4 6.4-8.4 Protein) [place] [id number] 17:22:00 Test Item Value Reference Range Interpretation Comments Renin Activity (test code = Renin 0.38 0.25-5.82 Activity) [facility]2016-08-28 17:22:00 Test Item Value Reference Range Interpretation Comments Globulin (test code = Globulin) 2.6 2.7-4.2 [place] 186626-08-28 17:22:00 Test Item Value Reference Range Interpretation Comments A/G Ratio (test code = A/G Ratio) 1.1 0.7-1.6 [place] 186626-08-28 17:22:00 Test Item Value Reference Range Interpretation Comments Bili Indirect (test 0.4 See_Comment [Automa amor message] The code = Bili Indirect) system which generated this result tra nsmitted reference range : <=1.0. The reference r lamar was not used to int erpret this result as normal/abnormal . [facility]2016-08-28 17:22:00 Test Item Value Reference Range Interpretation Comments Bili Total (test code = Bili Total) 0.6 0.2-1.3 [place] [address]26-08-28 17:22:00 Test Item Value Reference Range Interpretation Comments Alk Phos (test code = Alk Phos) 103 39-136 [facility]2016-08-28 17:22:00 Test Item Value Reference Range Interpretation Comments Bili Direct (test code 0.2 See_Comment [Aut omated message] The = Bili Direct) system which generated this result tra nsmitted reference range : <=0.3. The reference r lamar was not used to int erpret this result as hiren l/abnormal. [place] 186626-08-28 17:22:00 Test Item Value Reference Range Interpretation Comments ALT (test code = ALT) 59 See_Comment [Auto mated message] The system which ge nerated this result transmit amor reference range : <=65. The reference range was not used to interpr et this result as hiren l/abnormal. [place] 186626-08-28 17:22:00 Test Item Value Reference Range Interpretation Comments Albumin Lvl (test code = Albumin Lvl) 2.8 3.5-5.0 [place] 186626-08-28 17:22:00 Test Item Value Reference Range Interpretation Comments AST (test code = AST) 64 See_Comment [Auto mated message] The system which ge nerated this result transmit amor reference range : <=37. The reference range was not used to interpr et this result as hiren l/abnormal. [facility]2016-08-28 17:22:00 Test Item Value Reference Range Interpretation Comments Total Protein (test code = Total 5.4 6.4-8.4 Protein) [facility] [id number] 17:22:00 Test Item Value Reference Range Interpretation Comments Renin Activity (test code = Renin 0.38 0.25-5.82 Activity) [facility]2016-08-28 17:22:00 Test Item Value Reference Range Interpretation Comments Globulin (test code = Globulin) 2.6 2.7-4.2 [facility]2016-08-28 17:22:00 Test Item Value Reference Range Interpretation Comments A/G Ratio (test code = A/G Ratio) 1.1 0.7-1.6 [facility]2016-08-28 17:22:00 Test Item Value Reference Range Interpretation Comments Bili Indirect (test 0.4 See_Comment [Automa amor message] The code = Bili Indirect) system which generated this result tra nsmitted reference range : <=1.0. The reference r lamar was not used to int erpret this result as normal/abnormal . [facility] [id number] 17:22:00 Test Item Value Reference Range Interpretation Comments Bili Total (test code = Bili Total) 0.6 0.2-1.3 [facility]2016-08-28 17:22:00 Test Item Value Reference Range Interpretation Comments Alk Phos (test code = Alk Phos) 103 39-136 [facility]2016-08-28 17:22:00 Test Item Value Reference Range Interpretation Comments Bili Direct (test code 0.2 See_Comment [Aut omated message] The = Bili Direct) system which generated this result tra nsmitted reference range : <=0.3. The reference r lamar was not used to int erpret this result as hiren l/abnormal. [facility] [id number] 17:22:00 Test Item Value Reference Range Interpretation Comments ALT (test code = ALT) 59 See_Comment [Auto mated message] The system which ge nerated this result transmit amor reference range : <=65. The reference range was not used to interpr et this result as hiren l/abnormal. [facility] [employer] [id number] 17:22:00 Test Item Value Reference Range Interpretation Comments Albumin Lvl (test code = Albumin Lvl) 2.8 3.5-5.0 [facility] [id number] 17:22:00 Test Item Value Reference Range Interpretation Comments AST (test code = AST) 64 See_Comment [Auto mated message] The system which ge nerated this result transmit amor reference range : <=37. The reference range was not used to interpr et this result as hiren l/abnormal. [facility] [id number] 17:22:00 Test Item Value Reference Range Interpretation Comments Total Protein (test code = Total 5.4 6.4-8.4 Protein) [id number] 17:22:00 Test Item Value Reference Range Interpretation Comments Renin Activity (test code = Renin 0.38 0.25-5.82 Activity) [facility] [id number] 02:52:00 Test Item Value Reference Range Interpretation Comments U Amph Scr (test code Negative *NA*(07/06/16 = U Amph Scr) 9:52 PM) [facility] [id number] 02:52:00 Test Item Value Reference Range Interpretation Comments UDS Note (test code = See Note *NA*(07/06/16 UDS Note) 9:52 PM) [facility] [id number] 02:52:00 Test Item Value Reference Range Interpretation Comments U Opiate Scr (test Negative *NA*(07/06/16 code = U Opiate Scr) 9:52 PM) [facility] [id number] 02:52:00 Test Item Value Reference Range Interpretation Comments U Cannab Scr (test Negative *NA*(07/06/16 code = U Cannab Scr) 9:52 PM) [facility] [id number] 02:52:00 Test Item Value Reference Range Interpretation Comments U Phencyc Scr (test Negative *NA*(07/06/16 code = U Phencyc Scr) 9:52 PM) [facility] [id number] 02:52:00 Test Item Value Reference Range Interpretation Comments U Benzodia Scr (test Negative *NA*(07/06/16 code = U Benzodia Scr) 9:52 PM) [facility] [id number] 02:52:00 Test Item Value Reference Range Interpretation Comments U Renetta Scr (test code Negative *NA*(07/06/16 = U Renetta Scr) 9:52 PM) [facility] [id number] 02:52:00 Test Item Value Reference Range Interpretation Comments U Cocaine Scr (test Negative *NA*(07/06/16 code = U Cocaine Scr) 9:52 PM) [facility] [id number] 02:52:00 Test Item Value Reference Range Interpretation Comments UA Color (test code = Yellow *NA*(07/06/16 UA Color) 9:52 PM) [facility] [id number] 02:52:00 Test Item Value Reference Range Interpretation Comments UA Turbidity (test code = Clear (07/06/16 9:52 UA Turbidity) PM) [facility] [id number] 02:52:00 Test Item Value Reference Range Interpretation Comments UA Bili (test code = Negative *NA*(07/06/16 UA Bili) 9:52 PM) [facility] [id number] 02:52:00 Test Item Value Reference Range Interpretation Comments UA Blood (test code = Negative (07/06/16 9:52 UA Blood) PM) [facility] [id number] 02:52:00 Test Item Value Reference Range Interpretation Comments UA Urobilinogen (test code = UA 2.0 0.1-1.0 Urobilinogen) [facility] [id number] 02:52:00 Test Item Value Reference Range Interpretation Comments UA Nitrite (test code Negative (07/06/16 9:52 = UA Nitrite) PM) [facility] [id number] 02:52:00 Test Item Value Reference Range Interpretation Comments UA Ketones (test code = UA Negative mg/dL Ketones) [facility] [id number] 02:52:00 Test Item Value Reference Range Interpretation Comments UA Glucose (test code = UA Negative mg/dL Glucose) [facility] AND [id number] 02:52:00 Test Item Value Reference Range Interpretation Comments UA Spec Grav (test code = UA Spec Grav) 1.008 [facility] AND [id number] 02:52:00 Test Item Value Reference Range Interpretation Comments UA pH (test code = UA pH) 7.0 5.0-8.0 [facility] AND [id number] 02:52:00 Test Item Value Reference Range Interpretation Comments UA Protein (test code = UA Protein) 10 mg/dL [facility] AND [id number] 02:52:00 Test Item Value Reference Range Interpretation Comments UA RBC (test code = 1 See_Comment [Automa amor message] The UA RBC) system which ge nerated this result transmit amor reference range : <=2. The reference range was not used to interpr et this result as hiren l/abnormal. [facility] AND [id number] 02:52:00 Test Item Value Reference Range Interpretation Comments UA Bacteria (test code = UA Occasional /HPF Bacteria) [facility] AND [id number] 02:52:00 Test Item Value Reference Range Interpretation Comments UA Leuk Est (test code Large *ABN*(07/06/16 = UA Leuk Est) 9:52 PM) [facility] AND [id number] 02:52:00 Test Item Value Reference Range Interpretation Comments UA WBC (test code = 8 See_Comment [Automa amor message] The UA WBC) system which ge nerated this result transmit amor reference range : <=5. The reference range was not used to interpr et this result as hiren l/abnormal. [facility] AND [id number] 02:52:00 Test Item Value Reference Range Interpretation Comments UA Sq Epi (test code = UA Sq Epi) None Seen [facility] AND [id number] 02:52:00 Test Item Value Reference Range Interpretation Comments UA Mucus (test code = UA Mucus) Few /LPF [facility] AND [id number] 02:52:00 Test Item Value Reference Range Interpretation Comments UA Hyal Cast (test 4 See_Comment [Automat ed message] The code = UA Hyal Cast) system which generated this result transmit amor reference range : <=2. The reference range was not used to interpr et this result as hiren l/abnormal. [facility] [id number] 02:52:00 Test Item Value Reference Range Interpretation Comments U Sodium (test code = U Sodium) 56 [facility] [id number] 02:52:00 Test Item Value Reference Range Interpretation Comments U Osmolality (test code = U Osmolality) 250 300-800 [facility] [id number] 02:52:00 Test Item Value Reference Range Interpretation Comments U Potassium (test code = U Potassium) 24.4 [facility] [id number] 02:52:00 Test Item Value Reference Range Interpretation Comments U Chloride (test code = U Chloride) 72 [facility] [id number] 02:52:00 Test Item Value Reference Range Interpretation Comments U Amph Scr (test code Negative *NA*(07/06/16 = U Amph Scr) 9:52 PM) [facility] [id number] 02:52:00 Test Item Value Reference Range Interpretation Comments UDS Note (test code = See Note *NA*(07/06/16 UDS Note) 9:52 PM) [facility] [id number] 02:52:00 Test Item Value Reference Range Interpretation Comments U Opiate Scr (test Negative *NA*(07/06/16 code = U Opiate Scr) 9:52 PM) [facility] [id number] 02:52:00 Test Item Value Reference Range Interpretation Comments U Cannab Scr (test Negative *NA*(07/06/16 code = U Cannab Scr) 9:52 PM) [facility] [id number] 02:52:00 Test Item Value Reference Range Interpretation Comments U Phencyc Scr (test Negative *NA*(07/06/16 code = U Phencyc Scr) 9:52 PM) [facility] [id number] 02:52:00 Test Item Value Reference Range Interpretation Comments U Benzodia Scr (test Negative *NA*(07/06/16 code = U Benzodia Scr) 9:52 PM) [facility] [id number] 02:52:00 Test Item Value Reference Range Interpretation Comments U Renetta Scr (test code Negative *NA*(07/06/16 = U Renetta Scr) 9:52 PM) [facility] [id number] 02:52:00 Test Item Value Reference Range Interpretation Comments U Cocaine Scr (test Negative *NA*(07/06/16 code = U Cocaine Scr) 9:52 PM) [facility] [id number] 02:52:00 Test Item Value Reference Range Interpretation Comments UA Color (test code = Yellow *NA*(07/06/16 UA Color) 9:52 PM) [facility] [id number] 02:52:00 Test Item Value Reference Range Interpretation Comments UA Turbidity (test code = Clear (07/06/16 9:52 UA Turbidity) PM) [facility] [id number] 02:52:00 Test Item Value Reference Range Interpretation Comments UA Bili (test code = Negative *NA*(07/06/16 UA Bili) 9:52 PM) [facility] [id number] 02:52:00 Test Item Value Reference Range Interpretation Comments UA Blood (test code = Negative (07/06/16 9:52 UA Blood) PM) [facility] [id number] 02:52:00 Test Item Value Reference Range Interpretation Comments UA Urobilinogen (test code = UA 2.0 0.1-1.0 Urobilinogen) [facility] [id number] 02:52:00 Test Item Value Reference Range Interpretation Comments UA Nitrite (test code Negative (07/06/16 9:52 = UA Nitrite) PM) [facility] [id number] 02:52:00 Test Item Value Reference Range Interpretation Comments UA Ketones (test code = UA Negative mg/dL Ketones) [facility] [id number] 02:52:00 Test Item Value Reference Range Interpretation Comments UA Glucose (test code = UA Negative mg/dL Glucose) [facility] [id number] 02:52:00 Test Item Value Reference Range Interpretation Comments UA Spec Grav (test code = UA Spec Grav) 1.008 [facility] [id number] 02:52:00 Test Item Value Reference Range Interpretation Comments UA pH (test code = UA pH) 7.0 5.0-8.0 [facility] AND [id number] 02:52:00 Test Item Value Reference Range Interpretation Comments UA Protein (test code = UA Protein) 10 mg/dL [facility] AND [id number] 02:52:00 Test Item Value Reference Range Interpretation Comments UA RBC (test code = 1 See_Comment [Automa amor message] The UA RBC) system which ge nerated this result transmit amor reference range : <=2. The reference range was not used to interpr et this result as hiren l/abnormal. [facility] AND [id number] 02:52:00 Test Item Value Reference Range Interpretation Comments UA Bacteria (test code = UA Occasional /HPF Bacteria) [facility] AND [id number] 02:52:00 Test Item Value Reference Range Interpretation Comments UA Leuk Est (test code Large *ABN*(07/06/16 = UA Leuk Est) 9:52 PM) [facility] AND [id number] 02:52:00 Test Item Value Reference Range Interpretation Comments UA WBC (test code = 8 See_Comment [Automa amor message] The UA WBC) system which ge nerated this result transmit amor reference range : <=5. The reference range was not used to interpr et this result as hiren l/abnormal. [facility] AND [id number] 02:52:00 Test Item Value Reference Range Interpretation Comments UA Sq Epi (test code = UA Sq Epi) None Seen [facility] AND [id number] 02:52:00 Test Item Value Reference Range Interpretation Comments UA Mucus (test code = UA Mucus) Few /LPF [facility] AND [id number] 02:52:00 Test Item Value Reference Range Interpretation Comments UA Hyal Cast (test 4 See_Comment [Automat ed message] The code = UA Hyal Cast) system which generated this result transmit amor reference range : <=2. The reference range was not used to interpr et this result as hiren l/abnormal. [facility] [id number] 02:52:00 Test Item Value Reference Range Interpretation Comments U Sodium (test code = U Sodium) 56 [facility] [id number] 02:52:00 Test Item Value Reference Range Interpretation Comments U Osmolality (test code = U Osmolality) 250 300-800 [facility] [id number] 02:52:00 Test Item Value Reference Range Interpretation Comments U Potassium (test code = U Potassium) 24.4 [facility] [id number] 02:52:00 Test Item Value Reference Range Interpretation Comments U Chloride (test code = U Chloride) 72 [facility] [id number] 02:52:00 Test Item Value Reference Range Interpretation Comments U Amph Scr (test code Negative *NA*(07/06/16 = U Amph Scr) 9:52 PM) [facility] [id number] 02:52:00 Test Item Value Reference Range Interpretation Comments UDS Note (test code = See Note *NA*(07/06/16 UDS Note) 9:52 PM) [facility] [id number] 02:52:00 Test Item Value Reference Range Interpretation Comments U Opiate Scr (test Negative *NA*(07/06/16 code = U Opiate Scr) 9:52 PM) [facility] [id number] 02:52:00 Test Item Value Reference Range Interpretation Comments U Cannab Scr (test Negative *NA*(07/06/16 code = U Cannab Scr) 9:52 PM) [facility] [id number] 02:52:00 Test Item Value Reference Range Interpretation Comments U Phencyc Scr (test Negative *NA*(07/06/16 code = U Phencyc Scr) 9:52 PM) [facility] [id number] 02:52:00 Test Item Value Reference Range Interpretation Comments U Benzodia Scr (test Negative *NA*(07/06/16 code = U Benzodia Scr) 9:52 PM) [facility] [id number] 02:52:00 Test Item Value Reference Range Interpretation Comments U Renetta Scr (test code Negative *NA*(07/06/16 = U Renetta Scr) 9:52 PM) [facility] [id number] 02:52:00 Test Item Value Reference Range Interpretation Comments U Cocaine Scr (test Negative *NA*(07/06/16 code = U Cocaine Scr) 9:52 PM) [facility] [id number] 02:52:00 Test Item Value Reference Range Interpretation Comments UA Color (test code = Yellow *NA*(07/06/16 UA Color) 9:52 PM) [facility] AND [id number] 02:52:00 Test Item Value Reference Range Interpretation Comments UA Turbidity (test code = Clear (07/06/16 9:52 UA Turbidity) PM) [facility] AND [id number] 02:52:00 Test Item Value Reference Range Interpretation Comments UA Bili (test code = Negative *NA*(07/06/16 UA Bili) 9:52 PM) [facility] AND [id number] 02:52:00 Test Item Value Reference Range Interpretation Comments UA Blood (test code = Negative (07/06/16 9:52 UA Blood) PM) [facility] AND [id number] 02:52:00 Test Item Value Reference Range Interpretation Comments UA Urobilinogen (test code = UA 2.0 0.1-1.0 Urobilinogen) [facility] AND [id number] 02:52:00 Test Item Value Reference Range Interpretation Comments UA Nitrite (test code Negative (07/06/16 9:52 = UA Nitrite) PM) [facility] AND [id number] 02:52:00 Test Item Value Reference Range Interpretation Comments UA Ketones (test code = UA Negative mg/dL Ketones) [facility] AND [id number] 02:52:00 Test Item Value Reference Range Interpretation Comments UA Glucose (test code = UA Negative mg/dL Glucose) [facility] AND [id number] 02:52:00 Test Item Value Reference Range Interpretation Comments UA Spec Grav (test code = UA Spec Grav) 1.008 [facility] AND [id number] 02:52:00 Test Item Value Reference Range Interpretation Comments UA pH (test code = UA pH) 7.0 5.0-8.0 [facility] AND [id number] 02:52:00 Test Item Value Reference Range Interpretation Comments UA Protein (test code = UA Protein) 10 mg/dL [facility] AND [id number] 02:52:00 Test Item Value Reference Range Interpretation Comments UA RBC (test code = 1 See_Comment [Automa amor message] The UA RBC) system which ge nerated this result transmit amor reference range : <=2. The reference range was not used to interpr et this result as hiren l/abnormal. [facility] [id number] 02:52:00 Test Item Value Reference Range Interpretation Comments UA Bacteria (test code = UA Occasional /HPF Bacteria) [facility] [id number] 02:52:00 Test Item Value Reference Range Interpretation Comments UA Leuk Est (test code Large *ABN*(07/06/16 = UA Leuk Est) 9:52 PM) [facility] [id number] 02:52:00 Test Item Value Reference Range Interpretation Comments UA WBC (test code = 8 See_Comment [Automa amor message] The UA WBC) system which ge nerated this result transmit amor reference range : <=5. The reference range was not used to interpr et this result as hiren l/abnormal. [facility] [id number] 02:52:00 Test Item Value Reference Range Interpretation Comments UA Sq Epi (test code = UA Sq Epi) None [facility]en [facility] [id number] 02:52:00 Test Item Value Reference Range Interpretation Comments UA Mucus (test code = UA Mucus) Few /LPF [facility] AND [id number] 02:52:00 Test Item Value Reference Range Interpretation Comments UA Hyal Cast (test 4 See_Comment [Automat ed message] The code = UA Hyal Cast) system which generated this result transmit amor reference range : <=2. The reference range was not used to interpr et this result as hiren l/abnormal. [facility] [id number] 02:52:00 Test Item Value Reference Range Interpretation Comments U Sodium (test code = U Sodium) 56 [facility] [id number] 02:52:00 Test Item Value Reference Range Interpretation Comments U Osmolality (test code = U Osmolality) 250 300-800 [facility] [id number] 02:52:00 Test Item Value Reference Range Interpretation Comments U Potassium (test code = U Potassium) 24.4 [facility] [id number] 02:52:00 Test Item Value Reference Range Interpretation Comments U Chloride (test code = U Chloride) 72 [facility] [id number] 02:52:00 Test Item Value Reference Range Interpretation Comments U Amph Scr (test code Negative *NA*(07/06/16 = U Amph Scr) 9:52 PM) [facility] [id number] 02:52:00 Test Item Value Reference Range Interpretation Comments UDS Note (test code = See Note *NA*(07/06/16 UDS Note) 9:52 PM) [facility] [id number] 02:52:00 Test Item Value Reference Range Interpretation Comments U Opiate Scr (test Negative *NA*(07/06/16 code = U Opiate Scr) 9:52 PM) [facility] [id number] 02:52:00 Test Item Value Reference Range Interpretation Comments U Cannab Scr (test Negative *NA*(07/06/16 code = U Cannab Scr) 9:52 PM) [facility] [id number] 02:52:00 Test Item Value Reference Range Interpretation Comments U Phencyc Scr (test Negative *NA*(07/06/16 code = U Phencyc Scr) 9:52 PM) [facility] [id number] 02:52:00 Test Item Value Reference Range Interpretation Comments U Benzodia Scr (test Negative *NA*(07/06/16 code = U Benzodia Scr) 9:52 PM) [facility] [id number] 02:52:00 Test Item Value Reference Range Interpretation Comments U Renetta Scr (test code Negative *NA*(07/06/16 = U Renetta Scr) 9:52 PM) [facility] [id number] 02:52:00 Test Item Value Reference Range Interpretation Comments U Cocaine Scr (test Negative *NA*(07/06/16 code = U Cocaine Scr) 9:52 PM) [facility] [id number] 02:52:00 Test Item Value Reference Range Interpretation Comments UA Color (test code = Yellow *NA*(07/06/16 UA Color) 9:52 PM) [facility] [id number] 02:52:00 Test Item Value Reference Range Interpretation Comments UA Turbidity (test code = Clear (07/06/16 9:52 UA Turbidity) PM) [facility] [id number] 02:52:00 Test Item Value Reference Range Interpretation Comments UA Bili (test code = Negative *NA*(07/06/16 UA Bili) 9:52 PM) [facility] AND [id number] 02:52:00 Test Item Value Reference Range Interpretation Comments UA Blood (test code = Negative (07/06/16 9:52 UA Blood) PM) [facility] AND [id number] 02:52:00 Test Item Value Reference Range Interpretation Comments UA Urobilinogen (test code = UA 2.0 0.1-1.0 Urobilinogen) [facility] AND [id number] 02:52:00 Test Item Value Reference Range Interpretation Comments UA Nitrite (test code Negative (07/06/16 9:52 = UA Nitrite) PM) [facility] AND [id number] 02:52:00 Test Item Value Reference Range Interpretation Comments UA Ketones (test code = UA Negative mg/dL Ketones) [facility] AND [id number] 02:52:00 Test Item Value Reference Range Interpretation Comments UA Glucose (test code = UA Negative mg/dL Glucose) [facility] AND [id number] 02:52:00 Test Item Value Reference Range Interpretation Comments UA Spec Grav (test code = UA Spec Grav) 1.008 [facility] AND [id number] 02:52:00 Test Item Value Reference Range Interpretation Comments UA pH (test code = UA pH) 7.0 5.0-8.0 [facility] AND [id number] 02:52:00 Test Item Value Reference Range Interpretation Comments UA Protein (test code = UA Protein) 10 mg/dL [facility] AND [id number] 02:52:00 Test Item Value Reference Range Interpretation Comments UA RBC (test code = 1 See_Comment [Automa amor message] The UA RBC) system which ge nerated this result transmit amor reference range : <=2. The reference range was not used to interpr et this result as hiren l/abnormal. [facility] AND [id number] 02:52:00 Test Item Value Reference Range Interpretation Comments UA Bacteria (test code = UA Occasional /HPF Bacteria) [facility] AND [id number] 02:52:00 Test Item Value Reference Range Interpretation Comments UA Leuk Est (test code Large *ABN*(07/06/16 = UA Leuk Est) 9:52 PM) [facility] [id number] 02:52:00 Test Item Value Reference Range Interpretation Comments UA WBC (test code = 8 See_Comment [Automa amor message] The UA WBC) system which ge nerated this result transmit amor reference range : <=5. The reference range was not used to interpr et this result as hiren l/abnormal. [facility] [id number] 02:52:00 Test Item Value Reference Range Interpretation Comments UA Sq Epi (test code = UA Sq Epi) None [facility]en [facility] [id number] 02:52:00 Test Item Value Reference Range Interpretation Comments UA Mucus (test code = UA Mucus) Few /LPF [facility] [id number] 02:52:00 Test Item Value Reference Range Interpretation Comments UA Hyal Cast (test 4 See_Comment [Automat ed message] The code = UA Hyal Cast) system which generated this result transmit amor reference range : <=2. The reference range was not used to interpr et this result as hiren l/abnormal. [facility] [id number] 02:52:00 Test Item Value Reference Range Interpretation Comments U Sodium (test code = U Sodium) 56 [facility] [id number] 02:52:00 Test Item Value Reference Range Interpretation Comments U Osmolality (test code = U Osmolality) 250 300-800 [facility] [id number] 02:52:00 Test Item Value Reference Range Interpretation Comments U Potassium (test code = U Potassium) 24.4 [facility] [id number] 02:52:00 Test Item Value Reference Range Interpretation Comments U Chloride (test code = U Chloride) 72 [facility] [id number] 02:52:00 Test Item Value Reference Range Interpretation Comments U Amph Scr (test code Negative *NA*(07/06/16 = U Amph Scr) 9:52 PM) [facility] [id number] 02:52:00 Test Item Value Reference Range Interpretation Comments UDS Note (test code = See Note *NA*(07/06/16 UDS Note) 9:52 PM) [facility] [id number] 02:52:00 Test Item Value Reference Range Interpretation Comments U Opiate Scr (test Negative *NA*(07/06/16 code = U Opiate Scr) 9:52 PM) [facility] [id number] 02:52:00 Test Item Value Reference Range Interpretation Comments U Cannab Scr (test Negative *NA*(07/06/16 code = U Cannab Scr) 9:52 PM) [facility] [id number] 02:52:00 Test Item Value Reference Range Interpretation Comments U Phencyc Scr (test Negative *NA*(07/06/16 code = U Phencyc Scr) 9:52 PM) [facility] [id number] 02:52:00 Test Item Value Reference Range Interpretation Comments U Benzodia Scr (test Negative *NA*(07/06/16 code = U Benzodia Scr) 9:52 PM) [facility] [id number] 02:52:00 Test Item Value Reference Range Interpretation Comments U Renetta Scr (test code Negative *NA*(07/06/16 = U Renetta Scr) 9:52 PM) [facility] [id number] 02:52:00 Test Item Value Reference Range Interpretation Comments U Cocaine Scr (test Negative *NA*(07/06/16 code = U Cocaine Scr) 9:52 PM) [facility] [id number] 02:52:00 Test Item Value Reference Range Interpretation Comments UA Color (test code = Yellow *NA*(07/06/16 UA Color) 9:52 PM) [facility] [id number] 02:52:00 Test Item Value Reference Range Interpretation Comments UA Turbidity (test code = Clear (07/06/16 9:52 UA Turbidity) PM) [facility] [id number] 02:52:00 Test Item Value Reference Range Interpretation Comments UA Bili (test code = Negative *NA*(07/06/16 UA Bili) 9:52 PM) [facility] [id number] 02:52:00 Test Item Value Reference Range Interpretation Comments UA Blood (test code = Negative (07/06/16 9:52 UA Blood) PM) [facility] [id number] 02:52:00 Test Item Value Reference Range Interpretation Comments UA Urobilinogen (test code = UA 2.0 0.1-1.0 Urobilinogen) [facility] AND [id number] 02:52:00 Test Item Value Reference Range Interpretation Comments UA Nitrite (test code Negative (07/06/16 9:52 = UA Nitrite) PM) [facility] AND [id number] 02:52:00 Test Item Value Reference Range Interpretation Comments UA Ketones (test code = UA Negative mg/dL Ketones) [facility] AND [id number] 02:52:00 Test Item Value Reference Range Interpretation Comments UA Glucose (test code = UA Negative mg/dL Glucose) [facility] AND [id number] 02:52:00 Test Item Value Reference Range Interpretation Comments UA Spec Grav (test code = UA Spec Grav) 1.008 [facility] AND [id number] 02:52:00 Test Item Value Reference Range Interpretation Comments UA pH (test code = UA pH) 7.0 5.0-8.0 [facility] AND [id number] 02:52:00 Test Item Value Reference Range Interpretation Comments UA Protein (test code = UA Protein) 10 mg/dL [facility] AND [id number] 02:52:00 Test Item Value Reference Range Interpretation Comments UA RBC (test code = 1 See_Comment [Automa amor message] The UA RBC) system which ge nerated this result transmit amor reference range : <=2. The reference range was not used to interpr et this result as hiren l/abnormal. [facility] AND [id number] 02:52:00 Test Item Value Reference Range Interpretation Comments UA Bacteria (test code = UA Occasional /HPF Bacteria) [facility] AND [id number] 02:52:00 Test Item Value Reference Range Interpretation Comments UA Leuk Est (test code Large *ABN*(07/06/16 = UA Leuk Est) 9:52 PM) [facility] AND [id number] 02:52:00 Test Item Value Reference Range Interpretation Comments UA WBC (test code = 8 See_Comment [Automa amor message] The UA WBC) system which ge nerated this result transmit amor reference range : <=5. The reference range was not used to interpr et this result as hiren l/abnormal. [facility] [id number] 02:52:00 Test Item Value Reference Range Interpretation Comments UA Sq Epi (test code = UA Sq Epi) None [facility]en [facility] [id number] 02:52:00 Test Item Value Reference Range Interpretation Comments UA Mucus (test code = UA Mucus) Few /LPF [facility] [id number] 02:52:00 Test Item Value Reference Range Interpretation Comments UA Hyal Cast (test 4 See_Comment [Automat ed message] The code = UA Hyal Cast) system which generated this result transmit amor reference range : <=2. The reference range was not used to interpr et this result as hiren l/abnormal. [facility] [id number] 02:52:00 Test Item Value Reference Range Interpretation Comments U Sodium (test code = U Sodium) 56 [facility] [id number] 02:52:00 Test Item Value Reference Range Interpretation Comments U Osmolality (test code = U Osmolality) 250 300-800 [facility] [id number] 02:52:00 Test Item Value Reference Range Interpretation Comments U Potassium (test code = U Potassium) 24.4 [facility] [id number] 02:52:00 Test Item Value Reference Range Interpretation Comments U Chloride (test code = U Chloride) 72 [facility] [id number] 02:52:00 Test Item Value Reference Range Interpretation Comments U Amph Scr (test code Negative *NA*(07/06/16 = U Amph Scr) 9:52 PM) [facility] [id number] 02:52:00 Test Item Value Reference Range Interpretation Comments UDS Note (test code = See Note *NA*(07/06/16 UDS Note) 9:52 PM) [facility] [id number] 02:52:00 Test Item Value Reference Range Interpretation Comments U Opiate Scr (test Negative *NA*(07/06/16 code = U Opiate Scr) 9:52 PM) [facility] [id number] 02:52:00 Test Item Value Reference Range Interpretation Comments U Cannab Scr (test Negative *NA*(07/06/16 code = U Cannab Scr) 9:52 PM) [facility] [id number] 02:52:00 Test Item Value Reference Range Interpretation Comments U Phencyc Scr (test Negative *NA*(07/06/16 code = U Phencyc Scr) 9:52 PM) [facility] [id number] 02:52:00 Test Item Value Reference Range Interpretation Comments U Benzodia Scr (test Negative *NA*(07/06/16 code = U Benzodia Scr) 9:52 PM) [facility] [id number] 02:52:00 Test Item Value Reference Range Interpretation Comments U Renetta Scr (test code Negative *NA*(07/06/16 = U Renetta Scr) 9:52 PM) [facility] [id number] 02:52:00 Test Item Value Reference Range Interpretation Comments U Cocaine Scr (test Negative *NA*(07/06/16 code = U Cocaine Scr) 9:52 PM) [facility] [id number] 02:52:00 Test Item Value Reference Range Interpretation Comments UA Color (test code = Yellow *NA*(07/06/16 UA Color) 9:52 PM) [facility] [id number] 02:52:00 Test Item Value Reference Range Interpretation Comments UA Turbidity (test code = Clear (07/06/16 9:52 UA Turbidity) PM) [facility] [id number] 02:52:00 Test Item Value Reference Range Interpretation Comments UA Bili (test code = Negative *NA*(07/06/16 UA Bili) 9:52 PM) [facility] [id number] 02:52:00 Test Item Value Reference Range Interpretation Comments UA Blood (test code = Negative (07/06/16 9:52 UA Blood) PM) [facility] [id number] 02:52:00 Test Item Value Reference Range Interpretation Comments UA Urobilinogen (test code = UA 2.0 0.1-1.0 Urobilinogen) [facility] [id number] 02:52:00 Test Item Value Reference Range Interpretation Comments UA Nitrite (test code Negative (8/27/16 9:52 = UA Nitrite) PM) [facility] AND [id number] 02:52:00 Test Item Value Reference Range Interpretation Comments UA Ketones (test code = UA Negative mg/dL Ketones) [facility] AND [id number] 02:52:00 Test Item Value Reference Range Interpretation Comments UA Glucose (test code = UA Negative mg/dL Glucose) [facility] AND [id number] 02:52:00 Test Item Value Reference Range Interpretation Comments UA Spec Grav (test code = UA Spec Grav) 1.008 [facility] AND [id number] 02:52:00 Test Item Value Reference Range Interpretation Comments UA pH (test code = UA pH) 7.0 5.0-8.0 [facility] AND [id number] 02:52:00 Test Item Value Reference Range Interpretation Comments UA Protein (test code = UA Protein) 10 mg/dL [facility] AND [id number] 02:52:00 Test Item Value Reference Range Interpretation Comments UA RBC (test code = 1 See_Comment [Automa amor message] The UA RBC) system which ge nerated this result transmit amor reference range : <=2. The reference range was not used to interpr et this result as hiren l/abnormal. [facility] AND [id number] 02:52:00 Test Item Value Reference Range Interpretation Comments UA Bacteria (test code = UA Occasional /HPF Bacteria) [facility] AND [id number] 02:52:00 Test Item Value Reference Range Interpretation Comments UA Leuk Est (test code Large *ABN*(07/06/16 = UA Leuk Est) 9:52 PM) [facility] AND [id number] 02:52:00 Test Item Value Reference Range Interpretation Comments UA WBC (test code = 8 See_Comment [Automa amor message] The UA WBC) system which ge nerated this result transmit amor reference range : <=5. The reference range was not used to interpr et this result as hiren l/abnormal. [facility] AND [id number] 02:52:00 Test Item Value Reference Range Interpretation Comments UA Sq Epi (test code = UA Sq Epi) None Seen [facility] AND [id number] 02:52:00 Test Item Value Reference Range Interpretation Comments UA Mucus (test code = UA Mucus) Few /LPF [facility] [id number] 02:52:00 Test Item Value Reference Range Interpretation Comments UA Hyal Cast (test 4 See_Comment [Automat ed message] The code = UA Hyal Cast) system which generated this result transmit amor reference range : <=2. The reference range was not used to interpr et this result as hiren l/abnormal. [facility] [id number] 02:52:00 Test Item Value Reference Range Interpretation Comments U Sodium (test code = U Sodium) 56 [facility] [id number] 02:52:00 Test Item Value Reference Range Interpretation Comments U Osmolality (test code = U Osmolality) 250 300-800 [facility] [id number] 02:52:00 Test Item Value Reference Range Interpretation Comments U Potassium (test code = U Potassium) 24.4 [facility] [id number] 02:52:00 Test Item Value Reference Range Interpretation Comments U Chloride (test code = U Chloride) 72 [facility] [id number] 02:52:00 Test Item Value Reference Range Interpretation Comments U Amph Scr (test code Negative *NA*(07/06/16 = U Amph Scr) 9:52 PM) [facility] [id number] 02:52:00 Test Item Value Reference Range Interpretation Comments UDS Note (test code = See Note *NA*(07/06/16 UDS Note) 9:52 PM) [facility] [id number] 02:52:00 Test Item Value Reference Range Interpretation Comments U Opiate Scr (test Negative *NA*(07/06/16 code = U Opiate Scr) 9:52 PM) [facility] [id number] 02:52:00 Test Item Value Reference Range Interpretation Comments U Cannab Scr (test Negative *NA*(07/06/16 code = U Cannab Scr) 9:52 PM) [facility] [id number] 02:52:00 Test Item Value Reference Range Interpretation Comments U Phencyc Scr (test Negative *NA*(07/06/16 code = U Phencyc Scr) 9:52 PM) [facility] [id number] 02:52:00 Test Item Value Reference Range Interpretation Comments U Benzodia Scr (test Negative *NA*(07/06/16 code = U Benzodia Scr) 9:52 PM) [facility] [id number] 02:52:00 Test Item Value Reference Range Interpretation Comments U Renetta Scr (test code Negative *NA*(07/06/16 = U Renetta Scr) 9:52 PM) [facility] [id number] 02:52:00 Test Item Value Reference Range Interpretation Comments U Cocaine Scr (test Negative *NA*(07/06/16 code = U Cocaine Scr) 9:52 PM) [facility] [id number] 02:52:00 Test Item Value Reference Range Interpretation Comments UA Color (test code = Yellow *NA*(07/06/16 UA Color) 9:52 PM) [facility] [id number] 02:52:00 Test Item Value Reference Range Interpretation Comments UA Turbidity (test code = Clear (07/06/16 9:52 UA Turbidity) PM) [facility] [id number] 02:52:00 Test Item Value Reference Range Interpretation Comments UA Bili (test code = Negative *NA*(07/06/16 UA Bili) 9:52 PM) [facility] [id number] 02:52:00 Test Item Value Reference Range Interpretation Comments UA Blood (test code = Negative (07/06/16 9:52 UA Blood) PM) [facility] [id number] 02:52:00 Test Item Value Reference Range Interpretation Comments UA Urobilinogen (test code = UA 2.0 0.1-1.0 Urobilinogen) [facility] [id number] 02:52:00 Test Item Value Reference Range Interpretation Comments UA Nitrite (test code Negative (07/06/16 9:52 = UA Nitrite) PM) [facility] [id number] 02:52:00 Test Item Value Reference Range Interpretation Comments UA Ketones (test code = UA Negative mg/dL Ketones) [facility] [id number] 02:52:00 Test Item Value Reference Range Interpretation Comments UA Glucose (test code = UA Negative mg/dL Glucose) [facility] [id number] 02:52:00 Test Item Value Reference Range Interpretation Comments UA Spec Grav (test code = UA Spec Grav) 1.008 [facility] [id number] 02:52:00 Test Item Value Reference Range Interpretation Comments UA pH (test code = UA pH) 7.0 5.0-8.0 [facility] [id number] 02:52:00 Test Item Value Reference Range Interpretation Comments UA Protein (test code = UA Protein) 10 mg/dL [facility] AND [id number] 02:52:00 Test Item Value Reference Range Interpretation Comments UA RBC (test code = 1 See_Comment [Automa amor message] The UA RBC) system which ge nerated this result transmit amor reference range : <=2. The reference range was not used to interpr et this result as hiren l/abnormal. [facility] [id number] 02:52:00 Test Item Value Reference Range Interpretation Comments UA Bacteria (test code = UA Occasional /HPF Bacteria) [facility] AND [id number] 02:52:00 Test Item Value Reference Range Interpretation Comments UA Leuk Est (test code Large *ABN*(07/06/16 = UA Leuk Est) 9:52 PM) [facility] AND [id number] 02:52:00 Test Item Value Reference Range Interpretation Comments UA WBC (test code = 8 See_Comment [Automa amor message] The UA WBC) system which ge nerated this result transmit amor reference range : <=5. The reference range was not used to interpr et this result as hiren l/abnormal. [facility] AND [id number] 02:52:00 Test Item Value Reference Range Interpretation Comments UA Sq Epi (test code = UA Sq Epi) None Seen [facility] AND [id number] 02:52:00 Test Item Value Reference Range Interpretation Comments UA Mucus (test code = UA Mucus) Few /LPF [facility] AND [id number] 02:52:00 Test Item Value Reference Range Interpretation Comments UA Hyal Cast (test 4 See_Comment [Automat ed message] The code = UA Hyal Cast) system which generated this result transmit amor reference range : <=2. The reference range was not used to interpr et this result as hiren l/abnormal. [facility] [id number] 02:52:00 Test Item Value Reference Range Interpretation Comments U Sodium (test code = U Sodium) 56 [facility] [id number] 02:52:00 Test Item Value Reference Range Interpretation Comments U Osmolality (test code = U Osmolality) 250 300-800 [facility] [id number] 02:52:00 Test Item Value Reference Range Interpretation Comments U Potassium (test code = U Potassium) 24.4 [facility] [id number] 02:52:00 Test Item Value Reference Range Interpretation Comments U Chloride (test code = U Chloride) 72 [facility] [id number] 02:52:00 Test Item Value Reference Range Interpretation Comments U Amph Scr (test code Negative *NA*(07/06/16 = U Amph Scr) 9:52 PM) [facility] [id number] 02:52:00 Test Item Value Reference Range Interpretation Comments UDS Note (test code = See Note *NA*(07/06/16 UDS Note) 9:52 PM) [facility] [id number] 02:52:00 Test Item Value Reference Range Interpretation Comments U Opiate Scr (test Negative *NA*(07/06/16 code = U Opiate Scr) 9:52 PM) [facility] [id number] 02:52:00 Test Item Value Reference Range Interpretation Comments U Cannab Scr (test Negative *NA*(07/06/16 code = U Cannab Scr) 9:52 PM) [facility] [id number] 02:52:00 Test Item Value Reference Range Interpretation Comments U Phencyc Scr (test Negative *NA*(07/06/16 code = U Phencyc Scr) 9:52 PM) [facility] [id number] 02:52:00 Test Item Value Reference Range Interpretation Comments U Benzodia Scr (test Negative *NA*(07/06/16 code = U Benzodia Scr) 9:52 PM) [facility] [id number] 02:52:00 Test Item Value Reference Range Interpretation Comments U Renetta Scr (test code Negative *NA*(07/06/16 = U Renetta Scr) 9:52 PM) [facility] [id number] 02:52:00 Test Item Value Reference Range Interpretation Comments U Cocaine Scr (test Negative *NA*(07/06/16 code = U Cocaine Scr) 9:52 PM) [facility] [id number] 02:52:00 Test Item Value Reference Range Interpretation Comments UA Color (test code = Yellow *NA*(07/06/16 UA Color) 9:52 PM) [facility] [id number] 02:52:00 Test Item Value Reference Range Interpretation Comments UA Turbidity (test code = Clear (07/06/16 9:52 UA Turbidity) PM) [facility] [id number] 02:52:00 Test Item Value Reference Range Interpretation Comments UA Bili (test code = Negative *NA*(07/06/16 UA Bili) 9:52 PM) [facility] [id number] 02:52:00 Test Item Value Reference Range Interpretation Comments UA Blood (test code = Negative (07/06/16 9:52 UA Blood) PM) [facility] [id number] 02:52:00 Test Item Value Reference Range Interpretation Comments UA Urobilinogen (test code = UA 2.0 0.1-1.0 Urobilinogen) [facility] [id number] 02:52:00 Test Item Value Reference Range Interpretation Comments UA Nitrite (test code Negative (07/06/16 9:52 = UA Nitrite) PM) [facility] [id number] 02:52:00 Test Item Value Reference Range Interpretation Comments UA Ketones (test code = UA Negative mg/dL Ketones) [facility] [id number] 02:52:00 Test Item Value Reference Range Interpretation Comments UA Glucose (test code = UA Negative mg/dL Glucose) [facility] [id number] 02:52:00 Test Item Value Reference Range Interpretation Comments UA Spec Grav (test code = UA Spec Grav) 1.008 [facility] [id number] 02:52:00 Test Item Value Reference Range Interpretation Comments UA pH (test code = UA pH) 7.0 5.0-8.0 [facility] [id number] 02:52:00 Test Item Value Reference Range Interpretation Comments UA Protein (test code = UA Protein) 10 mg/dL [facility] AND [id number] 02:52:00 Test Item Value Reference Range Interpretation Comments UA RBC (test code = 1 See_Comment [Automa amor message] The UA RBC) system which ge nerated this result transmit amor reference range : <=2. The reference range was not used to interpr et this result as hiren l/abnormal. [facility] AND [id number] 02:52:00 Test Item Value Reference Range Interpretation Comments UA Bacteria (test code = UA Occasional /HPF Bacteria) [facility] AND [id number] 02:52:00 Test Item Value Reference Range Interpretation Comments UA Leuk Est (test code Large *ABN*(07/06/16 = UA Leuk Est) 9:52 PM) [facility] AND [id number] 02:52:00 Test Item Value Reference Range Interpretation Comments UA WBC (test code = 8 See_Comment [Automa amor message] The UA WBC) system which ge nerated this result transmit amor reference range : <=5. The reference range was not used to interpr et this result as hiren l/abnormal. [facility] AND [id number] 02:52:00 Test Item Value Reference Range Interpretation Comments UA Sq Epi (test code = UA Sq Epi) None Seen [facility] AND [id number] 02:52:00 Test Item Value Reference Range Interpretation Comments UA Mucus (test code = UA Mucus) Few /LPF [facility] AND [id number] 02:52:00 Test Item Value Reference Range Interpretation Comments UA Hyal Cast (test 4 See_Comment [Automat ed message] The code = UA Hyal Cast) system which generated this result transmit amor reference range : <=2. The reference range was not used to interpr et this result as hiren l/abnormal. [facility]2016-08-28 02:52:00 Test Item Value Reference Range Interpretation Comments U Sodium (test code = U Sodium) 56 [facility]2016-08-28 02:52:00 Test Item Value Reference Range Interpretation Comments U Osmolality (test code = U Osmolality) 250 300-800 [facility]2016-08-28 02:52:00 Test Item Value Reference Range Interpretation Comments U Potassium (test code = U Potassium) 24.4 [facility] [id number] 02:52:00 Test Item Value Reference Range Interpretation Comments U Chloride (test code = U Chloride) 72 [facility] [id number] 02:52:00 Test Item Value Reference Range Interpretation Comments U Amph Scr (test code Negative *NA*(07/06/16 = U Amph Scr) 9:52 PM) [facility] [id number] 02:52:00 Test Item Value Reference Range Interpretation Comments UDS Note (test code = See Note *NA*(07/06/16 UDS Note) 9:52 PM) [facility] [id number] 02:52:00 Test Item Value Reference Range Interpretation Comments U Opiate Scr (test Negative *NA*(07/06/16 code = U Opiate Scr) 9:52 PM) [facility] [id number] 02:52:00 Test Item Value Reference Range Interpretation Comments U Cannab Scr (test Negative *NA*(07/06/16 code = U Cannab Scr) 9:52 PM) [facility] [id number] 02:52:00 Test Item Value Reference Range Interpretation Comments U Phencyc Scr (test Negative *NA*(07/06/16 code = U Phencyc Scr) 9:52 PM) [facility] [id number] 02:52:00 Test Item Value Reference Range Interpretation Comments U Benzodia Scr (test Negative *NA*(07/06/16 code = U Benzodia Scr) 9:52 PM) [facility] [id number] 02:52:00 Test Item Value Reference Range Interpretation Comments U Renetta Scr (test code Negative *NA*(07/06/16 = U Renetta Scr) 9:52 PM) [facility] [id number] 02:52:00 Test Item Value Reference Range Interpretation Comments U Cocaine Scr (test Negative *NA*(07/06/16 code = U Cocaine Scr) 9:52 PM) [facility] [id number] 02:52:00 Test Item Value Reference Range Interpretation Comments UA Color (test code = Yellow *NA*(8/27/16 UA Color) 9:52 PM) [facility] [id number] 02:52:00 Test Item Value Reference Range Interpretation Comments UA Turbidity (test code = Clear (07/06/16 9:52 UA Turbidity) PM) [facility] AND [id number] 02:52:00 Test Item Value Reference Range Interpretation Comments UA Bili (test code = Negative *NA*(07/06/16 UA Bili) 9:52 PM) [facility] AND [id number] 02:52:00 Test Item Value Reference Range Interpretation Comments UA Blood (test code = Negative (07/06/16 9:52 UA Blood) PM) [facility] AND [id number] 02:52:00 Test Item Value Reference Range Interpretation Comments UA Urobilinogen (test code = UA 2.0 0.1-1.0 Urobilinogen) [facility] AND [id number] 02:52:00 Test Item Value Reference Range Interpretation Comments UA Nitrite (test code Negative (07/06/16 9:52 = UA Nitrite) PM) [facility] AND [id number] 02:52:00 Test Item Value Reference Range Interpretation Comments UA Ketones (test code = UA Negative mg/dL Ketones) [facility] AND [id number] 02:52:00 Test Item Value Reference Range Interpretation Comments UA Glucose (test code = UA Negative mg/dL Glucose) [facility] AND [id number] 02:52:00 Test Item Value Reference Range Interpretation Comments UA Spec Grav (test code = UA Spec Grav) 1.008 [facility] AND [id number] 02:52:00 Test Item Value Reference Range Interpretation Comments UA pH (test code = UA pH) 7.0 5.0-8.0 [facility] AND [id number] 02:52:00 Test Item Value Reference Range Interpretation Comments UA Protein (test code = UA Protein) 10 mg/dL [facility] AND [id number] 02:52:00 Test Item Value Reference Range Interpretation Comments UA RBC (test code = 1 See_Comment [Automa amor message] The UA RBC) system which ge nerated this result transmit amor reference range : <=2. The reference range was not used to interpr et this result as hiren l/abnormal. [facility] [id number] 02:52:00 Test Item Value Reference Range Interpretation Comments UA Bacteria (test code = UA Occasional /HPF Bacteria) [facility] [id number] 02:52:00 Test Item Value Reference Range Interpretation Comments UA Leuk Est (test code Large *ABN*(07/06/16 = UA Leuk Est) 9:52 PM) [facility] [id number] 02:52:00 Test Item Value Reference Range Interpretation Comments UA WBC (test code = 8 See_Comment [Automa amor message] The UA WBC) system which ge nerated this result transmit amor reference range : <=5. The reference range was not used to interpr et this result as hiren l/abnormal. [facility] [id number] 02:52:00 Test Item Value Reference Range Interpretation Comments UA Sq Epi (test code = UA Sq Epi) None Seen [facility] AND [id number] 02:52:00 Test Item Value Reference Range Interpretation Comments UA Mucus (test code = UA Mucus) Few /LPF [facility] [id number] 02:52:00 Test Item Value Reference Range Interpretation Comments UA Hyal Cast (test 4 See_Comment [Automat ed message] The code = UA Hyal Cast) system which generated this result transmit amor reference range : <=2. The reference range was not used to interpr et this result as hiren l/abnormal. [facility] [id number] 02:52:00 Test Item Value Reference Range Interpretation Comments U Sodium (test code = U Sodium) 56 [facility] [id number] 02:52:00 Test Item Value Reference Range Interpretation Comments U Osmolality (test code = U Osmolality) 250 300-800 [facility] [id number] 02:52:00 Test Item Value Reference Range Interpretation Comments U Potassium (test code = U Potassium) 24.4 [facility] [id number] 02:52:00 Test Item Value Reference Range Interpretation Comments U Chloride (test code = U Chloride) 72 [facility] [id number] 02:52:00 Test Item Value Reference Range Interpretation Comments U Amph Scr (test code Negative *NA*(07/06/16 = U Amph Scr) 9:52 PM) [facility] [id number] 02:52:00 Test Item Value Reference Range Interpretation Comments UDS Note (test code = See Note *NA*(07/06/16 UDS Note) 9:52 PM) [facility] [id number] 02:52:00 Test Item Value Reference Range Interpretation Comments U Opiate Scr (test Negative *NA*(07/06/16 code = U Opiate Scr) 9:52 PM) [facility] [id number] 02:52:00 Test Item Value Reference Range Interpretation Comments U Cannab Scr (test Negative *NA*(07/06/16 code = U Cannab Scr) 9:52 PM) [facility] [id number] 02:52:00 Test Item Value Reference Range Interpretation Comments U Phencyc Scr (test Negative *NA*(07/06/16 code = U Phencyc Scr) 9:52 PM) [facility] [id number] 02:52:00 Test Item Value Reference Range Interpretation Comments U Benzodia Scr (test Negative *NA*(07/06/16 code = U Benzodia Scr) 9:52 PM) [facility] [id number] 02:52:00 Test Item Value Reference Range Interpretation Comments U Renetta Scr (test code Negative *NA*(07/06/16 = U Renetta Scr) 9:52 PM) [facility] [id number] 02:52:00 Test Item Value Reference Range Interpretation Comments U Cocaine Scr (test Negative *NA*(07/06/16 code = U Cocaine Scr) 9:52 PM) [facility] [id number] 02:52:00 Test Item Value Reference Range Interpretation Comments UA Color (test code = Yellow *NA*(07/06/16 UA Color) 9:52 PM) [facility] [id number] 02:52:00 Test Item Value Reference Range Interpretation Comments UA Turbidity (test code = Clear (07/06/16 9:52 UA Turbidity) PM) [facility] [id number] 02:52:00 Test Item Value Reference Range Interpretation Comments UA Bili (test code = Negative *NA*(07/06/16 UA Bili) 9:52 PM) [facility] AND [id number] 02:52:00 Test Item Value Reference Range Interpretation Comments UA Blood (test code = Negative (07/06/16 9:52 UA Blood) PM) [facility] AND [id number] 02:52:00 Test Item Value Reference Range Interpretation Comments UA Urobilinogen (test code = UA 2.0 0.1-1.0 Urobilinogen) [facility] AND [id number] 02:52:00 Test Item Value Reference Range Interpretation Comments UA Nitrite (test code Negative (07/06/16 9:52 = UA Nitrite) PM) [facility] AND [id number] 02:52:00 Test Item Value Reference Range Interpretation Comments UA Ketones (test code = UA Negative mg/dL Ketones) [facility] AND [id number] 02:52:00 Test Item Value Reference Range Interpretation Comments UA Glucose (test code = UA Negative mg/dL Glucose) [facility] AND [id number] 02:52:00 Test Item Value Reference Range Interpretation Comments UA Spec Grav (test code = UA Spec Grav) 1.008 [facility] AND [id number] 02:52:00 Test Item Value Reference Range Interpretation Comments UA pH (test code = UA pH) 7.0 5.0-8.0 [facility] AND [id number] 02:52:00 Test Item Value Reference Range Interpretation Comments UA Protein (test code = UA Protein) 10 mg/dL [facility] AND [id number] 02:52:00 Test Item Value Reference Range Interpretation Comments UA RBC (test code = 1 See_Comment [Automa amor message] The UA RBC) system which ge nerated this result transmit amor reference range : <=2. The reference range was not used to interpr et this result as hiren l/abnormal. [facility] AND [id number] 02:52:00 Test Item Value Reference Range Interpretation Comments UA Bacteria (test code = UA Occasional /HPF Bacteria) [facility] AND [id number] 02:52:00 Test Item Value Reference Range Interpretation Comments UA Leuk Est (test code Large *ABN*(07/06/16 = UA Leuk Est) 9:52 PM) [facility] [id number] 02:52:00 Test Item Value Reference Range Interpretation Comments UA WBC (test code = 8 See_Comment [Automa amor message] The UA WBC) system which ge nerated this result transmit amor reference range : <=5. The reference range was not used to interpr et this result as hiren l/abnormal. [facility] [id number] 02:52:00 Test Item Value Reference Range Interpretation Comments UA Sq Epi (test code = UA Sq Epi) None Seen [facility] [id number] 02:52:00 Test Item Value Reference Range Interpretation Comments UA Mucus (test code = UA Mucus) Few /LPF [facility] [id number] 02:52:00 Test Item Value Reference Range Interpretation Comments UA Hyal Cast (test 4 See_Comment [Automat ed message] The code = UA Hyal Cast) system which generated this result transmit amor reference range : <=2. The reference range was not used to interpr et this result as hiren l/abnormal. [facility] [id number] 02:52:00 Test Item Value Reference Range Interpretation Comments U Sodium (test code = U Sodium) 56 [facility] [id number] 02:52:00 Test Item Value Reference Range Interpretation Comments U Osmolality (test code = U Osmolality) 250 300-800 [facility] [id number] 02:52:00 Test Item Value Reference Range Interpretation Comments U Potassium (test code = U Potassium) 24.4 [facility] [id number] 02:52:00 Test Item Value Reference Range Interpretation Comments U Chloride (test code = U Chloride) 72 [facility] [id number] 00:29:00 Test Item Value Reference Range Interpretation Comments Osmolality (test code = Osmolality) 268 280-300 [id number] 00:29:00 Test Item Value Reference Range Interpretation Comments Eosinophils (test code = 0.8 See_Comment [A utomated message] The Eosinophils) system which ge nerated this result tra nsmitted reference range : <=4.0. The reference r lamar was not used to int erpret this result as normal/abnormal . [facility]YtkrwxjWZJFYFXDZO2294-01-29 00:29:00 Test Item Value Reference Range Interpretation Comments Eosinophils # (test code 0.1 See_Comment [A utomated message] The = Eosinophils #) system whic h generated this result tra nsmitted reference range : <=0.5. The reference r lamar was not used to int erpret this result as normal/abnormal . [id number] 00:29:00 Test Item Value Reference Range Interpretation Comments Lymphocytes # (test code = Lymphocytes 0.6 1.0-5.5 #) [facility] [id number] 00:29:00 Test Item Value Reference Range Interpretation Comments Monocytes # (test code 0.5 See_Comment [Aut omated message] The = Monocytes #) system which generated this result tra nsmitted reference range : <=0.8. The reference r lamar was not used to int erpret this result as normal/abnormal . [facility] [id number] 00:29:00 Test Item Value Reference Range Interpretation Comments Basophils (test code = 0.7 See_Comment [Aut omated message] The Basophils) system which ge nerated this result tra nsmitted reference range : <=1.0. The reference r lamar was not used to int erpret this result as normal/abnormal . [facility] CenterEkydnqqAUUPIYYIYY3856-61-30 00:29:00 Test Item Value Reference Range Interpretation Comments Segs-Bands # (test code = Segs-Bands #) 8.0 1.5-8.1 [facility] [id number] 00:29:00 Test Item Value Reference Range Interpretation Comments Segs (test code = Segs) 86.7 45.0-75.0 [facility] CenterVfyaljbEMSRDZSGSO2157-51-72 00:29:00 Test Item Value Reference Range Interpretation Comments Monocytes (test code = Monocytes) 5.4 2.0-12.0 [facility] CenterVgkyqtpKRSWGHSDCR6269-02-48 00:29:00 Test Item Value Reference Range Interpretation Comments Lymphocytes (test code = Lymphocytes) 6.4 20.0-40.0 [facility] CenterFonfsicYKFRBQLTEM5965-33-89 00:29:00 Test Item Value Reference Range Interpretation Comments MPV (test code = MPV) 8.4 7.4-10.4 [facility] CenterBdeieonOQHEFARWEL4704-80-98 00:29:00 Test Item Value Reference Range Interpretation Comments RDW (test code = RDW) 13.9 11.5-14.5 [facility] CenterWzlzwnsBGVEPTESXE0969-40-21 00:29:00 Test Item Value Reference Range Interpretation Comments Platelet (test code = Platelet) 391 133-450 [facility] CenterMbcqhqiDPLQROLJND1193-93-34 00:29:00 Test Item Value Reference Range Interpretation Comments MCHC (test code = MCHC) 36.2 32.0-36.0 [facility] CenterLzgxbgfEMJXHZYVEA8676-75-69 00:29:00 Test Item Value Reference Range Interpretation Comments MCV (test code = MCV) 87.0 80.0-98.0 [facility] CenterDqivpzpYGDGGKLCSN0258-91-12 00:29:00 Test Item Value Reference Range Interpretation Comments Hgb (test code = Hgb) 10.1 12.0-16.0 [facility] CenterAivymzmYBESDVOSNJ2279-08-73 00:29:00 Test Item Value Reference Range Interpretation Comments Hct (test code = Hct) 27.8 36.0-48.0 [facility] CenterSlljtldPIFDHBTAMG3279-01-37 00:29:00 Test Item Value Reference Range Interpretation Comments RBC (test code = RBC) 3.19 4.20-5.40 [facility] CenterYzdvcnrTWMJOHGSIX2643-34-31 00:29:00 Test Item Value Reference Range Interpretation Comments WBC (test code = WBC) 9.3 3.7-10.4 [facility] CenterAxxdjkaXPMSIIELSZ8622-00-92 00:29:00 Test Item Value Reference Range Interpretation Comments MCH (test code = MCH) 31.6 pg 27.0-31.0 [facility]MmogvlfTXHDXE2830-10-42 00:29:00 Test Item Value Reference Range Interpretation Comments VLDL (test code = VLDL) 17 [facility] TexasIsltxlgDAUDED2641-20-80 00:29:00 Test Item Value Reference Range Interpretation Comments Chol (test code = Chol) 177 [facility] TexasWjdebxiPYJTCA4439-81-75 00:29:00 Test Item Value Reference Range Interpretation Comments CHD Risk (test code = CHD Risk) 4.21 3.90-5.80 [facility] TexasSgrzbfqTUYZPX7863-37-20 00:29:00 Test Item Value Reference Range Interpretation Comments Trig (test code = Trig) 83 [facility] TexasEhkotulFPFYAC9574-74-41 00:29:00 Test Item Value Reference Range Interpretation Comments HDL (test code = HDL) 42 [facility]MkyeajxYDPCEJ8830-83-75 00:29:00 Test Item Value Reference Range Interpretation Comments LDL (Calculated) (test code = LDL 118 (Calculated)) [facility]CHE[facility] YUGBJ0644-07-61 00:29:00 Test Item Value Reference Range Interpretation Comments Osmolality (test code = Osmolality) 268 280-300 [facility] CenterIuczlccJTOIAZFVWZ4491-71-22 00:29:00 Test Item Value Reference Range Interpretation Comments Eosinophils (test code = 0.8 See_Comment [A utomated message] The Eosinophils) system which ge nerated this result tra nsmitted reference range : <=4.0. The reference r lamar was not used to int erpret this result as normal/abnormal . [facility] CenterJzznwyyLNAABHOPHF0464-08-33 00:29:00 Test Item Value Reference Range Interpretation Comments Eosinophils # (test code 0.1 See_Comment [A utomated message] The = Eosinophils #) system wh h generated this result tra nsmitted reference range : <=0.5. The reference r lamar was not used to int erpret this result as normal/abnormal . [facility] CenterGuuznztYAUFAHHXDG9194-90-35 00:29:00 Test Item Value Reference Range Interpretation Comments Lymphocytes # (test code = Lymphocytes 0.6 1.0-5.5 #) [facility] CenterJsntfjvQXQCBTAPNO3771-59-29 00:29:00 Test Item Value Reference Range Interpretation Comments Monocytes # (test code 0.5 See_Comment [Aut omated message] The = Monocytes #) system which generated this result tra nsmitted reference range : <=0.8. The reference r lamar was not used to int erpret this result as normal/abnormal . [facility] CenterIntgslkVVDPKKBGXG2185-98-60 00:29:00 Test Item Value Reference Range Interpretation Comments Basophils (test code = 0.7 See_Comment [Aut omated message] The Basophils) system which ge nerated this result tra nsmitted reference range : <=1.0. The reference r lamar was not used to int erpret this result as normal/abnormal . [facility] CenterXrmivkpUTUXMTBMRB3930-95-86 00:29:00 Test Item Value Reference Range Interpretation Comments Segs-Bands # (test code = Segs-Bands #) 8.0 1.5-8.1 [facility] CenterWrhujrsIBTSJCRMJS1753-16-96 00:29:00 Test Item Value Reference Range Interpretation Comments Segs (test code = Segs) 86.7 45.0-75.0 [facility] CenterHxlnrbvWXWCJDSCDT6219-50-55 00:29:00 Test Item Value Reference Range Interpretation Comments Monocytes (test code = Monocytes) 5.4 2.0-12.0 [facility] CenterDgakhxeJWHOSJDHSI8768-80-91 00:29:00 Test Item Value Reference Range Interpretation Comments Lymphocytes (test code = Lymphocytes) 6.4 20.0-40.0 [facility] CenterJwgyqisVIGHAGXQHT9740-39-74 00:29:00 Test Item Value Reference Range Interpretation Comments MPV (test code = MPV) 8.4 7.4-10.4 [facility] CenterZcxghklKSGWMUDIWR2500-17-47 00:29:00 Test Item Value Reference Range Interpretation Comments RDW (test code = RDW) 13.9 11.5-14.5 [facility] CenterKrrqhcgTLUMISHZDT0508-76-16 00:29:00 Test Item Value Reference Range Interpretation Comments Platelet (test code = Platelet) 391 133-450 [facility] CenterBjctbzhRQCRFJKAHW1948-74-51 00:29:00 Test Item Value Reference Range Interpretation Comments MCHC (test code = MCHC) 36.2 32.0-36.0 [facility] CenterObwfvgzJQTHIMZHZV3289-75-08 00:29:00 Test Item Value Reference Range Interpretation Comments MCV (test code = MCV) 87.0 80.0-98.0 [facility] CenterIodhpqnVMEXVPJRBA7503-90-50 00:29:00 Test Item Value Reference Range Interpretation Comments Hgb (test code = Hgb) 10.1 12.0-16.0 [facility] CenterSotfoizMDNUGGZTQD6679-79-85 00:29:00 Test Item Value Reference Range Interpretation Comments Hct (test code = Hct) 27.8 36.0-48.0 [facility] CenterSvyypmpOVLNCAJFKP5881-20-46 00:29:00 Test Item Value Reference Range Interpretation Comments RBC (test code = RBC) 3.19 4.20-5.40 [facility] CenterOwzdqprRYYGWUXQFY0158-16-05 00:29:00 Test Item Value Reference Range Interpretation Comments WBC (test code = WBC) 9.3 3.7-10.4 [facility] CenterJskjnzlRALEPQVMFS5990-11-60 00:29:00 Test Item Value Reference Range Interpretation Comments MCH (test code = MCH) 31.6 pg 27.0-31.0 [facility] TexasBmvrmgmDJMISK7995-46-20 00:29:00 Test Item Value Reference Range Interpretation Comments VLDL (test code = VLDL) 17 [facility] TexasLyicslpDMTGFN3044-20-56 00:29:00 Test Item Value Reference Range Interpretation Comments Chol (test code = Chol) 177 [facility] TexasTztpojqXJCWRI5387-65-46 00:29:00 Test Item Value Reference Range Interpretation Comments CHD Risk (test code = CHD Risk) 4.21 3.90-5.80 [facility] TexasAjbzftuQRTFZO5506-01-54 00:29:00 Test Item Value Reference Range Interpretation Comments Trig (test code = Trig) 83 [facility] TexasMmjmlqqFGGNBD8204-61-43 00:29:00 Test Item Value Reference Range Interpretation Comments HDL (test code = HDL) 42 [facility] TexasPpuhxkcPXGJFV8064-30-50 00:29:00 Test Item Value Reference Range Interpretation Comments LDL (Calculated) (test code = LDL 118 (Calculated)) [facility]2016-08-28 00:29:00 Test Item Value Reference Range Interpretation Comments Osmolality (test code = Osmolality) 268 280-300 [facility] CenterMmmnwemBHHQYZDIWP0789-42-91 00:29:00 Test Item Value Reference Range Interpretation Comments Eosinophils (test code = 0.8 See_Comment [A utomated message] The Eosinophils) system which ge nerated this result tra nsmitted reference range : <=4.0. The reference r lamar was not used to int erpret this result as normal/abnormal . [facility] CenterTngtqxoYJXUGGPWPU8015-69-44 00:29:00 Test Item Value Reference Range Interpretation Comments Eosinophils # (test code 0.1 See_Comment [A utomated message] The = Eosinophils #) system whic h generated this result tra nsmitted reference range : <=0.5. The reference r lamar was not used to int erpret this result as normal/abnormal . [facility] CenterDahqgzgJZRWFKQDRH7508-14-78 00:29:00 Test Item Value Reference Range Interpretation Comments Lymphocytes # (test code = Lymphocytes 0.6 1.0-5.5 #) [facility] CenterGclyqgrIOZDPBKNCX3748-73-75 00:29:00 Test Item Value Reference Range Interpretation Comments Monocytes # (test code 0.5 See_Comment [Aut omated message] The = Monocytes #) system which generated this result tra nsmitted reference range : <=0.8. The reference r lamar was not used to int erpret this result as normal/abnormal . [facility] CenterTudctcqRNDPCPTJXO9612-83-68 00:29:00 Test Item Value Reference Range Interpretation Comments Basophils (test code = 0.7 See_Comment [Aut omated message] The Basophils) system which ge nerated this result tra nsmitted reference range : <=1.0. The reference r lamar was not used to int erpret this result as normal/abnormal . [facility] CenterNefghkmGKIPHDDKPD5047-31-60 00:29:00 Test Item Value Reference Range Interpretation Comments Segs-Bands # (test code = Segs-Bands #) 8.0 1.5-8.1 [facility] CenterMaeqjwsSKUMXXLHGD3235-53-11 00:29:00 Test Item Value Reference Range Interpretation Comments Segs (test code = Segs) 86.7 45.0-75.0 [facility] CenterTfhxcuwHZCICLRCAE6518-61-14 00:29:00 Test Item Value Reference Range Interpretation Comments Monocytes (test code = Monocytes) 5.4 2.0-12.0 [facility] CenterZzqghfvQIPSHAHGXZ0579-76-33 00:29:00 Test Item Value Reference Range Interpretation Comments Lymphocytes (test code = Lymphocytes) 6.4 20.0-40.0 [facility] CenterJshfjdtRYAMDNBXKJ8372-08-01 00:29:00 Test Item Value Reference Range Interpretation Comments MPV (test code = MPV) 8.4 7.4-10.4 [facility] CenterMbtugcrOAPJMCNIDN8442-26-68 00:29:00 Test Item Value Reference Range Interpretation Comments RDW (test code = RDW) 13.9 11.5-14.5 [facility] CenterLphaluzIKISQJHOAP8905-49-46 00:29:00 Test Item Value Reference Range Interpretation Comments Platelet (test code = Platelet) 391 133-450 [facility] CenterLajamlqABTHAPVGZP9194-94-37 00:29:00 Test Item Value Reference Range Interpretation Comments MCHC (test code = MCHC) 36.2 32.0-36.0 [facility] CenterByecatjQEVDOKEKWA3309-99-44 00:29:00 Test Item Value Reference Range Interpretation Comments MCV (test code = MCV) 87.0 80.0-98.0 [facility] HospitalAdlktouICOCBMBWVZ2818-72-54 00:29:00 Test Item Value Reference Range Interpretation Comments Hgb (test code = Hgb) 10.1 12.0-16.0 [facility] HospitalYceshjmCPTXFXPLOY5849-87-54 00:29:00 Test Item Value Reference Range Interpretation Comments Hct (test code = Hct) 27.8 36.0-48.0 [facility] HospitalFzuhghpQXOMBMTZFQ9968-38-15 00:29:00 Test Item Value Reference Range Interpretation Comments RBC (test code = RBC) 3.19 4.20-5.40 [facility] HospitalIwiwkibATUVOTUVVD6216-30-24 00:29:00 Test Item Value Reference Range Interpretation Comments WBC (test code = WBC) 9.3 3.7-10.4 [facility] HospitalEgqmrstQWGSOVICPW1086-53-40 00:29:00 Test Item Value Reference Range Interpretation Comments MCH (test code = MCH) 31.6 pg 27.0-31.0 [facility] HospitalKgbbrlqTDCTBO0609-57-42 00:29:00 Test Item Value Reference Range Interpretation Comments VLDL (test code = VLDL) 17 [facility] HospitalMchldrxWFCFRP2196-02-92 00:29:00 Test Item Value Reference Range Interpretation Comments Chol (test code = Chol) 177 [facility] HospitalHbuyyfbDLNCYX2812-83-18 00:29:00 Test Item Value Reference Range Interpretation Comments CHD Risk (test code = CHD Risk) 4.21 3.90-5.80 [facility] HospitalEcrstivCVAGQD7447-58-45 00:29:00 Test Item Value Reference Range Interpretation Comments Trig (test code = Trig) 83 [facility] HospitalKbxglvmFEUGLO7056-39-12 00:29:00 Test Item Value Reference Range Interpretation Comments HDL (test code = HDL) 42 [facility] HospitalPispqzrRRNLUO9579-23-41 00:29:00 Test Item Value Reference Range Interpretation Comments LDL (Calculated) (test code = LDL 118 (Calculated)) [facility]CHEM CXGZZ2643-22-08 00:29:00 Test Item Value Reference Range Interpretation Comments Osmolality (test code = Osmolality) 268 280-300 [facility] HospitalCbholsjGQNALTFYPR2271-98-36 00:29:00 Test Item Value Reference Range Interpretation Comments Eosinophils (test code = 0.8 See_Comment [A utomated message] The Eosinophils) system which ge nerated this result tra nsmitted reference range : <=4.0. The reference r lamar was not used to int erpret this result as normal/abnormal . [facility] CenterWrpdztpPIDMZRVEUU0384-70-67 00:29:00 Test Item Value Reference Range Interpretation Comments Eosinophils # (test code 0.1 See_Comment [A utomated message] The = Eosinophils #) system whic h generated this result tra nsmitted reference range : <=0.5. The reference r lamar was not used to int erpret this result as normal/abnormal . [facility] CenterFfyzunkYOQSSXQRTU1581-60-37 00:29:00 Test Item Value Reference Range Interpretation Comments Lymphocytes # (test code = Lymphocytes 0.6 1.0-5.5 #) [facility] CenterMxnnypkCRRTZOCMBC5977-13-58 00:29:00 Test Item Value Reference Range Interpretation Comments Monocytes # (test code 0.5 See_Comment [Aut omated message] The = Monocytes #) system which generated this result tra nsmitted reference range : <=0.8. The reference r lamar was not used to int erpret this result as normal/abnormal . [facility] CenterLumoaarUKLZZNCAHM0171-49-45 00:29:00 Test Item Value Reference Range Interpretation Comments Basophils (test code = 0.7 See_Comment [Aut omated message] The Basophils) system which ge nerated this result tra nsmitted reference range : <=1.0. The reference r lamar was not used to int erpret this result as normal/abnormal . [facility] CenterVxdqdjfCIYQCDTPOM7826-51-50 00:29:00 Test Item Value Reference Range Interpretation Comments Segs-Bands # (test code = Segs-Bands #) 8.0 1.5-8.1 [facility] CenterCsklxddNPJZDVZMKS4707-38-95 00:29:00 Test Item Value Reference Range Interpretation Comments Segs (test code = Segs) 86.7 45.0-75.0 [facility] CenterYpeyfygMLMXDPRDJM3507-85-28 00:29:00 Test Item Value Reference Range Interpretation Comments Monocytes (test code = Monocytes) 5.4 2.0-12.0 [facility] CenterWyxpvkiZAYRCMGZRU1974-83-96 00:29:00 Test Item Value Reference Range Interpretation Comments Lymphocytes (test code = Lymphocytes) 6.4 20.0-40.0 [facility] CenterDdyrlclHCWVPIRONL1371-54-74 00:29:00 Test Item Value Reference Range Interpretation Comments MPV (test code = MPV) 8.4 7.4-10.4 [facility] CenterWvkizdlHTXJSNLQRW4171-63-02 00:29:00 Test Item Value Reference Range Interpretation Comments RDW (test code = RDW) 13.9 11.5-14.5 [facility] CenterUbvrevrDYVSNUHYLS9539-70-89 00:29:00 Test Item Value Reference Range Interpretation Comments Platelet (test code = Platelet) 391 133-450 [facility] CenterYxohicgKABOPSLVXO6041-68-56 00:29:00 Test Item Value Reference Range Interpretation Comments MCHC (test code = MCHC) 36.2 32.0-36.0 [facility] CenterTqlzzywFRMLTSDFQT0561-69-77 00:29:00 Test Item Value Reference Range Interpretation Comments MCV (test code = MCV) 87.0 80.0-98.0 [facility] CenterMxudzchJYPIYOUCKT4770-62-23 00:29:00 Test Item Value Reference Range Interpretation Comments Hgb (test code = Hgb) 10.1 12.0-16.0 [facility] CenterUgxcoptWGVNYRYSWY3137-00-67 00:29:00 Test Item Value Reference Range Interpretation Comments Hct (test code = Hct) 27.8 36.0-48.0 [facility] CenterDqqdnvzIXPEKGJGDX5006-70-47 00:29:00 Test Item Value Reference Range Interpretation Comments RBC (test code = RBC) 3.19 4.20-5.40 [facility] CenterYumenbnQFOOBSODOQ5259-04-76 00:29:00 Test Item Value Reference Range Interpretation Comments WBC (test code = WBC) 9.3 3.7-10.4 [facility] CenterItvdshrQXCVEOJVLB1806-66-68 00:29:00 Test Item Value Reference Range Interpretation Comments MCH (test code = MCH) 31.6 pg 27.0-31.0 [facility] TexasLktxwmwVYGGML1510-44-67 00:29:00 Test Item Value Reference Range Interpretation Comments VLDL (test code = VLDL) 17 [facility] TexasFtizislEKOZMQ3451-59-32 00:29:00 Test Item Value Reference Range Interpretation Comments Chol (test code = Chol) 177 [facility] TexasElwuyvjRQQRLA0457-80-06 00:29:00 Test Item Value Reference Range Interpretation Comments CHD Risk (test code = CHD Risk) 4.21 3.90-5.80 [place] 105036-08-28 00:29:00 Test Item Value Reference Range Interpretation Comments Trig (test code = Trig) 83 [facility] TexasToquvfaUXWHWL5280-49-20 00:29:00 Test Item Value Reference Range Interpretation Comments HDL (test code = HDL) 42 [facility] TexasJbwypqvCXDUVC0809-20-60 00:29:00 Test Item Value Reference Range Interpretation Comments LDL (Calculated) (test code = LDL 118 (Calculated)) [facility]2016-08-28 00:29:00 Test Item Value Reference Range Interpretation Comments Osmolality (test code = Osmolality) 268 280-300 [facility] CenterOwbryprSTUTQVGBYJ5803-24-14 00:29:00 Test Item Value Reference Range Interpretation Comments Eosinophils (test code = 0.8 See_Comment [A utomated message] The Eosinophils) system which ge nerated this result tra nsmitted reference range : <=4.0. The reference r lamar was not used to int erpret this result as normal/abnormal . [facility] CenterIjlngbvBLBFTHKADI4042-66-61 00:29:00 Test Item Value Reference Range Interpretation Comments Eosinophils # (test code 0.1 See_Comment [A utomated message] The = Eosinophils #) system whic h generated this result tra nsmitted reference range : <=0.5. The reference r lamar was not used to int erpret this result as normal/abnormal . [facility] CenterQswxxmnLPAQFHFIPV8152-44-46 00:29:00 Test Item Value Reference Range Interpretation Comments Lymphocytes # (test code = Lymphocytes 0.6 1.0-5.5 #) [facility] CenterYpjrxzwRLNGQLNYXQ0623-65-21 00:29:00 Test Item Value Reference Range Interpretation Comments Monocytes # (test code 0.5 See_Comment [Aut omated message] The = Monocytes #) system which generated this result tra nsmitted reference range : <=0.8. The reference r lamar was not used to int erpret this result as normal/abnormal . [facility] CenterQgenqlbTKMGUICBLX1010-90-24 00:29:00 Test Item Value Reference Range Interpretation Comments Basophils (test code = 0.7 See_Comment [Aut omated message] The Basophils) system which ge nerated this result tra nsmitted reference range : <=1.0. The reference r lamar was not used to int erpret this result as normal/abnormal . [facility] CenterFpmlmgpJDJLDVDGKJ7870-79-80 00:29:00 Test Item Value Reference Range Interpretation Comments Segs-Bands # (test code = Segs-Bands #) 8.0 1.5-8.1 [facility] CenterAdvoznqHNZJKHNKGY8405-89-95 00:29:00 Test Item Value Reference Range Interpretation Comments Segs (test code = Segs) 86.7 45.0-75.0 [facility] CenterOnguuapIBFYLYVUOL7218-24-79 00:29:00 Test Item Value Reference Range Interpretation Comments Monocytes (test code = Monocytes) 5.4 2.0-12.0 [facility] CenterIzxzaxnSKPRNCLOZZ6344-28-53 00:29:00 Test Item Value Reference Range Interpretation Comments Lymphocytes (test code = Lymphocytes) 6.4 20.0-40.0 [facility] CenterFmkjihhLRDLLTHYAL7254-50-43 00:29:00 Test Item Value Reference Range Interpretation Comments MPV (test code = MPV) 8.4 7.4-10.4 [facility] CenterKxtdoemDKYTLSWAUR0923-00-27 00:29:00 Test Item Value Reference Range Interpretation Comments RDW (test code = RDW) 13.9 11.5-14.5 [facility] CenterWqjqwnlMQHFKNMNQM3487-91-96 00:29:00 Test Item Value Reference Range Interpretation Comments Platelet (test code = Platelet) 391 133-450 [facility] CenterStpfuguGECABWINJZ1695-33-25 00:29:00 Test Item Value Reference Range Interpretation Comments MCHC (test code = MCHC) 36.2 32.0-36.0 [facility] CenterMzvsmuwDPPGYCTQTH4565-51-20 00:29:00 Test Item Value Reference Range Interpretation Comments MCV (test code = MCV) 87.0 80.0-98.0 [facility] CenterBkutdprDGPVVFIJFP0165-92-10 00:29:00 Test Item Value Reference Range Interpretation Comments Hgb (test code = Hgb) 10.1 12.0-16.0 [facility] CenterZgbsshkEGTXQRPEBL1271-89-45 00:29:00 Test Item Value Reference Range Interpretation Comments Hct (test code = Hct) 27.8 36.0-48.0 [facility] CenterYrirbdiXWODQCVPRB3857-04-01 00:29:00 Test Item Value Reference Range Interpretation Comments RBC (test code = RBC) 3.19 4.20-5.40 [facility] CenterFwuywgtQBCKCZRDCV0557-46-60 00:29:00 Test Item Value Reference Range Interpretation Comments WBC (test code = WBC) 9.3 3.7-10.4 [facility] CenterCwfstwlWPZDYCPYQB8935-76-64 00:29:00 Test Item Value Reference Range Interpretation Comments MCH (test code = MCH) 31.6 pg 27.0-31.0 [facility] TexasHyzeoitDVYGCN9745-46-43 00:29:00 Test Item Value Reference Range Interpretation Comments VLDL (test code = VLDL) 17 [facility] TexasMxjkygsGAOWSY8299-35-18 00:29:00 Test Item Value Reference Range Interpretation Comments Chol (test code = Chol) 177 [facility] TexasInezebwMQNMLE7346-29-11 00:29:00 Test Item Value Reference Range Interpretation Comments CHD Risk (test code = CHD Risk) 4.21 3.90-5.80 [facility] TexasTxptlxsNBMQLI6948-22-04 00:29:00 Test Item Value Reference Range Interpretation Comments Trig (test code = Trig) 83 [facility] TexasWuyjaeiACOWPZ1639-32-64 00:29:00 Test Item Value Reference Range Interpretation Comments HDL (test code = HDL) 42 [facility] TexasRpynoiuCXDZMQ2886-18-93 00:29:00 Test Item Value Reference Range Interpretation Comments LDL (Calculated) (test code = LDL 118 (Calculated)) [facility]2016-08-28 00:29:00 Test Item Value Reference Range Interpretation Comments Osmolality (test code = Osmolality) 268 280-300 [facility] CenterSfbrjrcXCTEGWMKVG9336-46-50 00:29:00 Test Item Value Reference Range Interpretation Comments Eosinophils (test code = 0.8 See_Comment [A utomated message] The Eosinophils) system which ge nerated this result tra nsmitted reference range : <=4.0. The reference r lamar was not used to int erpret this result as normal/abnormal . [facility] CenterAplibdfUATAJHOADB1721-44-71 00:29:00 Test Item Value Reference Range Interpretation Comments Eosinophils # (test code 0.1 See_Comment [A utomated message] The = Eosinophils #) system whic h generated this result tra nsmitted reference range : <=0.5. The reference r lamar was not used to int erpret this result as normal/abnormal . [facility] CenterLvzingxHPSEYLFGIZ7845-02-47 00:29:00 Test Item Value Reference Range Interpretation Comments Lymphocytes # (test code = Lymphocytes 0.6 1.0-5.5 #) [facility] CenterEcdtaybWCHLYPNFXM4526-82-72 00:29:00 Test Item Value Reference Range Interpretation Comments Monocytes # (test code 0.5 See_Comment [Aut omated message] The = Monocytes #) system which generated this result tra nsmitted reference range : <=0.8. The reference r lamar was not used to int erpret this result as normal/abnormal . [facility] CenterBgdpiymDCAOMJQXLK2264-06-20 00:29:00 Test Item Value Reference Range Interpretation Comments Basophils (test code = 0.7 See_Comment [Aut omated message] The Basophils) system which ge nerated this result tra nsmitted reference range : <=1.0. The reference r lamar was not used to int erpret this result as normal/abnormal . [facility] CenterQchqjsgAYBYDGWOBZ1722-17-42 00:29:00 Test Item Value Reference Range Interpretation Comments Segs-Bands # (test code = Segs-Bands #) 8.0 1.5-8.1 [facility] CenterXzpqtcfOYNGOYAQXS0077-60-86 00:29:00 Test Item Value Reference Range Interpretation Comments Segs (test code = Segs) 86.7 45.0-75.0 [facility] CenterPyohhzjVXJRXRVSNZ1232-45-71 00:29:00 Test Item Value Reference Range Interpretation Comments Monocytes (test code = Monocytes) 5.4 2.0-12.0 [facility] CenterWwjcqqdOXATIJULZV8893-85-15 00:29:00 Test Item Value Reference Range Interpretation Comments Lymphocytes (test code = Lymphocytes) 6.4 20.0-40.0 [facility] CenterTdqrpbyBDOKRWGDUB7093-90-83 00:29:00 Test Item Value Reference Range Interpretation Comments MPV (test code = MPV) 8.4 7.4-10.4 [facility] CenterJfvepmhBXRNSPDRCF4292-92-40 00:29:00 Test Item Value Reference Range Interpretation Comments RDW (test code = RDW) 13.9 11.5-14.5 [facility] CenterIdeivusHRNCEVQCUM6340-38-46 00:29:00 Test Item Value Reference Range Interpretation Comments Platelet (test code = Platelet) 391 133-450 [facility] CenterGembttoYNZOZWHOYJ3529-64-95 00:29:00 Test Item Value Reference Range Interpretation Comments MCHC (test code = MCHC) 36.2 32.0-36.0 [facility] HospitalPfersrgJRTZYZMDCA0036-88-70 00:29:00 Test Item Value Reference Range Interpretation Comments MCV (test code = MCV) 87.0 80.0-98.0 [facility] HospitalUttoxduHXGCKOQNEO2920-29-45 00:29:00 Test Item Value Reference Range Interpretation Comments Hgb (test code = Hgb) 10.1 12.0-16.0 [facility] HospitalLwhibtiFFFEQJRRKB1194-24-37 00:29:00 Test Item Value Reference Range Interpretation Comments Hct (test code = Hct) 27.8 36.0-48.0 [facility] HospitalRkcrjrpJHBTMJXXSY2618-68-79 00:29:00 Test Item Value Reference Range Interpretation Comments RBC (test code = RBC) 3.19 4.20-5.40 [facility] HospitalXscszwmJXWAFYWIKJ3585-58-23 00:29:00 Test Item Value Reference Range Interpretation Comments WBC (test code = WBC) 9.3 3.7-10.4 [facility] HospitalOhnuwxiHTUAZFZQCO3285-22-14 00:29:00 Test Item Value Reference Range Interpretation Comments MCH (test code = MCH) 31.6 pg 27.0-31.0 [facility]ZddvwjmGHMADW1008-95-71 00:29:00 Test Item Value Reference Range Interpretation Comments VLDL (test code = VLDL) 17 [facility] HospitalNtbfchyBZBYZD7301-04-37 00:29:00 Test Item Value Reference Range Interpretation Comments Chol (test code = Chol) 177 [facility] HospitalAceclnmHKUGTU6744-12-06 00:29:00 Test Item Value Reference Range Interpretation Comments CHD Risk (test code = CHD Risk) 4.21 3.90-5.80 [facility]DytlxueJTYHZT0766-15-77 00:29:00 Test Item Value Reference Range Interpretation Comments Trig (test code = Trig) 83 [facility] HospitalNpqypjzQJQKOW9845-57-18 00:29:00 Test Item Value Reference Range Interpretation Comments HDL (test code = HDL) 42 [facility] HospitalMpkuioxTCZSBP7037-41-22 00:29:00 Test Item Value Reference Range Interpretation Comments LDL (Calculated) (test code = LDL 118 (Calculated)) [facility] HospitalCHEM KKCBL2166-61-17 00:29:00 Test Item Value Reference Range Interpretation Comments Osmolality (test code = Osmolality) 268 280-300 [facility] HospitalIikcgyiDIFGCELKXK2336-53-34 00:29:00 Test Item Value Reference Range Interpretation Comments Eosinophils (test code = 0.8 See_Comment [A utomated message] The Eosinophils) system which ge nerated this result tra nsmitted reference range : <=4.0. The reference r lamar was not used to int erpret this result as normal/abnormal . [facility] CenterIwjzyfuMAGYNZHKHH7644-86-90 00:29:00 Test Item Value Reference Range Interpretation Comments Eosinophils # (test code 0.1 See_Comment [A utomated message] The = Eosinophils #) system whic h generated this result tra nsmitted reference range : <=0.5. The reference r lamar was not used to int erpret this result as normal/abnormal . [facility] CenterXwgrhwjOPYEJVAHPG8093-90-62 00:29:00 Test Item Value Reference Range Interpretation Comments Lymphocytes # (test code = Lymphocytes 0.6 1.0-5.5 #) [facility] CenterAcmqursJIODFVLQMI5669-67-44 00:29:00 Test Item Value Reference Range Interpretation Comments Monocytes # (test code 0.5 See_Comment [Aut omated message] The = Monocytes #) system which generated this result tra nsmitted reference range : <=0.8. The reference r lamar was not used to int erpret this result as normal/abnormal . [facility] CenterZwruaykHRYXEYTEXM9336-06-14 00:29:00 Test Item Value Reference Range Interpretation Comments Basophils (test code = 0.7 See_Comment [Aut omated message] The Basophils) system which ge nerated this result tra nsmitted reference range : <=1.0. The reference r lamar was not used to int erpret this result as normal/abnormal . [facility] CenterWwxmoirFGNXLUBAXS2266-71-71 00:29:00 Test Item Value Reference Range Interpretation Comments Segs-Bands # (test code = Segs-Bands #) 8.0 1.5-8.1 [facility] CenterGufcqyeJQZGMMIOGZ3169-23-09 00:29:00 Test Item Value Reference Range Interpretation Comments Segs (test code = Segs) 86.7 45.0-75.0 [facility] CenterLjlpqbnBXHFVPBDUD6063-77-15 00:29:00 Test Item Value Reference Range Interpretation Comments Monocytes (test code = Monocytes) 5.4 2.0-12.0 [facility] CenterGufsqizTLIXOTJROX9528-93-61 00:29:00 Test Item Value Reference Range Interpretation Comments Lymphocytes (test code = Lymphocytes) 6.4 20.0-40.0 [facility] CenterIhwzanlBNPIQUHBKD9209-68-98 00:29:00 Test Item Value Reference Range Interpretation Comments MPV (test code = MPV) 8.4 7.4-10.4 [facility] CenterIsqozdfIEVPBOIQNL8803-19-64 00:29:00 Test Item Value Reference Range Interpretation Comments RDW (test code = RDW) 13.9 11.5-14.5 [facility] CenterUpitjgsDTJQYQGMOL3668-84-75 00:29:00 Test Item Value Reference Range Interpretation Comments Platelet (test code = Platelet) 391 133-450 [facility] CenterIcxrfbvRDCPZKKYKE8596-68-28 00:29:00 Test Item Value Reference Range Interpretation Comments MCHC (test code = MCHC) 36.2 32.0-36.0 [facility] CenterEkipjjnOZZDJGSRVL8302-08-86 00:29:00 Test Item Value Reference Range Interpretation Comments MCV (test code = MCV) 87.0 80.0-98.0 [facility] CenterRfxdbcvRQAAJCFNOQ2206-32-09 00:29:00 Test Item Value Reference Range Interpretation Comments Hgb (test code = Hgb) 10.1 12.0-16.0 [facility] CenterDoblpyiJYAPCAFAPU9618-11-40 00:29:00 Test Item Value Reference Range Interpretation Comments Hct (test code = Hct) 27.8 36.0-48.0 [facility] CenterAgdohwmIUUBEOWZLQ4120-00-55 00:29:00 Test Item Value Reference Range Interpretation Comments RBC (test code = RBC) 3.19 4.20-5.40 [facility] CenterOutxgzhLDWIWCYGIA5136-75-60 00:29:00 Test Item Value Reference Range Interpretation Comments WBC (test code = WBC) 9.3 3.7-10.4 [facility] CenterUozfgxpCNWCMGALGV9371-59-24 00:29:00 Test Item Value Reference Range Interpretation Comments MCH (test code = MCH) 31.6 pg 27.0-31.0 [facility]JyyewqeMBQJLJ1503-32-32 00:29:00 Test Item Value Reference Range Interpretation Comments VLDL (test code = VLDL) 17 [facility] TexasFmfqvcvXKCCYI9363-20-91 00:29:00 Test Item Value Reference Range Interpretation Comments Chol (test code = Chol) 177 [facility] TexasIihvrklWARWME2832-46-35 00:29:00 Test Item Value Reference Range Interpretation Comments CHD Risk (test code = CHD Risk) 4.21 3.90-5.80 [facility] TexasEsuorefQVYMPE9262-96-54 00:29:00 Test Item Value Reference Range Interpretation Comments Trig (test code = Trig) 83 [facility] TexasIaurjvhAGOOZM9639-53-06 00:29:00 Test Item Value Reference Range Interpretation Comments HDL (test code = HDL) 42 [facility] HospitalGyygrlvJCPWBT3426-12-13 00:29:00 Test Item Value Reference Range Interpretation Comments LDL (Calculated) (test code = LDL 118 (Calculated)) [facility]2016-08-28 00:29:00 Test Item Value Reference Range Interpretation Comments Osmolality (test code = Osmolality) 268 280-300 [facility] CenterEqobvqsJVOTGKPMYJ3157-92-04 00:29:00 Test Item Value Reference Range Interpretation Comments Eosinophils (test code = 0.8 See_Comment [A utomated message] The Eosinophils) system which ge nerated this result tra nsmitted reference range : <=4.0. The reference r lamar was not used to int erpret this result as normal/abnormal . [facility] CenterVwhsbfaBUUGTUZSNO0148-97-30 00:29:00 Test Item Value Reference Range Interpretation Comments Eosinophils # (test code 0.1 See_Comment [A utomated message] The = Eosinophils #) system whic h generated this result tra nsmitted reference range : <=0.5. The reference r lamar was not used to int erpret this result as normal/abnormal . [facility] CenterQwwmrjtMHVHHXOXBA1628-58-29 00:29:00 Test Item Value Reference Range Interpretation Comments Lymphocytes # (test code = Lymphocytes 0.6 1.0-5.5 #) [facility] CenterNhhfczgTLMKJDWFHI3403-27-47 00:29:00 Test Item Value Reference Range Interpretation Comments Monocytes # (test code 0.5 See_Comment [Aut omated message] The = Monocytes #) system which generated this result tra nsmitted reference range : <=0.8. The reference r lamar was not used to int erpret this result as normal/abnormal . [facility] CenterPrnsajnKNZNANAHBM2153-99-72 00:29:00 Test Item Value Reference Range Interpretation Comments Basophils (test code = 0.7 See_Comment [Aut omated message] The Basophils) system which ge nerated this result tra nsmitted reference range : <=1.0. The reference r lamar was not used to int erpret this result as normal/abnormal . [facility] CenterWjksokgNMJOYLZNSY0803-24-30 00:29:00 Test Item Value Reference Range Interpretation Comments Segs-Bands # (test code = Segs-Bands #) 8.0 1.5-8.1 [facility] CenterGepnvysRLJWWMSWCI2591-11-36 00:29:00 Test Item Value Reference Range Interpretation Comments Segs (test code = Segs) 86.7 45.0-75.0 [facility] CenterQwqcjmpTLHUBLXKLT2962-28-80 00:29:00 Test Item Value Reference Range Interpretation Comments Monocytes (test code = Monocytes) 5.4 2.0-12.0 [facility] CenterIxtoiknSJRGTZMICC2385-59-37 00:29:00 Test Item Value Reference Range Interpretation Comments Lymphocytes (test code = Lymphocytes) 6.4 20.0-40.0 [facility] CenterWhbtdonMFGMRNCEGY3768-88-45 00:29:00 Test Item Value Reference Range Interpretation Comments MPV (test code = MPV) 8.4 7.4-10.4 [facility] CenterYhxnwgkGWXYODPONA4612-89-10 00:29:00 Test Item Value Reference Range Interpretation Comments RDW (test code = RDW) 13.9 11.5-14.5 [facility] CenterAdzafvhBYRXDWFHMP3934-86-67 00:29:00 Test Item Value Reference Range Interpretation Comments Platelet (test code = Platelet) 391 133-450 [facility] CenterWvlsumzOYRRLQIDAB0358-24-19 00:29:00 Test Item Value Reference Range Interpretation Comments MCHC (test code = MCHC) 36.2 32.0-36.0 [facility] CenterJdqwptoZGZFPIGZBK5795-10-55 00:29:00 Test Item Value Reference Range Interpretation Comments MCV (test code = MCV) 87.0 80.0-98.0 [facility] CenterRlqkxjnWDCDZAWODB4133-53-66 00:29:00 Test Item Value Reference Range Interpretation Comments Hgb (test code = Hgb) 10.1 12.0-16.0 [facility] CenterWtdthxeZJGUYKCUEV6449-55-97 00:29:00 Test Item Value Reference Range Interpretation Comments Hct (test code = Hct) 27.8 36.0-48.0 [facility] CenterSlwjngyWRCTEDLNKM6713-56-42 00:29:00 Test Item Value Reference Range Interpretation Comments RBC (test code = RBC) 3.19 4.20-5.40 [facility] CenterMxkdtauTLULTKEZPY9466-90-78 00:29:00 Test Item Value Reference Range Interpretation Comments WBC (test code = WBC) 9.3 3.7-10.4 [facility] CenterOjvfffaULAUMWAOLA5470-34-61 00:29:00 Test Item Value Reference Range Interpretation Comments MCH (test code = MCH) 31.6 pg 27.0-31.0 [facility] TexasHzfqmudJCJTEX0858-50-44 00:29:00 Test Item Value Reference Range Interpretation Comments VLDL (test code = VLDL) 17 [facility] TexasPllaldqHQZYCE1960-63-27 00:29:00 Test Item Value Reference Range Interpretation Comments Chol (test code = Chol) 177 [facility] TexasJektgxyJALYND8329-18-17 00:29:00 Test Item Value Reference Range Interpretation Comments CHD Risk (test code = CHD Risk) 4.21 3.90-5.80 [facility] TexasKrbmebxSTJJUI3252-21-34 00:29:00 Test Item Value Reference Range Interpretation Comments Trig (test code = Trig) 83 [facility] TexasStdryuzDPTTYY7613-98-98 00:29:00 Test Item Value Reference Range Interpretation Comments HDL (test code = HDL) 42 [facility] TexasYcptoyqWQKVDA8155-59-34 00:29:00 Test Item Value Reference Range Interpretation Comments LDL (Calculated) (test code = LDL 118 (Calculated)) [facility]2016-08-28 00:29:00 Test Item Value Reference Range Interpretation Comments Osmolality (test code = Osmolality) 268 280-300 [facility] CenterGgvdjvzNKAFNHGRJD1706-64-46 00:29:00 Test Item Value Reference Range Interpretation Comments Eosinophils (test code = 0.8 See_Comment [A utomated message] The Eosinophils) system which ge nerated this result tra nsmitted reference range : <=4.0. The reference r lamar was not used to int erpret this result as normal/abnormal . [facility] CenterRuaiyphEYNPUOPWSG6744-25-63 00:29:00 Test Item Value Reference Range Interpretation Comments Eosinophils # (test code 0.1 See_Comment [A utomated message] The = Eosinophils #) system whic h generated this result tra nsmitted reference range : <=0.5. The reference r lamar was not used to int erpret this result as normal/abnormal . [facility] CenterOtkgyiyUTXKWLBWUG5685-08-79 00:29:00 Test Item Value Reference Range Interpretation Comments Lymphocytes # (test code = Lymphocytes 0.6 1.0-5.5 #) [facility] CenterJuerwiyWAZAJBEIKX6714-62-28 00:29:00 Test Item Value Reference Range Interpretation Comments Monocytes # (test code 0.5 See_Comment [Aut omated message] The = Monocytes #) system which generated this result tra nsmitted reference range : <=0.8. The reference r lamar was not used to int erpret this result as normal/abnormal . [facility] CenterJsoxpfhGSQIYQVUDK4111-08-56 00:29:00 Test Item Value Reference Range Interpretation Comments Basophils (test code = 0.7 See_Comment [Aut omated message] The Basophils) system which ge nerated this result tra nsmitted reference range : <=1.0. The reference r lamar was not used to int erpret this result as normal/abnormal . [facility] CenterVmndoidZFHMAQOELQ9279-87-02 00:29:00 Test Item Value Reference Range Interpretation Comments Segs-Bands # (test code = Segs-Bands #) 8.0 1.5-8.1 [facility] CenterEbfptmyRAKBZDNVAN5260-24-95 00:29:00 Test Item Value Reference Range Interpretation Comments Segs (test code = Segs) 86.7 45.0-75.0 [facility] CenterMukhjabGILAOWESFY4650-37-01 00:29:00 Test Item Value Reference Range Interpretation Comments Monocytes (test code = Monocytes) 5.4 2.0-12.0 [facility] CenterCqjcwsyLAWWCXQZID7806-43-03 00:29:00 Test Item Value Reference Range Interpretation Comments Lymphocytes (test code = Lymphocytes) 6.4 20.0-40.0 [facility] CenterIxrkbdfCYDDELVOTX2300-87-17 00:29:00 Test Item Value Reference Range Interpretation Comments MPV (test code = MPV) 8.4 7.4-10.4 [facility] CenterLytdoghAOCOTBUSGV2177-85-33 00:29:00 Test Item Value Reference Range Interpretation Comments RDW (test code = RDW) 13.9 11.5-14.5 [facility] CenterUuybhrzVNDUJUSMGP8733-70-91 00:29:00 Test Item Value Reference Range Interpretation Comments Platelet (test code = Platelet) 391 133-450 [facility] HospitalRppruuqFBNQZVWNXY4237-16-44 00:29:00 Test Item Value Reference Range Interpretation Comments MCHC (test code = MCHC) 36.2 32.0-36.0 [facility] HospitalElriayyMLAFQFEBZX9982-59-81 00:29:00 Test Item Value Reference Range Interpretation Comments MCV (test code = MCV) 87.0 80.0-98.0 [facility] HospitalGnvlegoFNOGXGKCNJ2519-80-94 00:29:00 Test Item Value Reference Range Interpretation Comments Hgb (test code = Hgb) 10.1 12.0-16.0 [facility]NjgjbsyLUGVJACTVB0801-58-72 00:29:00 Test Item Value Reference Range Interpretation Comments Hct (test code = Hct) 27.8 36.0-48.0 [facility] HospitalBdnqgiwZXQJIBAKGE9228-22-92 00:29:00 Test Item Value Reference Range Interpretation Comments RBC (test code = RBC) 3.19 4.20-5.40 [facility] HospitalGadrrgaLLFOWMVTVI0050-00-14 00:29:00 Test Item Value Reference Range Interpretation Comments WBC (test code = WBC) 9.3 3.7-10.4 [facility] HospitalWxqeuqoUOPYOCBBLJ2052-90-46 00:29:00 Test Item Value Reference Range Interpretation Comments MCH (test code = MCH) 31.6 pg 27.0-31.0 [facility] HospitalXmqldpjZEJZKS8582-20-91 00:29:00 Test Item Value Reference Range Interpretation Comments VLDL (test code = VLDL) 17 [facility] HospitalGngqubaOAKFLP5837-02-15 00:29:00 Test Item Value Reference Range Interpretation Comments Chol (test code = Chol) 177 [facility] HospitalMjmqssrEIATJU0451-86-30 00:29:00 Test Item Value Reference Range Interpretation Comments CHD Risk (test code = CHD Risk) 4.21 3.90-5.80 [facility] CenterKbizsxiDFQZEU9847-42-08 00:29:00 Test Item Value Reference Range Interpretation Comments Trig (test code = Trig) 83 [facility] HospitalDyvzdwuDZHOTC3500-11-28 00:29:00 Test Item Value Reference Range Interpretation Comments HDL (test code = HDL) 42 [facility] HospitalQsjwynoVEFKRW5034-04-44 00:29:00 Test Item Value Reference Range Interpretation Comments LDL (Calculated) (test code = LDL 118 (Calculated)) [facility]2016-08-28 00:29:00 Test Item Value Reference Range Interpretation Comments Osmolality (test code = Osmolality) 268 280-300 [facility] CenterPxdxjahKIAFBLZZXT4770-34-44 00:29:00 Test Item Value Reference Range Interpretation Comments Eosinophils (test code = 0.8 See_Comment [A utomated message] The Eosinophils) system which ge nerated this result tra nsmitted reference range : <=4.0. The reference r lamar was not used to int erpret this result as normal/abnormal . [facility] CenterUmxzdglMPDGDYBMMO0529-98-33 00:29:00 Test Item Value Reference Range Interpretation Comments Eosinophils # (test code 0.1 See_Comment [A utomated message] The = Eosinophils #) system whic h generated this result tra nsmitted reference range : <=0.5. The reference r lamar was not used to int erpret this result as normal/abnormal . [facility] CenterBpcmaeyDECXHSKMXJ5464-74-04 00:29:00 Test Item Value Reference Range Interpretation Comments Lymphocytes # (test code = Lymphocytes 0.6 1.0-5.5 #) [facility] CenterGpscfijAUNRTWZBGN4980-00-30 00:29:00 Test Item Value Reference Range Interpretation Comments Monocytes # (test code 0.5 See_Comment [Aut omated message] The = Monocytes #) system which generated this result tra nsmitted reference range : <=0.8. The reference r lamar was not used to int erpret this result as normal/abnormal . [facility] CenterFfemfnbEBSJMGYMGJ7085-59-04 00:29:00 Test Item Value Reference Range Interpretation Comments Basophils (test code = 0.7 See_Comment [Aut omated message] The Basophils) system which ge nerated this result tra nsmitted reference range : <=1.0. The reference r lamar was not used to int erpret this result as normal/abnormal . [facility] CenterCzkbdhiNJMAJYWXFC7049-07-93 00:29:00 Test Item Value Reference Range Interpretation Comments Segs-Bands # (test code = Segs-Bands #) 8.0 1.5-8.1 [facility] CenterZronaoqJGDWXQZZOY5574-23-62 00:29:00 Test Item Value Reference Range Interpretation Comments Segs (test code = Segs) 86.7 45.0-75.0 [facility] CenterUugbelzPXSVLODQHL4271-06-87 00:29:00 Test Item Value Reference Range Interpretation Comments Monocytes (test code = Monocytes) 5.4 2.0-12.0 [facility] CenterOljnnbzMCQFYZDTGZ9091-87-16 00:29:00 Test Item Value Reference Range Interpretation Comments Lymphocytes (test code = Lymphocytes) 6.4 20.0-40.0 [facility] CenterEsgjmnsGHPSBFYMSP5212-63-87 00:29:00 Test Item Value Reference Range Interpretation Comments MPV (test code = MPV) 8.4 7.4-10.4 [facility] CenterEihcjfmHKWFDJCBXO1206-03-30 00:29:00 Test Item Value Reference Range Interpretation Comments RDW (test code = RDW) 13.9 11.5-14.5 [facility] CenterOzeflepSVYNVAOGPO8553-01-01 00:29:00 Test Item Value Reference Range Interpretation Comments Platelet (test code = Platelet) 391 133-450 [facility] CenterCluqcpvMVQAHNUSBU9928-77-92 00:29:00 Test Item Value Reference Range Interpretation Comments MCHC (test code = MCHC) 36.2 32.0-36.0 [facility] CenterLuttcipQZJAVGNEIF3707-73-60 00:29:00 Test Item Value Reference Range Interpretation Comments MCV (test code = MCV) 87.0 80.0-98.0 [facility] CenterGbdnsziUQQSYRJMRT2923-67-75 00:29:00 Test Item Value Reference Range Interpretation Comments Hgb (test code = Hgb) 10.1 12.0-16.0 [facility] CenterVxzsmwrDVQFDIWOCW4751-71-85 00:29:00 Test Item Value Reference Range Interpretation Comments Hct (test code = Hct) 27.8 36.0-48.0 [facility] CenterManrapmIICZRWBVUG3035-14-47 00:29:00 Test Item Value Reference Range Interpretation Comments RBC (test code = RBC) 3.19 4.20-5.40 [facility] CenterNqgpkelBXULEFFQQX1140-16-04 00:29:00 Test Item Value Reference Range Interpretation Comments WBC (test code = WBC) 9.3 3.7-10.4 [facility] CenterZmnzcgrKPSPDXBUPG8147-19-27 00:29:00 Test Item Value Reference Range Interpretation Comments MCH (test code = MCH) 31.6 pg 27.0-31.0 [facility] HospitalUtulyttCMJNAT3051-04-53 00:29:00 Test Item Value Reference Range Interpretation Comments VLDL (test code = VLDL) 17 [facility] HospitalQcbjuwqKSOXQK2684-48-41 00:29:00 Test Item Value Reference Range Interpretation Comments Chol (test code = Chol) 177 [facility] HospitalJnyugcyFGSDSM6760-45-64 00:29:00 Test Item Value Reference Range Interpretation Comments CHD Risk (test code = CHD Risk) 4.21 3.90-5.80 [facility] HospitalQlwuerzDJSIWR7059-07-42 00:29:00 Test Item Value Reference Range Interpretation Comments Trig (test code = Trig) 83 [facility] HospitalPgejzzyXOBAZC2404-01-22 00:29:00 Test Item Value Reference Range Interpretation Comments HDL (test code = HDL) 42 [facility] HospitalFnctehxTNRUNJ4372-28-87 00:29:00 Test Item Value Reference Range Interpretation Comments LDL (Calculated) (test code = LDL 118 (Calculated)) [facility]ATH[facility] QFRNAPW8730-79-08 22:16:00 Test Item Value Reference Range Interpretation Comments Ca Ion WB (test code = Ca Ion WB) 0.73 1.05-1.25 [facility] CenterannPARATHYROID QDLIXQI3405-68-54 22:16:00 Test Item Value Reference Range Interpretation Comments Ca Norm WB (test code = Ca Norm WB) 0.82 1.05-1.25 [facility] CenterannPARATHYROID QJAEIUF8796-12-69 22:16:00 Test Item Value Reference Range Interpretation Comments Ca Ion WB (test code = Ca Ion WB) 0.73 1.05-1.25 [facility] CenterannPARATHYROID CPBNAFY9616-40-09 22:16:00 Test Item Value Reference Range Interpretation Comments Ca Norm WB (test code = Ca Norm WB) 0.82 1.05-1.25 [facility] CenterannPARATHYROID DBWMPTS3931-25-21 22:16:00 Test Item Value Reference Range Interpretation Comments Ca Ion WB (test code = Ca Ion WB) 0.73 1.05-1.25 [facility] CenterannPARATHYROID APUQISD6252-08-69 22:16:00 Test Item Value Reference Range Interpretation Comments Ca Norm WB (test code = Ca Norm WB) 0.82 1.05-1.25 [facility] CenterannPARATHYROID KFDHMXK0051-73-48 22:16:00 Test Item Value Reference Range Interpretation Comments Ca Ion WB (test code = Ca Ion WB) 0.73 1.05-1.25 [facility] CenterannPARATHYROID UJLDJCB0933-58-51 22:16:00 Test Item Value Reference Range Interpretation Comments Ca Norm WB (test code = Ca Norm WB) 0.82 1.05-1.25 [facility] CenterannPARATHYROID XJEVOKX0390-61-86 22:16:00 Test Item Value Reference Range Interpretation Comments Ca Ion WB (test code = Ca Ion WB) 0.73 1.05-1.25 [facility] CenterannPARATHYROID MFUKEGA4792-33-40 22:16:00 Test Item Value Reference Range Interpretation Comments Ca Norm WB (test code = Ca Norm WB) 0.82 1.05-1.25 [facility] CenterannPARATHYROID NVQLUAT7994-16-41 22:16:00 Test Item Value Reference Range Interpretation Comments Ca Ion WB (test code = Ca Ion WB) 0.73 1.05-1.25 [facility] CenterannPARATHYROID MKYTTGM0082-91-87 22:16:00 Test Item Value Reference Range Interpretation Comments Ca Norm WB (test code = Ca Norm WB) 0.82 1.05-1.25 [facility] CenterannPARATHYROID EDTFCQF4516-28-25 22:16:00 Test Item Value Reference Range Interpretation Comments Ca Ion WB (test code = Ca Ion WB) 0.73 1.05-1.25 [facility] CenterannPARATHYROID PXPNVGE9891-32-52 22:16:00 Test Item Value Reference Range Interpretation Comments Ca Norm WB (test code = Ca Norm WB) 0.82 1.05-1.25 [facility] HospitalATHY[facility]ID [id number] 22:16:00 Test Item Value Reference Range Interpretation Comments Ca Ion WB (test code = Ca Ion WB) 0.73 1.05-1.25 [facility] CenterannPARATHYROID YJDGQIO0986-33-74 22:16:00 Test Item Value Reference Range Interpretation Comments Ca Norm WB (test code = Ca Norm WB) 0.82 1.05-1.25 [facility] CenterannPARATHYROID [id number] 22:16:00 Test Item Value Reference Range Interpretation Comments Ca Ion WB (test code = Ca Ion WB) 0.73 1.05-1.25 [facility]annV[facility] PHOENIXATHYROID [id number] 22:16:00 Test Item Value Reference Range Interpretation Comments Ca Norm WB (test code = Ca Norm WB) 0.82 1.05-1.25 [facility] [id number] 22:16:00 Test Item Value Reference Range Interpretation Comments Ca Ion WB (test code = Ca Ion WB) 0.73 1.05-1.25 [facility] MMZMKSJ3952-28-45 22:16:00 Test Item Value Reference Range Interpretation Comments Ca Norm WB (test code = Ca Norm WB) 0.82 1.05-1.25 [facility] CenterBocrezaOSMLFYGPZB7127-57-68 08:30:00 Test Item Value Reference Range Interpretation Comments PTT (test code = PTT) 28.1 s 22.9-35.8 [facility] CenterIdjvpgfBKACBQRWSW7656-49-26 08:30:00 Test Item Value Reference Range Interpretation Comments PT (test code = PT) 14.2 s 12.0-14.7 [facility] CenterEeqejtmMBIQAFUKCY5016-65-34 08:30:00 Test Item Value Reference Range Interpretation Comments INR (test code = INR) 1.07 0.85-1.17 [facility] CenterUcfzxheOQKHLHYLOD2471-77-55 08:30:00 Test Item Value Reference Range Interpretation Comments MPV (test code = MPV) 7.7 7.4-10.4 [facility] CenterYimjykrBNWEWNONCO3580-79-93 08:30:00 Test Item Value Reference Range Interpretation Comments Platelet (test code = Platelet) 322 133-450 [facility] CenterOnujiyxFNIKSWRQJF4084-19-91 08:30:00 Test Item Value Reference Range Interpretation Comments Hgb (test code = Hgb) 9.6 12.0-16.0 [facility] CenterIacxgfcMXAKCVJYSB5163-19-80 08:30:00 Test Item Value Reference Range Interpretation Comments RBC (test code = RBC) 3.00 4.20-5.40 [facility] CenterEqzliixMUDANYBNTL2975-14-91 08:30:00 Test Item Value Reference Range Interpretation Comments WBC (test code = WBC) 6.6 3.7-10.4 [facility] CenterShowwdjPDBIBBDMOF5207-43-29 08:30:00 Test Item Value Reference Range Interpretation Comments MCHC (test code = MCHC) 37.1 32.0-36.0 [facility] CenterRvnijdaKNIEZAYKAB2152-77-65 08:30:00 Test Item Value Reference Range Interpretation Comments MCH (test code = MCH) 32.1 pg 27.0-31.0 [facility] CenterJwacovbSGHUAWPHJC9698-55-39 08:30:00 Test Item Value Reference Range Interpretation Comments RDW (test code = RDW) 13.6 11.5-14.5 [facility] CenterPvpctygMPLIDURNBD1377-04-62 08:30:00 Test Item Value Reference Range Interpretation Comments MCV (test code = MCV) 86.4 80.0-98.0 [facility] CenterTgjkbctQPHPLLCUVN9965-81-30 08:30:00 Test Item Value Reference Range Interpretation Comments Hct (test code = Hct) 25.9 36.0-48.0 [facility] CenterVylafmoKLSAJKRWSP0516-62-40 08:30:00 Test Item Value Reference Range Interpretation Comments Monocytes (test code = Monocytes) 5.5 2.0-12.0 [facility] CenterPmfthnxUCUCVGCPLD5393-20-99 08:30:00 Test Item Value Reference Range Interpretation Comments Lymphocytes (test code = Lymphocytes) 5.9 20.0-40.0 [facility] CenterYykbynpJDYEPDWRJC5080-94-63 08:30:00 Test Item Value Reference Range Interpretation Comments Segs (test code = Segs) 88.0 45.0-75.0 [facility] CenterEtlcylsMDPOZAIGLS4480-39-98 08:30:00 Test Item Value Reference Range Interpretation Comments Plt Morph (test code = Normal (07/06/16 3:30 Plt Morph) AM) [facility] CenterOmfexbvMDGGQHDYID6885-51-90 08:30:00 Test Item Value Reference Range Interpretation Comments Lymphocytes # (test code = Lymphocytes 0.4 1.0-5.5 #) [facility] CenterYqzgbwbQFWHYSIJGU6023-81-46 08:30:00 Test Item Value Reference Range Interpretation Comments Eosinophils (test code = 0.4 See_Comment [A utomated message] The Eosinophils) system which ge nerated this result tra nsmitted reference range : <=4.0. The reference r lamar was not used to int erpret this result as normal/abnormal . [facility] CenterUbymogsVSQNCFNELD9648-27-61 08:30:00 Test Item Value Reference Range Interpretation Comments Basophils (test code = 0.2 See_Comment [Aut omated message] The Basophils) system which ge nerated this result tra nsmitted reference range : <=1.0. The reference r lamar was not used to int erpret this result as normal/abnormal . [place] 779366-08-27 08:30:00 Test Item Value Reference Range Interpretation Comments RBC Morph (test code = Normal (07/06/16 3:30 RBC Morph) AM) [facility] CenterNqrtilfBXMIABJWCU3873-15-24 08:30:00 Test Item Value Reference Range Interpretation Comments Segs-Bands # (test code = Segs-Bands #) 5.8 1.5-8.1 [facility] CenterYautxbnIPIJCLFADI8396-94-33 08:30:00 Test Item Value Reference Range Interpretation Comments Monocytes # (test code 0.4 See_Comment [Aut omated message] The = Monocytes #) system which generated this result tra nsmitted reference range : <=0.8. The reference r lamar was not used to int erpret this result as normal/abnormal . [facility] CenterPfvjghmONBBTMHQPL4547-07-30 08:30:00 Test Item Value Reference Range Interpretation Comments PTT (test code = PTT) 28.1 s 22.9-35.8 [facility] CenterCgwlqznIDEXCMOPXM5922-89-72 08:30:00 Test Item Value Reference Range Interpretation Comments PT (test code = PT) 14.2 s 12.0-14.7 [facility] CenterDpajlwtAHWMEGSXQA0745-75-77 08:30:00 Test Item Value Reference Range Interpretation Comments INR (test code = INR) 1.07 0.85-1.17 [facility] CenterAyzgecbDNJTLDNZRV6186-71-26 08:30:00 Test Item Value Reference Range Interpretation Comments MPV (test code = MPV) 7.7 7.4-10.4 [facility] CenterMmtomuwKQETAVZUCH4563-50-67 08:30:00 Test Item Value Reference Range Interpretation Comments Platelet (test code = Platelet) 322 133-450 [facility] CenterEiwkiuhXQRFWRNNPQ3547-46-07 08:30:00 Test Item Value Reference Range Interpretation Comments Hgb (test code = Hgb) 9.6 12.0-16.0 [facility] CenterMwibpeuXUQOTJMCUP7271-48-63 08:30:00 Test Item Value Reference Range Interpretation Comments RBC (test code = RBC) 3.00 4.20-5.40 [facility] CenterBuaykkmTMQMYXFRVO9023-65-08 08:30:00 Test Item Value Reference Range Interpretation Comments WBC (test code = WBC) 6.6 3.7-10.4 [facility] CenterXlohfvrJRJBGQOVBY9640-08-60 08:30:00 Test Item Value Reference Range Interpretation Comments MCHC (test code = MCHC) 37.1 32.0-36.0 [facility] CenterDveladqLMGRVVCBUL9034-65-25 08:30:00 Test Item Value Reference Range Interpretation Comments MCH (test code = MCH) 32.1 pg 27.0-31.0 [facility] CenterZrxcvblFGONZBESEU2719-63-40 08:30:00 Test Item Value Reference Range Interpretation Comments RDW (test code = RDW) 13.6 11.5-14.5 [facility] CenterWzshryaUZEDQINDUP0038-80-95 08:30:00 Test Item Value Reference Range Interpretation Comments MCV (test code = MCV) 86.4 80.0-98.0 [facility] CenterXgpxofeJPJBYEWQAT6715-67-71 08:30:00 Test Item Value Reference Range Interpretation Comments Hct (test code = Hct) 25.9 36.0-48.0 [facility] CenterLdldizfZIQOMKLVOK7151-85-84 08:30:00 Test Item Value Reference Range Interpretation Comments Monocytes (test code = Monocytes) 5.5 2.0-12.0 [facility] CenterOwzhebxTHEMVECOKV7667-56-56 08:30:00 Test Item Value Reference Range Interpretation Comments Lymphocytes (test code = Lymphocytes) 5.9 20.0-40.0 [facility] CenterQelgfaiDVEFAKYLWS2734-00-92 08:30:00 Test Item Value Reference Range Interpretation Comments Segs (test code = Segs) 88.0 45.0-75.0 [facility] CenterBickurfKMCNJUVQLN1859-40-32 08:30:00 Test Item Value Reference Range Interpretation Comments Plt Morph (test code = Normal (07/06/16 3:30 Plt Morph) AM) [facility] CenterUvvslruZEKTNVGMQU8869-01-39 08:30:00 Test Item Value Reference Range Interpretation Comments Lymphocytes # (test code = Lymphocytes 0.4 1.0-5.5 #) [facility] CenterYllpitaBLNTAOPUME4586-71-72 08:30:00 Test Item Value Reference Range Interpretation Comments Eosinophils (test code = 0.4 See_Comment [A utomated message] The Eosinophils) system which ge nerated this result tra nsmitted reference range : <=4.0. The reference r lamar was not used to int erpret this result as normal/abnormal . [facility] CenterSaauefmUNCPPDTOLW2049-64-14 08:30:00 Test Item Value Reference Range Interpretation Comments Basophils (test code = 0.2 See_Comment [Aut omated message] The Basophils) system which ge nerated this result tra nsmitted reference range : <=1.0. The reference r lamar was not used to int erpret this result as normal/abnormal . [facility] CenterOnlkwllNBAUNFKVMU3844-96-36 08:30:00 Test Item Value Reference Range Interpretation Comments RBC Morph (test code = Normal (07/06/16 3:30 RBC Morph) AM) [facility] CenterAtfxsitWDJZMFNDAA9198-01-11 08:30:00 Test Item Value Reference Range Interpretation Comments Segs-Bands # (test code = Segs-Bands #) 5.8 1.5-8.1 [facility] CenterXaonvgmNHJSFFXOIY0329-86-82 08:30:00 Test Item Value Reference Range Interpretation Comments Monocytes # (test code 0.4 See_Comment [Aut omated message] The = Monocytes #) system which generated this result tra nsmitted reference range : <=0.8. The reference r lamar was not used to int erpret this result as normal/abnormal . [facility] CenterMqzqzerYQRJDFQKRR6203-90-89 08:30:00 Test Item Value Reference Range Interpretation Comments PTT (test code = PTT) 28.1 s 22.9-35.8 [facility] CenterGizjrcvSUBUBEOOJS3159-05-11 08:30:00 Test Item Value Reference Range Interpretation Comments PT (test code = PT) 14.2 s 12.0-14.7 [facility] CenterAyomnreTMOQUJDAAR6825-27-53 08:30:00 Test Item Value Reference Range Interpretation Comments INR (test code = INR) 1.07 0.85-1.17 [facility] CenterTvghnphQXUQOUHDMM0665-34-64 08:30:00 Test Item Value Reference Range Interpretation Comments MPV (test code = MPV) 7.7 7.4-10.4 [facility] CenterFizwfkmZFZONELZSO9012-88-00 08:30:00 Test Item Value Reference Range Interpretation Comments Platelet (test code = Platelet) 322 133-450 [facility] CenterLygkcbxPPUVQEFTKN0803-16-85 08:30:00 Test Item Value Reference Range Interpretation Comments Hgb (test code = Hgb) 9.6 12.0-16.0 [facility] CenterRzirmbbSWTENTSHVM2717-78-72 08:30:00 Test Item Value Reference Range Interpretation Comments RBC (test code = RBC) 3.00 4.20-5.40 [facility] CenterZciaszlNXJASQJQWI2406-41-66 08:30:00 Test Item Value Reference Range Interpretation Comments WBC (test code = WBC) 6.6 3.7-10.4 [facility] CenterDnppkutDHGUVFTSOE7689-52-44 08:30:00 Test Item Value Reference Range Interpretation Comments MCHC (test code = MCHC) 37.1 32.0-36.0 [facility] CenterXkzxmafHEKPUANSEF6550-12-85 08:30:00 Test Item Value Reference Range Interpretation Comments MCH (test code = MCH) 32.1 pg 27.0-31.0 [facility] CenterJrxnaxiGOTHWMIGTV6196-53-97 08:30:00 Test Item Value Reference Range Interpretation Comments RDW (test code = RDW) 13.6 11.5-14.5 [facility] CenterXjwkyaaGVWCTSZTAB3601-25-30 08:30:00 Test Item Value Reference Range Interpretation Comments MCV (test code = MCV) 86.4 80.0-98.0 [facility] CenterCzoyeqfNPXWQURNII2817-40-66 08:30:00 Test Item Value Reference Range Interpretation Comments Hct (test code = Hct) 25.9 36.0-48.0 [facility] CenterHfaxctwGWBBJQUQKL5352-90-38 08:30:00 Test Item Value Reference Range Interpretation Comments Monocytes (test code = Monocytes) 5.5 2.0-12.0 [facility] CenterAirzkovPRXMQHKJJM2598-51-82 08:30:00 Test Item Value Reference Range Interpretation Comments Lymphocytes (test code = Lymphocytes) 5.9 20.0-40.0 [facility] CenterEvcgkdbPOFCGWKPXN3750-09-48 08:30:00 Test Item Value Reference Range Interpretation Comments Segs (test code = Segs) 88.0 45.0-75.0 [facility] CenterQvlyuvcWQAAOZCPAX4225-13-86 08:30:00 Test Item Value Reference Range Interpretation Comments Plt Morph (test code = Normal (07/06/16 3:30 Plt Morph) AM) [facility] CenterNnxwjikZMCUIWVAAJ5874-15-24 08:30:00 Test Item Value Reference Range Interpretation Comments Lymphocytes # (test code = Lymphocytes 0.4 1.0-5.5 #) [facility] CenterZhbbuoyTOJPGOQUWX7915-59-77 08:30:00 Test Item Value Reference Range Interpretation Comments Eosinophils (test code = 0.4 See_Comment [A utomated message] The Eosinophils) system which ge nerated this result tra nsmitted reference range : <=4.0. The reference r lamar was not used to int erpret this result as normal/abnormal . [facility] CenterZrgewbkLQFGFSGFOH9520-03-43 08:30:00 Test Item Value Reference Range Interpretation Comments Basophils (test code = 0.2 See_Comment [Aut omated message] The Basophils) system which ge nerated this result tra nsmitted reference range : <=1.0. The reference r lamar was not used to int erpret this result as normal/abnormal . [facility] CenterTpmeojtOLDJEVOGRC7185-36-65 08:30:00 Test Item Value Reference Range Interpretation Comments RBC Morph (test code = Normal (07/06/16 3:30 RBC Morph) AM) [facility] CenterElypidbZJRKRXJAFR3308-29-38 08:30:00 Test Item Value Reference Range Interpretation Comments Segs-Bands # (test code = Segs-Bands #) 5.8 1.5-8.1 [facility] CenterIalgqpyBCZWOXLDDA9295-23-82 08:30:00 Test Item Value Reference Range Interpretation Comments Monocytes # (test code 0.4 See_Comment [Aut omated message] The = Monocytes #) system which generated this result tra nsmitted reference range : <=0.8. The reference r lamar was not used to int erpret this result as normal/abnormal . [facility] CenterHieceemQIMOUCTYIC2747-98-26 08:30:00 Test Item Value Reference Range Interpretation Comments PTT (test code = PTT) 28.1 s 22.9-35.8 [facility] CenterIkqzuhxFJRVXKXPWI8237-14-52 08:30:00 Test Item Value Reference Range Interpretation Comments PT (test code = PT) 14.2 s 12.0-14.7 [facility] CenterNztvrysLJGKFXPCDY6291-06-62 08:30:00 Test Item Value Reference Range Interpretation Comments INR (test code = INR) 1.07 0.85-1.17 [facility] CenterOmielxsGPETBTEDRY2667-61-13 08:30:00 Test Item Value Reference Range Interpretation Comments MPV (test code = MPV) 7.7 7.4-10.4 [facility] CenterAyuodmzFYGKXGRLFX8874-07-26 08:30:00 Test Item Value Reference Range Interpretation Comments Platelet (test code = Platelet) 322 133-450 [facility] CenterOvyuppcDPLLDVIEFF3652-88-23 08:30:00 Test Item Value Reference Range Interpretation Comments Hgb (test code = Hgb) 9.6 12.0-16.0 [facility] CenterAadfnuaLQYYWPIPVD3034-68-16 08:30:00 Test Item Value Reference Range Interpretation Comments RBC (test code = RBC) 3.00 4.20-5.40 [facility] CenterTdjqlmlQKCAJDGGZC4973-70-36 08:30:00 Test Item Value Reference Range Interpretation Comments WBC (test code = WBC) 6.6 3.7-10.4 [facility] CenterUtalcceTIKBOZWSVY0596-31-39 08:30:00 Test Item Value Reference Range Interpretation Comments MCHC (test code = MCHC) 37.1 32.0-36.0 [facility] CenterStvhivmWJBEUFTGNV6107-00-66 08:30:00 Test Item Value Reference Range Interpretation Comments MCH (test code = MCH) 32.1 pg 27.0-31.0 [facility] CenterTkwzeejHOLLRXULGE3750-46-89 08:30:00 Test Item Value Reference Range Interpretation Comments RDW (test code = RDW) 13.6 11.5-14.5 [facility] CenterAmhbqmkVARHLJEJES1271-88-68 08:30:00 Test Item Value Reference Range Interpretation Comments MCV (test code = MCV) 86.4 80.0-98.0 [facility] CenterPjwyrboVTQINRFFOB6716-01-69 08:30:00 Test Item Value Reference Range Interpretation Comments Hct (test code = Hct) 25.9 36.0-48.0 [facility] CenterKxrhfaiHGHLEBRONG8017-59-91 08:30:00 Test Item Value Reference Range Interpretation Comments Monocytes (test code = Monocytes) 5.5 2.0-12.0 [facility] CenterJjymigfSCNRZFFGKG7728-08-41 08:30:00 Test Item Value Reference Range Interpretation Comments Lymphocytes (test code = Lymphocytes) 5.9 20.0-40.0 [facility] CenterEvyxzyyEOUZUUFWBO8561-06-96 08:30:00 Test Item Value Reference Range Interpretation Comments Segs (test code = Segs) 88.0 45.0-75.0 [facility] CenterQbxmhzgWKHMXNJAJR4869-49-42 08:30:00 Test Item Value Reference Range Interpretation Comments Plt Morph (test code = Normal (07/06/16 3:30 Plt Morph) AM) [facility] CenterVjzpwmlNVZKCVMTFN7110-46-68 08:30:00 Test Item Value Reference Range Interpretation Comments Lymphocytes # (test code = Lymphocytes 0.4 1.0-5.5 #) [facility] CenterXhrxnpzAQVWPDXZJE7056-51-58 08:30:00 Test Item Value Reference Range Interpretation Comments Eosinophils (test code = 0.4 See_Comment [A utomated message] The Eosinophils) system which ge nerated this result tra nsmitted reference range : <=4.0. The reference r lamar was not used to int erpret this result as normal/abnormal . [facility] CenterLaqobjmFMXPKNWKMG4798-66-91 08:30:00 Test Item Value Reference Range Interpretation Comments Basophils (test code = 0.2 See_Comment [Aut omated message] The Basophils) system which ge nerated this result tra nsmitted reference range : <=1.0. The reference r lamar was not used to int erpret this result as normal/abnormal . [facility] CenterBlyonrlLJTJOKDNPI8860-54-12 08:30:00 Test Item Value Reference Range Interpretation Comments RBC Morph (test code = Normal (07/06/16 3:30 RBC Morph) AM) [facility] CenterZphrhfqYKURNXDSQX5077-88-20 08:30:00 Test Item Value Reference Range Interpretation Comments Segs-Bands # (test code = Segs-Bands #) 5.8 1.5-8.1 [facility] CenterJkdtxsyPVWIVJVOPN0533-33-53 08:30:00 Test Item Value Reference Range Interpretation Comments Monocytes # (test code 0.4 See_Comment [Aut omated message] The = Monocytes #) system which generated this result tra nsmitted reference range : <=0.8. The reference r lamar was not used to int erpret this result as normal/abnormal . [facility] CenterBtfvcdqQKIHMYEHQB1861-24-04 08:30:00 Test Item Value Reference Range Interpretation Comments PTT (test code = PTT) 28.1 s 22.9-35.8 [facility] CenterKuxukdkAQANXLYOVC7970-93-50 08:30:00 Test Item Value Reference Range Interpretation Comments PT (test code = PT) 14.2 s 12.0-14.7 [facility] CenterYtlmuwqXBZYEYNHAN8028-07-96 08:30:00 Test Item Value Reference Range Interpretation Comments INR (test code = INR) 1.07 0.85-1.17 [facility] CenterMcaozmrKKUNNIIAFJ6848-33-69 08:30:00 Test Item Value Reference Range Interpretation Comments MPV (test code = MPV) 7.7 7.4-10.4 [facility] CenterHegnyfyUKHUUDHTTD5944-16-40 08:30:00 Test Item Value Reference Range Interpretation Comments Platelet (test code = Platelet) 322 133-450 [facility] CenterSbasddcTXGNRCGNES8917-82-89 08:30:00 Test Item Value Reference Range Interpretation Comments Hgb (test code = Hgb) 9.6 12.0-16.0 [facility] CenterUkhidvyAHTSUVLYOG2625-47-64 08:30:00 Test Item Value Reference Range Interpretation Comments RBC (test code = RBC) 3.00 4.20-5.40 [facility] CenterEiawwblLLGLHHKILR9378-25-18 08:30:00 Test Item Value Reference Range Interpretation Comments WBC (test code = WBC) 6.6 3.7-10.4 [facility] CenterMvpraqsMOMTUWETZA3512-45-82 08:30:00 Test Item Value Reference Range Interpretation Comments MCHC (test code = MCHC) 37.1 32.0-36.0 [facility] CenterJdtspziWXPBQYBZWN4786-71-89 08:30:00 Test Item Value Reference Range Interpretation Comments MCH (test code = MCH) 32.1 pg 27.0-31.0 [facility] CenterTkncjcpPHPITPQHCN5445-51-26 08:30:00 Test Item Value Reference Range Interpretation Comments RDW (test code = RDW) 13.6 11.5-14.5 [facility] CenterTdxpqrsCMWYYLGOTS3047-11-06 08:30:00 Test Item Value Reference Range Interpretation Comments MCV (test code = MCV) 86.4 80.0-98.0 [facility] CenterAweebgoXTNEHHLIZL9905-16-60 08:30:00 Test Item Value Reference Range Interpretation Comments Hct (test code = Hct) 25.9 36.0-48.0 [facility] CenterHcovgctCKPKKVGVIT8222-88-34 08:30:00 Test Item Value Reference Range Interpretation Comments Monocytes (test code = Monocytes) 5.5 2.0-12.0 [facility] CenterOyaohzzHAKWIETTFP9287-75-61 08:30:00 Test Item Value Reference Range Interpretation Comments Lymphocytes (test code = Lymphocytes) 5.9 20.0-40.0 [facility] CenterReuwypbUXKIXDNRQP4187-57-32 08:30:00 Test Item Value Reference Range Interpretation Comments Segs (test code = Segs) 88.0 45.0-75.0 [facility] CenterAzbvczkTQDXOZEEVM3125-13-48 08:30:00 Test Item Value Reference Range Interpretation Comments Plt Morph (test code = Normal (07/06/16 3:30 Plt Morph) AM) [facility] CenterAfqmdzfZVAAUKYKBP5824-10-28 08:30:00 Test Item Value Reference Range Interpretation Comments Lymphocytes # (test code = Lymphocytes 0.4 1.0-5.5 #) [facility] CenterOkrvepfEVIXUGQRYZ9685-88-88 08:30:00 Test Item Value Reference Range Interpretation Comments Eosinophils (test code = 0.4 See_Comment [A utomated message] The Eosinophils) system which ge nerated this result tra nsmitted reference range : <=4.0. The reference r lamar was not used to int erpret this result as normal/abnormal . [facility] CenterIfumjfmCQVSJZGLNM1145-42-70 08:30:00 Test Item Value Reference Range Interpretation Comments Basophils (test code = 0.2 See_Comment [Aut omated message] The Basophils) system which ge nerated this result tra nsmitted reference range : <=1.0. The reference r lamar was not used to int erpret this result as normal/abnormal . [facility] CenterAeshzuqLUGZPXPHNH3076-85-69 08:30:00 Test Item Value Reference Range Interpretation Comments RBC Morph (test code = Normal (07/06/16 3:30 RBC Morph) AM) [facility] CenterAvnnihaELKNTICEDO8031-17-24 08:30:00 Test Item Value Reference Range Interpretation Comments Segs-Bands # (test code = Segs-Bands #) 5.8 1.5-8.1 [facility] CenterXyclfkoHEBGCAJBWW0408-81-45 08:30:00 Test Item Value Reference Range Interpretation Comments Monocytes # (test code 0.4 See_Comment [Aut omated message] The = Monocytes #) system which generated this result tra nsmitted reference range : <=0.8. The reference r lamar was not used to int erpret this result as normal/abnormal . [facility] CenterAmwsybdRNCDVNYVCR2215-53-06 08:30:00 Test Item Value Reference Range Interpretation Comments PTT (test code = PTT) 28.1 s 22.9-35.8 [facility] CenterMgnqwfiEBMHXYYWSO9826-81-03 08:30:00 Test Item Value Reference Range Interpretation Comments PT (test code = PT) 14.2 s 12.0-14.7 [facility] CenterJaiybwlZSJAUCYKQO9919-18-33 08:30:00 Test Item Value Reference Range Interpretation Comments INR (test code = INR) 1.07 0.85-1.17 [place] 779366-08-27 08:30:00 Test Item Value Reference Range Interpretation Comments MPV (test code = MPV) 7.7 7.4-10.4 [facility] CenterHojpcpmNOYFJWCLHQ8777-46-28 08:30:00 Test Item Value Reference Range Interpretation Comments Platelet (test code = Platelet) 322 133-450 [facility] CenterCzvrpypLCMXYZXRCP6394-35-14 08:30:00 Test Item Value Reference Range Interpretation Comments Hgb (test code = Hgb) 9.6 12.0-16.0 [facility] CenterXxbnvshDBQRRFHVSR6253-25-53 08:30:00 Test Item Value Reference Range Interpretation Comments RBC (test code = RBC) 3.00 4.20-5.40 [facility] CenterXujilugEYLBPAMAFY9811-60-32 08:30:00 Test Item Value Reference Range Interpretation Comments WBC (test code = WBC) 6.6 3.7-10.4 [facility] CenterFcxgypfZWEXIKHQRA3690-42-63 08:30:00 Test Item Value Reference Range Interpretation Comments MCHC (test code = MCHC) 37.1 32.0-36.0 [facility] CenterZinccjfGRCTBZNCCM6137-93-78 08:30:00 Test Item Value Reference Range Interpretation Comments MCH (test code = MCH) 32.1 pg 27.0-31.0 [facility] CenterWrnbbbhRSIRMDPIDM9368-82-53 08:30:00 Test Item Value Reference Range Interpretation Comments RDW (test code = RDW) 13.6 11.5-14.5 [facility] CenterZnzjidnKWBYDPHHUY5961-89-58 08:30:00 Test Item Value Reference Range Interpretation Comments MCV (test code = MCV) 86.4 80.0-98.0 [facility] CenterJjwdgzlFRYIRSLCOH6934-40-67 08:30:00 Test Item Value Reference Range Interpretation Comments Hct (test code = Hct) 25.9 36.0-48.0 [facility] CenterBqazvobTOJBEJKSDL5483-49-72 08:30:00 Test Item Value Reference Range Interpretation Comments Monocytes (test code = Monocytes) 5.5 2.0-12.0 [facility] CenterEfgclopAXRWAQPWGS1887-34-63 08:30:00 Test Item Value Reference Range Interpretation Comments Lymphocytes (test code = Lymphocytes) 5.9 20.0-40.0 [facility] CenterYotskykPEVZCDKODQ7472-15-27 08:30:00 Test Item Value Reference Range Interpretation Comments Segs (test code = Segs) 88.0 45.0-75.0 [facility] CenterDwopbcgIGZDBXCWQF9758-53-98 08:30:00 Test Item Value Reference Range Interpretation Comments Plt Morph (test code = Normal (07/06/16 3:30 Plt Morph) AM) [facility] CenterGupvvuyATXBABNULA4915-18-80 08:30:00 Test Item Value Reference Range Interpretation Comments Lymphocytes # (test code = Lymphocytes 0.4 1.0-5.5 #) [facility] CenterAoytsybWWNNUGPBNW0506-75-51 08:30:00 Test Item Value Reference Range Interpretation Comments Eosinophils (test code = 0.4 See_Comment [A utomated message] The Eosinophils) system which ge nerated this result tra nsmitted reference range : <=4.0. The reference r lamar was not used to int erpret this result as normal/abnormal . [facility] CenterFowfuhcMRZFCKYBSP3923-40-98 08:30:00 Test Item Value Reference Range Interpretation Comments Basophils (test code = 0.2 See_Comment [Aut omated message] The Basophils) system which ge nerated this result tra nsmitted reference range : <=1.0. The reference r lmaar was not used to int erpret this result as normal/abnormal . [facility] CenterCrbvixmITVWBGIISY1582-69-67 08:30:00 Test Item Value Reference Range Interpretation Comments RBC Morph (test code = Normal (07/06/16 3:30 RBC Morph) AM) [facility] CenterMtsxbjnONFZJDYKEM7687-36-50 08:30:00 Test Item Value Reference Range Interpretation Comments Segs-Bands # (test code = Segs-Bands #) 5.8 1.5-8.1 [facility] CenterNduiaeePXUQEZDDEZ3872-88-68 08:30:00 Test Item Value Reference Range Interpretation Comments Monocytes # (test code 0.4 See_Comment [Aut omated message] The = Monocytes #) system which generated this result tra nsmitted reference range : <=0.8. The reference r lamar was not used to int erpret this result as normal/abnormal . [facility] CenterFtfhvssYEIAQVBCNO0117-36-96 08:30:00 Test Item Value Reference Range Interpretation Comments PTT (test code = PTT) 28.1 s 22.9-35.8 [facility] CenterOclfhhwHFJRNZCUDI6160-87-17 08:30:00 Test Item Value Reference Range Interpretation Comments PT (test code = PT) 14.2 s 12.0-14.7 [place] 779366-08-27 08:30:00 Test Item Value Reference Range Interpretation Comments INR (test code = INR) 1.07 0.85-1.17 [facility] CenterUergenlAPCFMAOHUI4217-60-29 08:30:00 Test Item Value Reference Range Interpretation Comments MPV (test code = MPV) 7.7 7.4-10.4 [facility] CenterRxhsdhyKLHQWZTBNU0193-83-27 08:30:00 Test Item Value Reference Range Interpretation Comments Platelet (test code = Platelet) 322 133-450 [facility] CenterPuttchhMENFTGWSJE8387-86-60 08:30:00 Test Item Value Reference Range Interpretation Comments Hgb (test code = Hgb) 9.6 12.0-16.0 [facility] CenterOekencxQPJENMGBZG1404-33-31 08:30:00 Test Item Value Reference Range Interpretation Comments RBC (test code = RBC) 3.00 4.20-5.40 [facility] CenterOmndxzuVQRKGWVODK0864-97-44 08:30:00 Test Item Value Reference Range Interpretation Comments WBC (test code = WBC) 6.6 3.7-10.4 [facility] CenterTrxqyaeSULBEAUKRR8936-97-65 08:30:00 Test Item Value Reference Range Interpretation Comments MCHC (test code = MCHC) 37.1 32.0-36.0 [facility] CenterJmsuktaYQLUMEJOHY9438-64-36 08:30:00 Test Item Value Reference Range Interpretation Comments MCH (test code = MCH) 32.1 pg 27.0-31.0 [facility] CenterVrnjdiyJDNKBKABPG8305-22-58 08:30:00 Test Item Value Reference Range Interpretation Comments RDW (test code = RDW) 13.6 11.5-14.5 [facility] CenterGbzlwtkYYLVBHJSAQ2073-43-05 08:30:00 Test Item Value Reference Range Interpretation Comments MCV (test code = MCV) 86.4 80.0-98.0 [place] [id number] 08:30:00 Test Item Value Reference Range Interpretation Comments Hct (test code = Hct) 25.9 36.0-48.0 [facility] CenterYjtsppzWARJOUECOL3595-49-18 08:30:00 Test Item Value Reference Range Interpretation Comments Monocytes (test code = Monocytes) 5.5 2.0-12.0 [facility] CenterWaifwhsTOCYXTLBMT9817-18-36 08:30:00 Test Item Value Reference Range Interpretation Comments Lymphocytes (test code = Lymphocytes) 5.9 20.0-40.0 [facility] CenterWpgxchxDUCXCPBJWR6550-40-77 08:30:00 Test Item Value Reference Range Interpretation Comments Segs (test code = Segs) 88.0 45.0-75.0 [facility] CenterMkkswhcFKNSBYLMUO9544-65-86 08:30:00 Test Item Value Reference Range Interpretation Comments Plt Morph (test code = Normal (07/06/16 3:30 Plt Morph) AM) [facility] CenterLpvzkpyXZGGGSFLBM9766-37-21 08:30:00 Test Item Value Reference Range Interpretation Comments Lymphocytes # (test code = Lymphocytes 0.4 1.0-5.5 #) [facility] CenterVdiezmdCBQYCHFTRN9016-34-70 08:30:00 Test Item Value Reference Range Interpretation Comments Eosinophils (test code = 0.4 See_Comment [A utomated message] The Eosinophils) system which ge nerated this result tra nsmitted reference range : <=4.0. The reference r lamar was not used to int erpret this result as normal/abnormal . [facility] CenterNgjqeyoFECMVTBYJX0086-07-71 08:30:00 Test Item Value Reference Range Interpretation Comments Basophils (test code = 0.2 See_Comment [Aut omated message] The Basophils) system which ge nerated this result tra nsmitted reference range : <=1.0. The reference r lamar was not used to int erpret this result as normal/abnormal . [facility] CenterOqfbnnoYFNGTQTSHZ6548-11-64 08:30:00 Test Item Value Reference Range Interpretation Comments RBC Morph (test code = Normal (07/06/16 3:30 RBC Morph) AM) [facility] CenterRaxmgvuTZGKWVHLCS2410-27-17 08:30:00 Test Item Value Reference Range Interpretation Comments Segs-Bands # (test code = Segs-Bands #) 5.8 1.5-8.1 [facility] CenterFlmcdavEBWVRFDWVF4000-45-78 08:30:00 Test Item Value Reference Range Interpretation Comments Monocytes # (test code 0.4 See_Comment [Aut omated message] The = Monocytes #) system which generated this result tra nsmitted reference range : <=0.8. The reference r lamar was not used to int erpret this result as normal/abnormal . [facility] CenterXxfwuhlTMYRRHGQNB2005-53-65 08:30:00 Test Item Value Reference Range Interpretation Comments PTT (test code = PTT) 28.1 s 22.9-35.8 [facility] CenterSfxpfniVFQCHXCGUK8888-17-57 08:30:00 Test Item Value Reference Range Interpretation Comments PT (test code = PT) 14.2 s 12.0-14.7 [facility] CenterBzsethtKGAALYPHJQ7313-79-23 08:30:00 Test Item Value Reference Range Interpretation Comments INR (test code = INR) 1.07 0.85-1.17 [facility] CenterZajjpwdGGSIPUJMKR2252-44-20 08:30:00 Test Item Value Reference Range Interpretation Comments MPV (test code = MPV) 7.7 7.4-10.4 [facility] CenterIzfycjkDUVSTHNDHK1424-37-65 08:30:00 Test Item Value Reference Range Interpretation Comments Platelet (test code = Platelet) 322 133-450 [facility] CenterCfsjpdcGQUQLSFVUY8359-33-04 08:30:00 Test Item Value Reference Range Interpretation Comments Hgb (test code = Hgb) 9.6 12.0-16.0 [facility] CenterSjokwkwPXTFHXJEFC2756-89-53 08:30:00 Test Item Value Reference Range Interpretation Comments RBC (test code = RBC) 3.00 4.20-5.40 [facility] CenterFqbaqovYLYLXTCNIL3095-90-77 08:30:00 Test Item Value Reference Range Interpretation Comments WBC (test code = WBC) 6.6 3.7-10.4 [facility] CenterVkrqjpfFDTFPRQKBM3311-27-53 08:30:00 Test Item Value Reference Range Interpretation Comments MCHC (test code = MCHC) 37.1 32.0-36.0 [facility] CenterMuxwedlAHQHMKXZZI7875-27-12 08:30:00 Test Item Value Reference Range Interpretation Comments MCH (test code = MCH) 32.1 pg 27.0-31.0 [facility] CenterJwxmhezFULARWKSMP1792-99-86 08:30:00 Test Item Value Reference Range Interpretation Comments RDW (test code = RDW) 13.6 11.5-14.5 [facility] CenterQmxbpbqVDBNNHDWSE9514-47-25 08:30:00 Test Item Value Reference Range Interpretation Comments MCV (test code = MCV) 86.4 80.0-98.0 [facility] CenterXiohsryLDQDSGLUMC1383-50-38 08:30:00 Test Item Value Reference Range Interpretation Comments Hct (test code = Hct) 25.9 36.0-48.0 [facility] CenterAonouoeCOCCWIVQQG5360-75-71 08:30:00 Test Item Value Reference Range Interpretation Comments Monocytes (test code = Monocytes) 5.5 2.0-12.0 [facility] CenterHehkyfoWXGJWIHXOD4256-01-90 08:30:00 Test Item Value Reference Range Interpretation Comments Lymphocytes (test code = Lymphocytes) 5.9 20.0-40.0 [facility] CenterYkkwlzsPFUHDZFJCJ1250-79-22 08:30:00 Test Item Value Reference Range Interpretation Comments Segs (test code = Segs) 88.0 45.0-75.0 [facility] CenterHimwwtoMUEYLCNPUH8216-31-82 08:30:00 Test Item Value Reference Range Interpretation Comments Plt Morph (test code = Normal (07/06/16 3:30 Plt Morph) AM) [facility] CenterIlvgdpbMXYYJHAGFL0048-11-80 08:30:00 Test Item Value Reference Range Interpretation Comments Lymphocytes # (test code = Lymphocytes 0.4 1.0-5.5 #) [facility] CenterEzdbakgYBFSOPDHBH5140-28-65 08:30:00 Test Item Value Reference Range Interpretation Comments Eosinophils (test code = 0.4 See_Comment [A utomated message] The Eosinophils) system which ge nerated this result tra nsmitted reference range : <=4.0. The reference r lamar was not used to int erpret this result as normal/abnormal . [facility] CenterAravwnvGRQXAHZVGD5800-23-66 08:30:00 Test Item Value Reference Range Interpretation Comments Basophils (test code = 0.2 See_Comment [Aut omated message] The Basophils) system which ge nerated this result tra nsmitted reference range : <=1.0. The reference r lamar was not used to int erpret this result as normal/abnormal . [facility] CenterVzstgtzUIOZFMNHBG1303-88-20 08:30:00 Test Item Value Reference Range Interpretation Comments RBC Morph (test code = Normal (07/06/16 3:30 RBC Morph) AM) [facility] CenterYkfeqzuXCLUTGZFKG8883-30-28 08:30:00 Test Item Value Reference Range Interpretation Comments Segs-Bands # (test code = Segs-Bands #) 5.8 1.5-8.1 [facility] CenterDsqwvgpXKBSFBOJVI7903-88-31 08:30:00 Test Item Value Reference Range Interpretation Comments Monocytes # (test code 0.4 See_Comment [Aut omated message] The = Monocytes #) system which generated this result tra nsmitted reference range : <=0.8. The reference r lamar was not used to int erpret this result as normal/abnormal . [facility] CenterOoelcyfWATTILFGXX2370-65-51 08:30:00 Test Item Value Reference Range Interpretation Comments PTT (test code = PTT) 28.1 s 22.9-35.8 [facility] CenterWzmfupzVRLUXAFQSO3374-60-64 08:30:00 Test Item Value Reference Range Interpretation Comments PT (test code = PT) 14.2 s 12.0-14.7 [facility] CenterAmpbszfSKWRAKSEIW1013-64-64 08:30:00 Test Item Value Reference Range Interpretation Comments INR (test code = INR) 1.07 0.85-1.17 [facility] CenterMhhyterSQRHJJJZZU5333-08-17 08:30:00 Test Item Value Reference Range Interpretation Comments MPV (test code = MPV) 7.7 7.4-10.4 [facility] CenterVeylvsvKSTTCXRBGR2157-82-76 08:30:00 Test Item Value Reference Range Interpretation Comments Platelet (test code = Platelet) 322 133-450 [facility] CenterLmywmplQAVUYGEBIT0765-29-85 08:30:00 Test Item Value Reference Range Interpretation Comments Hgb (test code = Hgb) 9.6 12.0-16.0 [facility] CenterVtuqvgrDTEFLTLKFJ6344-24-58 08:30:00 Test Item Value Reference Range Interpretation Comments RBC (test code = RBC) 3.00 4.20-5.40 [facility] CenterWzemxkwYMZZZSOWUR2398-01-54 08:30:00 Test Item Value Reference Range Interpretation Comments WBC (test code = WBC) 6.6 3.7-10.4 [facility] CenterFccrdxsTSECXYOFTY3591-07-65 08:30:00 Test Item Value Reference Range Interpretation Comments MCHC (test code = MCHC) 37.1 32.0-36.0 [facility] CenterQwxudkgYPFMJYOSAR8392-40-63 08:30:00 Test Item Value Reference Range Interpretation Comments MCH (test code = MCH) 32.1 pg 27.0-31.0 [facility] CenterVttjmlmAIMFXBXMXV2614-83-77 08:30:00 Test Item Value Reference Range Interpretation Comments RDW (test code = RDW) 13.6 11.5-14.5 [facility] CenterOrdicbjVDBXAWPIFO6161-86-42 08:30:00 Test Item Value Reference Range Interpretation Comments MCV (test code = MCV) 86.4 80.0-98.0 [facility] CenterTjarhzjELRJBMEQKD0428-67-53 08:30:00 Test Item Value Reference Range Interpretation Comments Hct (test code = Hct) 25.9 36.0-48.0 [facility] CenterBikocokEEGXKNJJKN8092-69-75 08:30:00 Test Item Value Reference Range Interpretation Comments Monocytes (test code = Monocytes) 5.5 2.0-12.0 [facility] CenterDgtkmgpLEVLRNEKSX9532-43-04 08:30:00 Test Item Value Reference Range Interpretation Comments Lymphocytes (test code = Lymphocytes) 5.9 20.0-40.0 [facility] CenterUoufsglMNEMGFSUXS4345-49-93 08:30:00 Test Item Value Reference Range Interpretation Comments Segs (test code = Segs) 88.0 45.0-75.0 [facility] CenterFavpftfZIFDVIZSWF9825-07-67 08:30:00 Test Item Value Reference Range Interpretation Comments Plt Morph (test code = Normal (07/06/16 3:30 Plt Morph) AM) [facility] CenterFiyqhgyKQVTARIZZA2426-15-33 08:30:00 Test Item Value Reference Range Interpretation Comments Lymphocytes # (test code = Lymphocytes 0.4 1.0-5.5 #) [facility] CenterPdslwvdTSRBNQEDMA8670-12-18 08:30:00 Test Item Value Reference Range Interpretation Comments Eosinophils (test code = 0.4 See_Comment [A utomated message] The Eosinophils) system which ge nerated this result tra nsmitted reference range : <=4.0. The reference r lamar was not used to int erpret this result as normal/abnormal . [facility] CenterPsmatsfSRGPAKAMLP1352-82-28 08:30:00 Test Item Value Reference Range Interpretation Comments Basophils (test code = 0.2 See_Comment [Aut omated message] The Basophils) system which ge nerated this result tra nsmitted reference range : <=1.0. The reference r lamar was not used to int erpret this result as normal/abnormal . [facility] CenterPblgplhWRTHOZGNDJ0167-37-23 08:30:00 Test Item Value Reference Range Interpretation Comments RBC Morph (test code = Normal (07/06/16 3:30 RBC Morph) AM) [facility] CenterNjuambtOLVRNDNDCF6742-48-06 08:30:00 Test Item Value Reference Range Interpretation Comments Segs-Bands # (test code = Segs-Bands #) 5.8 1.5-8.1 [facility] CenterXaphwhvGWQKMEYZLC8657-60-35 08:30:00 Test Item Value Reference Range Interpretation Comments Monocytes # (test code 0.4 See_Comment [Aut omated message] The = Monocytes #) system which generated this result tra nsmitted reference range : <=0.8. The reference r lamar was not used to int erpret this result as normal/abnormal . [facility] CenterDkftmpxUYOIGZVEXT7353-29-27 08:30:00 Test Item Value Reference Range Interpretation Comments PTT (test code = PTT) 28.1 s 22.9-35.8 [facility] CenterZblrnpyZMPKYXFPCS6095-95-39 08:30:00 Test Item Value Reference Range Interpretation Comments PT (test code = PT) 14.2 s 12.0-14.7 [facility] CenterTnvdttrLQCLHZGOAU6253-38-82 08:30:00 Test Item Value Reference Range Interpretation Comments INR (test code = INR) 1.07 0.85-1.17 [facility] CenterOwnfdtkOLLYJAWNIO2131-79-96 08:30:00 Test Item Value Reference Range Interpretation Comments MPV (test code = MPV) 7.7 7.4-10.4 [facility] CenterNsrpbreASVVOJMCMD4281-47-62 08:30:00 Test Item Value Reference Range Interpretation Comments Platelet (test code = Platelet) 322 133-450 [facility] CenterQyqekoyXQELNMIVYW0689-98-95 08:30:00 Test Item Value Reference Range Interpretation Comments Hgb (test code = Hgb) 9.6 12.0-16.0 [facility] CenterPhrwsajNSGCPKDTDB9738-17-34 08:30:00 Test Item Value Reference Range Interpretation Comments RBC (test code = RBC) 3.00 4.20-5.40 [place] 779366-08-27 08:30:00 Test Item Value Reference Range Interpretation Comments WBC (test code = WBC) 6.6 3.7-10.4 [facility] CenterBflutdqKQIZKDVVRZ9485-38-54 08:30:00 Test Item Value Reference Range Interpretation Comments MCHC (test code = MCHC) 37.1 32.0-36.0 [facility] CenterLlvubfxKYCTXLGBFP1862-18-59 08:30:00 Test Item Value Reference Range Interpretation Comments MCH (test code = MCH) 32.1 pg 27.0-31.0 [facility] CenterCghoydyDPSGUDYSJD5098-14-04 08:30:00 Test Item Value Reference Range Interpretation Comments RDW (test code = RDW) 13.6 11.5-14.5 [facility] CenterKxyxemyIQFAJVZKTO8366-02-87 08:30:00 Test Item Value Reference Range Interpretation Comments MCV (test code = MCV) 86.4 80.0-98.0 [facility] CenterJuzugrpGGTOMVQDEF2726-36-42 08:30:00 Test Item Value Reference Range Interpretation Comments Hct (test code = Hct) 25.9 36.0-48.0 [facility] CenterJfaquxeDBSOXWWSLY5470-39-80 08:30:00 Test Item Value Reference Range Interpretation Comments Monocytes (test code = Monocytes) 5.5 2.0-12.0 [facility] CenterYbytpzeVJTXUFAHKG3500-04-73 08:30:00 Test Item Value Reference Range Interpretation Comments Lymphocytes (test code = Lymphocytes) 5.9 20.0-40.0 [facility] CenterRfueeovTRHKTLUWMN2262-95-06 08:30:00 Test Item Value Reference Range Interpretation Comments Segs (test code = Segs) 88.0 45.0-75.0 [facility] CenterFryyixaBYPTMTRXOE6992-56-78 08:30:00 Test Item Value Reference Range Interpretation Comments Plt Morph (test code = Normal (07/06/16 3:30 Plt Morph) AM) [facility] CenterIhslomzAZDLKYNUJS2002-32-49 08:30:00 Test Item Value Reference Range Interpretation Comments Lymphocytes # (test code = Lymphocytes 0.4 1.0-5.5 #) [facility] CenterWwksrptEPDRSYJZWD9903-24-64 08:30:00 Test Item Value Reference Range Interpretation Comments Eosinophils (test code = 0.4 See_Comment [A utomated message] The Eosinophils) system which ge nerated this result tra nsmitted reference range : <=4.0. The reference r lamar was not used to int erpret this result as normal/abnormal . [facility] CenterAofpfwlZYBYKWCOYK2767-25-69 08:30:00 Test Item Value Reference Range Interpretation Comments Basophils (test code = 0.2 See_Comment [Aut omated message] The Basophils) system which ge nerated this result tra nsmitted reference range : <=1.0. The reference r lamar was not used to int erpret this result as normal/abnormal . [facility] CenterUthfiuvIIRXNFVINE8847-08-62 08:30:00 Test Item Value Reference Range Interpretation Comments RBC Morph (test code = Normal (07/06/16 3:30 RBC Morph) AM) [facility] CenterWpmxjylDHOEPUXAHI1358-90-10 08:30:00 Test Item Value Reference Range Interpretation Comments Segs-Bands # (test code = Segs-Bands #) 5.8 1.5-8.1 [facility] CenterOfgcqegGYLEGQKQDZ5304-63-51 08:30:00 Test Item Value Reference Range Interpretation Comments Monocytes # (test code 0.4 See_Comment [Aut omated message] The = Monocytes #) system which generated this result tra nsmitted reference range : <=0.8. The reference r lamar was not used to int erpret this result as normal/abnormal . [facility] Notes Date/Time Note Provider Source 2022-04-27 10:27:00-00:00 [facility] Regional Name: ANSELMO MASSEYSharif Bejarano STLSJG [address] [facility] : 1945, Age: 76, [place]: [place] [address] Unit #: [id number], Status: A DM IN [phone] Location: [place] [id number] Report Dict DrBel: Sharif Viera DO Admission Date: 04/23/22 Report #: [id number] Discharge Date: CC: Discharge Summary Provider Encounter Date: 04/27/22 Date of Admission: 04/23/22 17:17 Date of Discharge: 04/27/22 Admitting Provider: Juan M Clark MD Primary Care Physician: Isreal Duong MD Course Hospital Course: Pt was initially admitted in [place] after being found altered by family members after hus band suddenly . W ork up in the ED found pt to have metabolic encephalopathy from UTI and COVID. She was treated with abx and paxlovid and subseqeuntly transferred here for PT/OT due to deco nditioning and poor housing conditions making pt unable to return home. Pt has continually worked wi th therapy here and has reac hed the point she can leave with assisted care at home. [place] agreed to take patient in for a period of time during her COVID isolation, after which she lindsay l then go to the [facility] for more extended living conditions. This was discussed with the patie nt who is in agreement. At t he time of discharge she is requiring no oxygen and is able to converse normally, oriented to person, place, and mostly time. Resuscitation Status: 04/24/22 07:00 Resuscitation Status Routine Resuscitation Status: FULL: Full Resuscitation Lab Results: 04/27/22 05:30 04/27/22 05:30 Abnormal Lab Results - Last 48 hrs 04/27/22 05:30: BUN 25 H, Creatinine 1.26 H 04/27/22 05:30: WBC 3.3 L, Monocytes % 10.2 H Microbiology - Entire Visit 04/24/22 09:30 Venous blood - Left Arm Blood Cul ture - Final Staph. hominus subsp. hominus 04/23/22 19:00 Urine voided Urine Culture - Cristal murillo Escherichia coli 04/24/22 09:00 Venous blood - Left Arm Blood Cul ture - Preliminary NO GROWTH AT 48 HOURS Vitals: Vital Signs (12 hours) Temp Pulse Resp BP BP Pulse Ox 04/27/22 09:50 133/68 04/27/22 08:00 96.9 F L 74 18 133/68 95 04/27/22 04:00 96.9 F L 68 18 115/62 96 04/27/22 00:00 96.8 F L 68 20 124/71 96 Weight Admit Weight 56.359 kg Weight 56.359 kg Physical Exam: The patient was seen and examined on the day of discharge. General Appearance: NAD, awake alert Eye: anicteric sclera ENT: moist mucosa Respiratory: CTAB, no wheezes Cardiovascular: RRR, no murmur Gastrointestinal: soft, non-tender, non-distende d Extremities: no cyanosis, no clubbing, no edema Skin: normal turgor, no lesions Neurological: cranial nerve grossly intact, no f ocal deficits Musculoskeletal: normal tone, generalized weakne ss PSYCH: normal behavior, oriented to person, orie nted to place Problem Assessment: COVID - complete entire course of paxlovid as outpt, monitor for long COVID symptoms UTI - complete full course of macrobid as outpatient - monitor for recurrence - routine hygeine HTN - continue lisinopril 10mg daily Deconditioning - continue to work with ther apy as an outpatient as insurance/eligibility allows Time Spent in discharge related activities (mins ): 40 Plan Prescriptions: Nitrofurantoin Monohyd/M-Cryst [Macrobid] 100 mg PO BID #14 cap Nirmatrelvir/Ritonavir [Paxlovid Co-Pack (Eua)] 1 tab PO BID #1 pkg Lisinopril [Zestril] 10 mg PO DAILY #30 tab Home Medications: Medication Instructions Recorded Confirmed Type Acetaminophen/Diphenhydramine 2 tab PO Q6H PRN 0 04/23/22 04/23/22 History [Tylenol Pm Exstr 500-25Mg Cplt] Nirmatrelvir/Ritonavir [Paxlovid 1 tab PO BID #1 pkg 04/26/22 Rx Co-Pack (Eua)] Nitrofurantoin Monohyd/M-Cryst 100 mg PO BID #14 cap 04/26/22 Rx [Macrobid] Famotidine [Pepcid] 20 mg PO DAILY tab 04/27/22 Rx Lisinopril [Zestril] 10 mg PO DAILY #30 tab 04/10 07/01 Rx Allergies: Penicillins Allergy (Verified 04/24/22 00:08) per er notes Activity:: Activity as Tolerated Nourishment:: Regular Diet Referrals: Isreal Duong MD [Primary Care Provider] - Disposition: HOME Quality CORE MEASURES:: N/A <Electronically signed by Sharif Viera DO> [id number] 2022-04-26 08:04:00-00:00 [facility] Regional [facility]Juan M Mitchell [facility] [address] [facility] : 1945, Age: 76, Sex: F [place] [address] Unit #: [id number], Status: A DM IN [phone] Location: [facility] [id number] Report Dict Dr.: Juan M Clark MD Admission Date: 04/23/22 Report #: [id number] Discharge Date: CC: Brief Progress Note - Brief Progress Note Encounter Date: 04/26/22 Encounter Time: 08:04 - Subjective Encounter Date: 04/25/22 Encounter Time: 21:16 Subjective: Patient stable today. No sup p O2 requirement. Urine culture grew E. coli sensitive to Levaquin, Macrobid, Bactrim. Per case management patient is excepted to a care home by her rraega-ej-fjx's house. However in the [facility] home once her to complete her COVID isolation. She is going go home with her nelcre-pn-vat and c omplete her COVID isolation and then be admitted to that care home. - Objective Additional Labs: Laboratory Results - last 24 hr 04/25/22 05:45: WBC 3.1 L, R BC 4.12 L, Hgb 12.4, Hct 39.5, MCV 95.9, MCH 30.1, MCHC 31.4 L, RDW 12.3, Plt Count 188, MPV 8.5 , Neutrophils % 66.3, Lymphocytes % 22.5, Monocytes % 9.8, Eosinophils % 6.1, Basophils % 1.3 H, Neut rophils # 2.0, Lymphocytes # 0.7 L, Monocytes # 0.3, Eosinophils # 0.0, Basophils # 0.0 04/25/22 00:54: Sodium 136, Potassium 3.6, Chloride 105, Carbon Dioxide 18 L, Anion Gap 17, BUN 17, Creatinine 0.93, Estimated GFR (MDRD) 59, Glucos e 81 L, Calcium 8.4 Hospitalist ROS - Review of Systems Constitutional: reports: wea kness, malaise. denies: fever, chills, sweats, other Eyes: denies: pain, vision c hange, conjunctivae inflammation, eyelid inflammation, redness, other ENT: denies: ear pain, ear d ischarge, nose pain, nose discharge, nose congestion, mouth pain, mouth swelling, throat pain, throat swelling, other Respiratory: reports: cough, dry. denies: shortness of breath, hemoptysis, SOB with excertion, pleuritic pain, sputum, wheezing, other Cardiovascular: denies: ches t pain, palpitations, orthopnea, paroxysmal noc. dyspnea, edema, light headedness, other Gastrointestinal: denies: na usea, vomiting, abdominal pain, diarrhea, constipation, melena, hematochezia, other Genitourinary: denies: dysur ia, frequency, incontinence, hematuria, retention, other Musculoskeletal: denies: nec k pain, shoulder pain, arm pain, back pain, hand pain, leg pain, foot pain, other Neurological: reports: weakn ess. denies: numbness, incoordination, change in speech, confusion, seizures, other - Medication Medications: Active Medications Generic Name Dose Route Start Last Admin Trade Name Freq PRN Reason Stop Dose Admin Acetaminophen 500 mg 04/23/22 21:27 04/24/22 08: 12 Acetaminophen 500 Mg Tab PO 500 mg Q6H PRN Administration Fever/Pain (1-10) Albuterol Sulfate 2 puff 04/24/22 07:00 04/24/22 17:48 Albuterol 200 Puff (6.7gm Inhaler) INH 2 puff Q4H PRN Administration Dyspnea/SOB Ascorbic Acid 1,000 mg 04/24/22 09:00 04/25/22 0 8:07 Ascorbic Acid 500 Mg Chewable Tablet PO 1,000 m g DAILY NEO Administration Cholecalciferol 400 units 04/24/22 09:00 2 08:08 Cholecalciferol (Vitamin D3) 400 Units Tab PO 4 00 units DAILY NEO Administration Clonidine 0.1 mg 04/23/22 21:27 04/24/22 04:20 Clonidine 0.1 Mg Tab PO 0.1 mg Q6H PRN Administration SBP Greater Than 170 Enoxaparin Sodium 40 mg 04/24/22 09:00 04/25/22 08:03 Enoxaparin Sodium 40 Mg/0.4 Ml Syringe SC 40 mg 0900 NEO Administration Famotidine 20 mg 04/24/22 09:00 04/25/22 08:08 Famotidine/Pf 20 Mg/2ml Vial SLOW IVP Not Given Q12HR NEO Famotidine 20 mg 04/24/22 09:00 04/25/22 08:08 Famotidine 20 Mg Tab PO 20 mg BID NEO Administration Guaifenesin/Dextromethorphan 15 ml 04/24/22 07:5 9 04/25/22 12:01 Guaifenesin Dm 100-10/5 Ml Udcup PO 15 ml Q4H PRN Administration Cough Cefepime HCl 2 gm/ Sodium 100 mls @ 200 mls/hr 0 04/24/22 23:59 04/25/22 12:02 Chloride IVPB 100 mls 1200,2359 NEO Administration Nirmatrelvir/Ritonavir 0 each 04/24/22 21:00 08:06 Nirmatrelvir 150 Mg/Ritonavir 100 Mg Tablet PO 04/28/22 21:01 1 pack BID NEO Administration Sodium Chloride 10 ml 04/24/22 09:00 04/25/22 08 :08 Flush - Normal Saline 10 Ml Syringe IVF 10 ml Q12HR NEO Administration Sodium Chloride 10 ml 04/23/22 21:30 04/24/22 04 :09 Flush - Normal Saline 10 Ml Syringe IVF 10 ml PRN PRN Administration Saline Flush Sodium Chloride 0 ml 04/24/22 08:01 04/24/22 17: 49 Sodium Chloride 0.65% Nasal 44 Ml Bot EA NARE 1 spr QIDPRN PRN Administration Nasal Congestion Throat Lozenges 1 kenyon 04/24/22 08:01 04/24/22 17 :48 Cepastat Lozenges 1 Kenyon PO 1 kenyon Q2H PRN Administration Sore Throat Zinc Sulfate 220 mg 04/24/22 09:00 04/25/22 08:0 7 Zinc Sulfate 220 Mg Cap PO 220 mg DAILY NEO Administration Hospitalist Exam Vitals: Temperature: 96.9 Pulse: 78 Blood pressure: 109/63-121/70 O2 sats: 96% on room air General Appearance: NAD, awake alert Heart: RRR, no murmur, no gallops, no rubs, norm al peripheral pulses Respiratory: CTAB, no wheezes, no rales, no ronc hi Gastrointestinal: soft, non-tender, non-distende d, normal bowel sounds Extremities: no cyanosis, no clubbing, no edema Neurological: cranial nerve grossly intact, no n ew deficit Musculoskeletal: generalized weakness Psychiatric: normal affect, normal behavior, oriented to person, oriented to place. negative: oriented to time Hosp A/P (1) Sepsis Code(s): A41.9 - SEPSIS, UNSPECIFIED ORGANISM St atus: Acute Qualifiers: Sepsis type: sepsis due to unspecified organism Sepsis acute organ dysfunction status: without acute organ dysfunction Qual ified Code(s): A41.9 - Sepsis, unspecified organism (2) COVID-19 virus infection Code(s): U07.1 - COVID-19 Status: Acute (3) UTI (urinary tract infection) Status: Acute Qualifiers: Urinary tract infection typ e: acute cystitis Hematuria presence: without hematuria Qualified Code(s): N30.00 - Acute cystitis without hematur ia (4) Weakness Code(s): R53.1 - WEAKNESS Status: Acute (5) Hypertension Code(s): I10 - ESSENTIAL (PRIMARY) HYPERTENSION Status: Chronic Qualifiers: Hypertension type: primary hypertension Qualified Code(s): I10 - Essential (primary) hypertension (6) Hypokalemia Code(s): E87.6 - HYPOKALEMIA Status: Acute - Plan old records reviewed/req, PT/OT #Sepsis secondary to UTI and COVID #Leukopenia -Patient with positive COVID infection. -PT/PTT/INR unremarkable. -CK, CRP elevated which is expected in COVID in fection -Patient is satting well on room air. -Ordered Paxlovid for patient -Initially febrile with tachycardia however this has resolved. -UTI -Transition patient to Macrobid. -Blood Cultures -Returned with skin contaminant. -Monitor oxygenation -Continue vitals -Ordered routine prn's -Reviewed records from ED -DVT prophylaxis with Lovenox #Hypertension -Continue Lisinopril 10 mg #Hypokalemia -Potassium unremarkable today -Repeat potassium in a.m. #Weakness -PT/OT felt patient was alre shilpa strong enough and recommended not to start services ## Discharge disposition: Henry varghese is going to go home with her [id number] to finish out her COVID isolation, and then she will be [facility]. <Electronically signed by Juan M Clark > [id number] 2022-04-25 21:16:00-00:00 [facility] Regional Name: RONNIE BRIONES OD Juan M Clark STLSJG [address] : 1945, Age: 76, Sex: F JACK Montes [address] Unit #: [id number], Status: A DM IN [phone] Location: [facility] [id number] Report Dict Dr.: Juan M Clark MD Admission Date: 04/25/22 Report #: [id number] Discharge Date: CC: Hospitalist Progress Note - Subjective Encounter Date: 04/25/22 Encounter Time: 21:16 Subjective: Patient stable today. No sup p O2 requirement. Urine Cx grew GNR. PT/OT assessed patient but determined patient was strong on her own. - Objective Vital Signs Weight: Vital Signs (12 hours) Temp Pulse Pulse Pulse Resp BP BP 04/25/22 20:00 97 F L 81 18 186/88 H 04/25/22 16:00 97.3 F L 76 20 160/75 H 04/25/22 14:30 89 101 H 04/25/22 12:00 99.5 F 88 18 04/25/22 11:02 82 129/88 BP Pulse Ox Pulse Ox Pulse Ox 04/25/22 20:00 95 04/25/22 16:00 98 04/25/22 14:30 96 94 L 04/25/22 12:00 135/78 97 04/25/22 11:02 96 Weight Admit Weight 124 lb 4 oz Weight 124 lb 4 oz I O: I/O 04/24/22 04/25/22 04/26/22 06:59 06:59 06:59 Intake Total 940 1420 790 Balance 940 1420 790 Result Diagrams: 04/25/22 05:45 04/25/22 00:54 Additional Labs: Laboratory Results - last 24 hr 04/25/22 05:45: WBC 3.1 L, R BC 4.12 L, Hgb 12.4, Hct 39.5, MCV 95.9, MCH 30.1, MCHC 31.4 L, RDW 12.3, Plt Count 188, MPV 8.5 , Neutrophils % 66.3, Lymphocytes % 22.5, Monocytes % 9.8, Eosinophils % 6.1, Basophils % 1.3 H, Neut rophils # 2.0, Lymphocytes # 0.7 L, Monocytes # 0.3, Eosinophils # 0.0, Basophils # 0.0 04/25/22 00:54: Sodium 136, Potassium 3.6, Chloride 105, Carbon Dioxide 18 L, Anion Gap 17, BUN 17, Creatinine 0.93, Estimated GFR (MDRD) 59, Glucos e 81 L, Calcium 8.4 Hospitalist ROS - Review of Systems Constitutional: reports: wea kness, malaise. denies: fever, chills, sweats, other Eyes: denies: pain, vision c hange, conjunctivae inflammation, eyelid inflammation, redness, other ENT: denies: ear pain, ear d ischarge, nose pain, nose discharge, nose congestion, mouth pain, mouth swelling, throat pain, throat swelling, other Respiratory: reports: cough, dry. denies: shortness of breath, hemoptysis, SOB with excertion, pleuritic pain, sputum, wheezing, other Cardiovascular: denies: ches t pain, palpitations, orthopnea, paroxysmal noc. dyspnea, edema, light headedness, other Gastrointestinal: denies: na usea, vomiting, abdominal pain, diarrhea, constipation, melena, hematochezia, other Genitourinary: denies: dysur ia, frequency, incontinence, hematuria, retention, other Musculoskeletal: denies: nec k pain, shoulder pain, arm pain, back pain, hand pain, leg pain, foot pain, other Neurological: reports: weakn ess. denies: numbness, incoordination, change in speech, confusion, seizures, other - Medication Medications: Active Medications Generic Name Dose Route Start Last Admin Trade Name Freq PRN Reason Stop Dose Admin Acetaminophen 500 mg 04/23/22 21:27 04/24/22 08: 12 Acetaminophen 500 Mg Tab PO 500 mg Q6H PRN Administration Fever/Pain (1-10) Albuterol Sulfate 2 puff 04/24/22 07:00 04/24/22 17:48 Albuterol 200 Puff (6.7gm Inhaler) INH 2 puff Q4H PRN Administration Dyspnea/SOB Ascorbic Acid 1,000 mg 04/24/22 09:00 04/25/22 0 8:07 Ascorbic Acid 500 Mg Chewable Tablet PO 1,000 m g DAILY NEO Administration Cholecalciferol 400 units 04/24/22 09:00 2 08:08 Cholecalciferol (Vitamin D3) 400 Units Tab PO 4 00 units DAILY NEO Administration Clonidine 0.1 mg 04/23/22 21:27 04/24/22 04:20 Clonidine 0.1 Mg Tab PO 0.1 mg Q6H PRN Administration SBP Greater Than 170 Enoxaparin Sodium 40 mg 04/24/22 09:00 04/25/22 08:03 Enoxaparin Sodium 40 Mg/0.4 Ml Syringe SC 40 mg 0900 NEO Administration Famotidine 20 mg 04/24/22 09:00 04/25/22 08:08 Famotidine/Pf 20 Mg/2ml Vial SLOW IVP Not Given Q12HR NEO Famotidine 20 mg 04/24/22 09:00 04/25/22 08:08 Famotidine 20 Mg Tab PO 20 mg BID NEO Administration Guaifenesin/Dextromethorphan 15 ml 04/24/22 07:5 9 04/25/22 12:01 Guaifenesin Dm 100-10/5 Ml Udcup PO 15 ml Q4H PRN Administration Cough Cefepime HCl 2 gm/ Sodium 100 mls @ 200 mls/hr 0 04/24/22 23:59 04/25/22 12:02 Chloride IVPB 100 mls 1200,2359 NEO Administration Nirmatrelvir/Ritonavir 0 each 04/24/22 21:00 08:06 Nirmatrelvir 150 Mg/Ritonavir 100 Mg Tablet PO 04/28/22 21:01 1 pack BID NEO Administration Sodium Chloride 10 ml 04/24/22 09:00 04/25/22 08 :08 Flush - Normal Saline 10 Ml Syringe IVF 10 ml Q12HR NEO Administration Sodium Chloride 10 ml 04/23/22 21:30 04/24/22 04 :09 Flush - Normal Saline 10 Ml Syringe IVF 10 ml PRN PRN Administration Saline Flush Sodium Chloride 0 ml 04/24/22 08:01 04/24/22 17: 49 Sodium Chloride 0.65% Nasal 44 Ml Bot EA NARE 1 spr QIDPRN PRN Administration Nasal Congestion Throat Lozenges 1 kenyon 04/24/22 08:01 04/24/22 17 :48 Cepastat Lozenges 1 Kenyon PO 1 kenyon Q2H PRN Administration Sore Throat Zinc Sulfate 220 mg 04/24/22 09:00 04/25/22 08:0 7 Zinc Sulfate 220 Mg Cap PO 220 mg DAILY NEO Administration Hospitalist Exam Vitals: Vital Signs (12 hours) Temp Pulse Pulse Pulse Resp BP BP 04/25/22 20:00 97 F L 81 18 186/88 H 04/25/22 16:00 97.3 F L 76 20 160/75 H 04/25/22 14:30 89 101 H 04/25/22 12:00 99.5 F 88 18 04/25/22 11:02 82 129/88 BP Pulse Ox Pulse Ox Pulse Ox 04/25/22 20:00 95 04/25/22 16:00 98 04/25/22 14:30 96 94 L 04/25/22 12:00 135/78 97 04/25/22 11:02 96 Weight Admit Weight 124 lb 4 oz Weight 124 lb 4 oz General Appearance: NAD, awake alert Heart: RRR, no murmur, no gallops, no rubs, norm al peripheral pulses Respiratory: CTAB, no wheezes, no rales, no ronc hi Gastrointestinal: soft, non-tender, non-distende d, normal bowel sounds Extremities: no cyanosis, no clubbing, no edema Neurological: cranial nerve grossly intact, no n ew deficit Musculoskeletal: generalized weakness Psychiatric: normal affect, normal behavior, oriented to person, oriented to place. negative: oriented to time Hosp A/P (1) Sepsis Code(s): A41.9 - SEPSIS, UNSPECIFIED ORGANISM St atus: Acute Qualifiers: Sepsis type: sepsis due to unspecified organism Sepsis acute organ dysfunction status: without acute organ dysfunction Qual ified Code(s): A41.9 - Sepsis, unspecified organism (2) COVID-19 virus infection Code(s): U07.1 - COVID-19 Status: Acute (3) UTI (urinary tract infection) Status: Acute Qualifiers: Urinary tract infection typ e: acute cystitis Hematuria presence: without hematuria Qualified Code(s): N30.00 - Acute cystitis without hematur ia (4) Weakness Code(s): R53.1 - WEAKNESS Status: Acute (5) Hypertension Code(s): I10 - ESSENTIAL (PRIMARY) HYPERTENSION Status: Chronic Qualifiers: Hypertension type: primary hypertension Qualified Code(s): I10 - Essential (primary) hyper tension (6) Hypokalemia Code(s): E87.6 - HYPOKALEMIA Status: Acute - Plan old records reviewed/req, PT/OT #Sepsis secondary to UTI and COVID #Leukopenia -Patient with positive COVID infection. -PT/PTT/INR unremarkable. -CK, CRP elevated which is expected in COVID in fection -Patient is satting well on room air. -Ordered Paxlovid for patient -Initially febrile with tachycardia however this has resolved. -UTI -Continue cefepime IV. -Culture returned with GNR pending sensitivitie s. -Blood Cultures -Returned with GA staph 1 out of 2 bottles whic h is skin contaminant. -Monitor oxygenation -Continue vitals -Ordered routine prn's -Reviewed records from ED -DVT prophylaxis with Lovenox #Hypertension -Continue Lisinopril 10 mg #Hypokalemia -Potassium unremarkable today -Repeat potassium in a.m. #Weakness -PT/OT felt patient was alre shilpa strong enough and recommended not to start services #Social concerns -Patient is now. She used to live with her in their home, however now she will be the at the house. Family had concerns about her living conditions. -APS report is pending on he r. We will work with case management and APS to find her placement. -Patient scored 23/30 on [facility] MS which is range of MNCD. This is consistent with my exam of patient -I feel that patient has mental capacity to make her own decisions. ## Discharge disposition: Patie nt will need care home placement following discharge <Electronically signed by Juan M Clark > [id number] 2022-04-24 08:03:00-00:00 [facility] Regional Name: RONNIE BRIONES OD Juan M Clark STLSJG [address] [facility] : 1945, Age: 76, Sex: F JACK Montes [address] Unit #: [id number], Status: ADM IN [phone] Location: [place] [id number] Report Dict Dr.: Juan M Clark MD Admission Date: 04/23/22 Report #: [id number] Discharge Date: CC: Hospitalist History Physical Hospitalist HPI Encounter Date: 04/24/22 CC: Confusion and weakness History of Present Illness: 76-year-old female who was b rought to [facility] ER for confusion. Patient unfortunately lost her yesterday. Patient's while going out to the truck and was not able to be revived. 's family came to help with patient and the family noticed that the patient's trailer home was in very poo r condition. They noticed there is holes in the roof and patient had not been eating. He also not iced that patient was more confused than before. Brought to [facility], and work-up revealed 4+ bacteria on UA. Patient also had fever of 101.1 with a pulse of 103. Unfortunately patient w as started on antibiotics before blood cultures were taken. Patient was started on cefepime for her UTI. A urine culture was obtained. She is admitted for treatment of her UTI, however she was als o found to be COVID-positive in the ER as well. Patient is being admitted for sepsis secondary to UTI and COVID. On the floor patient is satu rating well on room air. She has a intermittent cough and congestion, but no shortness of breath. Overall patient states that she is tired but feeling well. She is alert to place and self but not time. Patient cefepime was continued on the floor, and patient was given Tylenol for fever. Her fever came down to 99 Fahrenheit. Allergies/Adverse Reactions: Allergy/AdvReac Type Severity Reaction Status Da te / Time Penicillins Allergy Verified 04/24/22 00:08 Home Medications: Medication Instructions Recorded Confirmed Type Acetaminophen/Diphenhydramine 2 tab PO Q6H PRN 0 04/23/22 04/23/22 History [Tylenol Pm Exstr 500-25Mg Cplt] Comments: Patient denies any past medi tasha history, and denies any home medications. Patient's family also was not able to give any home prescription list. Past History: Patient denies any medical history Past surgical history: Hysterectomy Family history: Noncontributory Social history: Patient is n ow a , she lives with her and their trailer home. APS was called by the family, and juan is likely going to need placement at a care home. Hospitalist HPI ROS Constitutional: reports: fev er, weakness, malaise. denies: chills, sweats, other Eyes: denies: pain, vision c hange, conjunctivae inflammation, eyelid inflammation, redness, other ENT: denies: ear pain, ear d ischarge, nose pain, nose discharge, nose congestion, mouth pain, mouth swelling, throat pain, throat swelling, other Respiratory: reports: cough, dry. denies: shortness of breath, hemoptysis, SOB with excertion, pleuritic pain, sputum, wheezing, other Cardiovascular: denies: ches t pain, palpitations, orthopnea, paroxysmal noc. dyspnea, edema, light headedness, other Gastrointestinal: denies: na usea, vomiting, abdominal pain, diarrhea, constipation, melena, hematochezia, other Skin: denies: rash, lesions, merritt, bruising, oth er Neurological: reports: weakn ess. denies: numbness, incoordination, change in speech, confusion, seizures, other Hospitalist Exam Vitals: Vital Signs (12 hours) Temp Pulse Resp BP BP Pulse Ox 04/24/22 04:20 99.5 F 86 18 175/80 H 98 04/24/22 04:00 99.5 F 86 18 175/80 H 98 04/24/22 00:02 99 F 91 18 150/68 H 96 04/24/22 00:00 99 F 91 18 150/68 H 96 04/23/22 20:45 101.1 F H 103 H 18 161/78 H 161/ 78 H 96 Weight Admit Weight 124 lb 4 oz Weight 124 lb 4 oz General Appearance: NAD, awake alert Eye: PERRL, anicteric sclera ENT: normocephalic atraumatic, no oropharyngeal lesions, moist mucosa Neck: supple, symmetric, no JVD, no thyromegaly Heart: RRR, no murmur, no gallops, no rubs, norm al peripheral pulses Respiratory: CTAB, no wheezes, no rales, no ronc hi, normal chest expansion Gastrointestinal: soft, non-tender, non-distende d, normal bowel sounds Extremities: no cyanosis, no clubbing, no edema Skin: normal turgor, no lesions, no rashes Neurological: cranial nerve grossly intact Musculoskeletal: generalized weakness (Patient's active range of motion full in upper and lower extremities. Patient has sli ght weakness and bilateral upper extremities and significant weakness in bilateral lower extremities.) Psychiatric: normal affect, normal behavior, oriented to person, oriented to place. negative: oriented to time Hospitalist Results Result Diagrams: 04/24/22 05:55 04/24/22 05:55 Lab results: Laboratory Last Values WBC 2.8 thou/uL (4.8-10.8) L 04/24/22 05:55 RBC 4.00 mill/uL (4.20-5.40) L 04/24/22 05:55 Hgb 12.2 g/dL (12.0-16.0) 04/24/22 05:55 Hct 38.6 % (36.0-47.0) 04/24/22 05:55 MCV 96.5 fL (78.0-98.0) 04/24/22 05:55 MCH 30.4 pg (27.0-31.0) 04/24/22 05:55 MCHC 31.5 g/dL (32.0-36.0) L 04/24/22 05:55 RDW 12.5 % (11.5-14.5) 04/24/22 05:55 Plt Count 204 thou/uL (130-400) 04/24/22 05:55 MPV 8.3 fL (7.4-10.4) 04/24/22 05:55 Neutrophils % 82.1 % (42.0-75.0) H 04/23/22 18:1 4 Lymphocytes % 5.2 % (21.0-51.0) L 04/23/22 18:14 Monocytes % 9.9 % (0.0-10.0) 04/23/22 18:14 Eosinophils % 0.7 % (0.0-10.0) 04/23/22 18:14 Basophils % 2.0 % (0.0-1.0) H 04/23/22 18:14 Neutrophils # 3.5 thou/uL (1.40-6.50) 04/23/22 1 8:14 Lymphocytes # 0.2 thou/uL (1.20-3.40) L 04/23/22 18:14 Monocytes # 0.4 thou/uL (0.11-0.59) 04/23/22 18: 14 Eosinophils # 0.0 thou/uL (0.0-0.7) 04/23/22 18: 14 Basophils # 0.1 thou/uL (0.0-0.2) 04/23/22 18:14 Sodium 138 mmol/L (136-145) 04/24/22 05:55 Potassium 3.3 mmol/L (3.5-5.1) L 04/24/22 05:55 Chloride 108 mmol/L (98-107) H 04/24/22 05:55 Carbon Dioxide 19 mmol/L (23-31) L 04/24/22 05:5 5 Anion Gap 14 mmol/L (10-20) 04/24/22 05:55 BUN 22 mg/dL (9.8-20.1) H 04/24/22 05:55 Creatinine 0.84 mg/dL (0.6-1.1) 04/24/22 05:55 Estimated GFR (MDRD) 66 04/24/22 05:55 Glucose 97 mg/dL (83-110) 04/24/22 05:55 Calcium 7.8 mg/dL (7.8-10.44) 04/24/22 05:55 Magnesium 1.6 mg/dL (1.6-2.6) 04/23/22 18:14 Total Bilirubin 0.5 mg/dL (0.2-1.2) 04/23/22 18: 14 AST 44 U/L (5-34) H 04/23/22 18:14 ALT 26 U/L (8-55) 04/23/22 18:14 Alkaline Phosphatase 84 U/L (40-110) 04/23/22 18 :14 Troponin I 0.020 ng/mL (< 0.028) 04/23/22 18:14 Serum Total Protein 6.5 g/dL (5.8-8.1) 04/23/22 18:14 Albumin 4.1 g/dL (3.4-4.8) 04/23/22 18:14 Globulin 2.4 g/dL (2.4-3.5) 04/23/22 18:14 Albumin/Globulin Ratio 1.7 g/dL (1.2-2.2) 18:14 Lipase 17 U/L (8-78) 04/23/22 18:14 Urine Color Yellow (Yellow) 04/23/22 19:16 Urine Clarity Clear (Clear) 04/23/22 19:16 Urine pH 5.5 (5.0-9.0) 04/23/22 19:16 Ur Specific Wickes 1.025 (1.005-1.030) 04/23/22 19:16 Urine Protein Negative mg/dL (Neg-Trace) 2 19:16 Urine Glucose (UA) Negative mg/dL (Negative) 19:16 Urine Ketones Negative mg/dL (Negative) 04/23/22 19:16 Urine Blood Trace (Negative) A 04/23/22 19:16 Urine Nitrite Positive (Negative) A 04/23/22 19: 16 Urine Bilirubin Negative (Negative) 04/23/22 19: 16 Urine Urobilinogen 0.2 mg/dL (Less than 2) 04/23 19:16 Ur Leukocyte Esterase Small (Negative) H 2 19:16 Urine RBC 0-3 HPF (0-3) 04/23/22 19:16 Urine WBC 11-20 HPF (0-3) A 04/23/22 19:16 Ur Squamous Epith Cells 0-3 HPF (0-3) 04/23/22 1 9:16 Urine Bacteria 3+ HPF (None Seen) A 04/23/22 19: 16 SARS-CoV-2 Rap RNA(RT-PCR) DETECTED (NotDetected ) A* 04/23/22 20:40 Laboratory Results - last 24 hr 04/24/22 09:30: PT 13.5, INR 1.0, APTT 33.5 04/24/22 05:55: Creatine Kinase 571 H, C-Reactiv e Protein 0.77 H 04/24/22 05:55: WBC 2.8 L, R BC 4.00 L, Hgb 12.2, Hct 38.6, MCV 96.5, MCH 30.4, MCHC 31.5 L, RDW 12.5, Plt Count 204, MPV 8.3 04/24/22 05:55: Sodium 138, Potassium 3.3 L, Chloride 108 H, Carbon Dioxide 19 L, Anion Gap 14, BUN 22 H, Creatinine 0.84, Estimated GFR (MDRD) 66, Glucose 97, Calcium 7.8 04/23/22 20:40: SARS-CoV-2 Rap RNA(RT-PCR) DETEC AMOR Ruano* 04/23/22 19:16: Urine Color Yellow, Urine Clarity Clear, Urine pH 5.5, Ur Specific Wickes 1.025, Urine Protein Negative, Urin e Glucose (UA) Negative, Urine Ketones Negative, Urine Blood Trace A, Urine Nitrite Positive A, Ur ine Bilirubin Negative, Urine Urobilinogen 0.2, Ur Leukocyte Esterase Small H, Urine RBC 0-3, Urin e WBC 11-20 A, Ur Squamous Epith Cells 0-3, Urine Bacteria 3+ A 04/23/22 18:14: Troponin I 0.020 04/23/22 18:14: WBC 4.3 L, R BC 4.46, Hgb 13.6, Hct 43.2, MCV 96.9, MCH 30.6, MCHC 31.6 L, RDW 12.4, Plt Count 243, MPV 8.3, Neut rophils % 82.1 H, Lymphocytes % 5.2 L, Monocytes % 9.9, Eosinophils % 0.7, Basophils % 2.0 H, Neut rophils # 3.5, Lymphocytes # 0.2 L, Monocytes # 0.4, Eosinophils # 0.0, Basophils # 0.1 04/23/22 18:14: Sodium 137, Potassium 3.3 L, Chloride 102, Carbon Dioxide 20 L, Anion Gap 18, BUN 31 H, Creatinine 1.01, Estimate d GFR (MDRD) 53, Glucose 106, Calcium 8.6, Magnesium 1.6, Total Bilirubin 0.5, AST 44 H, ALT 26, Alkaline Phosphatase 84, Serum Total Protein 6.5, Albumin 4.1, Globulin 2.4, Albumin/Globulin Ratio 1.7, Lipase 17 Hospitalist H P A/P (1) Sepsis Code(s): A41.9 - SEPSIS, UNSPECIFIED ORGANISM St atus: Acute Qualifiers: Sepsis type: sepsis due to unspecified organism Sepsis acute organ dysfunction status: without acute organ dysfunction Qual ified Code(s): A41.9 - Sepsis, unspecified organism (2) COVID-19 virus infection Code(s): U07.1 - COVID-19 Status: Acute (3) UTI (urinary tract infection) Status: Acute Qualifiers: Urinary tract infection typ e: acute cystitis Hematuria presence: without hematuria Qualified Code(s): N30.00 - Acute cystitis without hematur ia (4) Weakness Code(s): R53.1 - WEAKNESS Status: Acute (5) Hypertension Code(s): I10 - ESSENTIAL (PRIMARY) HYPERTENSION Status: Chronic Qualifiers: Hypertension type: primary hypertension Qualified Code(s): I10 - Essential (primary) hypertension (6) Hypokalemia Code(s): E87.6 - HYPOKALEMIA Status: Acute Plan: #Sepsis secondary to UTI and COVID #Leukopenia -Patient with positive COVID infection. Ordered PT/PTT/INR, CK, CRP to assess for inflammatory markers. -Patient is satting well on room air. -Initially febrile with tachycardia however this has resolved. -Continue cefepime IV. Transition to p.o. once c ultures return. -Monitor oxygenation -Continue vitals -Ordered Paxlovid for patient -Ordered routine prn's -Reviewed records from ED -DVT prophylaxis with Lovenox #Hypertension -Patient blood pressure is e levated. We will start patient on lisinopril 10 mg. -There is initially thought that LEIGH ANN inhibitors would perpetuate the COVID virus however more recent studies have shown that LEIGH ANN inhibitor's do not a ffect the course of COVID. #Hypokalemia -Magnesium 1.6 on 04/24/2022 -Ordered potassium replacement -Repeat potassium in a.m. #Weakness -Ordered PT/OT eval for lower extremity weakness . #Social concerns -Patient is now. She used to live with her in their home, however now she will be the at the house. Family had concerns about her living conditions. -APS report is pending on he r. We will work with case management and APS to find her placement. ## Discharge disposition: Patie nt will need care home placement following discharge <Electronically signed by Juan M Clark > [id number]
[2023-04-06] MEDS ORDERED: ONDANSETRON 4 MG/2 ML VIAL ONE (13:01)
[2023-04-06] MEDS ORDERED: MECLIZINE HCL 12.5 MG TAB ONE (13:01)
[2023-04-06] MEDS ORDERED: NA CHLORIDE 0.9% 500 ML ONE ×2 (13:02→15:15)
[2023-04-06 13:15] LABS: Absolute Lymphocytes (CBC) 1.4 K/uL (0.7-4.9); Hematocrit 42.7 % (36.0-45.0); Lymphocytes % 29.6 % (15.3-44.8); MCV 92.1 fL (80-100); MPV 8.1 fL (7.6-11.3); RBC Red Blood Cell Count 4.64 M/uL (3.86-4.86)
[2023-04-06 13:27] LABS: Protime INR 0.92
--- NOTE | 2023-04-06 13:37 | RAD REPORT ---
EXAM DESCRIPTION: RAD - Chest Single View - 04/06/2023 1:28 pm CLINICAL HISTORY: weakness, syncope COMPARISON: No comparisons FINDINGS: Lines: None. Lungs: No evidence of edema or pneumonia. Pleural: No significant pleural effusions or pneumothorax. Cardiac: The heart size is within normal limits. Mediastinum: Within normal limits. Bones: No acute fractures. Plate and screw hardware at the left humerus. Other: None IMPRESSION: No acute cardiopulmonary disease.
[2023-04-06 14:03] LABS: Potassium 3.9 mEq/L (3.5-5.1); Troponin High Sensitivity 49.6 pg/mL (<58.9)
--- NOTE | 2023-04-06 14:27 | RAD REPORT ---
EXAM DESCRIPTION: CT - Head Brain Wo Cont - 04/06/2023 2:22 pm CLINICAL HISTORY: DIZZINESS COMPARISON: <Comparisons> TECHNIQUE: All CT scans are performed using dose optimization technique as appropriate and may inclu de automated exposure control or mA/KV adjustment according to patient size. FINDINGS: No intracranial hemorrhage, hydrocephalus or extra-axial fluid collection.No areas of brai n edema or evidence of midline shift. Mild chronic small vessel ischemic changes. Cerebral atrophy. The paranasal sinuses and mastoids are clear. The calvarium is intact. IMPRESSION: No acute intracranial abnormality.
--- NOTE | 2023-04-06 14:33 | RAD REPORT ---
EXAM DESCRIPTION: CT - Neck Angio - 04/06/2023 2:23 pm CLINICAL HISTORY: dizziness COMPARISON: Head angio dated 04/06/2023No comparisons TECHNIQUE: CT angiography of the neck vessels was performed with maximum intensity reformatted image s. All CT scans are performed using dose optimization technique as appropriate and may include automated exposure control or mA/KV adjustment according to patient size. FINDINGS: A left aortic arch is identified with normal three vessel configuration of the great vesse ls. No significant flow abnormality is seen of the common carotid bilaterally. Calcified plaque at the ri ght distal common carotid artery but less than 50% stenosis. Calcified plaque is present at both proximal internal carotid arteries but no hemodynamically signifi cant stenosis. Normal flow is seen within both vertebral arteries. CAROTID STENOSIS REFERENCE USING NASCET CRITERIA: Mild - <50% stenosis. Moderate - 50-69% stenosis. Severe - 70-94% stenosis. Near occlusion - 95-99% stenosis. Occluded - 100% stenosis. IMPRESSION: No significant flow abnormality of the neck vessels is identified.
--- NOTE | 2023-04-06 14:38 | RAD REPORT ---
EXAM DESCRIPTION: CT - Head angio - 04/06/2023 2:23 pm CLINICAL HISTORY: DIZZINESS COMPARISON: Head Brain Wo Cont dated 04/06/2023; Neck Angio dated 04/06/2023 TECHNIQUE: CT angiography of the head was performed with maximum intensity reformatted images. All CT scans are performed using dose optimization technique as appropriate and may include automated exposure control or mA/KV adjustment according to patient size. FINDINGS: Anterior circulation: No aneurysm or large vessel occlusion. No hemodynamically significant stenosis. No arteriovenous malf ormation identified. Posterior circulation: No aneurysm or large vessel occlusion. Severe focal stenosis of the right P2 segment of the posterior cerebral artery. Mild to moderate focal stenosis of the left P2 segment of the INTERLOCKING MACHINE OPERATOR. No arteriovenous malformation identified. CAROTID STENOSIS REFERENCE USING NASCET CRITERIA: Mild - <50% stenosis. Moderate - 50-69% stenosis. Severe - 70-94% stenosis. Near occlusion - 95-99% stenosis. Occluded - 100% stenosis. IMPRESSION: 1. Severe focal stenosis of the right P2 segment of the INTERLOCKING MACHINE OPERATOR. Mild to moderate left P2 se gment INTERLOCKING MACHINE OPERATOR stenosis. 2. No stenosis or large vessel occlusion of the anterior circulation.
--- NOTE | 2023-04-06 15:07 | EDPHYS ---
Physician Documentation [facility] Name: Mitra Olivas Age: 77 yrs Sex: Female : 1945 Arrival Date: 04/06/2023 Time: 12:28 Bed 19 Private MD: ED Physician Carlos Ramsay HPI: 04/06 12:37 This 77 yrs old Female presents to ER via Ambulatory with complaints of Dizziness, jmm Nausea/Vomiting. 12:37 Onset: The symptoms/episode began/occurred acutely, just prior to arrival. This is a jmm 77-year-old female with history of hypertension the presents emerged department with complaints of dizziness, nausea and vomiting. Family friend stated she was shopping with her today. Patient told her that she was feeling dizzy, they began walking towards her truck. Once the patient was seated in the truck the patient stopped talking to her with a blank stare, states she was unresponsive for approximately 3 minutes. Patient then immediately vomited. Patient has no complaints of chest pain. Still feels weak and dizzy. Historical: - Allergies: 12:46 No Known Allergies; nj1 - PMHx: 12:46 Hypertensive disorder; Hx of breast cancer; nj1 - Immunization history:: Client reports receiving the 2nd dose of the Covid vaccine. - Social history:: Smoking status: Patient denies any tobacco usage or history of. ROS: 12:37 Constitutional: Negative for fever, chills, and weight loss, Cardiovascular: Negative jmm for chest pain, palpitations, and edema, Respiratory: Negative for shortness of breath, cough, wheezing, and pleuritic chest pain. 12:37 Abdomen/GI: Positive for nausea and vomiting. 12:37 Neuro: Positive for dizziness. 12:37 All other systems are negative. Exam: 12:37 Constitutional: This is a well developed, well nourished patient who is awake, alert, jmm and in no acute distress. Head/Face: atraumatic. Eyes: EOMI, no conjunctival erythema appreciated ENT: Moist Mucus Membranes Neck: Trachea midline, Supple Chest/axilla: Normal chest wall appearance and motion. Cardiovascular: Regular rate and rhythm. No edema appreciated Respiratory: Normal respirations, no respiratory distress appreciated Abdomen/GI: Non distended Back: Normal ROM Skin: General appearance color normal 12:37 Musculoskeletal/extremity: ROM: intact in all extremities. 12:37 Skin: Appearance: Color: normal in color. 12:37 Neuro: Orientation: is normal, Mentation: is normal, Memory: is normal, Cerebellar function: normal finger to nose testing, Motor: is normal. 12:37 Psych: Behavior/mood is pleasant, cooperative. Vital Signs: 12:34 BP 94 / 57; Pulse 81; Resp 16; Temp 98.4(O); Pulse Ox 99% on R/A; Weight 53.98 kg; nj1 Height 5 ft. 2 in. ; 13:50 BP 114 / 63; Pulse 74; Resp 16 S; Pulse Ox 97% on R/A; kc6 14:42 BP 105 / 73; Pulse 84; Resp 22 S; Pulse Ox 92% on R/A; kc6 16:16 BP 105 / 71; Pulse 80; Resp 13 S; Pulse Ox 98% on R/A; kc6 19:36 BP 109 / 76; Pulse 82; Resp 16 S; Pulse Ox 98% on R/A; lg3 12:34 Body Mass Index 21.77 (53.98 kg, 157.48 cm) nj1 MDM: 12:37 Patient medically screened. daniel 16:11 Differential diagnosis: CVA, near-syncope, sepsis, syncope, TIA, vertigo. Data [facility] reviewed: vital signs, nurses notes, lab test result(s), EKG, radiologic studies, CT scan. Consideration of Admission/Observation Escalation of care including admission/observation considered. I considered the following discharge prescriptions or medication management in the emergency department Medications were administered in the Emergency Department. See MAR. Counseling: I had a detailed discussion with the patient and/or guardian regarding: the historical points, exam findings, and any diagnostic results supporting the discharge/admit diagnosis, lab results, radiology results, the need for further work-up and treatment in the hospital. ED course: I discussed the patient with Dr. Chaidez along with the CT angio findings. Did recommend observation with IV fluids for blood pressure management. I discussed the patient with Dr. Swan after the patient to observe.. 04/06 12:50 Order name: Basic Metabolic Panel; Complete Time: 14:05 [facility] 04/06 12:50 Order name: CBC with Diff; Complete Time: 13:27 [facility] 04/06 12:50 Order name: NT PRO-BNP; Complete Time: 14:05 [facility] 04/06 12:50 Order name: PT-INR; Complete Time: 13:28 [facility] 04/06 12:50 Order name: Troponin HS; Complete Time: 14:05 [facility] 04/06 16:56 Order name: Basic Metabolic Panel [facility] 04/06 16:56 Order name: Basic Metabolic Panel [facility] 04/06 16:56 Order name: CBC with Automated Diff [facility] 04/06 16:56 Order name: CBC with Automated Diff [facility] 04/06 16:56 Order name: Magnesium [facility] 04/06 16:56 Order name: Magnesium [facility] 04/06 12:50 Order name: XRAY Chest (1 view); Complete Time: 13:39 [facility] 04/06 12:51 Order name: CT Head Brain wo Cont; Complete Time: 14:33 [facility] 04/06 12:51 Order name: CT Head Angio; Complete Time: 14:40 [facility] 04/06 12:51 Order name: CT Neck Angio; Complete Time: 14:35 [facility] 04/06 12:50 Order name: EKG; Complete Time: 12:51 [facility] 04/06 15:24 Order name: Diet Soft; Complete Time: 15:24 [facility] 04/06 16:54 Order name: Pureed-4 (Pureed) [facility] 04/06 12:50 Order name: Cardiac monitoring; Complete Time: 13:16 [facility] 04/06 12:50 Order name: EKG - Nurse/Tech; Complete Time: 13:16 [facility] 04/06 12:50 Order name: IV Saline Lock; Complete Time: 13:16 [facility] 04/06 12:50 Order name: Labs collected and sent; Complete Time: 13:08 [facility] 04/06 12:50 Order name: O2 Per Protocol; Complete Time: 13:08 [facility] 04/06 12:50 Order name: O2 Sat Monitoring; Complete Time: 13:08 [facility] 04/06 12:55 Order name: Misc. Order: gown patient; Complete Time: 13:08 [facility] 04/06 13:26 Order name: Labs - recollect needed: GREEN TOP ONLY; Complete Time: 13:41 hb Administered Medications: 13:08 Drug: Meclizine PO 25 mg Route: PO; kc6 13:52 Follow up: Response: No adverse reaction kc6 13:16 Drug: NS 0.9% IV 500 ml Route: IV; Rate: bolus; Site: left antecubital; kc6 13:52 Follow up: Response: No adverse reaction; IV Status: Completed infusion; IV Intake: kc6 500ml 13:16 Drug: Ondansetron IVP 4 mg Route: IVP; Site: left antecubital; kc6 13:52 Follow up: Response: No adverse reaction kc6 15:15 Drug: NS 0.9% IV 500 ml Route: IV; Rate: bolus; Site: left antecubital; kc6 16:17 Follow up: Response: No adverse reaction; IV Status: Completed infusion; IV Intake: kc6 500ml 15:16 Drug: foLIC Acid IVPB 1 mg Route: IVPB; Site: left antecubital; kc6 16:16 Follow up: Response: No adverse reaction; IV Status: Completed infusion kc6 15:16 Drug: Aspirin PO Chewable Tablet 324 mg Route: PO; kc6 16:17 Follow up: Response: No adverse reaction kc6 Disposition Summary: 04/06/23 15:06 Hospitalization Ordered Hospitalization Status: Observation [facility] Provider: Anthony Chaidez Location: Telemetry/MedSurg (observation) jmm Condition: Stable jmm Problem: new jmm Symptoms: have improved jmm Bed/Room Type: Standard [facility] Room Assignment: 221(04/06/23 18:31) Diagnosis - Syncope jmm - Vertigo jmm Forms: - Medication Reconciliation Form jmm - SBAR form jmm Signatures: Dispatcher [employer] Brandi Powell RN Carlos Dickerson MD MD cha Mickail, Joel, PA PA m June Reyna RN RN hb Campbell, Kaitlyn, RN RN kc6 Chasidy Kelley RN RN nj1 Corrections: (The following items were deleted from the chart) 12:46 12:46 PMHx: None; nj1 nj1 18:31 15:06 jmm dw
--- NOTE | 2023-04-06 15:07 | ER ---
Nurse's Notes [facility] Name: Mitra Olivas Age: 77 yrs Sex: Female : 1945 Arrival Date: 04/06/2023 Time: 12:28 Bed 19 Private MD: Diagnosis: Syncope;Vertigo Presentation: 04/06 12:22 Method Of Arrival: Ambulatory nj1 12:34 Chief complaint: Friend and/or Co-Worker states: they were shopping, patient complained nj1 of feeling dizzy, went sat in the truck, patient pass out, wasn't responsive for about 3 minutes and when she came back she vomited. 12:34 Coronavirus screen: Vaccine status: Patient reports receiving the 2nd dose of the covid nj1 vaccine. Ebola Screen: Patient denies travel to an Ebola-affected area in the 21 days before illness onset. 12:34 Initial Sepsis Screen: Does the patient meet any 2 criteria? No. Patient's initial nj1 sepsis screen is negative. Does the patient have a suspected source of infection? No. Patient's initial sepsis screen is negative. Risk Assessment: Do you want to hurt yourself or someone else? Patient reports no desire to harm self or others. Onset of symptoms was April 06, 2023. 12:34 Acuity: GIOVANNI 3 nj1 Historical: - Allergies: 12:46 No Known Allergies; nj1 - PMHx: 12:46 Hypertensive disorder; Hx of breast cancer; nj1 - Immunization history:: Client reports receiving the 2nd dose of the Covid vaccine. - Social history:: Smoking status: Patient denies any tobacco usage or history of. Screenin:38 [facility] ED Fall Risk Assessment (Adult) History of falling in the last 3 months, kc6 including since admission No falls in past 3 months (0 pts) Confusion or Disorientation No (0 pts) Intoxicated or Sedated No (0 pts) Impaired Gait No (0 pts) Mobility Assist Device Used No (0 pt) Altered Elimination No (0 pt) Score/Fall Risk Level 0 - 2 = Low Risk Oriented to surroundings, Maintained a safe environment, Educated pt \T\ family on fall prevention, incl call for assistance when getting out of bed, Assessed \T\ reinforced patient's understanding of fall precautions, Hourly rounding (assess needs \T\ fall precautionary measures) done. Abuse screen: Denies threats or abuse. Denies injuries from another. Nutritional screening: No deficits noted. Tuberculosis screening: No symptoms or risk factors identified. Assessment: 12:42 General: Appears in no apparent distress. comfortable, Behavior is calm, cooperative, kc6 appropriate for age. Pain: Denies pain. Neuro: Galvan Agitation-Sedation Scale (RASS): 0 - Alert and Calm Level of Consciousness is awake, alert, obeys commands, Oriented to person, place, situation, Appropriate for age Reports dizziness. Cardiovascular: Capillary refill < 3 seconds. Respiratory: Airway is patent Trachea midline Respiratory effort is even, unlabored, Respiratory pattern is regular, symmetrical. GI: Abdomen is flat, non-distended, Reports nausea, vomiting. : No signs and/or symptoms were reported regarding the genitourinary system. EENT: No signs and/or symptoms were reported regarding the EENT system. Derm: No signs and/or symptoms reported regarding the dermatologic system. Skin is intact, Skin is pink, warm \T\ dry. Musculoskeletal: No signs and/or symptoms reported regarding the musculoskeletal system. Circulation, motion, and sensation intact. Capillary refill < 3 seconds, Range of motion: intact in all extremities. 13:42 Reassessment: Patient appears in no apparent distress at this time. No changes from kc6 previously documented assessment. Patient and/or family updated on plan of care and expected duration. Pain level reassessed. Patient is alert, oriented x 3, equal unlabored respirations, skin warm/dry/pink. 14:42 Reassessment: Patient appears in no apparent distress at this time. No changes from kc6 previously documented assessment. Patient and/or family updated on plan of care and expected duration. Pain level reassessed. Patient is alert, oriented x 3, equal unlabored respirations, skin warm/dry/pink. 15:42 Reassessment: Patient appears in no apparent distress at this time. No changes from kc6 previously documented assessment. Patient and/or family updated on plan of care and expected duration. Pain level reassessed. Patient is alert, oriented x 3, equal unlabored respirations, skin warm/dry/pink. 16:42 Reassessment: Patient appears in no apparent distress at this time. No changes from kc6 previously documented assessment. Patient and/or family updated on plan of care and expected duration. Pain level reassessed. Patient is alert, oriented x 3, equal unlabored respirations, skin warm/dry/pink. 16:42 Reassessment: please see [facility] for further charting. kc6 Vital Signs: 12:34 BP 94 / 57; Pulse 81; Resp 16; Temp 98.4(O); Pulse Ox 99% on R/A; Weight 53.98 kg; nj1 Height 5 ft. 2 in. ; 13:50 BP 114 / 63; Pulse 74; Resp 16 S; Pulse Ox 97% on R/A; kc6 14:42 BP 105 / 73; Pulse 84; Resp 22 S; Pulse Ox 92% on R/A; kc6 16:16 BP 105 / 71; Pulse 80; Resp 13 S; Pulse Ox 98% on R/A; kc6 19:36 BP 109 / 76; Pulse 82; Resp 16 S; Pulse Ox 98% on R/A; lg3 12:34 Body Mass Index 21.77 (53.98 kg, 157.48 cm) nj1 ED Course: 12:32 Patient arrived in ED. ts1 12:34 Arm band placed on. nj1 12:35 Cinthia Maciel, GEO is Primary Nurse. kc6 12:36 Chidi Gonzalez PA is PHCP. jmm 12:36 Carlos Ramsay MD is Attending Physician. jmm 12:38 Patient has correct armband on for positive identification. Bed in low position. Call kc light in reach. Side rails up X2. Adult w/ patient. 12:46 Triage completed. nj1 13:16 Inserted saline lock: 20 gauge in left antecubital area, using aseptic technique. kc6 13:29 XRAY Chest (1 view) In Process Unspecified. EDMS 14:23 CT Head Brain wo Cont In Process Unspecified. EDMS 14:24 CT Head Angio In Process Unspecified. EDMS 14:24 CT Neck Angio In Process Unspecified. EDMS 15:05 Anthony Chaidez MD is Hospitalizing Provider. jmm 19:48 No provider procedures requiring assistance completed. Patient admitted, IV remains in lg3 place. intact, No redness/swelling at site. Administered Medications: 13:08 Drug: Meclizine PO 25 mg Route: PO; kc6 13:52 Follow up: Response: No adverse reaction kc6 13:16 Drug: NS 0.9% IV 500 ml Route: IV; Rate: bolus; Site: left antecubital; kc6 13:52 Follow up: Response: No adverse reaction; IV Status: Completed infusion; IV Intake: kc6 500ml 13:16 Drug: Ondansetron IVP 4 mg Route: IVP; Site: left antecubital; kc6 13:52 Follow up: Response: No adverse reaction kc6 15:15 Drug: NS 0.9% IV 500 ml Route: IV; Rate: bolus; Site: left antecubital; kc6 16:17 Follow up: Response: No adverse reaction; IV Status: Completed infusion; IV Intake: kc6 500ml 15:16 Drug: foLIC Acid IVPB 1 mg Route: IVPB; Site: left antecubital; kc6 16:16 Follow up: Response: No adverse reaction; IV Status: Completed infusion kc6 15:16 Drug: Aspirin PO Chewable Tablet 324 mg Route: PO; kc6 16:17 Follow up: Response: No adverse reaction 6 Medication: 19:48 VIS not applicable for this client. 3 Intake: 13:52 IV: 500ml; Total: 500ml. kc6 16:17 IV: 500ml; Total: 1000ml. kc6 Outcome: 15:06 Decision to Hospitalize by Provider. m 19:48 Admitted to Med/surg accompanied by tech, via wheelchair, room 221, Report called to lg3 Neha 19:48 Condition: stable 19:48 Instructed on the need for admit, Demonstrated understanding of instructions. 20:09 Patient left the ED. pf1 Signatures: Dispatcher [employer] EDMS Chidi Gonzalez PA PA jmm Gibson, Lacie RN RN lg3 Cinthia Maciel RN RN kc6 Shalini Rodas RN RN pf1 Chasidy Kelley RN RN lalita1 Myrna Louise PAS PAS ts1 Corrections: (The following items were deleted from the chart) 12:46 12:46 PMHx: None; nj1 nj1
[2023-04-06] MEDS ORDERED: ASPIRIN 81 MG CHEWABLE TABLET ONE (15:15)
[2023-04-06] MEDS ORDERED: FOLIC ACID 5 MG/ML VIAL ONE (15:16)
[2023-04-06] MEDS ORDERED: ONDANSETRON 4 MG/2 ML VIAL IV PRN (16:52)
[2023-04-06] MEDS: NA CHLORIDE 0.9% 1,000 ML IV SCH (17:00)
--- NOTE | 2023-04-06 17:05 | P.HP ---
Certification for Inpatient Patient admitted to: Observation With expected LOS: <2 Midnights Patient will require the following post-hospital care: None Practitioner: I am a practitioner with admitting privileges, knowledge of patient current condition, hospital course, and medical plan of care. Services: Services provided to patient in accordance with Admission requirements found in Title 42 Section 412.3 of the Code of Federal Regulations Patient History Date of Service: 04/06/23 Reason for admission: Syncope History of Present Illness: 77yo F, PMH: HTN, Breast CA (s/p chemo and mastectomy 2001) Presents to ED after syncopal episode. Patient was with family member shopping, on her feet for a while this morning. Patient began to feel dizzy/lightheaded when walking back to their vehicle. Family assisted the patient back to the vehicle, reported as they got closer patient was leaning progressively more on them. Once at the vehicle, patient was trying to reach for the door but her arm was too weak to lift. She then was talking very slowly and somewhat mumbled. She was able to get into the truck with assistance. As they were starting to pull out of a parking spot, patient was noted to slump over, cut by seatbelt, and was unresponsive with her eyes open. Unknown amount of time, family state probably 30 seconds to a minute but felt like several minutes. Patient then seemingly woke up, was mumbling, and threw up over herself. A few minutes later they arrived in the ER parking lot, once family returned with a wheelchair, the patient was more alert, did not recall the events, was able to get herself into the wheelchair. In the ED, she was noted to be hypotensive in the 90s/50s. She was given IV fluids with improvement of her blood pressure and symptoms. Family report patient had a "vasovagal" episode few months ago. Family have noted that the patient has been very sleepy over the last 1-2 months after taking her lisin opril in the morning so they switched her lisinopril to the evening dose approximately 2 weeks ago. She denies any fever, no recent illness, no dysuria, no diarrhea, no recent change in prescription medications. Patient has been taking cetirizine over the last 4 days for allergies/runny nose. Labs were otherwise unremarkable. CT had, CTA neck were negative for any acute process. 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 Dr. Chaidez was consulted by the ED staff. He recommended medical management, optimizing blood pressure with hydration, discontinuation of the blood pressure medication, baby aspirin, and observing the patient overnight. He stated that given the location of this focal stenosis, unlikely that neurosurgery would pursue intervention. - Past Medical/Surgical History Diabetic: No -: Hypertension -: Breast cancer -: Mastectomy -: Shoulder surgery - Family History Family History: Reviewed- Non-Contributory - Social History Smoking Status: Never smoker Alcohol use: No Place of Residence: Home Review of Systems 10-point ROS is otherwise unremarkable Physical Examination - Physical Exam General: Alert, In no apparent distress, Oriented x3 HEENT: EOMI, Sclerae nonicteric Neck: Supple, No LAD Respiratory: Clear to auscultation bilaterally, Normal air movement Cardiovascular: No edema, Regular rate/rhythm, No murmurs Gastrointestinal: Soft and benign, Non-distended, No tenderness Musculoskeletal: No contractures, No tenderness Integumentary: No rashes, No significant lesion Neurological: Normal strength at 5/5 x4 extr, Cranial nerves 3-12 intact, Normal affect - Studies Laboratory Data (last 24 hrs) 04/06/23 13:39: Sodium 132 L, Potassium 3.9, BUN 16, Creatinine 0.97, Glucose 135 H 04/06/23 13:06: PT 10.1, INR 0.92 04/06/23 13:06: WBC 4.60, Hgb 14.5, Hct 42.7, Plt Count 291 Assessment and Plan - Advance Directives Does patient have a Living Will: No Does patient have a Durable POA for Healthcare: No Physician Review Additional Text: Problem list Syncope Hypertension History of breast cancer, s/p mastectomy/chemo (2001) Syncope Suspect some degree of orthostasis in combination with this focal stenosis seen on CTA leading to a VBI phenomenon Neuro consulted in the ED, reviewed over the phone, in agreement Aspirin 81 mg, check lipid panel, folic acid Discontinue lisinopril Received 500 mL bolus in the ED, recommended additional 1 L bolus Start NS@100 after bolus complete Blood pressure seems to be improving Discussed with the patient and family given the holiday weekend, and due to staffing issues, cannot obtain MRI, no EEG for the next 2+ days HTN hypotensive, dc lisinopril h/o breast cancer, s/p mastectomy/chemo (2001) - stable Time Spent Managing Pts Care (In Minutes): 70
[2023-04-06 21:39] VITALS: O2SAT 95
[2023-04-06 21:58] VITALS: BMI 22.1
[2023-04-07] MEDS: NA CHLORIDE 0.9% 1,000 ML IV SCH (03:13)
[2023-04-07 06:11] LABS: Absolute Lymphocytes (CBC) 1.2 K/uL (0.7-4.9); Hematocrit 42.9 % (36.0-45.0); Lymphocytes % 29.3 % (15.3-44.8); MCV 92.7 fL (80-100); MPV 8.4 fL (7.6-11.3); RBC Red Blood Cell Count 4.62 M/uL (3.86-4.86)
--- NOTE | 2023-04-07 07:18 | P.DS ---
Admission Date: 04/06/23 Discharge Date: 04/07/23 Reason for Admission: Syncope Consultations: Neurology - Dr. Chaidez Brief History of Present Illness: 77yo F, PMH: HTN, Breast CA (s/p chemo and mastectomy 2001) Presents to ED after syncopal episode. Patient was with family member shopping, on her feet for a while this morning. Patient began to feel dizzy/lightheaded when walking back to their vehicle. Family assisted the patient back to the vehicle, reported as they got closer patient was leaning progressively more on them. Once at the vehicle, patient was trying to reach for the door but her arm was too weak to lift. She then was talking very slowly and somewhat mumbled. She was able to get into the truck with assistance. As they were starting to pull out of a parking spot, patient was noted to slump over, cut by seatbelt, and was unresponsive with her eyes open. Unknown amount of time, family state probably 30 seconds to a minute but felt like several minutes. Patient then seemingly woke up, was mumbling, and threw up over herself. A few minutes later they arrived in the ER parking lot, once family returned with a wheelchair, the patient was more alert, did not recall the events, was able to get herself into the wheelchair. In the ED, she was noted to be hypotensive in the 90s/50s. She was given IV fluids with improvement of her blood pressure and symptoms. Family report patient had a "vasovagal" episode few months ago. Family have noted that the patient has been very sleepy over the last 1-2 months after taking her lisinopril in the morning so they switched her lisinopril to the evening dose approximately 2 weeks ago. She denies any fever, no recent illness, no dysuria, no diarrhea, no recent change in prescription medications. Patient has been taking cetirizine over the last 4 days for allergies/runny nose. Labs were otherwise unremarkable. CT had, CTA neck were negative for any acute process. 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 Dr. Chaidez was consulted by the ED staff. He recommended medical management, optimizing blood pressure with hydration, discontinuation of the blood pressure medication, baby aspirin, and observing the patient overnight. He stated that given the location of this focal stenosis, unlikely that neurosurgery would pursue intervention. Hospital Course: Problem List: Syncope Hypertension History of breast cancer, s/p mastectomy/chemo (2001) Presented after syncopal event and found to be hypotensive. 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 Mild to moderate left P2 segment ANALYSIS ANALYST stenosis. Dr. Chaidez, neurology, was consulted and recommended IV hydration and low dose aspirin (81mg daily). Dr. Chaidez noted these arteries are typically not amenable to surgery/procedure, and no indication for urgent neurosurgery / neuro-IR evaluation. Patient's symptoms resolved prior to admission. Blood pressure improved with dis continuation of her lisinopril and after IV hydration. Counselled on adequate hydration and CT findings. Follow up with Neurology. May need further testing / follow up testing to re-evaluate areas of stenosis. Follow up: Neurology in ~3-4 weeks New Medications: aspirin 81mg daily Stop: lisinopril Physical Exam: GEN: Alert, oriented, NAD HEENT: Normal conjunctiva, sclera anicteric CV: Regular rate and rhythm, no edema Pulm: Nonlabored respirations on room air ABD: Soft, nontender, nondistended MSK: No joint tenderness Integumentary: No rashes Neuro: Normal speech, normal affect Vital Signs/Physical Exam: Temp Pulse Resp BP Pulse Ox 97.3 F 72 14 136/70 96 04/07/23 04:00 04/07/23 04:00 04/07/23 04:00 04/07/23 04:00 04/07/23 04:00 Laboratory Data at Discharge: WBC 4.30 thou/uL (4.3-10.9) 04/07/23 05:48 Hgb 14.6 g/dL (12.0-15.0) 04/07/23 05:48 Hct 42.9 % (36.0-45.0) 04/07/23 05:48 Plt Count 252 thou/uL (152-406) 04/07/23 05:48 PT 10.1 SECONDS (9.5-12.5) 04/06/23 13:06 INR 0.92 04/06/23 13:06 Sodium 135 mEq/L (136-145) L 04/07/23 05:30 Potassium 4.0 mEq/L (3.5-5.1) 04/07/23 05:30 BUN 12 mg/dL (7-18) 04/07/23 05:30 Creatinine 0.82 mg/dL (0.55-1.02) 04/07/23 05:30 Glucose 84 mg/dL (74-106) 04/07/23 05:30 Magnesium 2.0 mg/dL (1.6-2.4) 04/07/23 05:30 Home Medications: Aspirin Chewable [Aspirin Chewable*] 81 mg PO DAILY #0 tab.chew 04/07/23 New Medications: Aspirin Chewable [Aspirin Chewable*] 81 mg PO DAILY #0 tab.chew Physician Discharge Instructions: Presented after syncopal event and found to be hypotensive. 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 Mild to moderate left P2 segment ANALYSIS ANALYST stenosis. Dr. Chaidez, neurology, was consulted and recommended IV hydration and low dose aspirin (81mg daily). Dr. Chaidez noted these arteries are typically not amenable to surgery/procedure, and no indication for urgent neurosurgery / neuro-IR evaluation. Patient's symptoms resolved prior to admission. Blood pressure improved with discontinuation of her lisinopril and after IV hydration. Counselled on adequate hydration and CT findings. Follow up with Neurology. May need further testing / follow up testing to re-evaluate areas of stenosis. Follow up: Neurology in ~3-4 weeks New Medications: aspirin 81mg daily Stop: lisinopril Diet: Regular Followup: NONE,NONE [Primary Care Provider] -
[2023-04-07 09:37] VITALS: BP 120/67; TEMP 98.1
--- NOTE | 2023-04-09 07:15 | EKG ---
Test Date: 2023-04-06 Test Time: 13:22:15 Patient Manager: THALIA MEASUREMENT RESULTS: Intervals: Rate: 72 NE: 146 QRSD: 78 QT: 390 QTc: 427 [place]: P: 70 NE: 146 QRS: 67 T: 65 INTERPRETIVE STATEMENTS: Normal sinus rhythm Normal ECG No previous ECG available for comparison Electronically Signed On 04-09-23 07:07:[address] Jorge
== END 2023-04-07 10:01 | disposition home or self-care (01) ==
LOC: ER 12:28 → ERHOLD 16:52 → 2ND 19:37
PROVIDERS: ADMIT Hospitalist; ATTEND Hospitalist
DX: R55 Syncope and collapse (principal); I95.9 Hypotension, unspecified; I66.23 Occlusion and stenosis of bilateral posterior cerebral arteries; I10 Essential (primary) hypertension; Z85.3 Personal history of malignant neoplasm of breast
CPT/HCPCS: 96365; 96361; 93005; 85025 ×2; 80048 ×2; 36415; 83735; 85610; 84484; 83880; 70450; 70496; 70498; 71045; 94760 ×3; 96375; 99285; Q9967; J8597; J2405; J7040 ×2; J7030 ×2; G0378 ×4